=== PATIENT | male | born 1950 | race Caucasian/White ===

== ENCOUNTER 2022-09-02 18:27 | Outpatient (RCR) | payer MEDICARE, OTHER, SELFPAY | END 2022-09-26 23:59 | disposition home or self-care (01) | LOC: MM 18:27 | PROVIDERS: PCP Internal Medicine; Visit Provider Internal Medicine | DX: Z51.81 Encounter for therapeutic drug level monitoring (principal); Z79.01 Long term (current) use of anticoagulants | CPT/HCPCS: 85610; G0463 ==

== ENCOUNTER 2022-10-02 10:00 | Outpatient (RCR) | payer MEDICARE, OTHER, SELFPAY | END 2022-10-27 17:08 | disposition home or self-care (01) | LOC: MM 10:00 | PROVIDERS: PCP Internal Medicine; Visit Provider Internal Medicine | DX: Z51.81 Encounter for therapeutic drug level monitoring (principal); Z79.01 Long term (current) use of anticoagulants; I25.2 Old myocardial infarction | CPT/HCPCS: 85610; G0463 ==

== ENCOUNTER 2022-10-28 09:37 | Outpatient (RCR) | payer MEDICARE, OTHER, SELFPAY | END 2022-11-27 17:42 | disposition home or self-care (01) | LOC: MM 09:37 | PROVIDERS: PCP Internal Medicine; Visit Provider Internal Medicine | DX: Z51.81 Encounter for therapeutic drug level monitoring (principal); Z79.01 Long term (current) use of anticoagulants; I25.2 Old myocardial infarction | CPT/HCPCS: 85610; G0463 ==

== ENCOUNTER 2022-10-28 10:07 | Outpatient (OUT) | payer MEDICARE, OTHER, SELFPAY ==
[2022-10-28 11:08] LABS: Hematocrit 41.3 % (42.0-54.0); Hemoglobin 13.9 g/dL (14.0-18.0)
[2022-10-28 11:59] LABS: Alanine Aminotransferase 27 U/L (16-63); Albumin Globulin Ratio 0.9; Albumin Level 3.8 g/dL (3.4-5.0); Alkaline Phosphatase 88 U/L (46-116); Anion Gap 13.8; Aspartate Amino Transferase 14 U/L (15-37); BUN Creatinine Ratio 6.7; Bilirubin Total 0.4 mg/dL (0.2-1.0); Calcium 8.9 mg/dL (8.5-10.1); Carbon Dioxide 26.1 mmol/L (21.0-32.0); Chloride 100 mmol/L (98-107); Estimated GFR (African America 35 (>=60); Estimated GFR (Non-African Ame 29 (>=60); Globulin 4.1 g/dL; Glucose 111 mg/dL (74-106); Magnesium 2.1 mg/dL (1.8-2.4); Phosphorus 3.5 mg/dL (2.6-4.7); Potassium 3.9 mmol/L (3.5-5.1); Sodium 136 mmol/L (136-145); Total Protein 7.9 g/dL (6.4-8.2); Uric Acid 4.8 mg/dL (3.5-7.2)
[2022-10-28 12:16] LABS: Percent Iron Saturation 39.9 %
[2022-10-28 14:49] LABS: Bilirubin Urine NEGATIVE (NEGATIVE); Blood Urine SMALL (NEGATIVE); Clarity Urine CLEAR (CLEAR); Color Urine LT. YELLOW (YELLOW); Glucose Urine UA NEGATIVE (NEGATIVE); Ketones Urine NEGATIVE (NEGATIVE); Leukocyte Esterase Urine NEGATIVE (NEGATIVE); Nitrite Urine NEGATIVE (NEGATIVE); Protein Urine TRACE mg/dL (NEG/TRACE); Urobilinogen Urine 0.2 EU/dL (0.2-1.0); pH Urine 5.5 (5.0-9.0)
[2022-10-28 15:18] LABS: Creatinine Urine Random 97.32 mg/dL (20.00-300.00); Protein Creatinine Ratio Urine 0.51; Total Protein Urine Random 49.6 mg/dL (<=11.9)
[2022-10-29 11:10] LABS: PTH, Intact 77 pg/mL (15-65)
== END 2022-10-28 10:08 | disposition home or self-care (01) ==
LOC: LAB 10:10
PROVIDERS: PCP Family Medicine; Visit Provider Internal Medicine Nephrology
DX: E55.9 Vitamin D deficiency, unspecified (principal); N18.32 Chronic kidney disease, stage 3b; I10 Essential (primary) hypertension; E53.8 Deficiency of other specified B group vitamins; I27.82 Chronic pulmonary embolism
CPT/HCPCS: 36415; 80053; 81003; 82306; 82570; 82607; 82728; 82746; 83540; 83550; 83735; 83970; 84100; 84156; 84550; 85014; 85018

== ENCOUNTER 2022-11-28 09:04 | Outpatient (RCR) | payer MEDICARE, OTHER, SELFPAY | END 2022-12-26 17:01 | disposition home or self-care (01) | LOC: MM 09:04 | PROVIDERS: PCP Family Medicine; Visit Provider Internal Medicine | DX: Z51.81 Encounter for therapeutic drug level monitoring (principal); Z79.01 Long term (current) use of anticoagulants | CPT/HCPCS: 85610; G0463 ==

== ENCOUNTER 2022-12-29 02:06 | Outpatient (RCR) | payer MEDICARE, OTHER, SELFPAY | END 2023-01-27 17:29 | disposition home or self-care (01) | LOC: MM 02:06 | PROVIDERS: PCP Family Medicine; Visit Provider Internal Medicine | DX: Z51.81 Encounter for therapeutic drug level monitoring (principal); Z79.01 Long term (current) use of anticoagulants; I25.2 Old myocardial infarction | CPT/HCPCS: 85610; G0463 ==

== ENCOUNTER 2023-01-01 06:40 | Observation (INO) | payer MEDICARE, OTHER, SELFPAY ==
[2023-01-01] VITALS (36 sets, daily range): BP systolic 172–190; BP diastolic 85–117; PULSE 68–125; RESP 8–28; TEMP 36–36.7; O2SAT 93–97; BMI 34.5; BMI 31.7
--- NOTE | 2023-01-01 06:51 | ECG_ITS ---
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
--- NOTE | 2023-01-01 06:51 | ED_ITS ---
HPI - Altered Mental Status General Chief Complaint: Altered Mental Status Stated Complaint: altered mental status Time Seen by Provider: 01/01/23 06:47 Source: family () Mode of arrival: ambulance Limitations: altered mental status History of Present Illness HPI narrative: This 72-year-old male with a history of frontal lobe dementia was found wandering by the [place] [employer] this morning. His arrives shortly after he was brought to the emergency department by EMS. She states that when she woke up around 5 AM the apartment door was open and he was gone. She states she does get up at night and tends to wander around the apartment but he does not typically leave. She does not know what time he left the apartment. He does not appear to be injured. He is alert and oriented at his baseline according to her. She states that she feels unable to care for him safely at home at this time. Related Data Allergies Allergy/AdvReac Type Severity Reaction Status Date / Time Unable to Assess Allergy Verified 01/01/23 06:44 Review of Systems ROS Status of ROS 10 or more systems reviewed and unremarkable except as noted in history and below [facility] Social History Smoking status: Unknown if ever smoked Exam Narrative Exam Narrative: Nurses note and vital signs reviewed and patient is not hypoxic. Pressure is notably elevated at 174/111 General: The patient appears well and in no apparent distress. Patient is re sting comfortably on cart. He is awake, alert, pleasantly confused, mumbling, Able to answer brief questions, new his name was Al Skin: Warm, dry, no pallor noted. There is no rash noted. Head: Normocephalic, atraumatic Eye: Normal conjunctiva, no drainage, EOMI. PERRL Ears, Nose, Mouth, and Throat: oral mucosa is moist. Cardiovascular: Regular Rate and Rhythm S1S2 Respiratory: Patient is in no distress, no accessory muscle use, lungs are clear to auscultation, no wheezing, rales or rhonchi Back: non-tender, no CVA tenderness bilaterally to percussion. GI: Normal bowel sounds, no tenderness to palpation, no masses appreciated. No rebound, guarding, or rigidity noted. Musculoskeletal: The patient has no evidence of injury. Neurological: Patient knows his name and appears to recognize his . 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6 F 01/01/23 06:41 Pulse Rate 87 01/01/23 06:41 Respiratory Rate 18 01/01/23 06:41 Blood Pressure 174/111 H 01/01/23 06:41 Pulse Oximetry 97 01/01/23 06:41 Oxygen Delivery Method Room Air 01/01/23 06:41 MDM - Altered Mental Status MDM Narrative Medical decision making narrative: Patient with a history of frontal lobe dementia was brought to the emergency department by EMS after he was found walking around outside this morning. The patient's states that she woke up around 5 AM and the apartment door was open. She does not know what time he left the apartment. Does not feel that she can safely care for him at home anymore. I ordered labs including urinalysis, CBC with differential, comprehensive metabolic profile and a urinalysis. He will likely require admission for social work evaluation and possible placement area patient's is in agreement with this plan. He is signed out to the incoming physician at 7am Discharge Plan Discharge Chief Complaint: Altered Mental Status Clinical Impression: Dementia Patient Disposition: Still a Patient Referrals: Jose Bermudez MD [Primary Care Provider] - 1 week
[2023-01-01 07:18] LABS: Basophils Absolute Auto 0.1 10^3/uL (0.0-0.1); Basophils Percent Auto 0.6 % (0.2-2.0); Eosinophils Percent Auto 0.2 % (0.9-7.0); Hematocrit 37.5 % (42.0-54.0); Hemoglobin 12.1 g/dL (14.0-18.0); Immature Granulocytes Abs Auto 0.05 10^3/uL (0.00-0.03); Immature Granulocytes Pct Auto 0.4 % (0.0-0.5); Lymphocytes Absolute Auto 0.9 10^3/uL (1.2-3.8); Lymphocytes Percent Auto 6.5 % (20.5-60.0); Mean Corpuscular HGB Conc 32.3 g/dL (29.9-35.2); Mean Corpuscular Hemoglobin 31.4 pg (25.9-34.0); Mean Corpuscular Volume 97.4 fL (80.0-94.0); Mean Platelet Volume 9.5 fL (9.5-13.5); Monocytes Absolute Auto 0.8 10^3/uL (0.3-0.8); Neutrophils Percent Auto 86.3 % (43.0-75.0); Platelet Count 327 10^3/uL (150-450); Red Blood Count 3.85 10^6/uL (4.70-6.10); White Blood Count 13.9 10^3/uL (4.0-11.0)
--- NOTE | 2023-01-01 07:40 | XR_ITS ---
The [address] [address] Patient Name: OSVALDO RO MRN: [id number] date: 1950 Sex: M Assigned Patient Location: ER Current Patient Location: ER Accession/Order Number: [id number] Exam Date: 01/01/2023 07:32 Report Date: 01/01/2023 09:45 At the request of: LIANA CRUZ Procedure: XR chest 1V EXAM: XR chest 1V HISTORY: . altered MS . COMPARISON: 09/05/2020 TECHNIQUE: Single view of the chest FINDINGS: This is an expiratory chest. Heart and vascularity are unremarkable. Lungs are free of focal infiltrates. There is a small amount of scarring in the left costophrenic angle. Infusion catheter is noted with the tip over the superior vena cava. XR/XR chest 1V IMPRESSION: 1. Expiratory chest. 2. No acute heart or lung disease identified. Electronically authenticated by: BOOKER CORRAL Date: 01/01/2023 09:45
[2023-01-01 07:43] LABS: Alanine Aminotransferase 23 U/L (16-63); Albumin Globulin Ratio 0.9; Albumin Level 3.7 g/dL (3.4-5.0); Alkaline Phosphatase 96 U/L (46-116); Anion Gap 17.4; Aspartate Amino Transferase 31 U/L (15-37); BUN Creatinine Ratio 8.1; Bilirubin Total 0.4 mg/dL (0.2-1.0); Calcium 9.3 mg/dL (8.5-10.1); Carbon Dioxide 26.9 mmol/L (21.0-32.0); Chloride 103 mmol/L (98-107); Estimated GFR (African America 30 (>=60); Estimated GFR (Non-African Ame 24 (>=60); Globulin 4.2 g/dL; Glucose 120 mg/dL (74-106); Potassium 4.3 mmol/L (3.5-5.1); Sodium 143 mmol/L (136-145); Total Protein 7.9 g/dL (6.4-8.2)
--- NOTE | 2023-01-01 07:53 | CT_ITS ---
The [address] [address] Patient Name: OSVALDO RO MRN: [id number] date: 1950 Sex: M Assigned Patient Location: ER Current Patient Location: ED.MAIN Accession/Order Number: [id number] Exam Date: 01/01/2023 07:47 Report Date: 01/01/2023 08:09 At the request of: LIANA CRUZ Procedure: CT head/brain wo con CT head/brain wo con, 01/01/2023 7:47 AM EDT INDICATION: altered MS COMPARISON: There is no appropriate prior study for comparison. TECHNIQUE: Axial CT images of the brain from skull base to vertex, including portions of the face and sinuses, were obtained without contrast . Multiplanar reformatted images were generated and reviewed as needed. Dose reduction techniques were achieved by using automated exposure control and/or adjustment of mA and/or kV according to patient size and/or use of iterative reconstruction technique. FINDINGS: The sensitivity of the study has been decreased due to motion artifact. The cerebral sulci as well as ventricular system are appropriate for age. There is no intracranial mass, mass effect, midline shift, intra or extra-axial fluid collection or hemorrhage. Chronic mucoperiosteal thickening of the right maxillary sinus is noted. The visualized portions of orbits, mastoid air cells as well as remainder of paranasal sinuses are unremarkable. There is no suspicious osteolytic or osteoblastic lesion. CT/CT head/brain wo con IMPRESSION: Limited study due to motion artifact. No acute intracranial process is noted. Electronically authenticated by: ISA KOCH Date: 01/01/2023 08:09
[2023-01-01 08:58] LABS: Bilirubin Urine NEGATIVE (NEGATIVE); Blood Urine MODERATE (NEGATIVE); Clarity Urine CLEAR (CLEAR); Color Urine LT. YELLOW (YELLOW); Glucose Urine UA NEGATIVE (NEGATIVE); Ketones Urine TRACE mg/dL (NEGATIVE); Leukocyte Esterase Urine NEGATIVE (NEGATIVE); Nitrite Urine NEGATIVE (NEGATIVE); Protein Urine 30 mg/dL (NEG/TRACE); Urobilinogen Urine 0.2 EU/dL (0.2-1.0)
[2023-01-01 09:03] LABS: WBC Urine NONE SEEN #/HPF (NONE SEEN)
[2023-01-01 09:04] LABS: Bacteria Urine TRACE #/HPF (NONE SEEN); Cast Seen? NONE SEEN #/LPF (NONE SEEN); Crystals Seen? None Seen #/HPF (None Seen); Mucus Urine NONE SEEN (NONE SEEN); Squamous Epithelial Cell Urine RARE #/LPF (NONE/RARE)
--- NOTE | 2023-01-01 09:52 | ED_ITS ---
HPI - General Adult General Chief complaint: Altered Mental Status Stated complaint: altered mental status Time Seen by Provider: 01/01/23 06:47 Source: family () Mode of arrival: ambulance Limitations: altered mental status History of Present Illness HPI narrative: The patient was initially seen by Dr. White and signed out to me after discussing the case with her thoroughly. Please see her full history and physical. Related Data Home Medications Medication Instructions Recorded Confirmed albuterol sulfate 90 mcg/actuation 2 puff inhalation Q4H PRN 01/01/23 01/01/23 aerosol inhaler shortness of breath or wheezing amlodipine 10 mg tablet 10 mg PO DAILY 01/01/23 01/01/23 donepezil 10 mg tablet 10 mg PO BID 01/01/23 01/01/23 doxepin 10 mg capsule 20 mg PO BEDTIME 01/01/23 01/01/23 folic acid 1 mg tablet 1 mg PO DAILY 01/01/23 01/01/23 lamotrigine 200 mg tablet 200 mg PO TID 01/01/23 01/01/23 levothyroxine 75 mcg tablet 75 mcg PO DAILY 01/01/23 01/01/23 lorazepam 0.5 mg tablet 1 mg PO DAILY PRN agitation 01/01/23 01/01/23 mirtazapine 45 mg tablet 45 mg PO BEDTIME 01/01/23 01/01/23 potassium chloride 10 mEq 10 meq PO BID 01/01/23 01/01/23 tablet,extended release quetiapine 50 mg tablet 50 mg PO BEDTIME 01/01/23 01/01/23 simvastatin 20 mg tablet 20 mg PO BEDTIME 01/01/23 01/01/23 warfarin 2.5 mg tablet 2.5 mg PO .COMPLEX 01/01/23 01/01/23 Allergies Allergy/AdvReac Type Severity Reaction Status Date / Time tetanus and diphtheria Allergy Mild Rash Verified 01/01/23 07:58 toxoids PFSH PFS Social History Smoking status: Unknown if ever smoked Exam Constitutional Vital Signs, click to edit/add: Last Vital Signs Temp 97.6 F 01/01/23 06:41 Pulse 92 H 01/01/23 09:20 Resp 17 01/01/23 08:30 BP 179/99 H 01/01/23 07:16 Pulse Ox 97 01/01/23 06:41 O2 Del Method Room Air 01/01/23 06:41 Course Vital Signs Vital signs: Vital Signs Temperature 97.6 F 01/01/23 06:41 Pulse Rate 87 01/01/23 06:41 Respiratory Rate 18 01/01/23 06:41 Blood Pressure 174/111 H 01/01/23 06:41 Pulse Oximetry 97 01/01/23 06:41 Oxygen Delivery Method Room Air 01/01/23 06:41 Temperature 97.6 F 01/01/23 06:41 Pulse Rate 92 H 01/01/23 09:20 Respiratory Rate 17 01/01/23 08:30 Blood Pressure 179/99 H 01/01/23 07:16 Pulse Oximetry 97 01/01/23 06:41 Oxygen Delivery Method Room Air 01/01/23 06:41 Medical Decision Making MDM Narrative Medical decision making narrative: His workup is negative. No evidence of urinary tract infection or pneumonia and his CT of his brain is negative. 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 Findings are discussed with the patient and his . Differential Diagnosis Differential Diagnosis: urinary tract infection, stroke, pneumonia, dementia Lab Data Lab results reviewed: Yes I reviewed the patient's lab results Labs: Lab Results 01/01/23 01/01/23 Range/Units 07:13 08:40 WBC 13.9 H (4.0-11.0) 10^3/uL RBC 3.85 L (4.70-6.10) 10^6/uL Hgb 12.1 L (14.0-18.0) g/dL Hct 37.5 L (42.0-54.0) % MCV 97.4 H (80.0-94.0) fL MCH 31.4 (25.9-34.0) pg MCHC 32.3 (29.9-35.2) g/dL RDW 13.0 (11.0-15.0) % Plt Count 327 (150-450) 10^3/uL MPV 9.5 (9.5-13.5) fL Neut % (Auto) 86.3 H (43.0-75.0) % Lymph % (Auto) 6.5 L (20.5-60.0) % [place] % (Auto) 6.0 (1.7-12.0) % Eos % (Auto) 0.2 L (0.9-7.0) % Baso % (Auto) 0.6 (0.2-2.0) % Neut # (Auto) 12.0 H (1.4-6.5) 10^3/uL Lymph # (Auto) 0.9 L (1.2-3.8) 10^3/uL [place] # (Auto) 0.8 (0.3-0.8) 10^3/uL Eos # (Auto) 0.0 (0.0-0.7) 10^3/uL Baso # (Auto) 0.1 (0.0-0.1) 10^3/uL Abs Immat Gran (auto) 0.05 H (0.00-0.03) 10^3/uL Imm/Tot Granulo (auto) 0.4 (0.0-0.5) % Sodium 143 (136-145) mmol/L Potassium 4.3 (3.5-5.1) mmol/L Chloride 103 (98-107) mmol/L Carbon Dioxide 26.9 (21.0-32.0) mmol/L Anion Gap 17.4 BUN 21.0 H (7.0-18.0) mg/dL Creatinine 2.59 H (0.70-1.30) mg/dL Est GFR ( Amer) 30 L (>=60) Est GFR (Non-Af Amer) 24 L (>=60) BUN/Creatinine Ratio 8.1 Glucose 120 H (74-106) mg/dL Calcium 9.3 (8.5-10.1) mg/dL Total Bilirubin 0.4 (0.2-1.0) mg/dL AST 31 (15-37) U/L ALT 23 (16-63) U/L Alkaline Phosphatase 96 (46-116) U/L Total Protein 7.9 (6.4-8.2) g/dL Albumin 3.7 (3.4-5.0) g/dL Globulin 4.2 g/dL Albumin/Globulin Ratio 0.9 Urine Color Lt. yellow (YELLOW) Urine Clarity Clear (CLEAR) Urine pH 6.0 (5.0-9.0) Ur Specific [place] 1.020 (1.005-1.025) Urine Protein 30 A (NEG/TRACE) mg/dL Urine Glucose (UA) Negative (NEGATIVE) mg/dL Urine Ketones Trace A (NEGATIVE) mg/dL Urine Occult Blood Moderate A (NEGATIVE) Urine Nitrite Negative (NEGATIVE) Urine Bilirubin Negative (NEGATIVE) Urine Urobilinogen 0.2 (0.2-1.0) EU/dL Ur Leukocyte Esterase Negative (NEGATIVE) Urine RBC 2-5 A (0-2) #/HPF Urine WBC None seen (NONE SEEN) #/HPF Ur Squamous Epith Cells Rare (NONE/RARE) #/LPF Urine Crystals None seen (None Seen) #/HPF Urine Bacteria Trace A (NONE SEEN) #/HPF Urine Casts None seen (NONE SEEN) #/LPF Urine Mucus None seen (NONE SEEN) Imaging Data CT brain, chest x-ray: Radiologist's impression: Procedure: XR chest 1V EXAM: XR chest 1V HISTORY: . altered MS . COMPARISON: 09/05/2020 TECHNIQUE: Single view of the chest FINDINGS: This is an expiratory chest. Heart and vascularity are unremarkable. Lungs are free of focal infiltrates. There is a small amount of scarring in the left costophrenic angle. Infusion catheter is noted with the tip over the superior vena cava. IMPRESSION: 1. Expiratory chest. 2. No acute heart or lung disease identified. Electronically authenticated by: BOOKER CORRAL Date: 01/01/2023 09:45 Procedure: CT head/brain wo con CT head/brain wo con, 01/01/2023 7:47 AM EDT INDICATION: altered MS COMPARISON: There is no appropriate prior study for comparison. TECHNIQUE: Axial CT images of the brain from skull base to vertex, including portions of the face and sinuses, were obtained without contrast . Multiplanar reformatted images were generated and reviewed as needed. Dose reduction techniques were achieved by using automated exposure control and/or adjustment of mA and/or kV according to patient size and/or use of iterative reconstruction technique. FINDINGS: The sensitivity of the study has been decreased due to motion artifact. The cerebral sulci as well as ventricular system are appropriate for age. There is no intracranial mass, mass effect, midline shift, intra or extra-axial fluid collection or hemorrhage. Chronic mucoperiosteal thickening of the right maxillary sinus is noted. The visualized portions of orbits, mastoid air cells as well as remainder of paranasal sinuses are unremarkable. There is no suspicious osteolytic or osteoblastic lesion. IMPRESSION: Limited study due to motion artifact. No acute intracranial process is noted. Electronically authenticated by: ISA KOCH Date: 01/01/2023 08:09 Discharge Plan Discharge Chief Complaint: Altered Mental Status Clinical Impression: Dementia Patient Disposition: Admitted as Observation Time of Disposition Decision: 09:52 Condition: Good
[2023-01-01 12:31] LABS: Amphetamine Screen Urine NEGATIVE (NEGATIVE); Benzodiazepines Screen Urine POSITIVE (NEGATIVE); Cannabinoid Screen Urine NEGATIVE (NEGATIVE); Cocaine Screen Urine NEGATIVE (NEGATIVE); Methamphetamines Screen Urine NEGATIVE (NEGATIVE); Opiate Screen Urine NEGATIVE (NEGATIVE); Phencyclidine Screen Urine NEGATIVE (NEGATIVE)
[2023-01-01 12:32] LABS: Barbiturates Screen Urine NEGATIVE (NEGATIVE); Buprenorphine Screen Urine NEGATIVE (NEGATIVE); Methadone Screen Urine NEGATIVE (NEGATIVE); Oxycodone Screen Urine NEGATIVE (NEGATIVE); Tricyclic Antidepressant Urine POSITIVE (NEGATIVE)
[2023-01-01 12:52] LABS: Ammonia 18 umol/L (11-32)
[2023-01-01 12:59] LABS: Lactate/Lactic Acid 0.7 mmol/L (0.4-2.0)
[2023-01-01 13:02] LABS: INR 2.66; Prothrombin Time 26.7 sec (9.0-11.6)
[2023-01-01 13:08] LABS: Alanine Aminotransferase 23 U/L (16-63); Albumin Globulin Ratio 0.9; Albumin Level 3.5 g/dL (3.4-5.0); Alkaline Phosphatase 91 U/L (46-116); Aspartate Amino Transferase 30 U/L (15-37); Bilirubin Direct 0.1 mg/dL (0.0-0.2); Bilirubin Total 0.4 mg/dL (0.2-1.0); Free T3 1.89 pg/mL (2.18-3.98); Globulin 4.1 g/dL; Magnesium 2.2 mg/dL (1.8-2.4); Thyroid Stimulating Hormone 1.873 uIU/mL (0.358-3.740); Total Protein 7.6 g/dL (6.4-8.2)
[2023-01-01] MEDS: LAMOTRIGINE 100 MG TABLET 200 MG PO ×2 (14:15→22:04)
[2023-01-01] MEDS: LACTATED RINGER'S SOLUTION 1,000 ML 100 ML IV (14:15)
[2023-01-01] MEDS: LORAZEPAM 0.5 MG TABLET 1 MG PO (14:15)
[2023-01-01] MEDS: CEFTRIAXONE 1,000 MG in 0.9 % SODIUM CHLORIDE 50 ML 100 MG IV (14:15)
--- NOTE | 2023-01-01 14:18 | SWNOTE1 ---
DANIEL spoke with pt's outside of room. Pt just got done using the restroom and was walking independently in room. Pt's is the caregiver. She voiced he has had dementia since 1999. Pt's is home with him 20/10. She usually takes him with her to the store or any errands she has to run. If she ever leaves him home alone it is only for 5 minutes. SW asked her about support from family/friends. She voiced she has a sister and another family member who she can reach out to. She also stated she does not let them come over and stay with him because he does not like that. DANIEL asked about private caregivers and she was not sure he would like that either, but will take a list. SW asked pt's if she was looking in to have pt go to a nursing facility shelter? SW explained that it is private pay or if he qualifies for medicaid. Pt's was aware of medicaid and private pay and stated they can't afford it but also do not qualify for medicaid. Pt's did become teary eyed during conversation. DANIEL asked if pt was able to unlock door and she stated yes. DANIEL asked if she had alarms on doors and she does not. DANIEL recommended alarms and will look for various alarms online for . At this time 's plan is to take him home. SW to provide private caregiver list and information on alarms.
[2023-01-01] MEDS: CIPROFLOXACIN IN 5 % DEXTROSE 400 MG/200 ML PIGGYBACK 200 MG IV (16:36)
[2023-01-01] MEDS: ZIPRASIDONE MESYLATE 20 MG, WATER FOR INJECTION,STERILE 1.2 ML IM (16:37)
[2023-01-01] MEDS: WARFARIN SODIUM 2.5 MG TABLET PO (17:18)
--- NOTE | 2023-01-01 17:22 | P.HP_ITS ---
H&P: HPI History of Present Illness Chief complaint: altered mental status Narrative: Fall, unable to get up, EMS got patient up but with significant altered mental status was brought to the emergency room. In ER found to have distinct alterations in mental status possibly related to his dementia infection related possibility as well. White blood cell count is elevated. Urine does show a few white blood cells. Patient admitted for observation Review of Systems ROS Constitutional Denies: fever Eyes Denies: change in vision Ears, nose, mouth, and throat Denies: throat pain Cardiovascular Denies: chest pain Respiratory Denies: shortness of breath Gastrointestinal Denies: abdominal pain Genitourinary Denies: painful urination [facility] Medical History (Updated 01/01/23 @ 13:30 by Maribel Avery) Lung malignancy ?C34.90 - Malignant neoplasm of unspecified part of unspecified bronchus or lung (ICD-10) Port-A-Cath in place ?Z95.828 - Presence of other vascular implants and grafts (ICD-10) Social History Smoking status: Unknown if ever smoked Gender Identity: male Meds Home Medications and Allergies Home Medications Medication Instructions Recorded Confirmed Type albuterol sulfate 90 mcg/actuation 2 puff inhalation Q4H PRN 01/01/23 01/01/23 History aerosol inhaler shortness of breath or wheezing amlodipine 10 mg tablet 10 mg PO DAILY 01/01/23 01/01/23 History donepezil 10 mg tablet 10 mg PO BID 01/01/23 01/01/23 History doxepin 10 mg capsule 20 mg PO BEDTIME 01/01/23 01/01/23 History folic acid 1 mg tablet 1 mg PO DAILY 01/01/23 01/01/23 History lamotrigine 200 mg tablet 200 mg PO TID 01/01/23 01/01/23 History levothyroxine 75 mcg tablet 75 mcg PO DAILY 01/01/23 01/01/23 History lorazepam 0.5 mg tablet 1 mg PO DAILY PRN agitation 01/01/23 01/01/23 History mirtazapine 45 mg tablet 45 mg PO BEDTIME 01/01/23 01/01/23 History potassium chloride 10 mEq 10 meq PO BID 01/01/23 01/01/23 History tablet,extended release quetiapine 50 mg tablet 50 mg PO BEDTIME 01/01/23 01/01/23 History simvastatin 20 mg tablet 20 mg PO BEDTIME 01/01/23 01/01/23 History warfarin 2.5 mg tablet 2.5 mg PO .COMPLEX 01/01/23 01/01/23 History Allergies Allergy/AdvReac Type Severity Reaction Status Date / Time tetanus and diphtheria Allergy Mild Rash Verified 01/01/23 07:58 toxoids Exam Constitutional Vital Signs, click to edit/add: Last Vital Signs Temp 98.0 F 01/01/23 12:13 Pulse 87 01/01/23 12:13 Resp 18 01/01/23 14:00 BP 174/85 H 01/01/23 12:13 Pulse Ox 93 L 01/01/23 16:51 O2 Del Method Room Air 01/01/23 16:51 Documenting provider has reviewed patient's vital signs: yes Common normals: apparent distress Exam limitations: altered mental status, behavioral limitations and language barrier General appearance: not cooperative Nutritional appearance: obese Orientation/consciousness: Yes confused, Yes obtunded and Yes lethargic; not oriented to person, not oriented to place and not oriented to time HENMT Common normals: normocephalic and head/scalp atraumatic GI Common normals: Normal to inspection, nondistended, normoactive bowel sounds present Inspection: normal to inspection and abdominal distension Neuro Common normals: not oriented x3 Sensorium/orientation: orientation impaired, lethargic, somnolent and obtunded Results Labs Labs: Short CBC 01/01/23 Range/Units 07:13 WBC 13.9 H (4.0-11.0) 10^3/uL Hgb 12.1 L (14.0-18.0) g/dL Hct 37.5 L (42.0-54.0) % Plt Count 327 (150-450) 10^3/uL BMP 01/01/23 07:13 Sodium 143 Potassium 4.3 Chloride 103 Carbon Dioxide 26.9 BUN 21.0 H Creatinine 2.59 H Glucose 120 H Calcium 9.3 Liver Function 01/01/23 01/01/23 Range/Units 07:13 12:30 Total Bilirubin 0.4 0.4 (0.2-1.0) mg/dL Direct Bilirubin 0.1 (0.0-0.2) mg/dL AST 31 30 (15-37) U/L ALT 23 23 (16-63) U/L Alkaline Phosphatase 96 91 (46-116) U/L Albumin 3.7 3.5 (3.4-5.0) g/dL Urine 01/01/23 Range/Units 08:40 Urine Color Lt. yellow (YELLOW) Urine Clarity Clear (CLEAR) Urine pH 6.0 (5.0-9.0) Ur Specific [place] 1.020 (1.005-1.025) Urine Protein 30 A (NEG/TRACE) mg/dL Urine Glucose (UA) Negative (NEGATIVE) mg/dL Assessment and Plan Assessment and Plan (1) Lung malignancy: (2) Dementia: Plan Uncontrolled hypertension with altered mental status status post [id number] in ER unremarkable. Does have white blood cell count elevation in white blood cells in his urine. Start patient on IV antibiotics. Monitor overnight. Rylie ent does have baseline dementia but per this is much worse than his baseline. Consider teleneuro visit tomorrow depending on outcome of hydration, and IV antibiotics. Plan at the present time is to take patient home with improved home health assessments Hypothyroidism-T3 is a little bit low. Patient has a diagnosis of hypothyroidism but only on T4 currently. We will add Cytomel. Leukocytosis-check on UA culture. Start IV antibiotics secondary to his altered mental status Kidney function elevated-this is from his baseline. IV hydration overnight. If maintains elevation consider further work-up with ultrasound Currently maintain patient observation status
[2023-01-01] MEDS: MIRTAZAPINE 15 MG TABLET 45 MG PO (22:03)
[2023-01-01] MEDS: QUETIAPINE FUMARATE 25 MG TABLET 50 MG PO (22:03)
[2023-01-01] MEDS: POTASSIUM CHLORIDE 10 MEQ ER TABLET PO (22:03)
[2023-01-01] MEDS: ATORVASTATIN CALCIUM 10 MG TABLET PO (22:03)
[2023-01-01] MEDS: DONEPEZIL HCL 10 MG TABLET PO (22:04)
[2023-01-01] MEDS: DOXEPIN HCL 10 MG CAPSULE 20 MG PO (22:28)
[2023-01-01] MEDS: HYDRALAZINE HCL 20 MG/ML VIAL 10 MG IVP (22:40)
[2023-01-02] MEDS: ZIPRASIDONE MESYLATE 20 MG, WATER FOR INJECTION,STERILE 1.2 ML IM (00:11)
[2023-01-02] MEDS: LACTATED RINGER'S SOLUTION 1,000 ML 100 ML IV (01:07)
[2023-01-02 04:59] LABS: Basophils Absolute Auto 0.1 10^3/uL (0.0-0.1); Basophils Percent Auto 0.9 % (0.2-2.0); Eosinophils Absolute Auto 0.2 10^3/uL (0.0-0.7); Eosinophils Percent Auto 2.1 % (0.9-7.0); Hematocrit 33.2 % (42.0-54.0); Hemoglobin 10.7 g/dL (14.0-18.0); Immature Granulocytes Abs Auto 0.03 10^3/uL (0.00-0.03); Immature Granulocytes Pct Auto 0.4 % (0.0-0.5); Lymphocytes Absolute Auto 1.3 10^3/uL (1.2-3.8); Lymphocytes Percent Auto 17.4 % (20.5-60.0); Mean Corpuscular HGB Conc 32.2 g/dL (29.9-35.2); Mean Corpuscular Hemoglobin 31.3 pg (25.9-34.0); Mean Corpuscular Volume 97.1 fL (80.0-94.0); Mean Platelet Volume 9.6 fL (9.5-13.5); Monocytes Absolute Auto 0.5 10^3/uL (0.3-0.8); Monocytes Percent Auto 6.8 % (1.7-12.0); Neutrophils Absolute Auto 5.4 10^3/uL (1.4-6.5); Neutrophils Percent Auto 72.4 % (43.0-75.0); Platelet Count 277 10^3/uL (150-450); Red Blood Count 3.42 10^6/uL (4.70-6.10); White Blood Count 7.5 10^3/uL (4.0-11.0)
[2023-01-02 05:15] LABS: INR 2.77; Prothrombin Time 27.7 sec (9.0-11.6)
[2023-01-02 05:16] VITALS: BP 178/89; PULSE 89; RESP 18; TEMP 36.7; O2SAT 94
[2023-01-02 05:23] LABS: Alanine Aminotransferase 23 U/L (16-63); Albumin Globulin Ratio 0.8; Alkaline Phosphatase 81 U/L (46-116); Aspartate Amino Transferase 25 U/L (15-37); BUN Creatinine Ratio 6.8; Bilirubin Total 0.4 mg/dL (0.2-1.0); Calcium 8.3 mg/dL (8.5-10.1); Carbon Dioxide 27.5 mmol/L (21.0-32.0); Chloride 105 mmol/L (98-107); Estimated GFR (African America 39 (>=60); Estimated GFR (Non-African Ame 32 (>=60); Globulin 3.8 g/dL; Glucose 86 mg/dL (74-106); Potassium 3.5 mmol/L (3.5-5.1); Sodium 139 mmol/L (136-145); Total Protein 6.8 g/dL (6.4-8.2)
[2023-01-02] MEDS: CIPROFLOXACIN IN 5 % DEXTROSE 400 MG/200 ML PIGGYBACK 200 MG IV (05:29)
[2023-01-02] MEDS: LAMOTRIGINE 100 MG TABLET 200 MG PO (06:24)
[2023-01-02] MEDS: LEVOTHYROXINE SODIUM 75 MCG TABLET PO (06:24)
--- NOTE | 2023-01-02 08:08 | P.PN_ITS ---
Progress Note: Subjective Subjective Interval history: Left slight. Exam Constitutional Vital Signs, click to edit/add: Last Vital Signs Temp 98.1 F 01/02/23 05:16 Pulse 89 01/02/23 05:16 Resp 18 01/02/23 05:16 BP 178/89 H 01/02/23 05:16 Pulse Ox 94 L 01/02/23 05:16 O2 Del Method Room Air 01/02/23 05:16 Documenting provider has reviewed patient's vital signs: yes Common normals: apparent distress Exam limitations: altered mental status, behavioral limitations and language barrier General appearance: not cooperative Nutritional appearance: obese Orientation/consciousness: Yes confused, Yes obtunded and Yes lethargic; not oriented to person, not oriented to place and not oriented to time HENMT Common normals: normocephalic and head/scalp atraumatic GI Common normals: Normal to inspection, nondistended, normoactive bowel sounds present Inspection: normal to inspection and abdominal distension Neuro Common normals: not oriented x3 Sensorium/orientation: orientation impaired, lethargic, somnolent and obtunded Progress Note: Objective Labs Labs: Short CBC 01/02/23 Range/Units 04:30 WBC 7.5 (4.0-11.0) 10^3/uL Hgb 10.7 L (14.0-18.0) g/dL Hct 33.2 L (42.0-54.0) % Plt Count 277 (150-450) 10^3/uL BMP 01/02/23 04:30 Sodium 139 Potassium 3.5 Chloride 105 Carbon Dioxide 27.5 BUN 14.0 Creatinine 2.05 H Glucose 86 Calcium 8.3 L Liver Function 01/01/23 01/02/23 Range/Units 12:30 04:30 Total Bilirubin 0.4 0.4 (0.2-1.0) mg/dL Direct Bilirubin 0.1 (0.0-0.2) mg/dL AST 30 25 (15-37) U/L ALT 23 23 (16-63) U/L Alkaline Phosphatase 91 81 (46-116) U/L Albumin 3.5 3.0 L (3.4-5.0) g/dL Urine 01/01/23 Range/Units 08:40 Urine Color Lt. yellow (YELLOW) Urine Clarity Clear (CLEAR) Urine pH 6.0 (5.0-9.0) Ur Specific [place] 1.020 (1.005-1.025) Urine Protein 30 A (NEG/TRACE) mg/dL Urine Glucose (UA) Negative (NEGATIVE) mg/dL Progress Note: A&P Assessment and Plan (1) Lung malignancy: (2) Dementia: Plan Uncontrolled hypertension with altered mental status status post [id number] in ER unremarkable. Does have white blood cell count elevation in white blood cells in his urine. Start patient on IV antibiotics. Monitor overnight. Family considering options for placement versus back home with home health. Will evaluate later today for possible discharge versus transfer Uncontrolled hypertension-adjust medications. Hypothyroidism-T3 is a little bit low. Patient has a diagnosis of hypothyroidism but only on T4 currently. We will add Cytomel. Leukocytosis-check on UA culture. Urine culture pending Kidney function elevated-this is from his baseline. Improved-saline lock Currently maintain patient observation status ?
--- NOTE | 2023-01-02 09:09 | SWNOTE1 ---
SW stopped back in to talk with pt's . SW provided information for alarms for the doors. SW printed off information from [email or web address]. SW also provided private caregiver list. SW did ask pt's he had home health at home and she stated no. SW asked if she thought a nurse coming in would be beneficial? 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 SW again asked if she would like SW to look into placement longterm at a facility and stated no. 's plan is to take pt home at discharge. SW updated nurse and doctor.
--- NOTE | 2023-01-02 09:12 | SWNOTE1 ---
SW did review NASH form with pt's . She voiced understanding and had no questions at this time. Pt's signed form, original given to and copy placed in chart.
[2023-01-02] MEDS: LIOTHYRONINE SODIUM 5 MCG TABLET 10 MCG PO (09:43)
[2023-01-02] MEDS: POTASSIUM CHLORIDE 10 MEQ ER TABLET PO (09:44)
[2023-01-02] MEDS: DONEPEZIL HCL 10 MG TABLET PO (09:44)
[2023-01-02] MEDS: FOLIC ACID 1 MG TABLET PO (09:44)
[2023-01-02 09:48] VITALS: BP 158/78
[2023-01-02] MEDS: AMLODIPINE BESYLATE 5 MG TABLET 10 MG PO (09:48)
[2023-01-02 09:49] VITALS: BP 158/78
[2023-01-02] MEDS: CLONIDINE HCL 0.1 MG TABLET PO (09:49)
[2023-01-02] MEDS: HEPARIN SODIUM (PORCINE) PF LOCK FLUSH 500 UNIT/5 ML SYRINGE 250 UNIT IV (10:27)
--- NOTE | 2023-01-06 15:39 | CM.DCFOLLOWU ---
Person spoke with: pt's How are you feeling? feeling alright How is your pain? no pain, has had some falls, but he has been doing that for awhile. She voiced he is too stubborn to use any DME to assist him to get around Did you understand your discharge instructions? yes Do you have any questions about your discharge instructions? no Were you given any prescriptions at discharge? yes Were you able to get your prescriptions filled? yes Do you understand how to take your medications as ordered? yes Do you have any questions about your follow up appointment and do you plan to keep your follow up appointment? no questions, follow up with Dr Bermudez on 01/08/23 Is there anything else that you would like to discuss? no, will address further questions with PCP Questions/Comments/Concerns/Other:
[2023-01-07 20:07] LABS: Summary Report (Summary) FINAL (.)
== END 2023-01-02 10:32 | disposition home or self-care (01) ==
LOC: ER 09:52 → MS 11:38
PROVIDERS: Emergency Medicine; Admitting Provider Family Medicine; Emergency Provider Emergency Medicine; PCP Family Medicine; Visit Provider Family Medicine
DX: R41.82 Altered mental status, unspecified (principal); I10 Essential (primary) hypertension; D72.829 Elevated white blood cell count, unspecified; E03.9 Hypothyroidism, unspecified; R94.4 Abnormal results of kidney function studies; G31.09 Other frontotemporal neurocognitive disorder; F02.80 Dementia in other diseases classified elsewhere, unspecified severity, without behavioral disturbance, psychotic disturbance, mood disturbance, and anxiety; C34.90 Malignant neoplasm of unspecified part of unspecified bronchus or lung; Z91.81 History of falling; Z79.899 Other long term (current) drug therapy; Z79.01 Long term (current) use of anticoagulants; Z79.890 Hormone replacement therapy; Z95.828 Presence of other vascular implants and grafts
CPT/HCPCS: 36415; 36569; 70450; 71045; 80053; 80076; 80307; 80326; 80331; 80334; 80337; 80338; 80341; 80344; 80346; 80348; 80353; 80354; 80355; 80357; 80358; 80359; 80360; 80361; 80364; 80365; 80366; 80367; 80368; 80370; 80371; 80372; 80373; 80377; 81001; 82140; 82570; 83605; 83735; 83880; 83992; 84436; 84443; 84481; 85025; 85610; 87086; 93005; 94761; 96361; 96365; 96366; 96367; 96372; 96375; 99285; G0378

== ENCOUNTER 2023-01-14 14:20 | Outpatient (RCR) | payer MEDICARE, OTHER, SELFPAY | END 2023-02-13 15:04 | disposition home or self-care (01) | LOC: PT 14:20 | PROVIDERS: PCP Family Medicine | DX: R53.1 Weakness (principal); R29.6 Repeated falls | CPT/HCPCS: 97110; 97112; 97162; 97530 ==

== ENCOUNTER 2023-01-28 00:18 | Outpatient (RCR) | payer MEDICARE, OTHER, SELFPAY | END 2023-02-26 16:08 | disposition home or self-care (01) | LOC: MM 00:18 | PROVIDERS: PCP Family Medicine; Visit Provider Internal Medicine | DX: Z51.81 Encounter for therapeutic drug level monitoring (principal); Z79.01 Long term (current) use of anticoagulants; I25.2 Old myocardial infarction | CPT/HCPCS: 85610; G0463 ==

== ENCOUNTER 2023-02-27 09:43 | Outpatient (RCR) | payer MEDICARE, OTHER, SELFPAY | END 2023-03-27 15:25 | disposition home or self-care (01) | LOC: MM 09:43 | PROVIDERS: PCP Family Medicine; Visit Provider Internal Medicine | DX: Z51.81 Encounter for therapeutic drug level monitoring (principal); Z79.01 Long term (current) use of anticoagulants; I26.99 Other pulmonary embolism without acute cor pulmonale | CPT/HCPCS: 85610; G0463 ==

== ENCOUNTER 2023-03-05 11:55 | Outpatient (OUT) | payer MEDICARE, OTHER, SELFPAY ==
[2023-03-05 12:19] LABS: Hematocrit 36.7 % (42.0-54.0); Hemoglobin 11.7 g/dL (14.0-18.0); Mean Corpuscular HGB Conc 31.9 g/dL (29.9-35.2); Mean Corpuscular Hemoglobin 29.9 pg (25.9-34.0); Mean Corpuscular Volume 93.9 fL (80.0-94.0); Mean Platelet Volume 10.2 fL (9.5-13.5); Platelet Count 316 10^3/uL (150-450); Red Blood Count 3.91 10^6/uL (4.70-6.10); Red Cell Distribution Width 12.8 % (11.0-15.0); White Blood Count 7.1 10^3/uL (4.0-11.0)
[2023-03-05 12:20] LABS: Bilirubin Urine NEGATIVE (NEGATIVE); Blood Urine TRACE-I (NEGATIVE); Clarity Urine CLEAR (CLEAR); Color Urine LT. YELLOW (YELLOW); Glucose Urine UA NEGATIVE (NEGATIVE); Ketones Urine NEGATIVE (NEGATIVE); Leukocyte Esterase Urine NEGATIVE (NEGATIVE); Nitrite Urine NEGATIVE (NEGATIVE); Protein Urine NEGATIVE (NEG/TRACE); Urobilinogen Urine 0.2 EU/dL (0.2-1.0)
[2023-03-05 12:58] LABS: Percent Iron Saturation 19.6 %
[2023-03-05 13:03] LABS: Creatinine Urine Random 73.64 mg/dL (20.00-300.00); Protein Creatinine Ratio Urine 0.48; Total Protein Urine Random 35.4 mg/dL (<=11.9)
[2023-03-05 13:07] LABS: Alanine Aminotransferase 15 U/L (16-63); Albumin Globulin Ratio 0.8; Albumin Level 3.5 g/dL (3.4-5.0); Alkaline Phosphatase 97 U/L (46-116); Aspartate Amino Transferase 12 U/L (15-37); BUN Creatinine Ratio 8.5; Bilirubin Total 0.3 mg/dL (0.2-1.0); Calcium 9.1 mg/dL (8.5-10.1); Carbon Dioxide 27.8 mmol/L (21.0-32.0); Chloride 101 mmol/L (98-107); Estimated GFR (African America 38 (>=60); Estimated GFR (Non-African Ame 31 (>=60); Globulin 4.3 g/dL; Glucose 112 mg/dL (74-106); Phosphorus 3.7 mg/dL (2.6-4.7); Potassium 3.8 mmol/L (3.5-5.1); Sodium 139 mmol/L (136-145); Total Protein 7.8 g/dL (6.4-8.2); Uric Acid 4.1 mg/dL (3.5-7.2)
[2023-03-06 13:07] LABS: PTH, Intact 65 pg/mL (15-65)
== END 2023-03-05 11:56 | disposition home or self-care (01) ==
LOC: LAB 11:57
PROVIDERS: PCP Family Medicine; Visit Provider Internal Medicine Nephrology
DX: N18.32 Chronic kidney disease, stage 3b (principal); I10 Essential (primary) hypertension; E55.9 Vitamin D deficiency, unspecified; E53.8 Deficiency of other specified B group vitamins; I27.82 Chronic pulmonary embolism
CPT/HCPCS: 36415; 80053; 81003; 82306; 82570; 82607; 82728; 82746; 83540; 83550; 83970; 84100; 84156; 84550; 85027

== ENCOUNTER 2023-03-30 02:08 | Outpatient (RCR) | payer MEDICARE, OTHER, SELFPAY | END 2023-04-29 17:20 | disposition home or self-care (01) | LOC: MM 02:08 | PROVIDERS: PCP Family Medicine; Visit Provider Internal Medicine | DX: Z51.81 Encounter for therapeutic drug level monitoring (principal); Z79.01 Long term (current) use of anticoagulants; I26.99 Other pulmonary embolism without acute cor pulmonale | CPT/HCPCS: 85610; G0463 ==

== ENCOUNTER 2023-04-02 08:40 | Outpatient (OUT) | payer MEDICARE, OTHER, SELFPAY ==
--- OUTSIDE RECORDS SUMMARY | 2023-04-02 08:47 | XMS_ITS | CCD ---
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 Name Role Phone PHYSICIAN, DEFAULT Unavailable Unavailable PHYSICIAN, DEFAULT Unavailable Unavailable PHYSICIAN, DEFAULT Unavailable Unavailable PHYSICIAN, DEFAULT Unavailable Unavailable Dominguez Saini MD Primary Care Provider [phone] Nazanin Rush (Hist) Unavailable Dominguez Saini MD Primary Care Provider [phone] Nazanin Rush (Hist) Unavailable Dominguez Saini MD Primary Care Provider [phone] Timothy Galarza Unavailable Dominguez Saini MD Primary Care Provider [phone] Nazanin Rush (Hist) Unavailable FAWWAD, ORDOÑEZ H Attending Unavailable FAWWAD, ORDOÑEZ H Admitting Unavailable HOY ., DR MIX Primary Care Unavailable FAWWAD, ORDOÑEZ H Attending Unavailable FAWWAD, ORDOÑEZ H Admitting Unavailable HOY ., DR MIX Primary Care Unavailable FAWWAD, ORDOÑEZ H Attending Unavailable FAWWAD, ORDOÑEZ H Admitting Unavailable HOY ., DR MIX Primary Care Unavailable FAWWAD, ORDOÑEZ H Admitting Unavailable HOY ., DR MIX Primary Care Unavailable FAWWAD, ORDOÑEZ H Attending Unavailable FAWWAD, ORDOÑEZ H Admitting Unavailable HOY ., DR MIX Primary Care Unavailable FAWWAD, ORDOÑEZ H Attending Unavailable FAWWAD, ORDOÑEZ H Admitting Unavailable HOY ., DR MIX Primary Care Unavailable FAWWAD, ORDOÑEZ H Attending Unavailable FAWWAD, ORDOÑEZ H Attending Unavailable HOY ., DR MIX Primary Care Unavailable FAWWAD, ORDOÑEZ H Admitting Unavailable FAWWAD, ORDOÑEZ H Attending Unavailable FAWWAD, ORDOÑEZ H Admitting Unavailable HOY ., DR MIX Primary Care Unavailable FAWWAD, ORDOÑEZ H Attending Unavailable FAWWAD, ORDOÑEZ H Admitting Unavailable HOY ., DR MIX Primary Care Unavailable HOY ., DR MIX Primary Care Unavailable MISC, DOCTOR Attending Unavailable MISC, DOCTOR Admitting Unavailable BAKHOUS, AZIZ Consulting Unavailable HOY ., DR MIX Primary Care Unavailable HOY ., DR MIX Consulting Unavailable HOY ., DR MIX Attending Unavailable HOY ., DR MIX Admitting Unavailable FAWWAD, ORDOÑEZ H Attending Unavailable FAWWAD, ORDOÑEZ H Admitting Unavailable HOY ., DR MIX Primary Care Unavailable FAWWAD, ORDOÑEZ H Attending Unavailable FAWWAD, ORDOÑEZ H Admitting Unavailable HOY ., DR MIX Primary Care Unavailable Nazanin Rush (Hist) Unavailable [phone] HOY, DOMINGUEZ M Primary Care Unavailable HOY, DOMINGUEZ M Primary Care Unavailable HOY, DOMINGUEZ M Primary Care Unavailable HOY, DOMINGUEZ M Primary Care Unavailable HOY, DOMINGUEZ M Primary Care Unavailable HOY, DOMINGUEZ M Primary Care Unavailable HOY, DOMINGUEZ M Primary Care Unavailable HOY, DOMINGUEZ M Primary Care Unavailable HOY, DOMINGUEZ M Primary Care Unavailable Allergies Allergy Classification Reported Allergen(s) Allergy Type Date of Onset Reaction(s) Facility (11 sources) Chocolate; Translations: [CHOCOLATE] Food Allergy 05-05-19 13 Intolerance [facility] (11 sources) Phenytoin; Translations: [PHENYTOIN] Drug Allergy 01-28-20 12 Unknown [facility] (4 sources) Tetanus Vaccines And Toxoid; Translations: [TETANUS VACCINES AND TOXOID] Drug Allergy 01-28-20 12 Swelling [facility] (11 sources) Wool; Translations: [WOOL] Allergy to substance 10-25-19 14 Hives, Swelling [facility] Work Phone: (7 sources) Tetanus Vaccines And Toxoid Drug Allergy 01-28-20 12 Swelling [facility] (5 sources) Chocolate; Translations: [chocolate flavor] Drug allergy 07-14-19 17 Unknown [facility] (1 source) Tetanus toxoid specific immunoglobulin E Drug allergy Unknown [facility] Other (3 sources) Tetanus vaccine Drug allergy Unknown [facility] Other (1 source) Allopurinol Drug Allergy 07-14-19 17 [facility] (1 source) carBAMazepine Drug Allergy 07-14-19 17 [facility] (1 source) Phenytoin Drug Allergy 07-14-19 17 [facility] Medications Current Medications Medication Drug Class(es) Dates Sig (Normalized) Sig (Original) Budesonide (2 sources) Corticosteroid Budesonide Activ e docusate sodium 50 mg oral capsule (4 sources) take 1 capsule by mouth once daily as needed Docusate Sodium 50 MG 1 capsule as needed Orally Once a day Active donepezil hydrochloride 10 mg oral tablet (4 sources) take 1 tablet by abimbola th every twelve hours Donepezil HCl 10 MG 1 TABLET Orally TWICE A DAY Active take 1 tablet by abimbola th every twenty-four hours Donepezil HCl 10 MG 1 tablet at bedtime Orally Once a day Active doxepin hydrochloride 10 mg oral capsule (4 sources) Tricyclic Antidepressant take 1 capsule by mouth every twenty-four hours Doxepin HCl 10 MG 1 capsule at bedtime Orally Once a day Active folic acid 1 mg oral tablet (3 sources) Start: 023 take 1 tablet by mouth every twenty-four hours Folic Acid 1 MG 1 tablet Orally Once a day for 90 days Jun, Active levothyroxine sodium 0.075 mg oral tablet (14 sources) l-Thyroxine take 1 tablet by mouth once daily in the morning Levothyroxine Sodium 75 MCG 1 tablet in the morning on an empty stomach Orally Once a day Active take 1 tablet by abimbola th once daily before breakfast levothyroxine (SYNTHROID) 50 mcg tablet Take 50 mcg by mouth daily before breakfast. 0 Active take 1 tablet by abimbola th once daily in the morning Levothyroxine Sodium 75 MCG 1 tablet in the morning on an empty stomach Orally Once a day Active Comment on above: Take 50 mcg by mouth daily before breakfast. liothyronine sodium 0.005 mg oral tablet (1 source) l-Triiodothyronine take 2 tablets by mouth every twenty-four hours Liothyronine Sodium 5 MCG 2 tablet on an empty stomach Orally Once a day Active LORazepam 0.5 mg oral tablet (4 sources) Benzodiazepine take 1 tablet by mouth every twenty-four hours LORazepam 0.5 MG 1 tablet at bedtime as needed Orally Once a day Active montelukast 10 mg oral tablet (2 sources) Leukotriene Receptor Antagonist take 1 tablet by mouth every twenty-four hours Montelukast Sodium 10 MG 1 tablet Orally Once a day Active potassium chloride 10 meq extended release oral tablet (4 sources) take 1 tablet by mouth every twelve hours Klor-Con 10 10 MEQ 1 tablet with food Orally Twice a day Active predniSONE 10 mg oral tablet (2 sources) take 1 tablet by mouth every twenty-four hours predniSONE 10 MG 1 tablet Orally Once a day Active QUEtiapine 50 mg oral tablet (4 sources) Atypical Antipsychotic take 1 tablet by mouth every twenty-four hours QUEtiapine Fumarate 50 MG 1 tablet at bedtime Orally Once a day Active simvastatin 20 mg oral tablet (4 sources) HMG-CoA Reductase Inhibitor take 1 tablet by mouth every twenty-four hours Simvastatin 20 MG 1 tablet in the evening Orally Once a day Active Vitamin B-12 1000 MCG (1 source) take 1 tablet by mouth once daily Vitamin B-12 1000 MCG 1 tablet Orally Once a day Active vitamin b12 1 mg oral tablet (3 sources) Vitamin B12 take 1 tablet by mouth every twenty-four hours Vitamin B-12 1000 MCG 1 tablet Orally Once a day Active take 1 tablet by abimbola th every twenty-four hours Vitamin B-12 1000 MCG 1 tablet Orally Once a day Active Vitamin D (4 sources) Vitamin D Active Completed/Discontinued Medications Medication Drug Class(es) Dates Sig (Normalized) Sig (Original) 0.9% NaCl (20 sources) Start: 10-04-2015 0.9% NaCl Inject 10-20 mL intravenously as needed. NURSING USE ONLY: USED FOR IV ACCESS. AMBULATORY/OUTPATIENT: PLEASE REORDER UPON HOSPITAL DISCHARGE If no IVAD access, may place IV if needed for labs or possible treatment. Flush 10-20ml on IV start and as needed. Please discontinue IV on completion of treatment. 1 Syringe 0 10/04/2015 Active Start: 10-04-2015 0.9% NaCl NU RSING USE ONLY: USED FOR IMPLANTED VASCULAR ACCESS DEVICE (IVAD) ACCESS. AMBULATORY/OUTPATIENT: PLEASE REORDER UPON HOSPITAL DISCHARGE May access implanted vascular access device (IVAD) as needed for treatment. Flush IVAD with 10-20 mL NS every 4 weeks and PRN when IVAD not in use. 1 Syringe 100 10/04/2015 Active Comment on above: Inject 10-20 mL intr avenously as needed. NURSING USE ONLY: USED FOR IV ACCESS. AMBULATORY/OUTPATIENT: PLEASE REORDER UPON HOSPITAL DISCHARGE If no IVAD access, may place IV if needed for labs or possible treatment. Flush 10-20ml on IV start and as needed. Please discontinue IV on completion of treatment. NURSING USE ONLY: USED FOR IMPLANTED VASCULAR ACCESS DEVICE (IVAD) ACCESS. AMBULATORY/OUTPATIENT: PLEASE REORDER UPON HOSPITAL DISCHARGE May access implanted vascular access device (IVAD) as needed for treatment. Flush IVAD with 10-20 mL NS every 4 weeks and PRN when IVAD not in use. acetaminophen 500 mg oral tablet (10 sources) take 1 tablet by mouth every six hours as needed acetaminophen (TYLENOL EXTRA STRENGTH) 500 mg tablet Take 500 mg by mouth every 6 hours as needed. 0 Active Comment on above: Take 500 mg by mouth every 6 hours as needed. [id number] 200 actuat albuterol 0.09 mg/actuat metered dose inhaler (10 sources) beta2-Adrenergic Agonist take 2 puff(s) by inhalation every six hours as needed albuterol HFA (VENTOLIN HFA) 90 mcg/actuation inhaler Inhale 2 Puffs as instructed every 6 hours as needed. 0 Active Comment on above: Inhale 2 Puffs as in structed every 6 hours as needed. amLODIPine 10 mg oral tablet (14 sources) Dihydropyridine Calcium Channel Vasiliy Start : 07-21 take 1 tablet by mouth once daily amLODIPine (NORVASC) 10 mg tablet Take 1 tablet by mouth once daily. 30 tablet 1 07/21/2016 Active Comment on above: Take 1 tablet by abimbola th once daily. carvedilol 12.5 mg oral tablet (10 sources) alpha-Adrenergic Vasiliy, beta-Adrenergic Vasiliy Start : 07-21 take 1 tablet by mouth twice daily at mealtime carvedilol (COREG) 12.5 mg tablet Take 1 tablet by mouth twice daily with meals. 60 tablet 1 07/21/2016 Active Comment on above: Take 1 tablet by abimbola th twice daily with meals. cholecalciferol 0.05 mg oral capsule (10 sources) Vitamin D Cholecalciferol, Vitamin D3, (VITAMIN D-3) 2,000 unit cap Take by mouth. 0 Active Comment on above: Take by mouth. colesevelam hydrochloride 625 mg oral tablet (10 sources) Bile Acid Sequestrant Start : 01-26 take 2 tablets by mouth twice daily at mealtime colesevelam (WELCHOL) 625 mg tablet Take 1,250 mg by mouth twice daily with meals. 0 01/27/2012 Active Comment on above: Take 1,250 mg by abimbola th twice daily with meals. cyanocobalamin, vitamin B-12, (B-12 KIT INJECTION) (10 sources) cyanocobalamin, vitamin B-12, (B-12 KIT INJECTION) by INJECTION(UNSPECIF IED PARENTERAL ROUTES) route. 0 Active Comment on above: by INJECTION(UNSPECI FIED PARENTERAL ROUTES) route. ferrous sulfate 325 mg oral tablet (10 sources) take 1 tablet by mouth once daily at breakfast ferrous sulfate (IRON) 325 mg (65 mg iron) tablet Take 325 mg by mouth daily with breakfast. 0 Active Comment on above: Take 325 mg by mouth daily with breakfast. heparin (10 sources) Unfractionated Heparin, Anti-coagulant Start : 10-03 heparin 100 unit/mL syrg NURSING USE ONLY: USE FOR IMPLANTED VASCULAR ACCESS DEVICE (IVAD) FLUSH. AMBULATORY/OUTPATI ENT: PLEASE REORDER UPON HOSPITAL DISCHARGE May access implanted vascular access device (IVAD) as needed for treatment. Before de-accessing port, flush with 10-20ml normal saline and follow with 5 mL heparin (100 units/mL) (if no heparin allergy). De-access port on treatment completion. 1 Syringe 100 10/04/2015 Active Comment on above: NURSING USE ONLY: USE FOR IMPLANTED VASCULAR ACCESS DEVICE (IVAD) FLUSH. AMBULATORY/OUTPATIENT: PLEASE REORDER UPON HOSPITAL DISCHARGE May access implanted vascular access device (IVAD) as needed for treatment. Before de-accessing port, flush with 10-20ml normal saline and follow with 5 mL heparin (100 units/mL) (if no heparin allergy). De-access port on treatment completion. lamoTRIgine 200 mg oral tablet (14 sources) Mood Stabilizer, Anti-epileptic Agent Start : 01-26 take 1 tablet by mouth three times daily lamoTRIgine 200 mg tablet Take 200 mg by mouth three times daily. 0 01/27/2012 Active take 1 tablet by abimbola th every twenty-four hours lamoTRIgine 200 MG 1 tablet Orally Once a day Active Comment on above: Take 200 mg by mouth three times daily. mirtazapine 30 mg oral tablet (14 sources) Start: 01-27-2012 mirtazapine (REMERON) 30 mg tablet Take 45 mg by mouth daily at bedtime. 0 01/27/2012 Active take 1 tablet by abimbola th every twenty-four hours Mirtazapine 45 MG 1 tablet at bedtime Orally Once a day Active Comment on above: Take 45 mg by mouth daily at bedtime. pravastatin sodium 40 mg oral tablet (10 sources) HMG-CoA Reductase Inhibitor Start: 2 take 1 tablet by mouth once daily at bedtime pravastatin (PRAVACHOL) 40 mg tablet Take 1 tablet by mouth daily at bedtime. 0 01/27/2012 Active Comment on above: Take 1 tablet by abimbola th daily at bedtime. primidone 250 mg oral tablet (10 sources) Anti-epileptic Agent Start: 3 take 1 tablet by mouth three times daily PRIMIDONE 250 mg tablet Take 250 mg by mouth three times daily. 0 07/25/2012 Active Comment on above: Take 250 mg by mouth three times daily. warfarin sodium 5 mg oral tablet (14 sources) Vitamin K Antagonist Start: 7 take 1 tablet by mouth once daily warfarin (COUMADIN) 5 mg tablet Take 1 tablet by mouth once daily. 30 tablet 1 07/21/2016 Active Warfarin 2.5mg 2 .5 mg as directed orally Active Comment on above: Take 1 tablet by abimbola th once daily. Problems Active Problems Problem Classification Problem Date Documented Da te Episodic/Chronic Cancer of bronchus; lung (20 sources) Overlapping malignant neoplasm of bronchus and lung; Translations: [Malignant neoplasm of overlapping sites of left bronchus and lung] Onset: 01-28-2012 Chronic Chronic kidney disease (20 sources) Chronic kidney disease stage 3; Translations: [CKD (chronic kidney disease) stage 3, GFR 30-59 ml/min] Onset: 08-11-2012 07-21-2016 Chronic Chronic obstructive pulmonary disease and bronchiectasis (4 sources) Chronic obstructive pulmonary disease, unspecified; Translations: [COPD UNSPECIFIED] Onset: 12-17-2021 Chronic Congestive heart failure; nonhypertensive (1 source) Unspecified diastolic (congestive) heart failure; Translations: [UNSPECIFIED DIASTOLIC HEART FAILURE] Onset: 12-18-2021 Chronic Deficiency and other anemia (1 source) Anemia; Translations: [Anemia in chronic kidney disease] Chronic Deficiency and other anemia (1 source) Anemia in chronic kidney disease Chronic Disorders of lipid metabolism (11 sources) Hyperlipidemia; Translations: [Hyperlipidemia, unspecified] Onset: 07-13-2016 07-18-2016 Chronic Epilepsy; convulsions (10 sources) Seizure disorder; Translations: [Epilepsy, unspecified, not intractable, without status epilepticus] Onset: 07-13-2016 07-18-2016 Chronic Essential hypertension (18 sources) Essential hypertension; Translations: [Essential (primary) hypertension] Onset: 07-13-2016 07-18-2016 Chronic Fluid and electrolyte disorders (2 sources) Hypokalemia Episodic Hypertension with complications and secondary hypertension (5 sources) Hypertensive chronic kidney disease with stage 1 through stage 4 chronic kidney disease, or unspecified chronic kidney disease; Translations: [Hypertensive heart disease with heart failure] Onset: 12-18-2021 Chronic Nutritional deficiencies (9 sources) Vitamin D deficiency; Translations: [Vitamin D deficiency, unspecified] Onset: 06-26-2022 Chronic Nutritional deficiencies (8 sources) Deficiency of other specified B group vitamins; Translations: [DEFICIENCY SPEC B GROUP VITAMINS] Onset: 06-26-2022 Episodic Other aftercare (5 sources) Encounter for therapeutic drug level monitoring; Translations: [ENC THERAPEUTC DRUG LEVL MONITORING] Onset: 07-26-2022 Episodic Other aftercare (1 source) 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; Translations: [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 CARRIER CURRNT USE ANTICOAGULANTS] Onset: 08-27-2022 Episodic Other hereditary and degenerative nervous system conditions (1 source) Mild cognitive impairment, so stated; Translations: [MILD COGNITIVE IMPAIRMENT SO STATED] Onset: 12-18-2021 Chronic Pulmonary heart disease (6 sources) Chronic pulmonary embolism; Translations: [Chronic pulmonary embolism] Chronic Pulmonary heart disease (6 sources) Other pulmonary embolism without acute cor pulmonale; Translations: [Personal history of pulmonary embolism] Onset: 12-30-2021 Episodic Residual codes; unclassified (10 sources) Sleep apnea; Translations: [Sleep apnea, unspecified] Onset: 07-13-2016 07-18-2016 Chronic Residual codes; unclassified (1 source) Hypersomnia, unspecified; Translations: [HYPERSOMNIA UNSPECIFIED] Onset: 12-18-2021 Chronic Thyroid disorders (1 source) Hypothyroidism, unspecified; Translations: [HYPOTHYROIDISM UNSPECIFIED] Onset: 12-18-2021 Chronic Past or Other Problems Problem Classification Problem Date Documented Da te Episodic/Chronic Chronic kidney disease (5 sources) Chronic kidney disease; Translations: [CHRONIC KIDNEY DISEASE STAGE 3B] Onset: 06-26-2022 Diabetes mellitus without complication (1 source) Other abnormal glucose; Translations: [OTHER ABNORMAL GLUCOSE] Onset: 12-18-2021 Episodic Other screening for suspected conditions (not mental disorders or infectious disease) (2 sources) Encounter for screening for malignant neoplasm of prostate; Translations: [Encounter for screening for malignant neoplasm of rectum] Onset: 12-18-2021 Episodic Syncope (1 source) Syncope and collapse; Translations: [SYNCOPE AND COLLAPSE] Onset: 12-18-2021 Episodic Results Test Name Value Interpretation Reference Range Facil ity PTH INTACTon 06-24-2022 PTH, Intact 51 pg/mL Normal 15-65 [facility] Comment on above: Performed By: #### L IPID, URIC, CMP, TSH, BNP #### [facility] [address] [address] [address] Surekha Pardo HEMOGRAM AND PLATELon 2022 Hematocrit (Bld) [Volume fraction] 39.8 % Critically low 42.0-54.0 [facility] Comment on above: Performed By: #### H H #### [facility] [address] [address] [address] Surekha Pardo Hemoglobin (Bld) [Mass/Vol] 13.2 g/dL Critically low 14.0-18.0 [facility] Comment on above: Performed By: #### H H #### [facility] [address] [address] [address] Surekha Pardo MCH (RBC) [Entitic mass] 30.3 pg Normal 25.9-34.0 [facility] Comment on above: Performed By: #### H H #### [facility] [address] [place] [address] Dr. Surekha Pardo MCHC (RBC) [Mass/Vol] 33.2 g/dL Normal 29.9-35.2 [facility] Comment on above: Performed By: #### H H #### [facility] [address] [place] [address] Dr. Surekha Pardo MCV (RBC) [Entitic vol] 91.5 fL Normal 80.0-94.0 [facility] Comment on above: Performed By: #### H H #### [facility] [address] [place] [address] Dr. Surekha Pardo PLT 320 103/ul Normal 150-450 [facility] Comment on above: Performed By: #### H H #### [facility] [address] [place] [address] Dr. Surekha Pardo RBC 4.35 106/ul Critically low 4.70-6.10 [facility] Comment on above: Performed By: #### H H #### [facility] [address] [place] [address] Dr. Surekha Pardo WBC 9.4 103/ul Normal 4.0-11.0 [facility] Comment on above: Performed By: #### H H #### [facility] [address] [place] [address] Dr. Surekha Pardo MAGNESIUMon 06-23-2022 Magnesium [Mass/Vol] 1.8 mg/dL Normal 1.8-2.4 [facility] Comment on above: Performed By: #### L IPID, URIC, CMP, TSH, BNP #### [facility] [address] [place] [address] Dr. Surekha Pardo PHOSPHORUSon 06-23-2022 Phosphate [Mass/Vol] 3.0 mg/dL Normal 2.6-4.7 [facility] Comment on above: Performed By: #### L IPID, URIC, CMP, TSH, BNP #### [facility] [address] [place] [address] Dr. Surekha Pardo PROF 14(COMP METB)on 023 Albumin [Mass/Vol] 3.8 g/dL Normal 3.4-5.0 [facility] Comment on above: Performed By: #### L IPID, URIC, CMP, TSH, BNP #### [facility] [address] [place] [address] Dr. Surekha Pardo Albumin/Globulin [Mass ratio] 0.9 {ratio} Normal [facility] Comment on above: Performed By: #### L IPID, URIC, CMP, TSH, BNP #### [facility] [address] [place] [address] Dr. Surekha Pardo ALP [Catalytic activity/Vol] 101 U/L Normal 46-116 [facility] Comment on above: Performed By: #### L IPID, URIC, CMP, TSH, BNP #### [facility] [address] [place] [address] Dr. Surekha Pardo ALT [Catalytic activity/Vol] 20 U/L Normal 16-63 [facility] Comment on above: Performed By: #### L IPID, URIC, CMP, TSH, BNP #### [facility] [address] [place] [address] Dr. Surekha Pardo Anion gap [Moles/Vol] 15.7 mmol/L Normal [facility] Comment on above: Performed By: #### L IPID, URIC, CMP, TSH, BNP #### [facility] [address] [place] [address] Dr. Surekha Pardo AST [Catalytic activity/Vol] 16 U/L Normal 15-37 [facility] Comment on above: Performed By: #### L IPID, URIC, CMP, TSH, BNP #### [facility] [address] [place] [address] Dr. Surekha Pardo Bilirubin [Mass/Vol] 0.4 mg/dL Normal 0.2-1.0 [facility] Comment on above: Performed By: #### L IPID, URIC, CMP, TSH, BNP #### [facility] [address] [place], [place] [id number] Dr. Surekha Pardo Calcium [Mass/Vol] 9.4 mg/dL Normal 8.5-10.1 [facility] Comment on above: Performed By: #### L IPID, URIC, CMP, TSH, BNP #### [facility] [address] [place] [address] Dr. Surekha Pardo Chloride [Moles/Vol] 106 mmol/L Normal 98-107 [facility] Comment on above: Performed By: #### L IPID, URIC, CMP, TSH, BNP #### [facility] [address] [place] [address] Dr. Surekha Pardo CO2 [Moles/Vol] 27.1 mmol/L Normal 21.0-32.0 [facility] Comment on above: Performed By: #### L IPID, URIC, CMP, TSH, BNP #### [facility] [address] [place] [address] Dr. Surekha Pardo Creatinine [Mass/Vol] 2.15 mg/dL Critically high 0.70-1.30 [facility] Comment on above: Performed By: #### L IPID, URIC, CMP, TSH, BNP #### [facility] [address] [place] [address] Dr. Surekha Pardo EGFR-AF BURMESE 37 mL/min/1.73m2 Critically low >=60 [facility] Comment on above: Performed By: #### L IPID, URIC, CMP, TSH, BNP #### [facility] [address] [place] [address] Dr. Surekha Pardo EGFR-NON AF BURMESE 30 mL/min/1.73m2 Critically low >=60 [facility] Comment on above: Performed By: #### L IPID, URIC, CMP, TSH, BNP #### [facility] [address] [place] [address] Dr. Surekha Pardo Globulin (S) [Mass/Vol] 4.1 g/dL Normal [facility] Comment on above: Performed By: #### L IPID, URIC, CMP, TSH, BNP #### [facility] [address] [place] [address] Dr. Surekha Pardo Glucose [Mass/Vol] 102 mg/dL Normal 74-106 [facility] Comment on above: Performed By: #### L IPID, URIC, CMP, TSH, BNP #### [facility] [address] [place] [address] Dr. Surekha Pardo Potassium [Moles/Vol] 3.8 mmol/L Normal 3.5-5.1 [facility] Comment on above: Performed By: #### L IPID, URIC, CMP, TSH, BNP #### [facility] [address] [place] [address] Dr. Surekha Pardo Protein [Mass/Vol] 7.9 g/dL Normal 6.4-8.2 [facility] Comment on above: Performed By: #### L IPID, URIC, CMP, TSH, BNP #### [facility] [address] [place] [address] Dr. Surekha Pardo Sodium [Moles/Vol] 145 mmol/L Normal 136-145 [facility] Comment on above: Performed By: #### L IPID, URIC, CMP, TSH, BNP #### [facility] [address] [place] [address] Dr. Surekha Pardo Urea nitrogen [Mass/Vol] 12.0 mg/dL Normal 7.0-18.0 [facility] Comment on above: Performed By: #### L IPID, URIC, CMP, TSH, BNP #### [facility] [address] [place] [address] Dr. Surekha Pardo Urea nitrogen/Creatinine [Mass ratio] 5.6 mg/mg [facility] Comment on above: Performed By: #### L IPID, URIC, CMP, TSH, BNP #### [facility] [address] [place] [address] Dr. Surekha Pardo UA RANDOMon 06-23-2022 Bilirubin Ql (U) Negative Normal NEGATIVE [facility] Comment on above: Performed By: #### L IPID, URIC, CMP, TSH, BNP #### [facility] [address] [place] [address] Dr. Surekha Pardo Clarity (U) CLEAR Normal CLEAR [facility] Comment on above: Performed By: #### L IPID, URIC, CMP, TSH, BNP #### [facility] [address] [address] [address] Surekha Pardo Color (U) LT. YELLOW Normal YELLOW [facility] Comment on above: Performed By: #### L IPID, URIC, CMP, TSH, BNP #### [facility] [address] [address] [address] Surekha Pardo Glucose Ql (U) Negative Normal NEGATIVE [facility] Comment on above: Performed By: #### L IPID, URIC, CMP, TSH, BNP #### [facility] [address] [address] [address] Surekha Pardo Hemoglobin Ql (U) MODERATE Abnormal NEGATIVE [facility] Comment on above: Performed By: #### L IPID, URIC, CMP, TSH, BNP #### [facility] [address] [place] [address] Dr. Surekha Pardo Ketones Ql (U) Negative Normal NEGATIVE [facility] Comment on above: Performed By: #### L IPID, URIC, CMP, TSH, BNP #### [facility] [address] [address] [address] Surekha Pardo LEUKOCYTES SMALL Abnormal NEGATIVE [facility] Comment on above: Performed By: #### L IPID, URIC, CMP, TSH, BNP #### [facility] [address] [address] [address] Surekha Pardo Nitrite Ql (U) Negative Normal NEGATIVE [facility] Comment on above: Performed By: #### L IPID, URIC, CMP, TSH, BNP #### [facility] [address] [address] [address] Surekha Pardo pH (U) 6.5 [pH] Normal 5-9 [facility] Comment on above: Performed By: #### L IPID, URIC, CMP, TSH, BNP #### [facility] [address] [address] [address] Surekha Pardo SPEC GRAVITY 1.010 Normal 1.005-<=1.025 [facility] Comment on above: Performed By: #### L IPID, URIC, CMP, TSH, BNP #### [facility] [address] [address] [address] Surekha Pardo UA PROTEIN Negative Normal NEGATIVE/ TRACE [facility] Comment on above: Performed By: #### L IPID, URIC, CMP, TSH, BNP #### [facility] [address] [address] [address] Surekha Pardo Urobilinogen Qn (U) 0.2 {David'U}/dL Normal 0.2 - 1. 0 [facility] Comment on above: Performed By: #### L IPID, URIC, CMP, TSH, BNP #### [facility] [address] [address] [address] Surekha Pardo URIC ACID SERUMon 06-23-2022 Urate [Mass/Vol] 4.8 mg/dL Normal 3.5-7.2 [facility] Comment on above: Performed By: #### L IPID, URIC, CMP, TSH, BNP #### [facility] [address] [address] [address] Surekha Pardo URINE T PROTEIN CREAT RATIOo n 06-23-2022 Protein (U) [Mass/Vol] 37.5 mg/dL Critically high <=12.0 [facility] Comment on above: Performed By: #### L IPID, URIC, CMP, TSH, BNP #### [facility] [address] [address] [address] Surekha Pardo UR PROT CREAT RAT 0.49 Normal [facility] Comment on above: Performed By: #### L IPID, URIC, CMP, TSH, BNP #### [facility] [address] [address] [address] Surekha Pardo URINE CREAT 76.71 mg/dL Normal 20.00-300.00 [facility] Comment on above: Performed By: #### L IPID, URIC, CMP, TSH, BNP #### [facility] [address] [address] [address] Surekha Pardo VIT B12 AND FOLATEon 023 Cobalamin (Vitamin B12) [Mass/Vol] 1348.0 pg/mL Critically high 193.0-986.0 [facility] Comment on above: Performed By: #### B 12FOL, VITAD #### [facility] [address] [place] [address] Dr. Surekha Pardo FOLATE 5.50 ng/mL Critically low 8.60-58.90 [facility] Comment on above: Performed By: #### B 12FOL, VITAD #### [facility] [address] [place] [address] Dr. Surekha Pardo VITAMIN D 25 OHon 06-23-2022 VIT D 25-OH 51.4 ng/mL Normal [facility] Comment on above: Performed By: #### B 12FOL, VITAD #### [facility] [address] [place] [address] Dr. Surekha Pardo VIT D RANGES SEE BELOW Normal [facility] Comment on above: Result Comment: <20 ng/mL Vit D deficient 20 - <30 ng/mL Vit D insufficient 30 - 100 ng/mL Vit D sufficient >100 ng/mL Potential Toxicity Performed By: #### B 12FOL, VITAD #### [facility] [address] [place] [address] Dr. Surekha Pardo INSULINon 12-18-2021 Insulin 13.2 uIU/mL Normal 2.6-24.9 [facility] Comment on above: Performed By: #### L IPID, URIC, CMP, TSH, BNP #### [facility] [address] [place] [address] Dr. Surekha Pardo T4, T3U, FTI LABCORPon 12-18 Free Thyroxine Index 2.5 Normal 1.2-4.9 [facility] Comment on above: Performed By: #### T HYLC #### [facility] [address] [place] [address] Dr. Surekha Pardo T3 Uptake 26 % Normal 24-39 [facility] Comment on above: Performed By: #### T HYLC #### [facility] [address] [place] [address] Dr. Surekha Pardo T4 [Mass/Vol] 9.8 ug/dL Normal 4.5-12.0 [facility] Comment on above: Performed By: #### T HYLC #### [facility] [address] [place] [address] Dr. Surekha Pardo BNPon 12-17-2021 Natriuretic peptide B (Bld) [Mass/Vol] 48.0 pg/mL Normal <=900.0 [facility] Comment on above: Performed By: #### L IPID, URIC, CMP, TSH, BNP #### [facility] [address] [place] [address] Dr. Surekha Pardo CBC AUTO DIFFon 12-17-2021 BASO # 0.1 103/ul Normal 0.0-0.1 [facility] Comment on above: Performed By: #### C BC #### [facility] [address] [place] [address] Dr. Surekha Pardo Basophils/100 WBC (Bld) 0.7 % Normal 0.2-2.0 [facility] Comment on above: Performed By: #### C BC #### [facility] [address] [place] [address] Dr. Surekha Pardo EO # 0.2 103/ul Normal 0.0-0.7 [facility] Comment on above: Performed By: #### C BC #### [facility] [address] [place] [address] Dr. Surekha Pardo Eosinophils/100 WBC (Bld) 1.8 % Normal 0.9-7.0 [facility] Comment on above: Performed By: #### C BC #### [facility] [address] [place] [address] Dr. Surekha Pardo Erythrocyte distribution width (RBC) [Ratio] 13.2 % Normal 11.0-15.0 [facility] Comment on above: Performed By: #### C BC #### [facility] [address] [place] [address] Dr. Surekha Pardo Hematocrit (Bld) [Volume fraction] 38.8 % Critically low 42.0-54.0 [facility] Comment on above: Performed By: #### C BC #### [facility] [address] [address] [address] Surekha Pardo Hemoglobin (Bld) [Mass/Vol] 12.9 g/dL Critically low 14.0-18.0 [facility] Comment on above: Performed By: #### C BC #### [facility] [address] [address] [address] Surekha Pardo IG # 0.03 10e3/ul Normal 0.00-0.03 [facility] Comment on above: Performed By: #### C BC #### [facility] [address] [address] [address] Surekha Pardo IG % 0.4 % Normal 0.0-0.5 [facility] Comment on above: Performed By: #### C BC #### [facility] [address] [place] [address] Dr. Surekha Pardo LYMPH # 1.5 103/ul Normal 1.2-3.8 [facility] Comment on above: Performed By: #### C BC #### [facility] [address] [place] [address] Dr. Surekha Pardo Lymphocytes/100 WBC (Bld) 19.0 % Critically low 20.5-60.0 [facility] Comment on above: Performed By: #### C BC #### [facility] [address] [place] [address] Dr. Surekha Pardo MANUAL DIFF REQ NO Normal [facility] Comment on above: Performed By: #### C BC #### [facility] [address] [address] [address] Surekha Pardo MCH (RBC) [Entitic mass] 30.9 pg Normal 25.9-34.0 [facility] Comment on above: Performed By: #### C BC #### [facility] [address] [address] [address] Surekha Pardo MCHC (RBC) [Mass/Vol] 33.2 g/dL Normal 29.9-35.2 [facility] Comment on above: Performed By: #### C BC #### [facility] [address] [address] [address] Surekha Pardo MCV (RBC) [Entitic vol] 92.8 fL Normal 80.0-94.0 [facility] Comment on above: Performed By: #### C BC #### [facility] [address] [address] [address] Surekha Pardo MONO # 0.6 103/ul Normal 0.3-0.8 [facility] Comment on above: Performed By: #### C BC #### [facility] [address] [address] [address] Surekha Pardo Monocytes/100 WBC (Bld) 7.9 % Normal 1.7-12.0 [facility] Comment on above: Performed By: #### C BC #### [facility] [address] [place] [address] Dr. Surekha Pardo NEUT # 5.7 103/ul Normal 1.4-6.5 [facility] Comment on above: Performed By: #### C BC #### [facility] [address] [place] [address] Dr. Surekha Pardo Neutrophils/100 WBC (Bld) 70.2 % Normal 43.0-75.0 [facility] Comment on above: Performed By: #### C BC #### [facility] [address] [place] [address] Dr. Surekha Pardo Platelet mean volume (Bld) [Entitic vol] 9.7 fL Normal 9.5-13.5 [facility] Comment on above: Performed By: #### C BC #### [facility] [address] [place] [address] Dr. Surekha Pardo PLT 261 103/ul Normal 150-450 [facility] Comment on above: Performed By: #### C BC #### [facility] [address] [address] [address] Surekha Pardo RBC 4.18 106/ul Critically low 4.70-6.10 [facility] Comment on above: Performed By: #### C BC #### [facility] [address] [address] [address] Surekha Pardo WBC 8.1 103/ul Normal 4.0-11.0 [facility] Comment on above: Performed By: #### C BC #### [facility] [address] [place] [address] Dr. Surekha Pardo GLYCOHEMOGLOBIN A1Con 2021 ADA RECOMMENDATION SEE BELOW Normal [facility] Comment on above: Result Comment: ADA RECOMMENDED LIMIT 4.0 - 6.0 ADA THERAPEUTIC TARGET < 7.0 ACTION SUGGESTED > 7.0 Performed By: #### L IPID, URIC, CMP, TSH, BNP #### [facility] [address] [address] [address] Surekha Pardo Glucose [Mass/Vol] 105 mg/dL Normal [facility] Comment on above: Performed By: #### L IPID, URIC, CMP, TSH, BNP #### [facility] [address] [place] [address] Dr. Surekha Pardo HbA1c (Bld) [Mass fraction] 5.3 % Normal 4.5-6.2 [facility] Comment on above: Performed By: #### L IPID, URIC, CMP, TSH, BNP #### [facility] [address] [place] [address] Dr. Surekha Pardo LIPID PROFILEon 12-17-2021 CHOL-HDL RATIO NORM SEE BELOW Normal [facility] Comment on above: Result Comment: 3.3 - 4.4 LOW RISK 4.4 - 7.1 AVERAGE RISK 7.1 - 11.0 MODERATE RISK >11.0 HIGH RISK Performed By: #### L IPID, URIC, CMP, TSH, BNP #### [facility] [address] [place] [address] Dr. Surekha Pardo Cholesterol [Mass/Vol] 142 mg/dL Normal <=200 [facility] Comment on above: Performed By: #### L IPID, URIC, CMP, TSH, BNP #### [facility] [address] [address] [address] Surekha Pardo Cholesterol in HDL [Mass/Vol] 50 mg/dL Normal 40-60 [facility] Comment on above: Performed By: #### L IPID, URIC, CMP, TSH, BNP #### [facility] [address] [address] [address] Surekha Pardo Cholesterol in LDL [Mass/Vol] 65.0 mg/dL Normal [facility] Comment on above: Performed By: #### L IPID, URIC, CMP, TSH, BNP #### [facility] [address] [address] [address] Surekha Pardo Cholesterol.total/Cho lesterol in HDL [Mass ratio] 2.8 {ratio} Normal [facility] Comment on above: Performed By: #### L IPID, URIC, CMP, TSH, BNP #### [facility] [address] [address] [address] Surekha Pardo HDL NORMAL > or = 60 mg/dl - LOW CARDIOVASCULAR RISK <40 mg/dl - HIGH CARDIOVASCULAR RISK Normal [facility] Comment on above: Performed By: #### L IPID, URIC, CMP, TSH, BNP #### [facility] [address] [address] [address] Surekha Pardo LDL CALC NORMAL SEE BELOW Normal [facility] Comment on above: Result Comment: <100 mg/dl OPTIMAL 100 - 129 mg/dl NEAR OR ABOVE OPTIMAL 130 - 159 mg/dl BORDERLINE HIGH 160 - 189 mg/dl HIGH >190 mg/dl VERY HIGH Performed By: #### L IPID, URIC, CMP, TSH, BNP #### [facility] [address] [address] [address] Surekha Pardo Triglyceride [Mass/Vol] 135 mg/dL Normal <=150 [facility] Comment on above: Performed By: #### L IPID, URIC, CMP, TSH, BNP #### [facility] [address] [address] [address] Surekha Pardo VLDL CALC 27.0 mg/dL Normal [facility] Comment on above: Performed By: #### L IPID, URIC, CMP, TSH, BNP #### [facility] [address] [address] [address] Surekha Pardo OCC BLD IMMUNO SCREENon 11-29 OCCULT BLOOD Negative Normal NEGATIVE [facility] Comment on above: Performed By: #### L IPID, URIC, CMP, TSH, BNP #### [facility] [address] [place] [address] Dr. Surekha Pardo PROF 14(COMP METB)on 022 Albumin [Mass/Vol] 3.7 g/dL Normal 3.4-5.0 [facility] Comment on above: Performed By: #### L IPID, URIC, CMP, TSH, BNP #### [facility] [address] [place] [address] Dr. Surekha Pardo Albumin/Globulin [Mass ratio] 0.9 {ratio} Normal [facility] Comment on above: Performed By: #### L IPID, URIC, CMP, TSH, BNP #### [facility] [address] [place] [address] Dr. Surekha Pardo ALP [Catalytic activity/Vol] 90 U/L Normal 46-116 [facility] Comment on above: Performed By: #### L IPID, URIC, CMP, TSH, BNP #### [facility] [address] [place] [address] Dr. Surekha Pardo ALT [Catalytic activity/Vol] 16 U/L Normal 16-63 [facility] Comment on above: Performed By: #### L IPID, URIC, CMP, TSH, BNP #### [facility] [address] [address] [address] Surekha Pardo Anion gap [Moles/Vol] 11.4 mmol/L Normal [facility] Comment on above: Performed By: #### L IPID, URIC, CMP, TSH, BNP #### [facility] [address] [address] [address] Surekha Pardo AST [Catalytic activity/Vol] 13 U/L Critically low 15-37 [facility] Comment on above: Performed By: #### L IPID, URIC, CMP, TSH, BNP #### [facility] [address] [place] [address] Dr. Surekha Pardo Bilirubin [Mass/Vol] 0.4 mg/dL Normal 0.2-1.0 [facility] Comment on above: Performed By: #### L IPID, URIC, CMP, TSH, BNP #### [facility] [address] [place] [address] Dr. Surekha Pardo Calcium [Mass/Vol] 9.0 mg/dL Normal 8.5-10.1 [facility] Comment on above: Performed By: #### L IPID, URIC, CMP, TSH, BNP #### [facility] [address] [address] [address] Surekha Pardo Chloride [Moles/Vol] 105 mmol/L Normal 98-107 [facility] Comment on above: Performed By: #### L IPID, URIC, CMP, TSH, BNP #### [facility] [address] [place] [address] Dr. Surekha Pardo CO2 [Moles/Vol] 27.5 mmol/L Normal 21.0-32.0 [facility] Comment on above: Performed By: #### L IPID, URIC, CMP, TSH, BNP #### [facility] [address] [place] [address] Dr. Surekha Pardo Creatinine [Mass/Vol] 2.15 mg/dL Critically high 0.70-1.30 [facility] Comment on above: Performed By: #### L IPID, URIC, CMP, TSH, BNP #### [facility] [address] [place] [address] Dr. Surekha Pardo EGFR-AF BURMESE 37 mL/min/1.73m2 Critically low >=60 [facility] Comment on above: Performed By: #### L IPID, URIC, CMP, TSH, BNP #### [facility] [address] [place] [address] Dr. Surekha Pardo EGFR-NON AF BURMESE 30 mL/min/1.73m2 Critically low >=60 [facility] Comment on above: Performed By: #### L IPID, URIC, CMP, TSH, BNP #### [facility] [address] [place] [address] Dr. Surekha Pardo Globulin (S) [Mass/Vol] 4.0 g/dL [facility] Comment on above: Performed By: #### L IPID, URIC, CMP, TSH, BNP #### [facility] [address] [address] [address] Surekha Pardo Glucose [Mass/Vol] 109 mg/dL Critically high 74-106 [facility] Comment on above: Performed By: #### L IPID, URIC, CMP, TSH, BNP #### [facility] [address] [place] [address] Dr. Surekha Pardo Potassium [Moles/Vol] 3.9 mmol/L Normal 3.5-5.1 [facility] Comment on above: Performed By: #### L IPID, URIC, CMP, TSH, BNP #### [facility] [address] [place] [address] Dr. Surekha Pardo Protein [Mass/Vol] 7.7 g/dL Normal 6.4-8.2 [facility] Comment on above: Performed By: #### L IPID, URIC, CMP, TSH, BNP #### [facility] [address] [place] [address] Dr. Surekha Pardo Sodium [Moles/Vol] 140 mmol/L Normal 136-145 [facility] Comment on above: Performed By: #### L IPID, URIC, CMP, TSH, BNP #### [facility] [address] [place] [address] Dr. Surehka Pardo Urea nitrogen [Mass/Vol] 12.0 mg/dL Normal 7.0-18.0 [facility] Comment on above: Performed By: #### L IPID, URIC, CMP, TSH, BNP #### [facility] [address] [place] [address] Dr. Surekha Pardo Urea nitrogen/Creatinine [Mass ratio] 5.6 mg/mg Normal [facility] Comment on above: Performed By: #### L IPID, URIC, CMP, TSH, BNP #### [facility] [address] [place] [address] Dr. Surekha Pardo TSHon 12-17-2021 TSH 1.103 uIU/mL Normal 0.358-3.740 [facility] Comment on above: Performed By: #### L IPID, URIC, CMP, TSH, BNP #### [facility] [address] [place], [place] [address] Dr. Surekha Pardo URIC ACID SERUMon 12-17-2021 Urate [Mass/Vol] 5.1 mg/dL Normal 3.5-7.2 [facility] Comment on above: Performed By: #### L IPID, URIC, CMP, TSH, BNP #### [facility] [address] [address] [address] Surekha Pardo Vital Signs Date Time Vital Sign Value Performing Clinician Facility 03-10-2023 13:00-0500 Body height 170.18 cm Zorandeondre Lillylexi Other [facility] Other 03-10-2023 13:00-0500 Body mass index (BMI) [Ratio] 30.73 kg/m2 [email or web address] Other [facility] Other 03-10-2023 13:00-0500 Body temperature 96.9 [degF] Timothy [employer] Other [facility] Other 03-10-2023 13:00-0500 Body weight 89 kg [email or web address] Other [facility] Other 03-10-2023 13:00-0500 Diastolic blood pressure 70 mm[Hg] Timothy [employer] Other [facility] Other 03-10-2023 13:00-0500 Respiratory rate 18 /min Timothy [employer] Other [facility] Other 03-10-2023 13:00-0500 SaO2% (BldA) [Mass fraction] 95 % Timothy [employer] Other [facility] Other 03-10-2023 13:00-0500 Systolic blood pressure 140 mm[Hg] Aziz Bakhous Other [facility] Other 11-04-2022 13:00-0400 Body height 170.18 cm Azdeondre Bakhous Other [facility] Other 11-04-2022 13:00-0400 Body mass index (BMI) [Ratio] 31.35 kg/m2 Aziz Bakhous Other [facility] Other 11-04-2022 13:00-0400 Body temperature 96.6 [degF] Aziz Bakhous Other [facility] Other 11-04-2022 13:00-0400 Body weight 90.81 kg Azdeondre Bakhous Other [facility] Other 11-04-2022 13:00-0400 Diastolic blood pressure 90 mm[Hg] Aziz Bakhous Other [facility] Other 11-04-2022 13:00-0400 Respiratory rate 18 /min Azdeondre Bakhous Other [facility] Other 11-04-2022 13:00-0400 SaO2% (BldA) [Mass fraction] 94 % Aziz Bakhous Other [facility] Other 11-04-2022 13:00-0400 Systolic blood pressure 130 mm[Hg] Aziz Bakhous Other [facility] Other 07-01-2022 14:20-0400 Body height 170.18 cm Aziz Bakhous Other [facility] Other 07-01-2022 14:20-0400 Body mass index (BMI) [Ratio] 32.92 kg/m2 Timothy Carrs Other [facility] Other 07-01-2022 14:20-0400 Body temperature 96.2 [degF] Timothy Carrs Other [facility] Other 07-01-2022 14:20-0400 Body weight 95.35 kg Timothy Carrs Other [facility] Other 07-01-2022 14:20-0400 Diastolic blood pressure 84 mm[Hg] Timothy Carrs Other [facility] Other 07-01-2022 14:20-0400 Respiratory rate 18 /min Timothy Carrs Other [facility] Other 07-01-2022 14:20-0400 SaO2% (BldA) [Mass fraction] 96 % Timothy Carrs Other [facility] Other 07-01-2022 14:20-0400 Systolic blood pressure 132 mm[Hg] Timothy Carrs Other [facility] Other 02-25-2022 14:20-0500 Body height 170.18 cm Timothy Byrnehous Other [facility] Other 02-25-2022 14:20-0500 Body mass index (BMI) [Ratio] 34.45 kg/m2 Azdeondre Byrnehous Other [facility] Other 11-29-2022 14:20-0500 Body weight 99.79 kg Aziz Bakhous Other [facility] Other 02-25-2022 14:20-0500 Diastolic blood pressure 84 mm[Hg] Aziz Bakhous Other [facility] Other 02-25-2022 14:20-0500 SaO2% (BldA) [Mass fraction] 98 % Aziz Bakhous Other [facility] Other 02-25-2022 14:20-0500 Systolic blood pressure 132 mm[Hg] Aziz Bakhous Other [facility] Other Encounters Encounter Date Encounter Type Care Provider Facility Start: 03-10-2023 End: 03-10-2023 ambulatory Aziz Bakhous Other [facility] Other Start: 03-10-2023 Office outpatient vi sit 25 minutes Aziz Bakhous [facility] Start: 12-03-2022 End: 12-03-2022 ambulatory DOMINGUEZ M HOY Facility:[facility] Start: 12-03-2022 End: 12-03-2022 ambulatory [facility] Work Phone: Hematology/Oncology Comment on above: Malignant neoplasm o f overlapping sites of left lung (HCC) (Primary Dx) Start: 11-04-2022 End: 11-04-2022 ambulatory Aziz Bakhous Other Pocket [employer] Card Other Start: 11-04-2022 Office outpatient vi sit 25 minutes Aziz Bakhous [facility] Start: 10-22-2022 End: 10-22-2022 ambulatory DOMINGUEZ M HOY Facility:[facility] Start: 09-10-2022 End: 09-10-2022 ambulatory Lab/[place] Work Phone: Hematology/Oncology Comment on above: Malignant neoplasm o f overlapping sites of left lung (HCC) (Primary Dx) Start: 07-29-2022 End: 07-29-2022 ambulatory DOMINGUEZ SAINI Facility:[facility] Start: 07-29-2022 End: 07-29-2022 ambulatory [facility] Work Phone: Hematology/Oncology Comment on above: Malignant neoplasm o f overlapping sites of left lung (HCC) (Primary Dx) Start: 07-28-2022 End: 08-27-2022 ambulatory ORDOÑEZ H FAWWAD Facility:[facility] Start: 07-01-2022 End: 07-01-2022 ambulatory Timothy Galarza Other Pocket Change Card Other Start: 07-01-2022 Office outpatient vi sit 25 minutes Timothy Galarza [facility] Start: 06-30-2022 End: 07-25-2022 ambulatory ORDOÑEZ H FAWWAD Facility:[facility] Start: 06-23-2022 End: 06-24-[address] DOMINGUEZ SAINI . Facility:[facility] Start: 06-17-2022 End: 06-17-2022 ambulatory DOMINGUEZ SAINI Facility:[facility] Start: 05-28-2022 End: 06-27-2022 ambulatory ORDOÑEZ H FAWWAD Facility:[facility] Start: 05-07-2022 End: 05-07-2022 ambulatory [facility] Work Phone: Hematology/Oncology Comment on above: Malignant neoplasm o f overlapping sites of left lung (HCC) (Primary Dx) Start: 04-30-2022 End: 05-28-2022 ambulatory ORDOÑEZ H FAWWAD Facility:[facility] Start: 03-31-2022 End: 04-30-2022 ambulatory ORDOÑEZ H FAWWAD Facility:[facility] Start: 03-26-2022 End: 03-26-2022 ambulatory DOMINGUEZ SAINI Facility:[facility] Start: 03-26-2022 End: 03-26-2022 ambulatory [facility] Work Phone: Hematology/Oncology Comment on above: Malignant neoplasm o f overlapping sites of left lung (HCC) (Primary Dx) Start: 02-27-2022 End: 03-30-2022 ambulatory ORDOÑEZ H FAWWAD Facility:[facility] Start: 02-25-2022 End: 02-25-2022 ambulatory Azdeondre Carrs Other Pocket Change Card Other Start: 02-25-2022 Office outpatient ne w 30 minutes Aziz Bakhous [facility] Start: 02-12-2022 End: 02-12-2022 ambulatory DOMINGUEZ SAINI Facility:[facility] Start: 02-12-2022 End: 02-12-2022 ambulatory [facility] Work Phone: Hematology/Oncology Comment on above: Malignant neoplasm o f overlapping sites of left lung (HCC) (Primary Dx) Start: 01-28-2022 End: 02-26-2022 ambulatory ORDOÑEZ H FAWWAD Facility:[facility] Start: 01-01-2022 End: 01-01-2022 ambulatory DOMINGUEZ SAINI Facility:[facility] Start: 12-29-2021 End: 01-27-2022 ambulatory ORDOÑEZ H FAWWAD Facility:[facility] Start: 12-17-2021 End: 12-18-[address] DOMINGUEZ SAINI . Facility:[facility] Start: 11-28-2021 End: 12-28-2021 ambulatory ORDOÑEZ H FAWWAD Facility:[facility] Start: 11-20-2021 End: 11-20-2021 ambulatory [facility] Work Phone: Hematology/Oncology Comment on above: Malignant neoplasm o f overlapping sites of left lung (HCC) (Primary Dx) Start: 10-28-2021 End: 11-27-2021 ambulatory ORDOÑEZ H FAWWAD Facility:[facility] Start: 09-27-2021 End: 10-25-2021 ambulatory ORDOÑEZ H FAWWAD Facility:[facility] Start: 2021 End: 2021 ambulatory [facility] Work Phone: Hematology/Oncology Comment on above: Malignant neoplasm o f overlapping sites of left lung (HCC) (Primary Dx) Start: 07-17-2021 End: 07-17-2021 ambulatory [facility] Work Phone: Hematology/Oncology Comment on above: Malignant neoplasm o f overlapping sites of left lung (HCC) (Primary Dx) Start: 06-05-2021 End: 06-05-2021 ambulatory [facility] Work Phone: Hematology/Oncology Comment on above: Malignant neoplasm o f overlapping sites of left lung (HCC) (Primary Dx) Start: 09-28-2017 End: 09-29-2017 Ambulatory DEFAULT PHYSICIAN Facility:[facility] Start: 09-24-2017 End: 09-25-2017 Ambulatory DEFAULT PHYSICIAN Facility:[facility] Procedures Date Procedure Procedure Detail Performing Clinician Start: 12-17-2021 PSA screening SHAIKH RAQUEL HILLMAN Comment on above: Performed By: #### L IPID, URIC, CMP, TSH, BNP #### [facility] [address] [place] [address] Dr. Surekha Pardo Start: 09-20-2019 Adult depression screening assessment [facility] Work Phone: Plan of Treatment Date Care Activity Detail Author Start: 11-28-2022 Influenza vaccination INFLUENZA (#1) [facility] Start: 03-30-2022 ADVANCE DIRECTIVE DISCUSSION ADVANCE DIRECTIVE DISCUSSION [facility] Start: 03-30-2022 DEPRESSION ASSESSMENT DEPRESSION ASS ESSMENT [facility] Start: 11-28-2021 Influenza vaccination INFLUENZA (#1) [facility] Start: 07-15-2021 LIPID SCREEN LIPID SCREEN [facility] Start: 06-07-2021 COVID-19 VACCINE (4 - Booster for Moderna series) COVID-19 VACCINE (4 - Booster for Moderna series) [facility] Start: 04-04-2021 COVID-19 VACCINE (4 - Booster for Moderna series) COVID-19 VACCINE (4 - Booster for Moderna series) [facility] Start: 03-30-2021 ADVANCE DIRECTIVE DISCUSSION ADVANCE DIRECTIVE DISCUSSION [facility] Start: 03-30-2021 DEPRESSION ASSESSMENT DEPRESSION ASS ESSMENT [facility] Start: 09-19-2020 Adult depression scr eening assessment DEPRESSION SCREENING [facility] Start: 07-22-2019 DIABETES SCREEN DIABETES SCREEN [facility] Start: 10-21-2018 PNEUMOCOCCAL: 65+ (2 - PCV) PNEUMOCOCCAL: 65+ (2 - PCV) [facility] Start: 10-21-2018 PNEUMOCOCCAL: 65+ (3 - PCV) PNEUMOCOCCAL: 65+ (3 - PCV) [facility] Start: 07-21-2017 HEMOGLOBIN/HEMATOCRIT HEMOGLOBIN/HEM ATOCRIT [facility] Start: 07-21-2017 SERUM CREATININE SERUM CREATININE Cl [facility] Start: 08-29-1999 SHINGRIX VACCINE (1 of 2) SHINGRIX V ACCINE (1 of 2) [facility] Start: 1994 COLOGUARD (FIT-DNA) COLOGUARD (FIT-D NA) [facility] Start: 1994 Colonoscopy COLONOSCOPY [facility] Start: 1994 COLORECTAL CANCER SCREENING COLORECTAL CANCER SCREENING [facility] Start: [address] COLONOGRAPHY [facility] Start: 1994 FECAL OCCULT BLOOD FECAL OCCULT BLOO D [facility] Start: 1994 SIGMOIDOSCOPY SIGMOIDOSCOPY [facility] Start: 1968 Urine microalbumin profile DTAP,TDAP ,TD (1 - Tdap) [facility] Start: 08-29-1967 ANNUAL PCP TEAM PERSONAL VEHICLE ADVISOR CHIN DISEASE VISIT ANNUAL PCP TEAM CHRONIC DISEASE VISIT [facility] Start: 08-29-1967 BP CONTROLLED (<130/80) BP CONTROLLE D (<130/80) [facility] Start: 08-29-1967 HEPATITIS C SCREENING HEPATITIS C SC REENING [facility] Start: 1949 ABDOMINAL AORTIC ANE URYSM SCREENING ABDOMINAL AORTIC ANEURYSM SCREENING [facility] Immunizations Immunization Date Immunization Notes Care Provider Raquel adorno 05-24-2020 COVID-19 vaccine, fu ll dose (MODERNA) [facility] Work Phone: [facility] 12-07-2019 unknown vaccine or i mmune globulin [facility] Work Phone: [facility] 12-29-2018 influenza, high dose seasonal, preservative-free [place] Work Phone: [facility] 11-05-2017 influenza, high dose seasonal, preservative-free [facility] Work Phone: [facility] 10-21-2017 pneumococcal polysaccharide vaccine, 23 valent [facility] Work Phone: [facility] 12-26-2016 influenza, high dose seasonal, preservative-free [facility] Work Phone: [facility] 07-25-2016 pneumococcal polysaccharide vaccine, 23 valent [facility] Work Phone: [facility] 12-01-2014 influenza, high dose seasonal, preservative-free [facility] Work Phone: [facility] 01-30-2014 influenza, seasonal, injectable [facility] Work Phone: [facility] 01-28-2012 influenza virus vacc ine, unspecified formulation [facility] Work Phone: [facility] 05-02-2010 pneumococcal polysaccharide vaccine, 23 valent [facility] Work Phone: [facility] Payers Date Payer Category Payer Unknown 2019 Unknown MMO MMO MEDICARE SUPPLEMENT [id number] 2019-Present [phone] [address] [place] [address] Indemnity [id number] 2002 Medicare MEDICARE MEDICAR E A AND B [id number] 2002-Present [phone] [address] [address] [place] [address] Medicare [id number] 2002 Medicare MEDICARE MEDICAR E A AND B [id number] 2002-Present [phone] [address] [address] [place] [address] Medicare [id number] 1959 Medicare [id number] 1959 Unknown [id number] 1949 Unknown [id number] 1949 Unknown [id number] 1949 Unknown [id number] 1949 Unknown [id number] 1949 Unknown [id number] 1949 Unknown [id number] 1949 Unknown [id number] 1949 Unknown [id number] 1949 Unknown [id number] 1949 Unknown [id number] 1949 Unknown [id number] 1949 Unknown [id number] 1949 Unknown [id number] Social History Date Type Detail Facility Start: 05-05-2012 Tobacco smoking stat us NHIS Ex-smoker [facility] End: 03-30-1994 History of tobacco use Current smoker [facility] End: 03-30-1994 History of tobacco use Cigarette Smoker [facility] Start: 09-20-2019 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) [facility] Start: 1950 Sex Assigned At Not on file [facility] Start: 07-07-2021 End: 2021 Exposure to SARS-CoV-2 (event) Not sure [facility] Start: 05-05-2012 End: 12-03-2022 Cigarettes smoked current (pack per day) - Reported 1 [facility] Start: 05-05-2012 Tobacco use and exposure Smoke less tobacco non-user [facility] Start: 09-20-2019 End: 12-03-2022 Sex Assigned At [facility] Adult Depression Scr eening Assessment 0 [facility] Clinical Notes 07-14-2016 to 03-10-2023 Note Date & Type Note Facility 03-10-2023 Evaluation note Encounter Date Diagnosis Assessment Notes Feb, Primary hypertension (ICD-10 - I10) Blood pressure seems well controlled. I will continue same blood pressure medications of [facility] . I will check protein to creatinine ratio and add CAMILA inhibitor or ARB if proteinuria level increases. advised low Na diet and to monitor BP at home Feb, Vitamin D deficiency (ICD-10 - E55.9) Patient is taking vitamin D supplement. 25-hydroxy vitamin D level is within normal limits. PTH is WNL. Calcium and phosphorus are within normal limit. I will continue to monitor bone mineral parameters Feb, Vitamin B12 deficiency (ICD-10 - E53.8) Patient is taking vitamin B12 supplement. Vitamin B12 is within normal limit. I will continue same supplement Feb, Folate deficiency (ICD-10 - E53.8) continue folic acid supplement Feb, Chronic pulmonary embolism without acute cor pulmonale, unspecified pulmonary embolism type (ICD-10 - I27.82) Patient on warfarin. INR monitoring as per his PCP Feb, Chronic kidney disease, stage 3b (ICD-10 - N18.32) CKD is likely from previous kidney damage related to chemotherapy and ANS .serum creatinine is a stable at 2.1 mg deciliter and GFR 31 mill per minute. Patient has mild proteinuria. Protein creatinine ratio 400-500 mg/g. No compelling reason to start RAAS blocking agentBlood pressure seems well controlled. No fluid overload. I asked the patient to stay away from NSAIDs. I will follow-up with the patient in 4 months. Lab as above prior to next visit Feb, Hypokalemia (ICD-10 - E87.6) Continue K supplement Feb, Chronic kidney disease, unspecified (ICD-10 - N18.9) Feb, Anemia in chronic kidney disease (ICD-10 - D63.1) Hgb is 11.7 g/dl. No need for [facility]AW [employer] Card Other 08-08-2023 Evaluation note* Encounter Date Diagnosis Assessment Notes Treatment Notes Treatment Clinical Notes Oct, Primary hypertension (ICD-10 - I10) Blood pressure seems well controlled. I will continue same blood pressure medications of [facility] . I will check protein to creatinine ratio and add CAMILA inhibitor or ARB if proteinuria level increases. advised low Na diet and to monitor BP at home Oct, Vitamin D deficiency (ICD-10 - E55.9) Patient is taking vitamin D supplement. 25-hydroxy vitamin D level is within normal limits at 51. PTH is WNL. Calcium and phosphorus are within normal limit. I will continue to monitor bone mineral parameters Oct, Vitamin B12 deficiency (ICD-10 - E53.8) Patient is taking vitamin B12 supplement. Vitamin B12 is within normal limit. I will continue same supplement Oct, Folate deficiency (ICD-10 - E53.8) continue folic acid supplement Oct, Chronic pulmonary embolism without acute cor pulmonale, unspecified pulmonary embolism type (ICD-10 - I27.82) Patient on warfarin. INR monitoring as per his PCP Oct, Chronic kidney disease, stage 3b (ICD-10 - N18.32) CKD is likely from previous kidney damage related to chemotherapy and ANS .serum creatinine is a stable at 2.2 mg deciliter and GFR 30 mill per minute. Patient has mild proteinuria. Protein creatinine ratio 400-500 mg/g. No compelling reason to start RAAS blocking agentBlood pressure seems well controlled. No fluid overload. I asked the patient to stay away from NSAIDs. I will follow-up with the patient in 4 months. Lab as above prior to next visit Oct, Hypokalemia (ICD-10 - E87.6) [employer] Other 04-04-2023 Evaluation note* Encounter Date Diagnosis Assessment Notes Treatment Notes Treatment Clinical Notes Jun, Primary hypertension (ICD-10 - I10) Blood pressure seems well controlled. I will continue same blood pressure medications of Norvasc . I will check protein to creatinine ratio and add CAMILA inhibitor or ARB if he has proteinuria Jun, Chronic kidney disease, stage 3b (ICD-10 - N18.32) CKD is likely from previous kidney damage related to chemotherapy .serum creatinine is a stable at r 2.1 mg deciliter and GFR 30 mill per minute. Patient has mild proteinuria. Protein creatinine ratio 400 mg/g. No compelling reason to start RAAS blocking agentBlood pressure seems well controlled. No fluid overload. I asked the patient to stay away from NSAIDs. I will follow-up with the patient in 4 months. Lab as above prior to next visit Jun, Vitamin D deficiency (ICD-10 - E55.9) Patient is taking vitamin D supplement. 25-hydroxy vitamin D level is within normal limits at 51. PTH is at 51. Calcium and phosphorus are within normal limit. I will continue to monitor bone mineral parameters Jun, Vitamin B12 deficiency (ICD-10 - E53.8) Patient is taking vitamin B12 supplement. Vitamin B12 is within normal limit. I will continue same supplement Jun, Chronic pulmonary embolism without acute cor pulmonale, unspecified pulmonary embolism type (ICD-10 - I27.82) Patient on warfarin. INR check as per his PCP Jun, Folate deficiency (ICD-10 - E53.8) [employer] Other 11-29-2022 Evaluation note* Encounter Date Diagnosis Assessment Notes Treatment Notes Treatment Clinical Notes Jan, Primary hypertension (ICD-10 - I10) Blood pressure seems well controlled. I will continue same blood pressure medications of Norvasc . I will check protein to creatinine ratio and add CAMILA inhibitor or ARB if he has proteinuria Jan, Chronic kidney disease, stage 3b (ICD-10 - N18.32) CKD is likely from previous kidney damage related to chemotherapy serum creatinine this year 2.1 mg deciliter and GFR 30 mill per minute. Last creatinine was 1.9 and GFR 35 mL/minI will start CKD work-up which will include UA along with protein creatinine ratio. I will check renal ultrasound along with BMD lab.Blood pressure seems well controlled. No fluid overload. I asked the patient to stay away from NSAIDs. I will follow-up with the patient in 4 months. Lab as above prior to next visit Jan, Vitamin D deficiency (ICD-10 - E55.9) Patient is taking vitamin D supplement. I will check 25-hydroxy vitamin D level next visit Jan, Vitamin B12 deficiency (ICD-10 - E53.8) Patient is taking vitamin B12 supplement. I will check vitamin B12 next visit [employer] Other 04-17-2017 History of Past illness Narrative* Problem Noted Date Resolved Date Hilar density 07/14/2016 09/14/2018 Overview: Suspicious abnormal perihilar finding on CT at the OSH in patient with history of Lung Ca. S/P resection and unprovoked PE Plan: -07/14 Pulm following for suspicious perihilar mass 07/18 Dr Kay and Pt's security guard- Dr Mo reviewed PET scan from 07/17. No need to pursue further evaluation for now. Deep venous thrombosis (DVT) of left peroneal ve in 07/14/2016 09/14/2018 Overview: 07/14 US LE: +Acute calf DVT in the peroneal veins, soleal vein and gastrocnemius veins.Present on admisison Plan: Hep to warfarin bridge Pulmonary embolism 07/13/2016 09/14/2018 Overview: OSH CT Chest shows Moderate-large embolism burden bilaterally. 07/14 US LE +DVTs. 07/16 TTE; EF = 61%, LVH. Indeterminate LV diastolic dysfunction. RV NL. Known h/o recent PE. ~RVSP at least, 45 mmHg c/w mild pHTN. ~RAP 5mmHg. Plan: Continue Heparin gtt as pt unable to afford lovenox Heparin to warfarin bridge Other complication due to venous access device 0 05/05/2012 09/14/2018 documented as of this encounter (statuses as of 06/05/2021) [facility] History of Past illness Narrative* Problem Noted Date Resolved Date Hilar density 07/14/2016 09/14/2018 Overview: Suspicious abnormal perihilar finding on CT at the OSH in patient with history of Lung Ca. S/P resection and unprovoked PE Plan: -07/14 Pulm following for suspicious perihilar mass 07/18 Dr Kay and Pt's security guard- Dr Mo reviewed PET scan from 07/17. No need to pursue further evaluation for now. Deep venous thrombosis (DVT) of left peroneal ve in 07/14/2016 09/14/2018 Overview: 07/14 US LE: +Acute calf DVT in the peroneal veins, soleal vein and gastrocnemius veins.Present on admisison Plan: Hep to warfarin bridge Pulmonary embolism 07/13/2016 09/14/2018 Overview: OSH CT Chest shows Moderate-large embolism burden bilaterally. 07/14 US LE +DVTs. 07/16 TTE; EF = 61%, LVH. Indeterminate LV diastolic dysfunction. RV NL. Known h/o recent PE. ~RVSP at least, 45 mmHg c/w mild pHTN. ~RAP 5mmHg. Plan: Continue Heparin gtt as pt unable to afford lovenox Heparin to warfarin bridge Other complication due to venous access device 0 05/05/2012 09/14/2018 documented as of this encounter (statuses as of 07/17/2021) [facility] History of Past illness Narrative* Problem Noted Date Resolved Date Hilar density 07/14/2016 09/14/2018 Overview: Suspicious abnormal perihilar finding on CT at the OSH in patient with history of Lung Ca. S/P resection and unprovoked PE Plan: -07/14 Pulm following for suspicious perihilar mass 07/18 Dr Kay and Pt's security guard- Dr Mo reviewed PET scan from 07/17. No need to pursue further evaluation for now. Deep venous thrombosis (DVT) of left peroneal ve in 07/14/2016 09/14/2018 Overview: 07/14 US LE: +Acute calf DVT in the peroneal veins, soleal vein and gastrocnemius veins.Present on admisison Plan: Hep to warfarin bridge Pulmonary embolism 07/13/2016 09/14/2018 Overview: OSH CT Chest shows Moderate-large embolism burden bilaterally. 07/14 US LE +DVTs. 07/16 TTE; EF = 61%, LVH. Indeterminate LV diastolic dysfunction. RV NL. Known h/o recent PE. ~RVSP at least, 45 mmHg c/w mild pHTN. ~RAP 5mmHg. Plan: Continue Heparin gtt as pt unable to afford lovenox Heparin to warfarin bridge Other complication due to venous access device 0 05/05/2012 09/14/2018 documented as of this encounter (statuses as of 2021) [facility]2017 History of Past illness Narrative* Problem Noted Date Resolved Date Hilar density 07/14/2016 09/14/2018 Overview: Suspicious abnormal perihilar finding on CT at the OSH in patient with history of Lung Ca. S/P resection and unprovoked PE Plan: -07/14 Pulm following for suspicious perihilar mass 07/18 Dr Kay and Pt's security guard- Dr Mo reviewed PET scan from 07/17. No need to pursue further evaluation for now. Deep venous thrombosis (DVT) of left peroneal ve in 07/14/2016 09/14/2018 Overview: 07/14 US LE: +Acute calf DVT in the peroneal veins, soleal vein and gastrocnemius veins.Present on admisison Plan: Hep to warfarin bridge Pulmonary embolism 07/13/2016 09/14/2018 Overview: OSH CT Chest shows Moderate-large embolism burden bilaterally. 07/14 US LE +DVTs. 07/16 TTE; EF = 61%, LVH. Indeterminate LV diastolic dysfunction. RV NL. Known h/o recent PE. ~RVSP at least, 45 mmHg c/w mild pHTN. ~RAP 5mmHg. Plan: Continue Heparin gtt as pt unable to afford lovenox Heparin to warfarin bridge Other complication due to venous access device 0 05/05/2012 09/14/2018 documented as of this encounter (statuses as of 11/20/2021) [facility] History of Past illness Narrative* Problem Noted Date Resolved Date Hilar density 07/14/2016 09/14/2018 Overview: Suspicious abnormal perihilar finding on CT at the OSH in patient with history of Lung Ca. S/P resection and unprovoked PE Plan: -07/14 Pulm following for suspicious perihilar mass 07/18 Dr Kay and Pt's security guard- Dr Mo reviewed PET scan from 07/17. No need to pursue further evaluation for now. Deep venous thrombosis (DVT) of left peroneal ve in 07/14/2016 09/14/2018 Overview: 07/14 US LE: +Acute calf DVT in the peroneal veins, soleal vein and gastrocnemius veins.Present on admisison Plan: Hep to warfarin bridge Pulmonary embolism 07/13/2016 09/14/2018 Overview: OSH CT Chest shows Moderate-large embolism burden bilaterally. 07/14 US LE +DVTs. 07/16 TTE; EF = 61%, LVH. Indeterminate LV diastolic dysfunction. RV NL. Known h/o recent PE. ~RVSP at least, 45 mmHg c/w mild pHTN. ~RAP 5mmHg. Plan: Continue Heparin gtt as pt unable to afford lovenox Heparin to warfarin bridge Other complication due to venous access device 0 05/05/2012 09/14/2018 documented as of this encounter (statuses as of 02/12/2022) [facility]2017 History of Past illness Narrative* Problem Noted Date Resolved Date Hilar density 07/14/2016 09/14/2018 Overview: Suspicious abnormal perihilar finding on CT at the OSH in patient with history of Lung Ca. S/P resection and unprovoked PE Plan: -07/14 Pulm following for suspicious perihilar mass 07/18 Dr Kay and Pt's security guard- Dr Mo reviewed PET scan from 07/17. No need to pursue further evaluation for now. Deep venous thrombosis (DVT) of left peroneal ve in 07/14/2016 09/14/2018 Overview: 07/14 US LE: +Acute calf DVT in the peroneal veins, soleal vein and gastrocnemius veins.Present on admisison Plan: Hep to warfarin bridge Pulmonary embolism 07/13/2016 09/14/2018 Overview: OSH CT Chest shows Moderate-large embolism burden bilaterally. 07/14 US LE +DVTs. 07/16 TTE; EF = 61%, LVH. Indeterminate LV diastolic dysfunction. RV NL. Known h/o recent PE. ~RVSP at least, 45 mmHg c/w mild pHTN. ~RAP 5mmHg. Plan: Continue Heparin gtt as pt unable to afford lovenox Heparin to warfarin bridge Other complication due to venous access device 0 05/05/2012 09/14/2018 documented as of this encounter (statuses as of 04/01/2022) [facility]2017 History of Past illness Narrative* Problem Noted Date Resolved Date Hilar density 07/14/2016 09/14/2018 Overview: Suspicious abnormal perihilar finding on CT at the OSH in patient with history of Lung Ca. S/P resection and unprovoked PE Plan: -07/14 Pulm following for suspicious perihilar mass 07/18 Dr Kay and Pt's security guard- Dr Mo reviewed PET scan from 07/17. No need to pursue further evaluation for now. Deep venous thrombosis (DVT) of left peroneal ve in 07/14/2016 09/14/2018 Overview: 07/14 US LE: +Acute calf DVT in the peroneal veins, soleal vein and gastrocnemius veins.Present on admisison Plan: Hep to warfarin bridge Pulmonary embolism 07/13/2016 09/14/2018 Overview: OSH CT Chest shows Moderate-large embolism burden bilaterally. 07/14 US LE +DVTs. 07/16 TTE; EF = 61%, LVH. Indeterminate LV diastolic dysfunction. RV NL. Known h/o recent PE. ~RVSP at least, 45 mmHg c/w mild pHTN. ~RAP 5mmHg. Plan: Continue Heparin gtt as pt unable to afford lovenox Heparin to warfarin bridge Other complication due to venous access device 0 05/05/2012 09/14/2018 documented as of this encounter (statuses as of 05/07/2022) [facility] History of Past illness Narrative* Problem Noted Date Resolved Date Hilar density 07/14/2016 09/14/2018 Overview: Suspicious abnormal perihilar finding on CT at the OSH in patient with history of Lung Ca. S/P resection and unprovoked PE Plan: -07/14 Pulm following for suspicious perihilar mass 07/18 Dr Kay and 's security guard- Dr Mo reviewed PET scan from 07/17. No need to pursue further evaluation for now. Deep venous thrombosis (DVT) of left peroneal ve in 07/14/2016 09/14/2018 Overview: 07/14 US LE: +Acute calf DVT in the peroneal veins, soleal vein and gastrocnemius veins.Present on admisison Plan: Hep to warfarin bridge Pulmonary embolism 07/13/2016 09/14/2018 Overview: OSH CT Chest shows Moderate-large embolism burden bilaterally. 07/14 US LE +DVTs. 07/16 TTE; EF = 61%, LVH. Indeterminate LV diastolic dysfunction. RV NL. Known h/o recent PE. ~RVSP at least, 45 mmHg c/w mild pHTN. ~RAP 5mmHg. Plan: Continue Heparin gtt as pt unable to afford lovenox Heparin to warfarin bridge Other complication due to venous access device 0 05/05/2012 09/14/2018 documented as of this encounter (statuses as of 07/30/2022) [facility] History of Past illness Narrative* Problem Noted Date Resolved Date Hilar density 07/14/2016 09/14/2018 Overview: Suspicious abnormal perihilar finding on CT at the OSH in patient with history of Lung Ca. S/P resection and unprovoked PE Plan: -07/14 Pulm following for suspicious perihilar mass 07/18 Dr Kay and Pt's security guard- Dr Mo reviewed PET scan from 07/17. No need to pursue further evaluation for now. Deep venous thrombosis (DVT) of left peroneal ve in 07/14/2016 09/14/2018 Overview: 07/14 US LE: +Acute calf DVT in the peroneal veins, soleal vein and gastrocnemius veins.Present on admisison Plan: Hep to warfarin bridge Pulmonary embolism 07/13/2016 09/14/2018 Overview: OSH CT Chest shows Moderate-large embolism burden bilaterally. 07/14 US LE +DVTs. 07/16 TTE; EF = 61%, LVH. Indeterminate LV diastolic dysfunction. RV NL. Known h/o recent PE. ~RVSP at least, 45 mmHg c/w mild pHTN. ~RAP 5mmHg. Plan: Continue Heparin gtt as pt unable to afford lovenox Heparin to warfarin bridge Other complication due to venous access device 0 05/05/2012 09/14/2018 documented as of this encounter (statuses as of 09/10/2022) [facility] History of Past illness Narrative* Problem Noted Date Diagnosed Date Resolved Date Hilar density 07/14/2016 09/14/2018 Overview: Suspicious abnormal perihilar finding on CT at the OSH in patient with history of Lung Ca. S/P resection and unprovoked PE Plan: -07/14 Pulm following for suspicious perihilar mass 07/18 Dr Kay and Pt's security guard- Dr Mo reviewed PET scan from 07/17. No need to pursue further evaluation for now. Deep venous thrombosis (DVT) of left peroneal vein 07/14/2016 09/14/2018 Overview: 07/14 US LE: +Acute calf DVT in the peroneal veins, soleal vein and gastrocnemius veins.Present on admisison Plan: Hep to warfarin bridge Pulmonary embolism 07/13/2016 9 Overview: OSH CT Chest shows Moderate-large embolism burden bilaterally. 07/14 US LE +DVTs. 07/16 TTE; EF = 61%, LVH. Indeterminate LV diastolic dysfunction. RV NL. Known h/o recent PE. ~RVSP at least, 45 mmHg c/w mild pHTN. ~RAP 5mmHg. Plan: Continue Heparin gtt as pt unable to afford lovenox Heparin to warfarin bridge Other complication due to ve nous access device 05/05/2012 09/14/2018 documented as of this encounter (statuses as of 12/04/2022) [facility] Mal[facility] neoplasm of overlapping sites of left lung (HCC)- [facility] Malignant neoplasm of overlapping sites of left lung (HCC)- [facility] Diagnosis Malignant neoplasm of overlapping sites of left lung (HCC)- [facility] Diagnosis Malignant neoplasm of overlapping sites of left lung (HCC)- [facility] Diagnosis Malignant neoplasm of overlapping sites of left lung (HCC)- [facility] Diagnosis Malignant neoplasm of overlapping sites of left lung (HCC)- [facility] Malignant neoplasm of overlapping sites of left lung (HCC)- Primary documented in this encounter [facility] general Narrative - Reported* Type Description Date Medical History hypertension Medical History lung cancer Medical History dementia with progressive aphasi a Medical History epilepsy Medical History COPD Medical History pulmonary emboli Surgical History left lung / removal 2010 Surgical History cholecystectomy Hospitalization History see above Pocket Change Card Other History general Narrative - Reported* Type Description Date Medical History hypertension Medical History lung cancer Medical History dementia with progressive aphasi a Medical History epilepsy Medical History COPD Medical History pulmonary emboli Surgical History left lung 04/01 removal 2010 Surgical History cholecystectomy Hospitalization History see above Hospitalization History MEMORY LOSS 3 Pocket Change Card Other Summary Purpose Family History No Family History Records FoundNo Family History Records FoundNo Family History Records Found Advance Directives Documents on File Type Date Recorded Patient Tare Weigher Expl anation Advance Directive(s) 07/13/2016 9:40 PM Additional Source Comments (unrecognized sect ion and content) No Status Records FoundNo Status Records FoundNo Status Records Found INFORMATION SOURCE (unrecogn ized section and content) DATE CREATED AUTHOR 09/29/[address] [facility] DATE CREATED AUTHOR AUTHOR'S ORGANIZ ATION 09/05/2022 [facility] DATE CREATED AUTHOR AUTHOR'S ORGANIZ ATION 12/04/2022 [facility] Source Comments (unrecognize d section and content) In the event this informatio n is protected by the Federal Confidentiality of Alcohol and Drug Abuse Patient Records regulations: The Federal rules restrict any use of the information to criminally investigate or prosecute any alcohol or drug abuse patient.[facility] the event this information is protected by the Federal Confidentiality of Alcohol and Drug Abuse Patient Records regulations: The Federal rules restrict any use of the information to criminally investigate or prosecute any alcohol or drug abuse patient.[facility] the event this information is protected by the Federal Confidentiality of Alcohol and Drug Abuse Patient Records regulations: The Federal rules restrict any use of the information to criminally investigate or prosecute any alcohol or drug abuse patient.[facility] the event this information is protected by the Federal Confidentiality of Alcohol and Drug Abuse Patient Records regulations: The Federal rules restrict any use of the information to criminally investigate or prosecute any alcohol or drug abuse patient.[facility] the event this information is protected by the Federal Confidentiality of Alcohol and Drug Abuse Patient Records regulations: The Federal rules restrict any use of the information to criminally investigate or prosecute any alcohol or drug abuse patient.[facility] the event this information is protected by the Federal Confidentiality of Alcohol and Drug Abuse Patient Records regulations: The Federal rules restrict any use of the information to criminally investigate or prosecute any alcohol or drug abuse patient.[facility] the event this information is protected by the Federal Confidentiality of Alcohol and Drug Abuse Patient Records regulations: The Federal rules restrict any use of the information to criminally investigate or prosecute any alcohol or drug abuse patient.[facility] the event this information is protected by the Federal Confidentiality of Alcohol and Drug Abuse Patient Records regulations: The Federal rules restrict any use of the information to criminally investigate or prosecute any alcohol or drug abuse patient.[facility] the event this information is protected by the Federal Confidentiality of Alcohol and Drug Abuse Patient Records regulations: The Federal rules restrict any use of the information to criminally investigate or prosecute any alcohol or drug abuse patient.[facility] the event this information is protected by the Federal Confidentiality of Alcohol and Drug Abuse Patient Records regulations: The Federal rules restrict any use of the information to criminally investigate or prosecute any alcohol or drug abuse patient.[facility] Care Teams (unrecognized sec tion and content) [employer] Relationship Specialty Start Date End Date Dominguez Saini MD PCP - General Family Practice 02/25/11 Nazanin Rush (Hist) [address] [place] [address] Primary Staff Physician Cardiology 06/15/18 [employer] Relationship Specialty Start Date End Date Dominguez Saini MD PCP - General Family Practice 02/25/11 Nazanin Rush (Hist) [address] [place] [address] Primary Staff Physician Cardiology 06/15/18 [employer] Relationship Specialty Start Date End Date Dominguez Saini MD PCP - General Family Medicine 02/25/11 Nazanin Rush (Hist) [address] [place] [address] Primary Staff Physician Cardiology 06/15/18 [employer] Relationship Specialty Start Date End Date Dominguez Saini MD PCP - General Family Medicine 02/25/11 Nazanin Rush (Hist) [address] [place] [address] Primary Staff Physician Cardiology 06/15/18 [employer] Relationship Specialty Start Date End Date Dominguez Saini MD PCP - General Family Medicine 02/25/11 Nazanin Rush (Hist) [address] [place] [address] Primary Staff Physician Cardiology 06/15/18 [employer] Relationship Specialty Start Date End Date Dominguez Saini MD PCP - General Family Medicine 02/25/11 Nazanin Rush (Hist) [address] [place] [address] Primary Staff Physician Cardiology 06/15/18 Reason for Visit (unrecogniz ed section and content) RENAL 4 month Follow up Reason Comments Blood Draw (CVAD) Specialty Diagnoses / Procedures Referred By Contac t Referred To Contact Hematology / HEMATOLOGY/ONCOLOGY Diagnoses lab/port flush 6 week Procedures PORT FLUSH Self Alan Newton [address] [place] [address] Referral ID Status Reason Start Date Expiration Date V isits Requested Visits Authorized [id number] Authorized 07/21/2022 03/29/2023 99 99 Reason Comments Port Flush Specialty Diagnoses / Procedures Referred By Contac t Referred To Contact Hematology / HEMATOLOGY/ONCOLOGY Diagnoses lab/port flush 6 week Procedures PORT FLUSH Self Alan Newton [address] [place] [address] FOR RECORDS PERTAINING TO PATIENTS WHO ARE OR HAVE BEEN ENROLLED IN A CHEMICAL DEPENDENCY/SUBSTANCEABUSE PROGRAM, SOME INFORMATION MAY BE OMITTED. This clinical summary was aggregated from multiple sources. Caution should be exercised in using it in the provision of clinical care. This summary normalizes information from multiple sources, and as a consequence, information in this document may materially change the coding, format and clinical context of patient data. In addition, data may be omitted in some cases. CLINICAL DECISIONS SHOULD BE BASED ON THE PRIMARY CLINICAL RECORDS. [employer] provides no warranty or guarantee of the accuracy or completeness of information in this document.
[2023-04-02 09:51] LABS: Estimated Average Glucose 105 mg/dL; Glycohemoglobin A1C 5.3 % (4.5-6.2)
[2023-04-02 10:55] LABS: Chol HDL Ratio 2.5; Cholesterol 128 mg/dL (<=200); Free T3 2.69 pg/mL (2.18-3.98); HDL Cholesterol 52 mg/dL (40-60); LDL Cholesterol Calculated 55.2 mg/dL; Thyroid Stimulating Hormone 0.395 uIU/mL (0.358-3.740); Triglycerides 104 mg/dL (<=150); VLDL CHOLESTEROL 20.8 mg/dL
[2023-04-02 15:23] LABS: Occult Blood Positive
[2023-04-03 10:09] LABS: Insulin 5.3 uIU/mL (2.6-24.9)
== END 2023-04-02 08:41 | disposition home or self-care (01) ==
LOC: LAB 08:42
PROVIDERS: PCP Family Medicine; Visit Provider Family Medicine
DX: D72.829 Elevated white blood cell count, unspecified (principal); R41.82 Altered mental status, unspecified; E03.9 Hypothyroidism, unspecified; D64.9 Anemia, unspecified; R73.09 Other abnormal glucose; E78.5 Hyperlipidemia, unspecified
CPT/HCPCS: 36415; 80061; 83036; 83525; 84436; 84443; 84481; G0328

== ENCOUNTER 2023-04-28 19:53 | Outpatient (OUT) | payer MEDICARE, OTHER, SELFPAY ==
--- OUTSIDE RECORDS SUMMARY | 2023-04-28 19:56 | XMS_ITS | CCD ---
Author Name Unknown Address [address] [place] [address] Organization [facility] Care Team Providers Care Lead Janitor Name Role Phone PHYSICIAN, DEFAULT Unavailable Unavailable [...] Primary Care Unavailable Nazanin Rush (Hist) Unavailable [phone] HOY, DOMINGUEZ M Primary Care Unavailable HOY, [...] Translations: [CHOCOLATE] Food Allergy 05-05-19 13 Intolerance [facility] (11 sources) Phenytoin; Translations: [PHENYTOIN] Drug Allergy 01-28-20 12 Unknown [facility] (4 sources) Tetanus Vaccines And Toxoid; Translations: [TETANUS VACCINES AND TOXOID] Drug Allergy 01-28-20 12 Swelling [facility] (11 sources) Wool; Translations: [WOOL] Allergy to substance 10-25-19 14 Hives, Swelling [facility] Work Phone: (7 sources) Tetanus Vaccines And Toxoid Drug Allergy 01-28-20 12 Swelling [facility] (5 sources) Chocolate; Translations: [chocolate flavor] Drug allergy 07-14-19 17 Unknown [facility] (1 source) Tetanus toxoid specific immunoglobulin E Drug allergy Unknown [facility] (3 sources) Tetanus vaccine Drug allergy Unknown [facility] (1 source) Allopurinol Drug Allergy 07-14-19 17 [facility] (1 source) carBAMazepine Drug Allergy 07-14-19 17 [facility] (1 source) Phenytoin Drug Allergy 07-14-19 17 [facility] Medications Current Medications Medication Drug [...] by mouth every 6 hours as needed. 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 Surekha Pardo HEMOGRAM AND PLATELon 2022 Hematocrit (Bld) [Volume fraction] 39.8 % Critically low 42.0-54.0 [facility] Comment on above: Performed By: #### H H #### [facility] [address] [address] [address] Surekha Pardo Hemoglobin (Bld) [Mass/Vol] 13.2 g/dL Critically low 14.0-18.0 [facility] Comment on above: Performed By: #### H H #### [facility] [address] [address] [address] Surekha Pardo MCH (RBC) [Entitic mass] 30.3 pg Normal 25.9-34.0 [facility] Comment on above: Performed By: #### H H #### [facility] [address] [place] [address] Dr. Surekha Pardo MCHC (RBC) [Mass/Vol] 33.2 g/dL Normal 29.9-35.2 [facility] Comment on above: Performed By: #### H H #### [facility] [address] [place] [address] Dr. Surekha Pardo MCV (RBC) [Entitic vol] 91.5 fL Normal 80.0-94.0 [facility] Comment on above: Performed By: #### H H #### [facility] [address] [place] [address] Dr. Surekha Pardo PLT 320 103/ul Normal 150-450 [facility] Comment on above: Performed By: #### H H #### [facility] [address] [place] [address] Dr. Surekha Pardo RBC 4.35 106/ul Critically low 4.70-6.10 [facility] Comment on above: Performed By: #### H H #### [facility] [address] [place] [address] Dr. Surekha Pardo WBC 9.4 103/ul Normal 4.0-11.0 [facility] Comment on above: Performed By: #### H H #### [facility] [address] [place] [address] Dr. Surekha Pardo MAGNESIUMon 06-23-2022 Magnesium [Mass/Vol] 1.8 mg/dL Normal 1.8-2.4 [facility] Comment on above: Performed By: #### L IPID, URIC, CMP, TSH, BNP #### [facility] [address] [place] [address] Dr. Surekha Pardo PHOSPHORUSon 06-23-2022 Phosphate [Mass/Vol] 3.0 mg/dL Normal 2.6-4.7 [facility] Comment on above: Performed By: #### L IPID, URIC, CMP, TSH, BNP #### [facility] [address] [place] [address] Dr. Surekha Pardo PROF 14(COMP METB)on 023 Albumin [Mass/Vol] 3.8 g/dL Normal 3.4-5.[address] [facility] Comment on above: Performed By: #### L IPID, URIC, CMP, TSH, BNP #### [facility] [address] [place] [address] Dr. Surekha Pardo Albumin/Globulin [Mass ratio] 0.9 {ratio} Normal [facility] Comment on above: Performed By: #### L IPID, URIC, CMP, TSH, BNP #### [facility] [address] [place] [address] Dr. Surekha Pardo ALP [Catalytic activity/Vol] 101 U/L Normal 46-116 [facility] Comment on above: Performed By: #### L IPID, URIC, CMP, TSH, BNP #### [facility] [address] [place] [address] Dr. Surekha Pardo ALT [Catalytic activity/Vol] 20 U/L Normal 16-63 [facility] Comment on above: Performed By: #### L IPID, URIC, CMP, TSH, BNP #### [facility] [address] [place] [address] Dr. Surekha Pardo Anion gap [Moles/Vol] 15.7 mmol/L Normal [facility] Comment on above: Performed By: #### L IPID, URIC, CMP, TSH, BNP #### [facility] [address] [place] [address] Dr. Surekha Pardo AST [Catalytic activity/Vol] 16 U/L Normal 15-37 [facility] Comment on above: Performed By: #### L IPID, URIC, CMP, TSH, BNP #### [facility] [address] [place] [address] Dr. Surekha Pardo Bilirubin [Mass/Vol] 0.4 mg/dL Normal 0.2-1.0 [facility] Comment on above: Performed By: #### L IPID, URIC, CMP, TSH, BNP #### [facility] [address] [place], [place] [id number] Dr. Surekha Pardo Calcium [Mass/Vol] 9.4 mg/dL Normal 8.5-10.1 [facility] Comment on above: Performed By: #### L IPID, URIC, CMP, TSH, BNP #### [facility] [address] [place] [address] Dr. Surekha Pardo Chloride [Moles/Vol] 106 mmol/L Normal 98-107 [facility] Comment on above: Performed By: #### L IPID, URIC, CMP, TSH, BNP #### [facility] [address] [place] [address] Dr. Surekha Pardo CO2 [Moles/Vol] 27.1 mmol/L Normal 21.0-32.[address] [facility] Comment on above: Performed By: #### L IPID, URIC, CMP, TSH, BNP #### [facility] [address] [place] [address] Dr. Surekha Pardo Creatinine [Mass/Vol] 2.15 mg/dL Critically high 0.70-1.30 [facility] Comment on above: Performed By: #### L IPID, URIC, CMP, TSH, BNP #### [facility] [address] [place] [address] Dr. Surekha Pardo EGFR-AF PAP[place] 37 mL/min/1.73m2 Critically low >=60 [facility] Comment on above: Performed By: #### L IPID, URIC, CMP, TSH, BNP #### [facility] [address] [place] [address] Dr. Surekha Pardo EGFR-NON AF P[place] 30 mL/min/1.73m2 Critically low >=60 [facility] Comment on above: Performed By: #### L IPID, URIC, CMP, TSH, BNP #### [facility] [address] [place] [address] Dr. Surekha Pardo Globulin (S) [Mass/Vol] 4.1 g/dL Normal [facility] Comment on above: Performed By: #### L IPID, URIC, CMP, TSH, BNP #### [facility] [address] [place] [address] Dr. Surekha Pardo Glucose [Mass/Vol] 102 mg/dL Normal 74-106 [facility] Comment on above: Performed By: #### L IPID, URIC, CMP, TSH, BNP #### [facility] [address] [place] [address] Dr. Surekha Pardo Potassium [Moles/Vol] 3.8 mmol/L Normal 3.5-5.1 [facility] Comment on above: Performed By: #### L IPID, URIC, CMP, TSH, BNP #### [facility] [address] [place] [address] Dr. Surekha Pardo Protein [Mass/Vol] 7.9 g/dL Normal 6.4-8.2 [facility] Comment on above: Performed By: #### L IPID, URIC, CMP, TSH, BNP #### [facility] [address] [place] [address] Dr. Surekha Pardo Sodium [Moles/Vol] 145 mmol/L Normal 136-[address] [facility] Comment on above: Performed By: #### L IPID, URIC, CMP, TSH, BNP #### [facility] [address] [place] [address] Dr. Surekha Pardo Urea nitrogen [Mass/Vol] 12.0 mg/dL Normal 7.0-18.0 [facility] Comment on above: Performed By: #### L IPID, URIC, CMP, TSH, BNP #### [facility] [address] [place] [address] Dr. Surekha Pardo Urea nitrogen/Creatinine [Mass ratio] 5.6 mg/mg Normal [facility] Comment on above: Performed By: #### L IPID, URIC, CMP, TSH, BNP #### [facility] [address] [place] [address] Dr. Surekha Pardo UA RANDOMon 06-23-2022 Bilirubin Ql (U) Negative Normal NEGATIVE [facility] Comment on above: Performed By: #### L IPID, URIC, CMP, TSH, BNP #### [facility] [address] [place] [address] Dr. Surekha Pardo Clarity (U) CLEAR Normal CLEAR [facility] Comment on above: Performed By: #### L IPID, URIC, CMP, TSH, BNP #### [facility] [address] [address] [address] Surekha Pardo Color (U) LT. YELLOW Normal YELLOW [facility] Comment on above: Performed By: #### L IPID, URIC, CMP, TSH, BNP #### [facility] [address] [address] [address] Surekha Pardo Glucose Ql (U) Negative Normal NEGATIVE [facility] Comment on above: Performed By: #### L IPID, URIC, CMP, TSH, BNP #### [facility] [address] [address] [address] Surekha Pardo Hemoglobin Ql (U) MODERATE Abnormal NEGATIVE [facility] Comment on above: Performed By: #### L IPID, URIC, CMP, TSH, BNP #### [facility] [address] [place] [address] Dr. Surekha Pardo Ketones Ql (U) Negative Normal NEGATIVE [facility] Comment on above: Performed By: #### L IPID, URIC, CMP, TSH, BNP #### [facility] [address] [address] [address] Surekha Pardo LEUKOCYTES SMALL Abnormal NEGATIVE [facility] Comment on above: Performed By: #### L IPID, URIC, CMP, TSH, BNP #### [facility] [address] [address] [address] Surekha Pardo Nitrite Ql (U) Negative Normal NEGATIVE [facility] Comment on above: Performed By: #### L IPID, URIC, CMP, TSH, BNP #### [facility] [address] [address] [address] Surekha Pardo pH (U) 6.5 [pH] Normal 5-9 [facility] Comment on above: Performed By: #### L IPID, URIC, CMP, TSH, BNP #### [facility] [address] [address] [address] Surekha Pardo SPEC GRAVITY 1.010 Normal 1.005-<=1.025 [facility] Comment on above: Performed By: #### L IPID, URIC, CMP, TSH, BNP #### [facility] [address] [address] [address] Surekha Pardo UA PROTEIN Negative Normal NEGATIVE/ TRACE [facility] Comment on above: Performed By: #### L IPID, URIC, CMP, TSH, BNP #### [facility] [address] [address] [address] Surekha Pardo Urobilinogen Qn (U) 0.2 {David'U}/dL Normal 0.2 - 1. 0 [facility] Comment on above: Performed By: #### L IPID, URIC, CMP, TSH, BNP #### [facility] [address] [address] [address] Surekha Pardo URIC ACID SERUMon 06-23-2022 Urate [Mass/Vol] 4.8 mg/dL Normal 3.5-7.[address] [facility] Comment on above: Performed By: #### L IPID, URIC, CMP, TSH, BNP #### [facility] [address] [address] [address] Surekha Pardo URINE T PROTEIN CREAT RATIOo n 06-23-2022 Protein (U) [Mass/Vol] 37.5 mg/dL Critically high <=12.0 [facility] Comment on above: Performed By: #### L IPID, URIC, CMP, TSH, BNP #### [facility] [address] [address] [address] Surekha Pardo UR PROT CREAT RAT 0.49 Normal [facility] Comment on above: Performed By: #### L IPID, URIC, CMP, TSH, BNP #### [facility] [address] [address] [address] Surekha Pardo URINE CREAT 76.71 mg/dL Normal 20.00-300.00 [facility] Comment on above: Performed By: #### L IPID, URIC, CMP, TSH, BNP #### [facility] [address] [address] [address] Surekha Pardo VIT B12 AND FOLATEon 023 Cobalamin (Vitamin B12) [Mass/Vol] 1348.0 pg/mL Critically high 193.0-986.0 [facility] Comment on above: Performed By: #### B 12FOL, VITAD #### [facility] [address] [place] [address] Dr. Surekha Pardo FOLATE 5.50 ng/mL Critically low 8.60-58.90 [facility] Comment on above: Performed By: #### B 12FOL, VITAD #### [facility] [address] [place] [address] Dr. Surekha Pardo VITAMIN D 25 OHon 06-23-2022 VIT D 25-OH 51.4 ng/mL Normal [facility] Comment on above: Performed By: #### B 12FOL, VITAD #### [facility] [address] [place] [address] Dr. Surekha Pardo VIT D RANGES SEE BELOW Normal [facility] Comment on above: Result Comment: <20 ng/mL Vit D deficient 20 - <30 ng/mL Vit D insufficient 30 - 100 ng/mL Vit D sufficient >100 ng/mL Potential Toxicity Performed By: #### B 12FOL, VITAD #### [facility] [address] [place] [address] Dr. Surekha Pardo INSULINon 12-18-2021 Insulin 13.2 uIU/mL Normal 2.6-24.9 [facility] Comment on above: Performed By: #### L IPID, URIC, CMP, TSH, BNP #### [facility] [address] [place] [address] Dr. Surekha Pardo T4, T3U, FTI LABCORPon 12-18 Free Thyroxine Index 2.5 Normal 1.2-4.9 [facility] Comment on above: Performed By: #### T HYLC #### [facility] [address] [place] [address] Dr. Surekha Pardo T3 Uptake 26 % Normal 24-39 [facility] Comment on above: Performed By: #### T HYLC #### [facility] [address] [place] [address] Dr. Surekha Pardo T4 [Mass/Vol] 9.8 ug/dL Normal 4.5-12.0 [facility] Comment on above: Performed By: #### T HYLC #### [facility] [address] [place] [address] Dr. Surekha Pardo BNPon 12-17-2021 Natriuretic peptide B (Bld) [Mass/Vol] 48.0 pg/mL Normal <=900.0 [facility] Comment on above: Performed By: #### L IPID, URIC, CMP, TSH, BNP #### [facility] [address] [place] [address] Dr. Surekha Pardo CBC AUTO DIFFon 12-17-2021 BASO # 0.1 103/ul Normal 0.0-0.1 [facility] Comment on above: Performed By: #### C BC #### [facility] [address] [place] [address] Dr. Surekha Pardo Basophils/100 WBC (Bld) 0.7 % Normal 0.2-2.0 [facility] Comment on above: Performed By: #### C BC #### [facility] [address] [place] [address] Dr. Surekha Pardo EO # 0.2 103/ul Normal 0.0-0.7 [facility] Comment on above: Performed By: #### C BC #### [facility] [address] [place] [address] Dr. Surekha Pardo Eosinophils/100 WBC (Bld) 1.8 % Normal 0.9-7.0 [facility] Comment on above: Performed By: #### C BC #### [facility] [address] [place] [address] Dr. Surekha Pardo Erythrocyte distribution width (RBC) [Ratio] 13.2 % Normal 11.0-15.0 [facility] Comment on above: Performed By: #### C BC #### [facility] [address] [place] [address] Dr. Surekha Pardo Hematocrit (Bld) [Volume fraction] 38.8 % Critically low 42.0-54.0 [facility] Comment on above: Performed By: #### C BC #### [facility] [address] [address] [address] Surekha Pardo Hemoglobin (Bld) [Mass/Vol] 12.9 g/dL Critically low 14.0-18.0 [facility] Comment on above: Performed By: #### C BC #### [facility] [address] [address] [address] Surekha Pardo IG # 0.03 10e3/ul Normal 0.00-0.03 [facility] Comment on above: Performed By: #### C BC #### [facility] [address] [address] [address] Surekha Pardo IG % 0.4 % Normal 0.0-0.5 [facility] Comment on above: Performed By: #### C BC #### [facility] [address] [place] [address] Dr. Surekha Pardo LYMPH # 1.5 103/ul Normal 1.2-3.8 [facility] Comment on above: Performed By: #### C BC #### [facility] [address] [place] [address] Dr. Surekha Pardo Lymphocytes/100 WBC (Bld) 19.0 % Critically low 20.5-60.0 [facility] Comment on above: Performed By: #### C BC #### [facility] [address] [place] [address] Dr. Surekha Pardo MANUAL DIFF REQ NO Normal [facility] Comment on above: Performed By: #### C BC #### [facility] [address] [address] [address] Surekha Pardo MCH (RBC) [Entitic mass] 30.9 pg Normal 25.9-34.0 [facility] Comment on above: Performed By: #### C BC #### [facility] [address] [address] [address] Surekha Pardo MCHC (RBC) [Mass/Vol] 33.2 g/dL Normal 29.9-35.2 [facility] Comment on above: Performed By: #### C BC #### [facility] [address] [address] [address] Surekha Pardo MCV (RBC) [Entitic vol] 92.8 fL Normal 80.0-94.0 [facility] Comment on above: Performed By: #### C BC #### [facility] [address] [address] [address] Surekha Pardo MONO # 0.6 103/ul Normal 0.3-0.8 [facility] Comment on above: Performed By: #### C BC #### [facility] [address] [address] [address] Surekha Pardo Monocytes/100 WBC (Bld) 7.9 % Normal 1.7-12.0 [facility] Comment on above: Performed By: #### C BC #### [facility] [address] [place] [address] Dr. Surekha Pardo NEUT # 5.7 103/ul Normal 1.4-6.5 [facility] Comment on above: Performed By: #### C BC #### [facility] [address] [place] [address] Dr. Surekha Pardo Neutrophils/100 WBC (Bld) 70.2 % Normal 43.0-75.0 [facility] Comment on above: Performed By: #### C BC #### [facility] [address] [place] [address] Dr. Surekha Pardo Platelet mean volume (Bld) [Entitic vol] 9.7 fL Normal 9.5-13.5 [facility] Comment on above: Performed By: #### C BC #### [facility] [address] [place] [address] Dr. Surekha Pardo PLT 261 103/ul Normal 150-450 [facility] Comment on above: Performed By: #### C BC #### [facility] [address] [address] [address] Surekha Pardo RBC 4.18 106/ul Critically low 4.70-6.10 [facility] Comment on above: Performed By: #### C BC #### [facility] [address] [address] [address] Surekha Pardo WBC 8.1 103/ul Normal 4.0-11.0 [facility] Comment on above: Performed By: #### C BC #### [facility] [address] [place] [address] Dr. Surekah Pardo GLYCOHEMOGLOBIN A1Con 2021 ADA RECOMMENDATION SEE BELOW Normal [facility] Comment on above: Result Comment: ADA RECOMMENDED LIMIT 4.0 - 6.0 ADA THERAPEUTIC TARGET < 7.0 ACTION SUGGESTED > 7.0 Performed By: #### L IPID, URIC, CMP, TSH, BNP #### [facility] [address] [address] [address] Surekha Pardo Glucose [Mass/Vol] 105 mg/dL Normal [facility] Comment on above: Performed By: #### L IPID, URIC, CMP, TSH, BNP #### [facility] [address] [place] [address] Dr. Surekha Pardo HbA1c (Bld) [Mass fraction] 5.3 % Normal 4.5-6.2 [facility] Comment on above: Performed By: #### L IPID, URIC, CMP, TSH, BNP #### [facility] [address] [place] [address] Dr. Surekha Pardo LIPID PROFILEon 12-17-2021 CHOL-HDL RATIO NORM SEE BELOW Normal [facility] Comment on above: Result Comment: 3.3 - 4.4 LOW RISK 4.4 - 7.1 AVERAGE RISK 7.1 - 11.0 MODERATE RISK >11.0 HIGH RISK Performed By: #### L IPID, URIC, CMP, TSH, BNP #### [facility] [address] [place] [address] Dr. Surekha Pardo Cholesterol [Mass/Vol] 142 mg/dL Normal <=200 [facility] Comment on above: Performed By: #### L IPID, URIC, CMP, TSH, BNP #### [facility] [address] [address] [address] Surekha Pardo Cholesterol in HDL [Mass/Vol] 50 mg/dL Normal 40-60 [facility] Comment on above: Performed By: #### L IPID, URIC, CMP, TSH, BNP #### [facility] [address] [address] [address] Surekha Pardo Cholesterol in LDL [Mass/Vol] 65.0 mg/dL Normal [facility] Comment on above: Performed By: #### L IPID, URIC, CMP, TSH, BNP #### [facility] [address] [address] [address] Surekha Pardo Cholesterol.total/Cho lesterol in HDL [Mass ratio] 2.8 {ratio} Normal [facility] Comment on above: Performed By: #### L IPID, URIC, CMP, TSH, BNP #### [facility] [address] [address] [address] Surekha Pardo HDL NORMAL > or = 60 mg/dl - LOW CARDIOVASCULAR RISK <40 mg/dl - HIGH CARDIOVASCULAR RISK Normal [facility] Comment on above: Performed By: #### L IPID, URIC, CMP, TSH, BNP #### [facility] [address] [address] [address] Surekha Pardo LDL CALC NORMAL SEE BELOW Normal [facility] Comment on above: Result Comment: <100 mg/dl OPTIMAL 100 - 129 mg/dl NEAR OR ABOVE OPTIMAL 130 - 159 mg/dl BORDERLINE HIGH 160 - 189 mg/dl HIGH >190 mg/dl VERY HIGH Performed By: #### L IPID, URIC, CMP, TSH, BNP #### [facility] [address] [address] [address] Surekha Pardo Triglyceride [Mass/Vol] 135 mg/dL Normal <=150 [facility] Comment on above: Performed By: #### L IPID, URIC, CMP, TSH, BNP #### [facility] [address] [address] [address] Surekha Pardo VLDL CALC 27.0 mg/dL Normal [facility] Comment on above: Performed By: #### L IPID, URIC, CMP, TSH, BNP #### [facility] [address] [address] [address] Surekha Pardo OCC BLD IMMUNO SCREENon 11-29 OCCULT BLOOD Negative Normal NEGATIVE [facility] Comment on above: Performed By: #### L IPID, URIC, CMP, TSH, BNP #### [facility] [address] [place] [address] Dr. Surekha Pardo PROF 14(COMP METB)on 022 Albumin [Mass/Vol] 3.7 g/dL Normal 3.4-5.[address] [facility] Comment on above: Performed By: #### L IPID, URIC, CMP, TSH, BNP #### [facility] [address] [place] [address] Dr. Surekha Pardo Albumin/Globulin [Mass ratio] 0.9 {ratio} Normal [facility] Comment on above: Performed By: #### L IPID, URIC, CMP, TSH, BNP #### [facility] [address] [place] [address] Dr. Surekha Pardo ALP [Catalytic activity/Vol] 90 U/L Normal 46-116 [facility] Comment on above: Performed By: #### L IPID, URIC, CMP, TSH, BNP #### [facility] [address] [place] [address] Dr. Surekha Pardo ALT [Catalytic activity/Vol] 16 U/L Normal 16-63 [facility] Comment on above: Performed By: #### L IPID, URIC, CMP, TSH, BNP #### [facility] [address] [address] [address] Surekha Pardo Anion gap [Moles/Vol] 11.4 mmol/L Normal [facility] Comment on above: Performed By: #### L IPID, URIC, CMP, TSH, BNP #### [facility] [address] [address] [address] Surekha Pardo AST [Catalytic activity/Vol] 13 U/L Critically low 15-37 [facility] Comment on above: Performed By: #### L IPID, URIC, CMP, TSH, BNP #### [facility] Laboratory [address] [place] [address] Dr. Surekha Pardo Bilirubin [Mass/Vol] 0.4 mg/dL Normal 0.2-1.0 [facility] Comment on above: Performed By: #### L IPID, URIC, CMP, TSH, BNP #### [facility] [address] [place] [address] Dr. Surekha Pardo Calcium [Mass/Vol] 9.0 mg/dL Normal 8.5-10.1 [facility] Comment on above: Performed By: #### L IPID, URIC, CMP, TSH, BNP #### [facility] [address] [address] [address] Surekha Pardo Chloride [Moles/Vol] 105 mmol/L Normal 98-107 [facility] Comment on above: Performed By: #### L IPID, URIC, CMP, TSH, BNP #### [facility] [address] [place] [address] Dr. Surekha Pardo CO2 [Moles/Vol] 27.5 mmol/L Normal 21.0-32.[address] [facility] Comment on above: Performed By: #### L IPID, URIC, CMP, TSH, BNP #### [facility] [address] [place] [address] Dr. Surekha Pardo Creatinine [Mass/Vol] 2.15 mg/dL Critically high 0.70-1.30 [facility] Comment on above: Performed By: #### L IPID, URIC, CMP, TSH, BNP #### [facility] [address] [place] [address] Dr. Surekha Pardo EGFR-AF P[place] 37 mL/min/1.73m2 Critically low >=60 [facility] Comment on above: Performed By: #### L IPID, URIC, CMP, TSH, BNP #### [facility] [address] [place] [address] Dr. Surekha Pardo EGFR-NON AF [place] 30 mL/min/1.73m2 Critically low >=60 [facility] Comment on above: Performed By: #### L IPID, URIC, CMP, TSH, BNP #### [facility] [address] [place] [address] Dr. Surekha Pardo Globulin (S) [Mass/Vol] 4.0 g/dL Normal [facility] Comment on above: Performed By: #### L IPID, URIC, CMP, TSH, BNP #### [facility] [address] [address] [address] Surekha Pardo Glucose [Mass/Vol] 109 mg/dL Critically high 74-106 [facility] Comment on above: Performed By: #### L IPID, URIC, CMP, TSH, BNP #### [facility] [address] [place] [address] Dr. Surekha Pardo Potassium [Moles/Vol] 3.9 mmol/L Normal 3.5-5.1 [facility] Comment on above: Performed By: #### L IPID, URIC, CMP, TSH, BNP #### [facility] [address] [place] [address] Dr. Surekha Pardo Protein [Mass/Vol] 7.7 g/dL Normal 6.4-8.2 [facility] Comment on above: Performed By: #### L IPID, URIC, CMP, TSH, BNP #### [facility] [address] [place] [address] Dr. Surekha Pardo Sodium [Moles/Vol] 140 mmol/L Normal 136-145 [facility] Comment on above: Performed By: #### L IPID, URIC, CMP, TSH, BNP #### [facility] [address] [place] [address] Dr. Surekha Pardo Urea nitrogen [Mass/Vol] 12.0 mg/dL Normal 7.0-18.0 [facility] Comment on above: Performed By: #### L IPID, URIC, CMP, TSH, BNP #### [facility] [address] [place] [address] Dr. Surekha Pardo Urea nitrogen/Creatinine [Mass ratio] 5.6 mg/mg Normal [facility] Comment on above: Performed By: #### L IPID, URIC, CMP, TSH, BNP #### [facility] [address] [place] [address] Dr. Surekha Pardo TSHon 12-17-2021 TSH 1.103 uIU/mL Normal 0.358-3.740 [facility] Comment on above: Performed By: #### L IPID, URIC, CMP, TSH, BNP #### [facility] [address] [place], [place] [address] Dr. Surekha Pardo URIC ACID SERUMon 12-17-2021 Urate [Mass/Vol] 5.1 mg/dL Normal 3.5-7.[address] [facility] Comment on above: Performed By: #### L IPID, URIC, CMP, TSH, BNP #### [facility] [address] [address] [address] Surekha Pardo Vital Signs Date Time Vital Sign Value Performing Clinician Facility 03-10-2023 13:00-0500 Body height 170.18 cm Zorandeondre Lillylexi Other [facility] Other 03-10-2023 13:00-0500 Body mass index (BMI) [Ratio] 30.73 kg/m2 Timothy [employer] Other [facility] Other 03-10-2023 13:00-0500 Body temperature 96.9 [degF] Timothy [employer] Other [facility] Other 03-10-2023 13:00-0500 Body weight 89 kg Timothy [employer] Other [facility] Other 03-10-2023 13:00-0500 Diastolic blood pressure 70 mm[Hg] Timothy [employer] Other [facility] Other 03-10-2023 13:00-0500 Respiratory rate 18 /min Timothy [employer] Other [facility] Other 03-10-2023 13:00-0500 SaO2% (BldA) [Mass fraction] 95 % Timothy [employer] Other [facility] Other 03-10-2023 13:00-0500 Systolic blood pressure 140 mm[Hg] Aziz Bakhous Other [facility] Other 11-04-2022 13:00-0400 Body height 170.18 cm Azdeondre Bakhous Other [facility] Other 11-04-2022 13:00-0400 Body mass index (BMI) [Ratio] 31.35 kg/m2 Aziz Bakhous Other [facility] Other 11-04-2022 13:00-0400 Body temperature 96.6 [degF] Aziz Bakhous Other [facility] Other 11-04-2022 13:00-0400 Body weight 90.81 kg Azdeondre Bakhous Other [facility] Other 11-04-2022 13:00-0400 Diastolic blood pressure 90 mm[Hg] Aziz Bakhous Other [facility] Other 11-04-2022 13:00-0400 Respiratory rate 18 /min Azdeondre Bakhous Other [facility] Other 11-04-2022 13:00-0400 SaO2% (BldA) [Mass fraction] 94 % Aziz Bakhous Other [facility] Other 11-04-2022 13:00-0400 Systolic blood pressure 130 mm[Hg] Aziz Bakhous Other [facility] Other 07-01-2022 14:20-0400 Body height 170.18 cm Aziz Bakhous Other [facility] Other 07-01-2022 14:20-0400 Body mass index (BMI) [Ratio] 32.92 kg/m2 Timothy Carrs Other [facility] Other 07-01-2022 14:20-0400 Body temperature 96.2 [degF] Timothy Carrs Other [facility] Other 07-01-2022 14:20-0400 Body weight 95.35 kg Timothy Carrs Other [facility] Other 07-01-2022 14:20-0400 Diastolic blood pressure 84 mm[Hg] Timothy Carrs Other [facility] Other 07-01-2022 14:20-0400 Respiratory rate 18 /min Timothy Carrs Other [facility] Other 07-01-2022 14:20-0400 SaO2% (BldA) [Mass fraction] 96 % Timothy Carrs Other [facility] Other 07-01-2022 14:20-0400 Systolic blood pressure 132 mm[Hg] Timothy Carrs Other [facility] Other 02-25-2022 14:20-0500 Body height 170.18 cm Timothy Byrnehous Other [facility] Other 02-25-2022 14:20-0500 Body mass index (BMI) [Ratio] 34.45 kg/m2 Azdeondre Byrnehous Other [facility] Other 11-29-2022 14:20-0500 Body weight 99.79 kg Aziz Bakhous Other [facility] Other 02-25-2022 14:20-0500 Diastolic blood pressure 84 mm[Hg] Aziz Bakhous Other [facility] Other 02-25-2022 14:20-0500 SaO2% (BldA) [Mass fraction] 98 % Aziz Bakhous Other [facility] Other 02-25-2022 14:20-0500 Systolic blood pressure 132 mm[Hg] Aziz Bakhous Other [facility] Other Encounters Encounter Date Encounter Type Care Provider Facility Start: 03-10-2023 End: 03-10-2023 ambulatory Aziz Bakhous Other [facility] Other Start: 03-10-2023 Office outpatient vi sit 25 minutes Aziz Bakhous [facility] Start: 12-03-2022 End: 12-03-2022 ambulatory DOMINGUEZ M HOY Facility:[facility] Start: 12-03-2022 End: 12-03-2022 ambulatory [facility] [place] Work Phone: Hematology/Oncology Comment on above: Malignant neoplasm o f overlapping sites of left lung (HCC) (Primary Dx) Start: 11-04-2022 End: 11-04-2022 ambulatory Aziz Bakhous Other [facility] Other Start: 11-04-2022 Office outpatient vi sit 25 minutes Aziz Bakhous [facility] Start: 10-22-2022 End: 10-22-2022 ambulatory DOMINGUEZ M HOY Facility:[facility] Start: 09-10-2022 End: 09-10-2022 ambulatory [facility] Work Phone: Hematology/Oncology Comment on above: Malignant neoplasm o f overlapping sites of left lung (HCC) (Primary Dx) Start: 07-29-2022 End: 07-29-2022 ambulatory DOMINGUEZ SAINI Facility:[facility] Start: 07-29-2022 End: 07-29-2022 ambulatory [facility] Work Phone: Hematology/Oncology Comment on above: Malignant neoplasm o f overlapping sites of left lung (HCC) (Primary Dx) Start: 07-28-2022 End: 08-27-2022 ambulatory ORDOÑEZ H FAWWAD Facility:[facility] Start: 07-01-2022 End: 07-01-2022 ambulatory Timothy Galarza Other [facility] Other Start: 07-01-2022 Office outpatient vi sit 25 minutes Timothy Galarza [facility] Start: 06-30-2022 End: 07-25-2022 ambulatory ORDOÑEZ H FAWWAD Facility:[facility] Start: 06-23-2022 End: 06-24-[address] DOMINGUEZ SAINI . Facility:[facility] Start: 06-17-2022 End: 06-17-2022 ambulatory DOMINGUEZ SAINI Facility:[facility] Start: 05-28-2022 End: 06-27-2022 ambulatory ORDOÑEZ H FAWWAD Facility:[facility] Start: 05-07-2022 End: 05-07-2022 ambulatory [facility] Work Phone: Hematology/Oncology Comment on above: Malignant neoplasm o f overlapping sites of left lung (HCC) (Primary Dx) Start: 04-30-2022 End: 05-28-2022 ambulatory ORDOÑEZ H FAWWAD Facility:[facility] Start: 03-31-2022 End: 04-30-2022 ambulatory ORDOÑEZ H FAWWAD Facility:[facility] Start: 03-26-2022 End: 03-26-2022 ambulatory DOMINGUEZ SAINI Facility:[facility] Start: 03-26-2022 End: 03-26-2022 ambulatory [facility] Work Phone: Hematology/Oncology Comment on above: Malignant neoplasm o f overlapping sites of left lung (HCC) (Primary Dx) Start: 02-27-2022 End: 03-30-2022 ambulatory ORDOÑEZ H FAWWAD Facility:[facility] Start: 02-25-2022 End: 02-25-2022 ambulatory Azdeondre Carrs Other [facility] Other Start: 02-25-2022 Office outpatient ne w 30 minutes Aziz Bakhous [facility] Start: 02-12-2022 End: 02-12-2022 ambulatory DOMINGUEZ SAINI Facility:[facility] Start: 02-12-2022 End: 02-12-2022 ambulatory [facility] Work Phone: Hematology/Oncology Comment on above: Malignant neoplasm o f overlapping sites of left lung (HCC) (Primary Dx) Start: 01-28-2022 End: 02-26-2022 ambulatory ORDOÑEZ H FAWWAD Facility:[facility] Start: 01-01-2022 End: 01-01-2022 ambulatory DOMINGUEZ SAINI Facility:[facility] Start: 12-29-2021 End: 01-27-2022 ambulatory ORDOÑEZ H [...] Start: 09-28-2017 End: 09-29-2017 Ambulatory DEFAULT PHYSICIAN Facility:[facility] Start: 09-24-2017 End: 09-25-2017 Ambulatory DEFAULT PHYSICIAN Facility:[facility] Procedures Date Procedure Procedure Detail Performing Clinician Start: 12-17-2021 PSA screening SHAIKH RAQUEL HILLMAN Comment on above: Performed By: #### L IPID, URIC, CMP, TSH, BNP #### [facility] [address] [place] [address] Dr. Surekha Pardo Start: 09-20-2019 Adult depression screening assessment [facility] [employer] Work Phone: Plan of Treatment Date Care Activity Detail Author Start: 11-28-2022 Influenza vaccination INFLUENZA (#1) [facility] Start: 03-30-2022 ADVANCE DIRECTIVE DISCUSSION ADVANCE DIRECTIVE DISCUSSION [facility] Start: 03-30-2022 DEPRESSION ASSESSMENT DEPRESSION ASS ESSMENT [facility] Start: 11-28-2021 Influenza vaccination INFLUENZA (#1) [facility] Start: 07-15-2021 LIPID SCREEN LIPID SCREEN [facility] Start: 06-07-2021 COVID-19 VACCINE (4 - Booster for Moderna series) COVID-19 VACCINE (4 - Booster for Moderna series) [facility] Start: 04-04-2021 COVID-19 VACCINE (4 - Booster for Moderna series) COVID-19 VACCINE (4 - Booster for Moderna series) [facility] Start: 03-30-2021 ADVANCE DIRECTIVE DISCUSSION ADVANCE DIRECTIVE DISCUSSION [facility] Start: 03-30-2021 DEPRESSION ASSESSMENT DEPRESSION ASS ESSMENT [facility] Start: 09-19-2020 Adult depression scr eening assessment DEPRESSION SCREENING [facility] Start: 07-22-2019 DIABETES SCREEN DIABETES SCREEN [facility] Start: 10-21-2018 PNEUMOCOCCAL: 65+ (2 - PCV) PNEUMOCOCCAL: 65+ (2 - PCV) [facility] Start: 10-21-2018 PNEUMOCOCCAL: 65+ (3 - PCV) PNEUMOCOCCAL: 65+ (3 - PCV) [facility] Start: 07-21-2017 HEMOGLOBIN/HEMATOCRIT HEMOGLOBIN/HEM ATOCRIT [facility] Start: 07-21-2017 SERUM CREATININE SERUM CREATININE [facility] Start: 08-29-1999 SHINGRIX VACCINE (1 of 2) SHINGRIX V ACCINE (1 of 2) [facility] Start: 1994 COLOGUARD (FIT-DNA) COLOGUARD (FIT-D NA) [facility] Start: 1994 Colonoscopy COLONOSCOPY [facility] Start: 1994 COLORECTAL CANCER SCREENING COLORECTAL CANCER SCREENING [facility] Start: [address] COLONOGRAPHY [facility] Start: 1994 FECAL OCCULT BLOOD FECAL OCCULT BLOO D [facility] Start: 1994 SIGMOIDOSCOPY SIGMOIDOSCOPY [facility] Start: 1968 Urine microalbumin profile DTAP,TDAP ,TD (1 - Tdap) [facility] Start: 08-29-1967 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 ANNUAL PCP TEAM CHRONIC DISEASE VISIT [facility] Start: 08-29-1967 BP CONTROLLED (<130/80) BP CONTROLLE D (<130/80) [facility] Start: 08-29-1967 HEPATITIS C SCREENING HEPATITIS C SC REENING [facility] Start: 1949 ABDOMINAL AORTIC ANE URYSM SCREENING ABDOMINAL AORTIC ANEURYSM SCREENING [facility] Immunizations Immunization Date Immunization Notes Care Provider Raquel adorno 05-24-2020 COVID-19 vaccine, fu ll dose (MODERNA) Lab/[employer] Work Phone: [facility] 12-07-2019 unknown vaccine or i mmune globulin Lab/[employer] Work Phone: [facility] 12-29-2018 influenza, high dose seasonal, preservative-free [facility] Work Phone: [facility] 11-05-2017 influenza, high dose seasonal, preservative-free [facility] Work Phone: [facility] 10-21-2017 pneumococcal polysaccharide vaccine, 23 valent [facility] [place] Work Phone: [facility] 12-26-2016 influenza, high dose seasonal, preservative-free [facility] Work Phone: [facility] 07-25-2016 pneumococcal polysaccharide vaccine, 23 valent [facility] Work Phone: [facility] 12-01-2014 influenza, high dose seasonal, preservative-free [facility] Work Phone: [facility] 01-30-2014 influenza, seasonal, injectable [facility] Work Phone: [facility] 01-28-2012 influenza virus vacc ine, unspecified formulation [facility] Work Phone: [facility] 05-02-2010 pneumococcal polysaccharide vaccine, 23 valent [facility] Work Phone: [facility] Payers Date Payer Category Payer Unknown 2019 Unknown MMO MMO MEDICARE SUPPLEMENT [id number] 2019-Present [phone] [address] [place] [address] Indemnity [id number] 2002 Medicare MEDICARE MEDICAR E A AND B [id number] 2002-Present [phone] [address] [address] [place] [address] Medicare [id number] 2002 Medicare MEDICARE MEDICAR E A AND B [id number] 2002-Present [phone] [address] [address] [place] [address] Medicare [id number] 1959 Medicare [id number] 1959 Unknown [id number] 1949 Unknown [id number] 1949 Unknown [id number] 1949 Unknown [id number] 1949 Unknown [id number] 1949 Unknown [id number] 1949 Unknown [id number] 1949 Unknown [id number] 1949 Unknown [id number] 1949 Unknown [id number] 1949 Unknown [id number] 1949 Unknown [id number] 1949 Unknown [id number] 1949 Unknown [id number] Social History Date Type Detail Facility Start: 05-05-2012 Tobacco smoking stat us [facility] Ex-smoker [facility] End: 03-30-1994 History of tobacco use Current smoker [facility] End: 03-30-1994 History of tobacco use Cigarette Smoker [facility] Start: 09-20-2019 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 intake 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 (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) [facility] Start: 1950 Sex Assigned At Not on file C [facility] Start: 07-07-2021 End: 2021 Exposure to SARS-CoV-2 (event) Not sure [facility] Start: 05-05-2012 End: 12-03-2022 Cigarettes smoked current (pack per day) - Reported 1 [facility] Start: 05-05-2012 Tobacco use and exposure Smoke less tobacco non-user [facility] Start: 09-20-2019 End: 12-03-2022 Sex Assigned At [facility] Adult Depression Scr eening Assessment 0 [facility] Clinical Notes 07-14-2016 to 03-10-2023 Note Date & Type Note Facility 03-10-2023 Evaluation note Encounter Date Diagnosis Assessment Notes Feb, Primary hypertension (ICD-10 - I10) Blood pressure seems well controlled. I will continue same blood pressure medications of [facility] . I will check protein to creatinine [...] is 11.7 g/dl. No need for KYAW [facility] Other 08-08-2023 Evaluation note* Encounter Date Diagnosis Assessment Notes Treatment Notes Treatment Clinical Notes Oct, Primary hypertension (ICD-10 - I10) Blood pressure seems well controlled. I will continue same blood pressure medications of [facility] . I will check protein to creatinine [...] next visit Oct, Hypokalemia (ICD-10 - E87.6) [facility] Other 04-04-2023 Evaluation note* Encounter Date Diagnosis [...] PCP Jun, Folate deficiency (ICD-10 - E53.8) [facility] Other 11-29-2022 Evaluation note* Encounter Date Diagnosis [...] I will check vitamin B12 next visit [facility] Other 04-17-2017 History of Past illness Narrative* Problem Noted Date Resolved Date Hilar density 07/14/2016 09/14/2018 Overview: Suspicious abnormal perihilar finding on CT at the OSH in patient with history of Lung Ca. S/P resection and unprovoked PE Plan: -07/14 Pulm following for suspicious perihilar mass 07/18 Dr Kay and Pt's sales development coordinator- Dr Mo reviewed PET scan from 07/17. [...] of this encounter (statuses as of 06/05/2021) [facility]04-17-2017 History of Past illness Narrative* Problem Noted Date Resolved Date Hilar density 07/14/2016 09/14/2018 Overview: Suspicious abnormal perihilar finding on CT at the OSH in patient with history of Lung Ca. S/P resection and unprovoked PE Plan: -07/14 Pulm following for suspicious perihilar mass 07/18 Dr Kay and Pt's sales development coordinator- Dr Mo reviewed PET scan from 07/17. [...] of this encounter (statuses as of 07/17/2021) [facility]2017 History of Past illness Narrative* Problem Noted Date Resolved Date Hilar density 07/14/2016 09/14/2018 Overview: Suspicious abnormal perihilar finding on CT at the OSH in patient with history of Lung Ca. S/P resection and unprovoked PE Plan: -07/14 Pulm following for suspicious perihilar mass 07/18 Dr Kay and Pt's sales development coordinator- Dr Mo reviewed PET scan from 07/17. [...] of this encounter (statuses as of 2021) [facility]2017 History of Past illness Narrative* Problem Noted Date Resolved Date Hilar density 07/14/2016 09/14/2018 Overview: Suspicious abnormal perihilar finding on CT at the OSH in patient with history of Lung Ca. S/P resection and unprovoked PE Plan: -07/14 Pulm following for suspicious perihilar mass 07/18 Dr Kay and Pt's sales development coordinator- Dr Mo reviewed PET scan from 07/17. [...] of this encounter (statuses as of 11/20/2021) [facility]2017 History of Past illness Narrative* Problem Noted Date Resolved Date Hilar density 07/14/2016 09/14/2018 Overview: Suspicious abnormal perihilar finding on CT at the OSH in patient with history of Lung Ca. S/P resection and unprovoked PE Plan: -07/14 Pulm following for suspicious perihilar mass 07/18 Dr Kay and Pt's sales development coordinator- Dr Mo reviewed PET scan from 07/17. [...] of this encounter (statuses as of 02/12/2022) [facility]2017 History of Past illness Narrative* Problem Noted Date Resolved Date Hilar density 07/14/2016 09/14/2018 Overview: Suspicious abnormal perihilar finding on CT at the OSH in patient with history of Lung Ca. S/P resection and unprovoked PE Plan: -07/14 Pulm following for suspicious perihilar mass 07/18 Dr Kay and Pt's sales development coordinator- Dr Mo reviewed PET scan from 07/17. [...] of this encounter (statuses as of 04/01/2022) [facility]2017 History of Past illness Narrative* Problem Noted Date Resolved Date Hilar density 07/14/2016 09/14/2018 Overview: Suspicious abnormal perihilar finding on CT at the OSH in patient with history of Lung Ca. S/P resection and unprovoked PE Plan: -07/14 Pulm following for suspicious perihilar mass 07/18 Dr Kay and Pt's sales development coordinator- Dr Mo reviewed PET scan from 07/17. [...] of this encounter (statuses as of 05/07/2022) [facility]2017 History of Past illness Narrative* Problem Noted Date Resolved Date Hilar density 07/14/2016 09/14/2018 Overview: Suspicious abnormal perihilar finding on CT at the OSH in patient with history of Lung Ca. S/P resection and unprovoked PE Plan: -07/14 Pulm following for suspicious perihilar mass 07/18 Dr Kay and 's sales development coordinator- Dr Mo reviewed PET scan from 07/17. [...] of this encounter (statuses as of 07/30/2022) [facility]2017 History of Past illness Narrative* Problem Noted Date Resolved Date Hilar density 07/14/2016 09/14/2018 Overview: Suspicious abnormal perihilar finding on CT at the OSH in patient with history of Lung Ca. S/P resection and unprovoked PE Plan: -07/14 Pulm following for suspicious perihilar mass 07/18 Dr Kay and Pt's sales development coordinator- Dr Mo reviewed PET scan from 07/17. [...] of this encounter (statuses as of 09/10/2022) [facility]2017 History of Past illness Narrative* Problem Noted Date Diagnosed Date Resolved Date Hilar density 07/14/2016 09/14/2018 Overview: Suspicious abnormal perihilar finding on CT at the OSH in patient with history of Lung Ca. S/P resection and unprovoked PE Plan: -07/14 Pulm following for suspicious perihilar mass 07/18 Dr Kay and Pt's sales development coordinator- Dr Mo reviewed PET scan from 07/17. [...] of this encounter (statuses as of 12/04/2022) [facility] Malignant neoplasm of overlapping sites of left lung (HCC)- [facility] Malignant neoplasm of overlapping sites of left lung (HCC)- [facility] Diagnosis Malignant neoplasm of overlapping sites of left lung (HCC)- [facility] Diagnosis Malignant neoplasm of overlapping sites of left lung (HCC)- [facility] Diagnosis Malignant neoplasm of overlapping sites of left lung (HCC)- [facility] Diagnosis Malignant neoplasm of overlapping sites of left lung (HCC)- [facility] Malignant neoplasm of overlapping sites of left lung (HCC)- Primary documented in this encounter [facility] general Narrative - Reported* Type Description Date Medical History hypertension Medical History lung cancer Medical History dementia with progressive aphasi a Medical History epilepsy Medical History COPD Medical History pulmonary emboli Surgical History left lung / removal 2010 Surgical History cholecystectomy Hospitalization History see above [place] Other History general Narrative - Reported* Type Description Date Medical History hypertension Medical History lung cancer Medical History dementia with progressive aphasi a Medical History epilepsy Medical History COPD Medical History pulmonary emboli Surgical History left lung 04/01 removal 2010 Surgical History cholecystectomy Hospitalization History see above Hospitalization History MEMORY LOSS 3 [place] Other Summary Purpose Family History No Family History Records FoundNo Family History Records FoundNo Family History Records Found Advance Directives Documents on File Type Date Recorded 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 Advance Directive(s) 07/13/2016 9:40 PM Additional Source Comments (unrecognized sect ion and content) No Status Records FoundNo Status Records FoundNo Status Records Found INFORMATION SOURCE (unrecogn ized section and content) DATE CREATED AUTHOR 09/29/2017 [facility] DATE CREATED AUTHOR AUTHOR'S ORGANIZ ATION 09/05/2022 [facility] DATE CREATED AUTHOR AUTHOR'S ORGANIZ ATION 12/04/2022 [facility] Source Comments (unrecognize d section and content) In the event this informatio n is protected by the Federal Confidentiality of Alcohol and Drug Abuse Patient Records regulations: The Federal rules restrict any use of the information to criminally investigate or prosecute any alcohol or drug abuse patient.[facility] the event this information is protected by the Federal Confidentiality of Alcohol and Drug Abuse Patient Records regulations: The Federal rules restrict any use of the information to criminally investigate or prosecute any alcohol or drug abuse patient.[facility] the event this information is protected by the Federal Confidentiality of Alcohol and Drug Abuse Patient Records regulations: The Federal rules restrict any use of the information to criminally investigate or prosecute any alcohol or drug abuse patient.[facility] the event this information is protected by the Federal Confidentiality of Alcohol and Drug Abuse Patient Records regulations: The Federal rules restrict any use of the information to criminally investigate or prosecute any alcohol or drug abuse patient.[facility] the event this information is protected by the Federal Confidentiality of Alcohol and Drug Abuse Patient Records regulations: The Federal rules restrict any use of the information to criminally investigate or prosecute any alcohol or drug abuse patient.[facility] the event this information is protected by the Federal Confidentiality of Alcohol and Drug Abuse Patient Records regulations: The Federal rules restrict any use of the information to criminally investigate or prosecute any alcohol or drug abuse patient.[facility]on[facility] the event this information is protected by the Federal Confidentiality of Alcohol and Drug Abuse Patient Records regulations: The Federal rules restrict any use of the information to criminally investigate or prosecute any alcohol or drug abuse patient.[facility]on[facility] the event this information is protected by the Federal Confidentiality of Alcohol and Drug Abuse Patient Records regulations: The Federal rules restrict any use of the information to criminally investigate or prosecute any alcohol or drug abuse patient.[facility]on[facility] the event this information is protected by the Federal Confidentiality of Alcohol and Drug Abuse Patient Records regulations: The Federal rules restrict any use of the information to criminally investigate or prosecute any alcohol or drug abuse patient.[facility]on[facility] the event this information is protected by the Federal Confidentiality of Alcohol and Drug Abuse Patient Records regulations: The Federal rules restrict any use of the information to criminally investigate or prosecute any alcohol or drug abuse patient.[facility] Care Teams (unrecognized sec tion and content) Lead Janitor Relationship Specialty Start Date End Date Dominguez Saini MD PCP - General Family Practice 02/25/11 Nazanin Rush (Hist) [address] [place] [address] Primary Staff Physician Cardiology 06/15/18 Lead Janitor Relationship Specialty Start Date End Date Dominguez Saini MD PCP - General Family Practice 02/25/11 Nazanin Rush (Hist) [address] [place] [address] Primary Staff Physician Cardiology 06/15/18 Lead Janitor Relationship Specialty Start Date End Date Dominguez Saini MD PCP - General Family Medicine 02/25/11 Nazanin Rush (Hist) [address] [place] [address] Primary Staff Physician Cardiology 06/15/18 Lead Janitor Relationship Specialty Start Date End Date Dominguez Saini MD PCP - General Family Medicine 02/25/11 Nazanin Rush (Hist) [address] [place] [address] Primary Staff Physician Cardiology 06/15/18 Lead Janitor Relationship Specialty Start Date End Date Dominguez Saini MD PCP - General Family Medicine 02/25/11 Nazanin Rush (Hist) [address] [place] [address] Primary Staff Physician Cardiology 06/15/18 Lead Janitor Relationship Specialty Start Date End Date Dominguez Saini MD PCP - General Family Medicine 02/25/11 Nazanin Rush (Hist) [address] [place] [address] Primary Staff Physician Cardiology 06/15/18 Reason for Visit (unrecogniz ed section and content) RENAL 4 month Follow up Reason Comments Blood Draw (CVAD) Specialty Diagnoses / Procedures Referred By Contac t Referred To Contact Hematology / HEMATOLOGY/ONCOLOGY Diagnoses lab/port flush 6 week Procedures PORT FLUSH Self Alan Newton [address] [place] [address] Referral ID Status Reason Start Date Expiration Date V isits Requested Visits Authorized [id number] Authorized 07/21/2022 03/29/2023 99 99 Reason Comments Port Flush Specialty Diagnoses / Procedures Referred By Contac t Referred To Contact Hematology / HEMATOLOGY/ONCOLOGY Diagnoses lab/port flush 6 week Procedures PORT FLUSH Self Alan Newton [address] [place] [address] FOR RECORDS PERTAINING TO PATIENTS WHO ARE [...] BE BASED ON THE PRIMARY CLINICAL RECORDS. [email or web address] provides no warranty or guarantee of the accuracy or completeness of information in this document.
== END 2023-04-28 19:54 | disposition home or self-care (01) ==
LOC: SLEEP 19:54
PROVIDERS: PCP Nurse Practitioner Family; Visit Provider Nurse Practitioner Family
DX: G47.33 Obstructive sleep apnea (adult) (pediatric) (principal); G47.11 Idiopathic hypersomnia with long sleep time; F51.01 Primary insomnia
CPT/HCPCS: 95811

== ENCOUNTER 2023-04-30 01:08 | Outpatient (RCR) | payer MEDICARE, OTHER, SELFPAY | END 2023-05-28 17:34 | disposition home or self-care (01) | LOC: MM 01:08 | PROVIDERS: PCP Nurse Practitioner Family; Visit Provider Internal Medicine | DX: Z51.81 Encounter for therapeutic drug level monitoring (principal); Z79.01 Long term (current) use of anticoagulants; I26.99 Other pulmonary embolism without acute cor pulmonale ==

== ENCOUNTER 2023-05-05 11:04 | Outpatient (OUT) | payer OTHER, SELFPAY ==
[2023-05-05 11:19] LABS: Basophils Absolute Auto 0.1 10^3/uL (0.0-0.1); Basophils Percent Auto 0.7 % (0.2-2.0); Eosinophils Absolute Auto 0.1 10^3/uL (0.0-0.7); Eosinophils Percent Auto 0.7 % (0.9-7.0); Hematocrit 36.7 % (42.0-54.0); Hemoglobin 11.7 g/dL (14.0-18.0); Immature Granulocytes Abs Auto 0.05 10^3/uL (0.00-0.03); Immature Granulocytes Pct Auto 0.4 % (0.0-0.5); Lymphocytes Absolute Auto 1.2 10^3/uL (1.2-3.8); Mean Corpuscular HGB Conc 31.9 g/dL (29.9-35.2); Mean Corpuscular Hemoglobin 29.4 pg (25.9-34.0); Mean Corpuscular Volume 92.2 fL (80.0-94.0); Mean Platelet Volume 10.1 fL (9.5-13.5); Monocytes Absolute Auto 0.8 10^3/uL (0.3-0.8); Monocytes Percent Auto 6.9 % (1.7-12.0); Neutrophils Absolute Auto 9.8 10^3/uL (1.4-6.5); Neutrophils Percent Auto 81.3 % (43.0-75.0); Platelet Count 333 10^3/uL (150-450); Red Blood Count 3.98 10^6/uL (4.70-6.10); Red Cell Distribution Width 13.1 % (11.0-15.0); White Blood Count 12.1 10^3/uL (4.0-11.0)
--- OUTSIDE RECORDS SUMMARY | 2023-05-05 11:22 | XMS_ITS | CCD ---
Author Name Unknown Address [address] [place] [address] Organization [facility] Care Team Providers Care Ore Fielder Name Role Phone PHYSICIAN, DEFAULT Unavailable Unavailable [...] Primary Care Unavailable Nazanin Rush (Hist) Unavailable [phone] HOY, DOMINGUEZ M Primary Care Unavailable HOY, [...] Translations: [CHOCOLATE] Food Allergy 05-05-19 13 Intolerance [facility] (11 sources) Phenytoin; Translations: [PHENYTOIN] Drug Allergy 01-28-20 12 Unknown [facility] (4 sources) Tetanus Vaccines And Toxoid; Translations: [TETANUS VACCINES AND TOXOID] Drug Allergy 01-28-20 12 Swelling [facility] (11 sources) Wool; Translations: [WOOL] Allergy to substance 10-25-19 14 Hives, Swelling [facility] Work Phone: (7 sources) Tetanus Vaccines And Toxoid Drug Allergy 01-28-20 12 Swelling [facility] (5 sources) Chocolate; Translations: [chocolate flavor] Drug allergy 07-14-19 17 Unknown [facility] (1 source) Tetanus toxoid specific immunoglobulin E Drug allergy Unknown [facility] Other (3 sources) Tetanus vaccine Drug allergy Unknown [facility] Other (1 source) Allopurinol Drug Allergy 07-14-19 17 [facility] (1 source) carBAMazepine Drug Allergy 07-14-19 17 [facility] (1 source) Phenytoin Drug Allergy 07-14-19 17 [facility] Medications Current Medications Medication Drug [...] by mouth every 6 hours as needed. 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 Surekha Pardo HEMOGRAM AND PLATELon 2022 Hematocrit (Bld) [Volume fraction] 39.8 % Critically low 42.0-54.0 [facility] Comment on above: Performed By: #### H H #### [facility] [address] [address] [address] Surekha Pardo Hemoglobin (Bld) [Mass/Vol] 13.2 g/dL Critically low 14.0-18.0 [facility] Comment on above: Performed By: #### H H #### [facility] [address] [address] [address] Surekha Pardo MCH (RBC) [Entitic mass] 30.3 pg Normal 25.9-34.0 [facility] Comment on above: Performed By: #### H H #### [facility] [address] [place] [address] Dr. Surekha Pardo MCHC (RBC) [Mass/Vol] 33.2 g/dL Normal 29.9-35.2 [facility] Comment on above: Performed By: #### H H #### [facility] [address] [place] [address] Dr. Surekha Pardo MCV (RBC) [Entitic vol] 91.5 fL Normal 80.0-94.0 [facility] Comment on above: Performed By: #### H H #### [facility] [address] [place] [address] Dr. Surekha Pardo PLT 320 103/ul Normal 150-450 [facility] Comment on above: Performed By: #### H H #### [facility] [address] [place] [address] Dr. Surekha Pardo RBC 4.35 106/ul Critically low 4.70-6.10 [facility] Comment on above: Performed By: #### H H #### [facility] [address] [place] [address] Dr. Surekha Pardo WBC 9.4 103/ul Normal 4.0-11.0 [facility] Comment on above: Performed By: #### H H #### [facility] [address] [place] [address] Dr. Surekha Pardo MAGNESIUMon 06-23-2022 Magnesium [Mass/Vol] 1.8 mg/dL Normal 1.8-2.4 [facility] Comment on above: Performed By: #### L IPID, URIC, CMP, TSH, BNP #### [facility] [address] [place] [address] Dr. Surekha Pardo PHOSPHORUSon 06-23-2022 Phosphate [Mass/Vol] 3.0 mg/dL Normal 2.6-4.7 [facility] Comment on above: Performed By: #### L IPID, URIC, CMP, TSH, BNP #### [facility] [address] [place] [address] Dr. Surekha Pardo PROF 14(COMP METB)on 023 Albumin [Mass/Vol] 3.8 g/dL Normal 3.4-5.0 [facility] Comment on above: Performed By: #### L IPID, URIC, CMP, TSH, BNP #### [facility] [address] [place] [address] Dr. Surekha Pardo Albumin/Globulin [Mass ratio] 0.9 {ratio} Normal [facility] Comment on above: Performed By: #### L IPID, URIC, CMP, TSH, BNP #### [facility] [address] [place] [address] Dr. Surekha Pardo ALP [Catalytic activity/Vol] 101 U/L Normal 46-116 [facility] Comment on above: Performed By: #### L IPID, URIC, CMP, TSH, BNP #### [facility] [address] [place] [address] Dr. Surekha Pardo ALT [Catalytic activity/Vol] 20 U/L Normal 16-63 [facility] Comment on above: Performed By: #### L IPID, URIC, CMP, TSH, BNP #### [facility] [address] [place] [address] Dr. Surekha Pardo Anion gap [Moles/Vol] 15.7 mmol/L Normal [facility] Comment on above: Performed By: #### L IPID, URIC, CMP, TSH, BNP #### [facility] [address] [place] [address] Dr. Surekha Pardo AST [Catalytic activity/Vol] 16 U/L Normal 15-37 [facility] Comment on above: Performed By: #### L IPID, URIC, CMP, TSH, BNP #### [facility] [address] [place] [address] Dr. Surekha Pardo Bilirubin [Mass/Vol] 0.4 mg/dL Normal 0.2-1.0 [facility] Comment on above: Performed By: #### L IPID, URIC, CMP, TSH, BNP #### [facility] [address] [place], [place] [id number] Dr. Surekha Pardo Calcium [Mass/Vol] 9.4 mg/dL Normal 8.5-10.1 [facility] Comment on above: Performed By: #### L IPID, URIC, CMP, TSH, BNP #### [facility] [address] [place] [address] Dr. Surekha Pardo Chloride [Moles/Vol] 106 mmol/L Normal 98-107 [facility] Comment on above: Performed By: #### L IPID, URIC, CMP, TSH, BNP #### [facility] [address] [place] [address] Dr. Surekha Pardo CO2 [Moles/Vol] 27.1 mmol/L Normal 21.0-32.0 [facility] Comment on above: Performed By: #### L IPID, URIC, CMP, TSH, BNP #### [facility] [address] [place] [address] Dr. Surekha Pardo Creatinine [Mass/Vol] 2.15 mg/dL Critically high 0.70-1.30 [facility] Comment on above: Performed By: #### L IPID, URIC, CMP, TSH, BNP #### [facility] [address] [place] [address] Dr. Surekha Pardo EGFR-AF SAUDI ARABIAN 37 mL/min/1.73m2 Critically low >=60 [facility] Comment on above: Performed By: #### L IPID, URIC, CMP, TSH, BNP #### [facility] [address] [place] [address] Dr. Surekha Pardo EGFR-NON AF SAUDI ARABIAN 30 mL/min/1.73m2 Critically low >=60 [facility] Comment on above: Performed By: #### L IPID, URIC, CMP, TSH, BNP #### [facility] [address] [place] [address] Dr. Surekha Pardo Globulin (S) [Mass/Vol] 4.1 g/dL Normal [facility] Comment on above: Performed By: #### L IPID, URIC, CMP, TSH, BNP #### [facility] [address] [place] [address] Dr. Surekha Pardo Glucose [Mass/Vol] 102 mg/dL Normal 74-106 [facility] Comment on above: Performed By: #### L IPID, URIC, CMP, TSH, BNP #### [facility] [address] [place] [address] Dr. Surekha Pardo Potassium [Moles/Vol] 3.8 mmol/L Normal 3.5-5.1 [facility] Comment on above: Performed By: #### L IPID, URIC, CMP, TSH, BNP #### [facility] [address] [place] [address] Dr. Surekha Pardo Protein [Mass/Vol] 7.9 g/dL Normal 6.4-8.2 [facility] Comment on above: Performed By: #### L IPID, URIC, CMP, TSH, BNP #### [facility] [address] [place] [address] Dr. Surekha Pardo Sodium [Moles/Vol] 145 mmol/L Normal 136-145 [facility] Comment on above: Performed By: #### L IPID, URIC, CMP, TSH, BNP #### [facility] [address] [place] [address] Dr. Surekha Pardo Urea nitrogen [Mass/Vol] 12.0 mg/dL Normal 7.0-18.0 [facility] Comment on above: Performed By: #### L IPID, URIC, CMP, TSH, BNP #### [facility] [address] [place] [address] Dr. Surekha Pardo Urea nitrogen/Creatinine [Mass ratio] 5.6 mg/mg Normal [facility] Comment on above: Performed By: #### L IPID, URIC, CMP, TSH, BNP #### [facility] [address] [place] [address] Dr. Surekha Pardo UA RANDOMon 06-23-2022 Bilirubin Ql (U) Negative Normal NEGATIVE [facility] Comment on above: Performed By: #### L IPID, URIC, CMP, TSH, BNP #### [facility] [address] [place] [address] Dr. Surekha Pardo Clarity (U) CLEAR Normal CLEAR [facility] Comment on above: Performed By: #### L IPID, URIC, CMP, TSH, BNP #### [facility] [address] [address] [address] Surekha Pardo Color (U) LT. YELLOW Normal YELLOW [facility] Comment on above: Performed By: #### L IPID, URIC, CMP, TSH, BNP #### [facility] [address] [address] [address] Surekha Pardo Glucose Ql (U) Negative Normal NEGATIVE [facility] Comment on above: Performed By: #### L IPID, URIC, CMP, TSH, BNP #### [facility] [address] [address] [address] Surekha Pardo Hemoglobin Ql (U) MODERATE Abnormal NEGATIVE [facility] Comment on above: Performed By: #### L IPID, URIC, CMP, TSH, BNP #### [facility] [address] [place] [address] Dr. Surekha Pardo Ketones Ql (U) Negative Normal NEGATIVE [facility] Comment on above: Performed By: #### L IPID, URIC, CMP, TSH, BNP #### [facility] [address] [address] [address] Surekha Pardo LEUKOCYTES SMALL Abnormal NEGATIVE [facility] Comment on above: Performed By: #### L IPID, URIC, CMP, TSH, BNP #### [facility] [address] [address] [address] Surekha Pardo Nitrite Ql (U) Negative Normal NEGATIVE [facility] Comment on above: Performed By: #### L IPID, URIC, CMP, TSH, BNP #### [facility] [address] [address] [address] Surekha Pardo pH (U) 6.5 [pH] Normal 5-9 [facility] Comment on above: Performed By: #### L IPID, URIC, CMP, TSH, BNP #### [facility] [address] [address] [address] Surekha Pardo SPEC GRAVITY 1.010 Normal 1.005-<=1.025 [facility] Comment on above: Performed By: #### L IPID, URIC, CMP, TSH, BNP #### [facility] [address] [address] [address] Surekha Pardo UA PROTEIN Negative Normal NEGATIVE/ TRACE [facility] Comment on above: Performed By: #### L IPID, URIC, CMP, TSH, BNP #### [facility] [address] [address] [address] Surekha Pardo Urobilinogen Qn (U) 0.2 {David'U}/dL Normal 0.2 - 1. 0 [facility] Comment on above: Performed By: #### L IPID, URIC, CMP, TSH, BNP #### [facility] [address] [address] [address] Surekha Pardo URIC ACID SERUMon 06-23-2022 Urate [Mass/Vol] 4.8 mg/dL Normal 3.5-7.2 [facility] Comment on above: Performed By: #### L IPID, URIC, CMP, TSH, BNP #### [facility] [address] [address] [address] Surekha Pardo URINE T PROTEIN CREAT RATIOo n 06-23-2022 Protein (U) [Mass/Vol] 37.5 mg/dL Critically high <=12.0 [facility] Comment on above: Performed By: #### L IPID, URIC, CMP, TSH, BNP #### [facility] [address] [address] [address] Surekha Pardo UR PROT CREAT RAT 0.49 Normal [facility] Comment on above: Performed By: #### L IPID, URIC, CMP, TSH, BNP #### [facility] [address] [address] [address] Surekha Pardo URINE CREAT 76.71 mg/dL Normal 20.00-300.00 [facility] Comment on above: Performed By: #### L IPID, URIC, CMP, TSH, BNP #### [facility] [address] [address] [address] Surekha Pardo VIT B12 AND FOLATEon 023 Cobalamin (Vitamin B12) [Mass/Vol] 1348.0 pg/mL Critically high 193.0-986.0 [facility] Comment on above: Performed By: #### B 12FOL, VITAD #### [facility] [address] [place] [address] Dr. Surekha Pardo FOLATE 5.50 ng/mL Critically low 8.60-58.90 [facility] Comment on above: Performed By: #### B 12FOL, VITAD #### [facility] [address] [place] [address] Dr. Surekha Pardo VITAMIN D 25 OHon 06-23-2022 VIT D 25-OH 51.4 ng/mL Normal [facility] Comment on above: Performed By: #### B 12FOL, VITAD #### [facility] [address] [place] [address] Dr. Surekha Pardo VIT D RANGES SEE BELOW Normal [facility] Comment on above: Result Comment: <20 ng/mL Vit D deficient 20 - <30 ng/mL Vit D insufficient 30 - 100 ng/mL Vit D sufficient >100 ng/mL Potential Toxicity Performed By: #### B 12FOL, VITAD #### [facility] [address] [place] [address] Dr. Surekha Pardo INSULINon 12-18-2021 Insulin 13.2 uIU/mL Normal 2.6-24.9 [facility] Comment on above: Performed By: #### L IPID, URIC, CMP, TSH, BNP #### [facility] [address] [place] [address] Dr. Surekha Pardo T4, T3U, FTI LABCORPon 12-18 Free Thyroxine Index 2.5 Normal 1.2-4.9 [facility] Comment on above: Performed By: #### T HYLC #### [facility] [address] [place] [address] Dr. Surekha Pardo T3 Uptake 26 % Normal 24-39 [facility] Comment on above: Performed By: #### T HYLC #### [facility] [address] [place] [address] Dr. Surekha Pardo T4 [Mass/Vol] 9.8 ug/dL Normal 4.5-12.0 [facility] Comment on above: Performed By: #### T HYLC #### [facility] [address] [place] [address] Dr. Surekha Pardo BNPon 12-17-2021 Natriuretic peptide B (Bld) [Mass/Vol] 48.0 pg/mL Normal <=900.0 [facility] Comment on above: Performed By: #### L IPID, URIC, CMP, TSH, BNP #### [facility] [address] [place] [address] Dr. Surekha Pardo CBC AUTO DIFFon 12-17-2021 BASO # 0.1 103/ul Normal 0.0-0.1 [facility] Comment on above: Performed By: #### C BC #### [facility] [address] [place] [address] Dr. Surekha Pardo Basophils/100 WBC (Bld) 0.7 % Normal 0.2-2.0 [facility] Comment on above: Performed By: #### C BC #### [facility] [address] [place] [address] Dr. Surekha Pardo EO # 0.2 103/ul Normal 0.0-0.7 [facility] Comment on above: Performed By: #### C BC #### [facility] [address] [place] [address] Dr. Surekha Pardo Eosinophils/100 WBC (Bld) 1.8 % Normal 0.9-7.0 [facility] Comment on above: Performed By: #### C BC #### [facility] [address] [place] [address] Dr. Surekha Pardo Erythrocyte distribution width (RBC) [Ratio] 13.2 % Normal 11.0-15.0 [facility] Comment on above: Performed By: #### C BC #### [facility] [address] [place] [address] Dr. Surekha Pardo Hematocrit (Bld) [Volume fraction] 38.8 % Critically low 42.0-54.0 [facility] Comment on above: Performed By: #### C BC #### [facility] [address] [address] [address] Surekha Pardo Hemoglobin (Bld) [Mass/Vol] 12.9 g/dL Critically low 14.0-18.0 [facility] Comment on above: Performed By: #### C BC #### [facility] [address] [address] [address] Surekha Pardo IG # 0.03 10e3/ul Normal 0.00-0.03 [facility] Comment on above: Performed By: #### C BC #### [facility] [address] [address] [address] Surekha Pardo IG % 0.4 % Normal 0.0-0.5 [facility] Comment on above: Performed By: #### C BC #### [facility] [address] [place] [address] Dr. Surekha Pardo LYMPH # 1.5 103/ul Normal 1.2-3.8 [facility] Comment on above: Performed By: #### C BC #### [facility] [address] [place] [address] Dr. Surekha Pardo Lymphocytes/100 WBC (Bld) 19.0 % Critically low 20.5-60.0 [facility] Comment on above: Performed By: #### C BC #### [facility] [address] [place] [address] Dr. Surekha Pardo MANUAL DIFF REQ NO Normal [facility] Comment on above: Performed By: #### C BC #### [facility] [address] [address] [address] Surekha Pardo MCH (RBC) [Entitic mass] 30.9 pg Normal 25.9-34.0 [facility] Comment on above: Performed By: #### C BC #### [facility] [address] [address] [address] Surekha Pardo MCHC (RBC) [Mass/Vol] 33.2 g/dL Normal 29.9-35.2 [facility] Comment on above: Performed By: #### C BC #### [facility] [address] [address] [address] Surekha Pardo MCV (RBC) [Entitic vol] 92.8 fL Normal 80.0-94.0 [facility] Comment on above: Performed By: #### C BC #### [facility] [address] [address] [address] Surekha Pardo MONO # 0.6 103/ul Normal 0.3-0.8 [facility] Comment on above: Performed By: #### C BC #### [facility] [address] [address] [address] Surekha Pardo Monocytes/100 WBC (Bld) 7.9 % Normal 1.7-12.0 [facility] Comment on above: Performed By: #### C BC #### [facility] [address] [place] [address] Dr. Surekha Pardo NEUT # 5.7 103/ul Normal 1.4-6.5 [facility] Comment on above: Performed By: #### C BC #### [facility] [address] [place] [address] Dr. Surekha Pardo Neutrophils/100 WBC (Bld) 70.2 % Normal 43.0-75.0 [facility] Comment on above: Performed By: #### C BC #### [facility] [address] [place] [address] Dr. Surekha Pardo Platelet mean volume (Bld) [Entitic vol] 9.7 fL Normal 9.5-13.5 [facility] Comment on above: Performed By: #### C BC #### [facility] [address] [place] [address] Dr. Surekha Pardo PLT 261 103/ul Normal 150-450 [facility] Comment on above: Performed By: #### C BC #### [facility] [address] [address] [address] Surekha Pardo RBC 4.18 106/ul Critically low 4.70-6.10 [facility] Comment on above: Performed By: #### C BC #### [facility] [address] [address] [address] Surekha Pardo WBC 8.1 103/ul Normal 4.0-11.0 [facility] Comment on above: Performed By: #### C BC #### [facility] [address] [place] [address] Dr. Surekha Pardo GLYCOHEMOGLOBIN A1Con 2021 ADA RECOMMENDATION SEE BELOW Normal [facility] Comment on above: Result Comment: ADA RECOMMENDED LIMIT 4.0 - 6.0 ADA THERAPEUTIC TARGET < 7.0 ACTION SUGGESTED > 7.0 Performed By: #### L IPID, URIC, CMP, TSH, BNP #### [facility] [address] [address] [address] Surekha Pardo Glucose [Mass/Vol] 105 mg/dL Normal [facility] Comment on above: Performed By: #### L IPID, URIC, CMP, TSH, BNP #### [facility] [address] [place] [address] Dr. Surekha Pardo HbA1c (Bld) [Mass fraction] 5.3 % Normal 4.5-6.2 [facility] Comment on above: Performed By: #### L IPID, URIC, CMP, TSH, BNP #### [facility] [address] [place] [address] Dr. Surekha Pardo LIPID PROFILEon 12-17-2021 CHOL-HDL RATIO NORM SEE BELOW Normal [facility] Comment on above: Result Comment: 3.3 - 4.4 LOW RISK 4.4 - 7.1 AVERAGE RISK 7.1 - 11.0 MODERATE RISK >11.0 HIGH RISK Performed By: #### L IPID, URIC, CMP, TSH, BNP #### [facility] [address] [place] [address] Dr. Surekha Pardo Cholesterol [Mass/Vol] 142 mg/dL Normal <=200 [facility] Comment on above: Performed By: #### L IPID, URIC, CMP, TSH, BNP #### [facility] [address] [address] [address] Surekha Pardo Cholesterol in HDL [Mass/Vol] 50 mg/dL Normal 40-60 [facility] Comment on above: Performed By: #### L IPID, URIC, CMP, TSH, BNP #### [facility] [address] [address] [address] Surekha Pardo Cholesterol in LDL [Mass/Vol] 65.0 mg/dL Normal [facility] Comment on above: Performed By: #### L IPID, URIC, CMP, TSH, BNP #### [facility] [address] [address] [address] Surekha Pardo Cholesterol.total/Cho lesterol in HDL [Mass ratio] 2.8 {ratio} Normal [facility] Comment on above: Performed By: #### L IPID, URIC, CMP, TSH, BNP #### [facility] [address] [address] [address] Surekha Pardo HDL NORMAL > or = 60 mg/dl - LOW CARDIOVASCULAR RISK <40 mg/dl - HIGH CARDIOVASCULAR RISK Normal [facility] Comment on above: Performed By: #### L IPID, URIC, CMP, TSH, BNP #### [facility] [address] [address] [address] Surekha Pardo LDL CALC NORMAL SEE BELOW Normal [facility] Comment on above: Result Comment: <100 mg/dl OPTIMAL 100 - 129 mg/dl NEAR OR ABOVE OPTIMAL 130 - 159 mg/dl BORDERLINE HIGH 160 - 189 mg/dl HIGH >190 mg/dl VERY HIGH Performed By: #### L IPID, URIC, CMP, TSH, BNP #### [facility] [address] [address] [address] Surekha Pardo Triglyceride [Mass/Vol] 135 mg/dL Normal <=150 [facility] Comment on above: Performed By: #### L IPID, URIC, CMP, TSH, BNP #### [facility] [address] [address] [address] Surekha Pardo VLDL CALC 27.0 mg/dL Normal [facility] Comment on above: Performed By: #### L IPID, URIC, CMP, TSH, BNP #### [facility] [address] [address] [address] Surekha Pardo OCC BLD IMMUNO SCREENon 11-29 OCCULT BLOOD Negative Normal NEGATIVE [facility] Comment on above: Performed By: #### L IPID, URIC, CMP, TSH, BNP #### [facility] [address] [place] [address] Dr. Surekha Pardo PROF 14(COMP METB)on 022 Albumin [Mass/Vol] 3.7 g/dL Normal 3.4-5.0 [facility] Comment on above: Performed By: #### L IPID, URIC, CMP, TSH, BNP #### [facility] [address] [place] [address] Dr. Surekha Pardo Albumin/Globulin [Mass ratio] 0.9 {ratio} Normal [facility] Comment on above: Performed By: #### L IPID, URIC, CMP, TSH, BNP #### [facility] [address] [place] [address] Dr. Surekha Pardo ALP [Catalytic activity/Vol] 90 U/L Normal 46-116 [facility] Comment on above: Performed By: #### L IPID, URIC, CMP, TSH, BNP #### [facility] [address] [place] [address] Dr. Surekha Pardo ALT [Catalytic activity/Vol] 16 U/L Normal 16-63 [facility] Comment on above: Performed By: #### L IPID, URIC, CMP, TSH, BNP #### [facility] [address] [address] [address] Surekha Pardo Anion gap [Moles/Vol] 11.4 mmol/L Normal [facility] Comment on above: Performed By: #### L IPID, URIC, CMP, TSH, BNP #### [facility] [address] [address] [address] Surekha Pardo AST [Catalytic activity/Vol] 13 U/L Critically low 15-37 [facility] Comment on above: Performed By: #### L IPID, URIC, CMP, TSH, BNP #### [facility] [address] [place] [address] Dr. Surekha Pardo Bilirubin [Mass/Vol] 0.4 mg/dL Normal 0.2-1.0 [facility] Comment on above: Performed By: #### L IPID, URIC, CMP, TSH, BNP #### [facility] [address] [place] [address] Dr. Surekha Pardo Calcium [Mass/Vol] 9.0 mg/dL Normal 8.5-10.1 [facility] Comment on above: Performed By: #### L IPID, URIC, CMP, TSH, BNP #### [facility] [address] [address] [address] Surekha Pardo Chloride [Moles/Vol] 105 mmol/L Normal 98-107 [facility] Comment on above: Performed By: #### L IPID, URIC, CMP, TSH, BNP #### [facility] [address] [place] [address] Dr. Surekha Pardo CO2 [Moles/Vol] 27.5 mmol/L Normal 21.0-32.0 [facility] Comment on above: Performed By: #### L IPID, URIC, CMP, TSH, BNP #### [facility] [address] [place] [address] Dr. Surekha Pardo Creatinine [Mass/Vol] 2.15 mg/dL Critically high 0.70-1.30 [facility] Comment on above: Performed By: #### L IPID, URIC, CMP, TSH, BNP #### [facility] [address] [place] [address] Dr. Surekha Pardo EGFR-AF SAUDI ARABIAN 37 mL/min/1.73m2 Critically low >=60 [facility] Comment on above: Performed By: #### L IPID, URIC, CMP, TSH, BNP #### [facility] [address] [place] [address] Dr. Surekha Pardo EGFR-NON AF SAUDI ARABIAN 30 mL/min/1.73m2 Critically low >=60 [facility] Comment on above: Performed By: #### L IPID, URIC, CMP, TSH, BNP #### [facility] [address] [place] [address] Dr. Surekha Pardo Globulin (S) [Mass/Vol] 4.0 g/dL Normal [facility] Comment on above: Performed By: #### L IPID, URIC, CMP, TSH, BNP #### [facility] [address] [address] [address] Surekha Pardo Glucose [Mass/Vol] 109 mg/dL Critically high 74-106 [facility] Comment on above: Performed By: #### L IPID, URIC, CMP, TSH, BNP #### [facility] [address] [place] [address] Dr. Surekha Pardo Potassium [Moles/Vol] 3.9 mmol/L Normal 3.5-5.1 [facility] Comment on above: Performed By: #### L IPID, URIC, CMP, TSH, BNP #### [facility] [address] [place] [address] Dr. Surekha Pardo Protein [Mass/Vol] 7.7 g/dL Normal 6.4-8.2 [facility] Comment on above: Performed By: #### L IPID, URIC, CMP, TSH, BNP #### [facility] [address] [place] [address] Dr. Surekha Pardo Sodium [Moles/Vol] 140 mmol/L Normal 136-145 [facility] Comment on above: Performed By: #### L IPID, URIC, CMP, TSH, BNP #### [facility] [address] [place] [address] Dr. Surekha Pardo Urea nitrogen [Mass/Vol] 12.0 mg/dL Normal 7.0-18.0 [facility] Comment on above: Performed By: #### L IPID, URIC, CMP, TSH, BNP #### [facility] [address] [place] [address] Dr. Surekha Pardo Urea nitrogen/Creatinine [Mass ratio] 5.6 mg/mg Normal [facility] Comment on above: Performed By: #### L IPID, URIC, CMP, TSH, BNP #### [facility] [address] [place] [address] Dr. Surekha Pardo TSHon 12-17-2021 TSH 1.103 uIU/mL Normal 0.358-3.740 [facility] Comment on above: Performed By: #### L IPID, URIC, CMP, TSH, BNP #### [facility] [address] [place], [place] [address] Dr. Surekha Pardo URIC ACID SERUMon 12-17-2021 Urate [Mass/Vol] 5.1 mg/dL Normal 3.5-7.2 [facility] Comment on above: Performed By: #### L IPID, URIC, CMP, TSH, BNP #### [facility] [address] [address] [address] Surekha Pardo Vital Signs Date Time Vital Sign Value Performing Clinician Facility 03-10-2023 13:00-0500 Body height 170.18 cm Zorandeondre Lillylexi Other [facility] Other 03-10-2023 13:00-0500 Body mass index (BMI) [Ratio] 30.73 kg/m2 Timothy KweliasrinivasaYbrant Digital Other [facility] Other 03-10-2023 13:00-0500 Body temperature 96.9 [degF] Timothy ByrneSlapVid Other [facility] Other 03-10-2023 13:00-0500 Body weight 89 kg Timothy CarrYbrant Digital Other [facility] Other 03-10-2023 13:00-0500 Diastolic blood pressure 70 mm[Hg] Timothy Colon[employer]Concepts Other [facility] Other 03-10-2023 13:00-0500 Respiratory rate 18 /min Timothy Colon[employer]Concepts Other [facility] Other 03-10-2023 13:00-0500 SaO2% (BldA) [Mass fraction] 95 % Timothy [employer]Con[employer] Other [facility] Other 03-10-2023 13:00-0500 Systolic blood pressure 140 mm[Hg] Aziz Bakhous Other [facility] Other 11-04-2022 13:00-0400 Body height 170.18 cm Azdeondre Bakhous Other [facility] Other 11-04-2022 13:00-0400 Body mass index (BMI) [Ratio] 31.35 kg/m2 Aziz Bakhous Other [facility] Other 11-04-2022 13:00-0400 Body temperature 96.6 [degF] Aziz Bakhous Other [facility] Other 11-04-2022 13:00-0400 Body weight 90.81 kg Azdeondre Bakhous Other [facility] Other 11-04-2022 13:00-0400 Diastolic blood pressure 90 mm[Hg] Aziz Bakhous Other [facility] Other 11-04-2022 13:00-0400 Respiratory rate 18 /min Azdeondre Bakhous Other [facility] Other 11-04-2022 13:00-0400 SaO2% (BldA) [Mass fraction] 94 % Aziz Bakhous Other [facility] Other 11-04-2022 13:00-0400 Systolic blood pressure 130 mm[Hg] Aziz Bakhous Other [facility] Other 07-01-2022 14:20-0400 Body height 170.18 cm Aziz Bakhous Other [facility] Other 07-01-2022 14:20-0400 Body mass index (BMI) [Ratio] 32.92 kg/m2 Timothy Carrs Other [facility] Other 07-01-2022 14:20-0400 Body temperature 96.2 [degF] Timothy Carrs Other [facility] Other 07-01-2022 14:20-0400 Body weight 95.35 kg Timothy Carrs Other [facility] Other 07-01-2022 14:20-0400 Diastolic blood pressure 84 mm[Hg] Timothy Carrs Other [facility] Other 07-01-2022 14:20-0400 Respiratory rate 18 /min Timothy Carrs Other [facility] Other 07-01-2022 14:20-0400 SaO2% (BldA) [Mass fraction] 96 % Timothy Carrs Other [facility] Other 07-01-2022 14:20-0400 Systolic blood pressure 132 mm[Hg] Timothy Carrs Other [facility] Other 02-25-2022 14:20-0500 Body height 170.18 cm Timothy Byrnehous Other [facility] Other 02-25-2022 14:20-0500 Body mass index (BMI) [Ratio] 34.45 kg/m2 Azdeondre Byrnehous Other [facility] Other 11-29-2022 14:20-0500 Body weight 99.79 kg Aziz Bakhous Other [facility] Other 02-25-2022 14:20-0500 Diastolic blood pressure 84 mm[Hg] Aziz Bakhous Other [facility] Other 02-25-2022 14:20-0500 SaO2% (BldA) [Mass fraction] 98 % Aziz Bakhous Other [facility] Other 02-25-2022 14:20-0500 Systolic blood pressure 132 mm[Hg] Aziz Bakhous Other [facility] Other Encounters Encounter Date Encounter Type Care Provider Facility Start: 03-10-2023 End: 03-10-2023 ambulatory Aziz Bakhous Other [facility] Other Start: 03-10-2023 Office outpatient vi sit 25 minutes Aziz Bakhous [facility] Start: 12-03-2022 End: 12-03-2022 ambulatory DOMINGUEZ M HOY Facility:[facility] Start: 12-03-2022 End: 12-03-2022 ambulatory [facility] Work Phone: Hematology/Oncology Comment on above: Malignant neoplasm o f overlapping sites of left lung (HCC) (Primary Dx) Start: 11-04-2022 End: 11-04-2022 ambulatory Aziz Bakhous Other [facility] Other Start: 11-04-2022 Office outpatient vi sit 25 minutes Aziz Bakhous [facility] Start: 10-22-2022 End: 10-22-2022 ambulatory DOMINGUEZ M HOY Facility:[facility] Start: 09-10-2022 End: 09-10-2022 ambulatory [facility] Work Phone: Hematology/Oncology Comment on above: Malignant neoplasm o f overlapping sites of left lung (HCC) (Primary Dx) Start: 07-29-2022 End: 07-29-2022 ambulatory DOMINGUEZ SAINI Facility:[facility] Start: 07-29-2022 End: 07-29-2022 ambulatory [facility] Work Phone: Hematology/Oncology Comment on above: Malignant neoplasm o f overlapping sites of left lung (HCC) (Primary Dx) Start: 07-28-2022 End: 08-27-2022 ambulatory ORDOÑEZ H FAWWAD Facility:[facility] Start: 07-01-2022 End: 07-01-2022 ambulatory Timothy Galarza Other [facility] Other Start: 07-01-2022 Office outpatient vi sit 25 minutes Timothy Galarza [facility] Start: 06-30-2022 End: 07-25-2022 ambulatory ORDOÑEZ H FAWWAD Facility:[facility] Start: 06-23-2022 End: 06-24-[address] DOMINGUEZ SAINI . Facility:[facility] Start: 06-17-2022 End: 06-17-2022 ambulatory DOMINGUEZ SAINI Facility:[facility] Start: 05-28-2022 End: 06-27-2022 ambulatory ORDOÑEZ H FAWWAD Facility:[facility] Start: 05-07-2022 End: 05-07-2022 ambulatory [facility] Work Phone: Hematology/Oncology Comment on above: Malignant neoplasm o f overlapping sites of left lung (HCC) (Primary Dx) Start: 04-30-2022 End: 05-28-2022 ambulatory ORDOÑEZ H FAWWAD Facility:[facility] Start: 03-31-2022 End: 04-30-2022 ambulatory ORDOÑEZ H FAWWAD Facility:[facility] Start: 03-26-2022 End: 03-26-2022 ambulatory DOMINGUEZ SAINI Facility:[facility] Start: 03-26-2022 End: 03-26-2022 ambulatory [facility] Work Phone: Hematology/Oncology Comment on above: Malignant neoplasm o f overlapping sites of left lung (HCC) (Primary Dx) Start: 02-27-2022 End: 03-30-2022 ambulatory ORDOÑEZ H FAWWAD Facility:[facility] Start: 02-25-2022 End: 02-25-2022 ambulatory Azdeondre Carrs Other [facility] Other Start: 02-25-2022 Office outpatient ne w 30 minutes Aziz Bakhous [facility] Start: 02-12-2022 End: 02-12-2022 ambulatory DOMINGUEZ SAINI Facility:[facility] Start: 02-12-2022 End: 02-12-2022 ambulatory [facility] Work Phone: Hematology/Oncology Comment on above: Malignant neoplasm o f overlapping sites of left lung (HCC) (Primary Dx) Start: 01-28-2022 End: 02-26-2022 ambulatory ORDOÑEZ H FAWWAD Facility:[facility] Start: 01-01-2022 End: 01-01-2022 ambulatory DOMINGUEZ SAINI Facility:[facility] Start: 12-29-2021 End: 01-27-2022 ambulatory ORDOÑEZ H [...] Start: 09-28-2017 End: 09-29-2017 Ambulatory DEFAULT PHYSICIAN Facility:[facility] Start: 09-24-2017 End: 09-25-2017 Ambulatory DEFAULT PHYSICIAN Facility:[facility] Procedures Date Procedure Procedure Detail Performing Clinician Start: 12-17-2021 PSA screening SHAIKH RAQUEL HILLMAN Comment on above: Performed By: #### L IPID, URIC, CMP, TSH, BNP #### [facility] [address] [place] [address] Dr. Surekha Pardo Start: 09-20-2019 Adult depression screening assessment [facility] Work Phone: Plan of Treatment Date Care Activity Detail Author Start: 11-28-2022 Influenza vaccination INFLUENZA (#1) [facility] Start: 03-30-2022 ADVANCE DIRECTIVE DISCUSSION ADVANCE DIRECTIVE DISCUSSION [facility] Start: 03-30-2022 DEPRESSION ASSESSMENT DEPRESSION ASS ESSMENT [facility] Start: 11-28-2021 Influenza vaccination INFLUENZA (#1) [facility] Start: 07-15-2021 LIPID SCREEN LIPID SCREEN [facility] Start: 06-07-2021 COVID-19 VACCINE (4 - Booster for Moderna series) COVID-19 VACCINE (4 - Booster for Moderna series) [facility] Start: 04-04-2021 COVID-19 VACCINE (4 - Booster for Moderna series) COVID-19 VACCINE (4 - Booster for Moderna series) [facility] Start: 03-30-2021 ADVANCE DIRECTIVE DISCUSSION ADVANCE DIRECTIVE DISCUSSION [facility] Start: 03-30-2021 DEPRESSION ASSESSMENT DEPRESSION ASS ESSMENT [facility] Start: 09-19-2020 Adult depression scr eening assessment DEPRESSION SCREENING [facility] Start: 07-22-2019 DIABETES SCREEN DIABETES SCREEN [facility] Start: 10-21-2018 PNEUMOCOCCAL: 65+ (2 - PCV) PNEUMOCOCCAL: 65+ (2 - PCV) [facility] Start: 10-21-2018 PNEUMOCOCCAL: 65+ (3 - PCV) PNEUMOCOCCAL: 65+ (3 - PCV) [facility] Start: 07-21-2017 HEMOGLOBIN/HEMATOCRIT HEMOGLOBIN/HEM ATOCRIT [facility] Start: 07-21-2017 SERUM CREATININE SERUM CREATININE [facility] Start: 08-29-1999 SHINGRIX VACCINE (1 of 2) SHINGRIX V ACCINE (1 of 2) [facility] Start: 1994 COLOGUARD (FIT-DNA) COLOGUARD (FIT-D NA) [facility] Start: 1994 Colonoscopy COLONOSCOPY [facility] Start: 1994 COLORECTAL CANCER SCREENING COLORECTAL CANCER SCREENING [facility] Start: [address] COLONOGRAPHY [facility] Start: 1994 FECAL OCCULT BLOOD FECAL OCCULT BLOO D [facility] Start: 1994 SIGMOIDOSCOPY SIGMOIDOSCOPY [facility] Start: 1968 Urine microalbumin profile DTAP,TDAP ,TD (1 - Tdap) [facility] Start: 08-29-1967 ANNUAL PCP TEAM SIDEROGRAPHER CHIN DISEASE VISIT ANNUAL PCP TEAM CHRONIC DISEASE VISIT [facility] Start: 08-29-1967 BP CONTROLLED (<130/80) BP CONTROLLE D (<130/80) [facility] Start: 08-29-1967 HEPATITIS C SCREENING HEPATITIS C SC REENING [facility] Start: 1949 ABDOMINAL AORTIC ANE URYSM SCREENING ABDOMINAL AORTIC ANEURYSM SCREENING [facility] Immunizations Immunization Date Immunization Notes Care Provider Raquel adorno 05-24-2020 COVID-19 vaccine, fu ll dose (MODERNA) [facility] Work Phone: [facility] 12-07-2019 unknown vaccine or i mmune globulin [facility] Work Phone: [facility] 12-29-2018 influenza, high dose seasonal, preservative-free [facility] Work Phone: [facility] 11-05-2017 influenza, high dose seasonal, preservative-free [facility] [place] Work Phone: [facility] 10-21-2017 pneumococcal polysaccharide vaccine, 23 valent [facility] Work Phone: [facility] 12-26-2016 influenza, high dose seasonal, preservative-free [facility] Work Phone: [facility] 07-25-2016 pneumococcal polysaccharide vaccine, 23 valent [facility] Work Phone: [facility] 12-01-2014 influenza, high dose seasonal, preservative-free [facility] Work Phone: [facility] 01-30-2014 influenza, seasonal, injectable [facility] Work Phone: [facility] 01-28-2012 influenza virus vacc ine, unspecified formulation [facility] Work Phone: [facility] 05-02-2010 pneumococcal polysaccharide vaccine, 23 valent [facility] Work Phone: [facility] Payers Date Payer Category Payer Unknown 2019 Unknown MMO MMO MEDICARE SUPPLEMENT [id number] 2019-Present [phone] [address] [place] [address] Indemnity [id number] 2002 Medicare MEDICARE MEDICAR E A AND B [id number] 2002-Present [phone] [address] [address] [place] [address] Medicare [id number] 2002 Medicare MEDICARE MEDICAR E A AND B [id number] 2002-Present [phone] [address] [address] [place] [address] Medicare [id number] 1959 Medicare [id number] 1959 Unknown [id number] 1949 Unknown [id number] 1949 Unknown [id number] 1949 Unknown [id number] 1949 Unknown [id number] 1949 Unknown [id number] 1949 Unknown [id number] 1949 Unknown [id number] 1949 Unknown [id number] 1949 Unknown [id number] 1949 Unknown [id number] 1949 Unknown [id number] 1949 Unknown [id number] 1949 Unknown [id number] Social History Date Type Detail Facility Start: 05-05-2012 Tobacco smoking stat us NHIS Ex-smoker [facility] End: 03-30-1994 History of tobacco use Current smoker [facility] End: 03-30-1994 History of tobacco use Cigarette Smoker [facility] Start: 09-20-2019 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 intake 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) [facility] Start: 1950 Sex Assigned At Not on file C [facility] Start: 07-07-2021 End: 2021 Exposure to SARS-CoV-2 (event) Not sure [facility] Start: 05-05-2012 End: 12-03-2022 Cigarettes smoked current (pack per day) - Reported 1 [facility] Start: 05-05-2012 Tobacco use and exposure Smoke less tobacco non-user [facility] Start: 09-20-2019 End: 12-03-2022 Sex Assigned At [facility] Adult Depression Scr eening Assessment 0 [facility] Clinical Notes 07-14-2016 to 03-10-2023 Note Date & Type Note Facility 03-10-2023 Evaluation note Encounter Date Diagnosis Assessment Notes Feb, Primary hypertension (ICD-10 - I10) Blood pressure seems well controlled. I will continue same blood pressure medications of [facility] . I will check protein to creatinine [...] is 11.7 g/dl. No need for [facility]AW [facility] Other 08-08-2023 Evaluation note* Encounter Date Diagnosis Assessment Notes Treatment Notes Treatment Clinical Notes Oct, Primary hypertension (ICD-10 - I10) Blood pressure seems well controlled. I will continue same blood pressure medications of [facility] . I will check protein to creatinine [...] next visit Oct, Hypokalemia (ICD-10 - E87.6) [facility] Other 04-04-2023 Evaluation note* Encounter Date Diagnosis [...] PCP Jun, Folate deficiency (ICD-10 - E53.8) [facility] Other 11-29-2022 Evaluation note* Encounter Date Diagnosis [...] I will check vitamin B12 next visit [facility] Other 04-17-2017 History of Past illness Narrative* Problem Noted Date Resolved Date Hilar density 07/14/2016 09/14/2018 Overview: Suspicious abnormal perihilar finding on CT at the OSH in patient with history of Lung Ca. S/P resection and unprovoked PE Plan: -07/14 Pulm following for suspicious perihilar mass 07/18 Dr Kay and Pt's orthopedic nurse- Dr Mo reviewed PET scan from 07/17. [...] of this encounter (statuses as of 06/05/2021) [facility]2017 History of Past illness Narrative* Problem Noted Date Resolved Date Hilar density 07/14/2016 09/14/2018 Overview: Suspicious abnormal perihilar finding on CT at the OSH in patient with history of Lung Ca. S/P resection and unprovoked PE Plan: -07/14 Pulm following for suspicious perihilar mass 07/18 Dr Kay and Pt's orthopedic nurse- Dr Mo reviewed PET scan from 07/17. [...] of this encounter (statuses as of 07/17/2021) [facility] History of Past illness Narrative* Problem Noted Date Resolved Date Hilar density 07/14/2016 09/14/2018 Overview: Suspicious abnormal perihilar finding on CT at the OSH in patient with history of Lung Ca. S/P resection and unprovoked PE Plan: -07/14 Pulm following for suspicious perihilar mass 07/18 Dr Kay and Pt's orthopedic nurse- Dr Mo reviewed PET scan from 07/17. [...] of this encounter (statuses as of 2021) [facility] History of Past illness Narrative* Problem Noted Date Resolved Date Hilar density 07/14/2016 09/14/2018 Overview: Suspicious abnormal perihilar finding on CT at the OSH in patient with history of Lung Ca. S/P resection and unprovoked PE Plan: -07/14 Pulm following for suspicious perihilar mass 07/18 Dr Kay and Pt's orthopedic nurse- Dr Mo reviewed PET scan from 07/17. [...] of this encounter (statuses as of 11/20/2021) [facility] History of Past illness Narrative* Problem Noted Date Resolved Date Hilar density 07/14/2016 09/14/2018 Overview: Suspicious abnormal perihilar finding on CT at the OSH in patient with history of Lung Ca. S/P resection and unprovoked PE Plan: -07/14 Pulm following for suspicious perihilar mass 07/18 Dr Kay and Pt's orthopedic nurse- Dr Mo reviewed PET scan from 07/17. [...] of this encounter (statuses as of 02/12/2022) [facility] History of Past illness Narrative* Problem Noted Date Resolved Date Hilar density 07/14/2016 09/14/2018 Overview: Suspicious abnormal perihilar finding on CT at the OSH in patient with history of Lung Ca. S/P resection and unprovoked PE Plan: -07/14 Pulm following for suspicious perihilar mass 07/18 Dr Kay and Pt's orthopedic nurse- Dr Mo reviewed PET scan from 07/17. [...] of this encounter (statuses as of 04/01/2022) [facility] History of Past illness Narrative* Problem Noted Date Resolved Date Hilar density 07/14/2016 09/14/2018 Overview: Suspicious abnormal perihilar finding on CT at the OSH in patient with history of Lung Ca. S/P resection and unprovoked PE Plan: -07/14 Pulm following for suspicious perihilar mass 07/18 Dr Kay and Pt's orthopedic nurse- Dr Mo reviewed PET scan from 07/17. [...] of this encounter (statuses as of 05/07/2022) [facility] History of Past illness Narrative* Problem Noted Date Resolved Date Hilar density 07/14/2016 09/14/2018 Overview: Suspicious abnormal perihilar finding on CT at the OSH in patient with history of Lung Ca. S/P resection and unprovoked PE Plan: -07/14 Pulm following for suspicious perihilar mass 07/18 Dr Kay and 's orthopedic nurse- Dr Mo reviewed PET scan from 07/17. [...] of this encounter (statuses as of 07/30/2022) [facility] History of Past illness Narrative* Problem Noted Date Resolved Date Hilar density 07/14/2016 09/14/2018 Overview: Suspicious abnormal perihilar finding on CT at the OSH in patient with history of Lung Ca. S/P resection and unprovoked PE Plan: -07/14 Pulm following for suspicious perihilar mass 07/18 Dr Kay and Pt's orthopedic nurse- Dr Mo reviewed PET scan from 07/17. [...] of this encounter (statuses as of 09/10/2022) [facility] History of Past illness Narrative* Problem Noted Date Diagnosed Date Resolved Date Hilar density 07/14/2016 09/14/2018 Overview: Suspicious abnormal perihilar finding on CT at the OSH in patient with history of Lung Ca. S/P resection and unprovoked PE Plan: -07/14 Pulm following for suspicious perihilar mass 07/18 Dr Kay and Pt's orthopedic nurse- Dr Mo reviewed PET scan from 07/17. [...] of this encounter (statuses as of 12/04/2022) [facility] Malignant neoplasm of overlapping sites of left lung (HCC)- Primary [facility] Malignant neoplasm of overlapping sites of left lung (HCC)- [facility] Diagnosis Malignant neoplasm of overlapping sites of left lung (HCC)- Primary [facility] Diagnosis Malignant neoplasm of overlapping sites of left lung (HCC)- Primary [facility] Diagnosis Malignant neoplasm of overlapping sites of left lung (HCC)- Primary documented in this encounter [facility] [facility] Diagnosis Malignant neoplasm of overlapping sites of left lung (HCC)- Primary documented in [facility] encounter [facility] Diagnosis Malignant neoplasm of overlapping sites of left lung (HCC)- Primary documented in this encounter [facility] general Narrative - Reported* Type Description Date Medical History hypertension Medical History lung cancer Medical History dementia with progressive aphasi a Medical History epilepsy Medical History COPD Medical History pulmonary emboli Surgical History left lung / removal 2010 Surgical History cholecystectomy Hospitalization History see above [facility] Other History general Narrative - Reported* Type Description Date Medical History hypertension Medical History lung cancer Medical History dementia with progressive aphasi a Medical History epilepsy Medical History COPD Medical History pulmonary emboli Surgical History left lung 04/01 removal 2010 Surgical History cholecystectomy Hospitalization History see above Hospitalization History MEMORY LOSS 3 [facility] Other Summary Purpose Family History No Family History Records FoundNo Family History Records FoundNo Family History Records Found Advance Directives Documents on File Type Date Recorded Patient [employer] Expl anation Advance Directive(s) 07/13/2016 9:40 PM Additional Source Comments (unrecognized sect ion and content) No Status Records FoundNo Status Records FoundNo Status Records Found INFORMATION SOURCE (unrecogn ized section and content) DATE CREATED AUTHOR 09/29/[address] [facility] DATE CREATED AUTHOR AUTHOR'S ORGANIZ ATION 09/05/2022 [facility] DATE CREATED AUTHOR AUTHOR'S ORGANIZ ATION 12/04/2022 [facility] Source Comments (unrecognize d section and content) In the event this informatio n is protected by the Federal Confidentiality of Alcohol and Drug Abuse Patient Records regulations: The Federal rules restrict any use of the information to criminally investigate or prosecute any alcohol or drug abuse patient.[facility] the event this information is protected by the Federal Confidentiality of Alcohol and Drug Abuse Patient Records regulations: The Federal rules restrict any use of the information to criminally investigate or prosecute any alcohol or drug abuse patient.[facility] the event this information is protected by the Federal Confidentiality of Alcohol and Drug Abuse Patient Records regulations: The Federal rules restrict any use of the information to criminally investigate or prosecute any alcohol or drug abuse patient.[facility] the event this information is protected by the Federal Confidentiality of Alcohol and Drug Abuse Patient Records regulations: The Federal rules restrict any use of the information to criminally investigate or prosecute any alcohol or drug abuse patient.[facility] the event this information is protected by the Federal Confidentiality of Alcohol and Drug Abuse Patient Records regulations: The Federal rules restrict any use of the information to criminally investigate or prosecute any alcohol or drug abuse patient.[facility] the event this information is protected by the Federal Confidentiality of Alcohol and Drug Abuse Patient Records regulations: The Federal rules restrict any use of the information to criminally investigate or prosecute any alcohol or drug abuse patient.[facility] the event this information is protected by the Federal Confidentiality of Alcohol and Drug Abuse Patient Records regulations: The Federal rules restrict any use of the information to criminally investigate or prosecute any alcohol or drug abuse patient.[facility] the event this information is protected by the Federal Confidentiality of Alcohol and Drug Abuse Patient Records regulations: The Federal rules restrict any use of the information to criminally investigate or prosecute any alcohol or drug abuse patient.[facility] the event this information is protected by the Federal Confidentiality of Alcohol and Drug Abuse Patient Records regulations: The Federal rules restrict any use of the information to criminally investigate or prosecute any alcohol or drug abuse patient.[facility] the event this information is protected by the Federal Confidentiality of Alcohol and Drug Abuse Patient Records regulations: The Federal rules restrict any use of the information to criminally investigate or prosecute any alcohol or drug abuse patient.[facility] Care Teams (unrecognized sec tion and content) Ore Fielder Relationship Specialty Start Date End Date Dominguez Saini MD PCP - General Family Practice 02/25/11 Nazanin Rush (Hist) [address] [place] [address] Primary Staff Physician Cardiology 06/15/18 Ore Fielder Relationship Specialty Start Date End Date Dominguez Saini MD PCP - General Family Practice 02/25/11 Nazanin Rush (Hist) [address] [place] [address] Primary Staff Physician Cardiology 06/15/18 Ore Fielder Relationship Specialty Start Date End Date Dominguez Saini MD PCP - General Family Medicine 02/25/11 Nazanin Rush (Hist) [address] [place] [address] Primary Staff Physician Cardiology 06/15/18 Ore Fielder Relationship Specialty Start Date End Date Dominguez Saini MD PCP - General Family Medicine 02/25/11 Nazanin Rush (Hist) [address] [place] [address] Primary Staff Physician Cardiology 06/15/18 Ore Fielder Relationship Specialty Start Date End Date Dominguez Saini MD PCP - General Family Medicine 02/25/11 Nazanin Rush (Hist) [address] [place] [address] Primary Staff Physician Cardiology 06/15/18 Ore Fielder Relationship Specialty Start Date End Date Dominguez Saini MD PCP - General Family Medicine 02/25/11 Nazanin Rush (Hist) [address] [place] [address] Primary Staff Physician Cardiology 06/15/18 Reason for Visit (unrecogniz ed section and content) RENAL 4 month Follow up Reason Comments Blood Draw (CVAD) Specialty Diagnoses / Procedures Referred By Contac t Referred To Contact Hematology / HEMATOLOGY/ONCOLOGY Diagnoses lab/port flush 6 week Procedures PORT FLUSH Self Alan Newton [address] [place] [address] Referral ID Status Reason Start Date Expiration Date V isits Requested Visits Authorized [id number] Authorized 07/21/2022 03/29/2023 99 99 Reason Comments Port Flush Specialty Diagnoses / Procedures Referred By Contac t Referred To Contact Hematology / HEMATOLOGY/ONCOLOGY Diagnoses lab/port flush 6 week Procedures PORT FLUSH Self Alan Newton [address] [place] [address] FOR RECORDS PERTAINING TO PATIENTS WHO ARE [...] BE BASED ON THE PRIMARY CLINICAL RECORDS. [employer] provides no warranty or guarantee of the accuracy or completeness of information in this document.
[2023-05-05 11:34] LABS: Alanine Aminotransferase 17 U/L (16-63); Albumin Globulin Ratio 0.8; Albumin Level 3.4 g/dL (3.4-5.0); Alkaline Phosphatase 104 U/L (46-116); Anion Gap 13.1; Aspartate Amino Transferase 18 U/L (15-37); BUN Creatinine Ratio 10.4; Bilirubin Total 0.4 mg/dL (0.2-1.0); Calcium 8.9 mg/dL (8.5-10.1); Chloride 101 mmol/L (98-107); Estimated GFR (African America 32 (>=60); Estimated GFR (Non-African Ame 27 (>=60); Globulin 4.4 g/dL; Glucose 119 mg/dL (74-106); Potassium 4.1 mmol/L (3.5-5.1); Sodium 137 mmol/L (136-145); Total Protein 7.8 g/dL (6.4-8.2)
[2023-05-05 11:38] LABS: Ammonia <10 umol/L (11-32)
[2023-05-05 11:56] LABS: INR 2.48
[2023-05-05 11:58] LABS: Partial Thromboplastin Time 55.5 sec (22.3-36.2)
== END 2023-05-05 11:05 | disposition home or self-care (01) ==
LOC: LAB 11:06
PROVIDERS: PCP Family Medicine; Visit Provider Family Medicine
DX: K64.9 Unspecified hemorrhoids (principal)
CPT/HCPCS: 36415; 80053; 82140; 85025; 85610; 85730

== ENCOUNTER 2023-05-14 13:40 | Inpatient (IN) | payer OTHER, SELFPAY ==
[2023-05-14] VITALS (28 sets, daily range): BP systolic 96–157; BP diastolic 52–78; PULSE 79–171; RESP 16–49; TEMP 36.6–37.6; O2SAT 82–100; BMI 28.2
--- NOTE | 2023-05-14 13:49 | ECG_ITS ---
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
--- NOTE | 2023-05-14 13:49 | XR_ITS ---
The [address] [address] Patient Name: OSVALDO RO MRN: [id number] date: 1950 Sex: M Assigned Patient Location: ER Current Patient Location: ER Accession/Order Number: [id number] Exam Date: 05/14/2023 14:12 Report Date: 05/14/2023 14:34 At the request of: LIANA CRUZ Procedure: XR chest 1V EXAMINATION: XR chest 1V HISTORY: Tachycardic COMPARISON: XR chest 01/01/2023, 09/05/2020 FINDINGS: LUNGS: Chronic elevated left hemidiaphragm partially obscuring the left lung base. Right lung is clear. VASCULATURE: No increased pulmonary vasculature. PLEURA: No pneumothorax, effusion, or pleural thickening. CARDIAC: No cardiomegaly or cardiac silhouette abnormality. MEDIASTINUM: No visible mass or adenopathy. BONES: No fracture or visible bone lesion. OTHER: Stable Port-A-Cath projecting over upper right hemithorax. XR/XR chest 1V IMPRESSION: 1. No acute cardiopulmonary process. 2. Stable chronic changes within left lung base. Electronically authenticated by: BONI ABBOTT Date: 05/14/2023 14:34
--- NOTE | 2023-05-14 13:53 | ED.GENADUL1 ---
HPI - General Adult General Chief complaint: Weakness Stated complaint: SENT BY DR BERMUDEZ Time Seen by Provider: 05/14/23 13:46 History of Present Illness HPI narrative: 72-year-old male presents by ambulance to ED from PCPs office. He was noted to be pale. His accompanies him and she reports that she has sores on his buttocks which have been bleeding. The patient has dementia and cannot provide us any history. His states he has been looking pale for a few days. Related Data Home Medications Medication Instructions Recorded Confirmed albuterol sulfate 90 mcg/actuation 2 puff inhalation Q4H PRN 01/01/23 05/14/23 aerosol inhaler shortness of breath or wheezing amlodipine 10 mg tablet 10 mg PO DAILY 01/01/23 05/14/23 donepezil 10 mg tablet 10 mg PO BID 01/01/23 05/14/23 doxepin 10 mg capsule 20 mg PO BEDTIME 01/01/23 01/01/23 folic acid 1 mg tablet 1 mg PO DAILY 01/01/23 05/14/23 lamotrigine 200 mg tablet 200 mg PO TID 01/01/23 05/14/23 levothyroxine 75 mcg tablet 75 mcg PO DAILY 01/01/23 05/14/23 lorazepam 0.5 mg tablet 1 mg PO DAILY PRN agitation 01/01/23 05/14/23 mirtazapine 45 mg tablet 45 mg PO BEDTIME 01/01/23 05/14/23 potassium chloride 10 mEq 10 meq PO BID 01/01/23 05/14/23 tablet,extended release quetiapine 50 mg tablet 50 mg PO BEDTIME 01/01/23 05/14/23 simvastatin 20 mg tablet 20 mg PO BEDTIME 01/01/23 05/14/23 warfarin 2.5 mg tablet 2.5 mg PO .COMPLEX 01/01/23 05/14/23 liothyronine 5 mcg tablet 5 mcg PO QD 05/14/23 05/14/23 Allergies Allergy/AdvReac Type Severity Reaction Status Date / Time tetanus and diphtheria Allergy Mild Rash Verified 01/01/23 07:58 toxoids Review of Systems ROS Narrative Not obtainable, dementia PFSH PFS Medical History (Updated 05/14/23 @ 15:28 by Nathan Canseco MD) Lung malignancy ?C34.90 - Malignant neoplasm of unspecified part of unspecified bronchus or lung (ICD-10) Port-A-Cath in place ?Z95.828 - Presence of other vascular implants and grafts (ICD-10) Family History (Updated 05/14/23 @ 14:35 by Sky Kikr) Other Amnesia Anemia COPD (chronic obstructive pulmonary disease) Chronic kidney disease Dementia Epilepsy Family history of hypertension Hyperlipemia Hypersomnia Hypothyroidism Insomnia Lung cancer Obesity Osteoarthritis of right knee Pulmonary embolism Sleep apnea Social History Smoking status: Former smoker Gender Identity: male Exam Narrative Exam Narrative: Nurses note and vital signs reviewed and patient is not hypoxic. General: The patient appears in no apparent respiratory distress. Skin: Warm, dry, pallor noted. There is no rash noted. Head: Normocephalic, atraumatic Eye: Conjunctiva are pale, sclera anicteric Ears, Nose, Mouth, and Throat: oral mucosa is moist. Nares patent. a Cardiovascular: Regular rate and rhythm, not tachycardic Respiratory: Patient is in no distress, no accessory muscle use, lungs are clear to auscultation, no wheezing, rales or rhonchi GI: Soft and nontender; he has some excoriations on his buttocks. Dark heme positive stool present. Musculoskeletal: The patient has no evidence of calf tenderness, no pitting edema, symmetrical pulses noted bilaterally Neurological: He is oriented to name but does not know where he is or what year it is or why he is here Psychiatric: Cooperative Constitutional Vital Signs, click to edit/add: Last Vital Signs Temp 97.8 F 05/14/23 13:49 Pulse 89 05/14/23 14:10 Resp 24 05/14/23 14:20 BP 147/75 H 05/14/23 14:01 Pulse Ox 100 05/14/23 14:20 O2 Del Method Room Air 05/14/23 13:49 Course Vital Signs Vital signs: Vital Signs Temperature 97.8 F 05/14/23 13:49 Pulse Rate 81 05/14/23 13:49 Respiratory Rate 20 05/14/23 13:49 Blood Pressure 114/78 05/14/23 13:49 Pulse Oximetry 95 05/14/23 13:49 Oxygen Delivery Method Room Air 05/14/23 13:49 Temperature 97.8 F 05/14/23 13:49 Pulse Rate 89 05/14/23 14:10 Respiratory Rate 24 05/14/23 14:20 Blood Pressure 147/75 H 05/14/23 14:01 Pulse Oximetry 100 05/14/23 14:20 Oxygen Delivery Method Room Air 05/14/23 13:49 Medical Decision Making MDM Narrative Medical decision making narrative: The patient is found to be anemic with heme positive stools. BUN and creatinine are slightly elevated above his baseline as well. He is hemodynamically stable, not hypotensive. Findings are discussed with his and he is being admitted. Differential Diagnosis Differential Diagnosis: GI bleed, anemia Lab Data Lab results reviewed: Yes I reviewed the patient's lab results Labs: Lab Results 05/14/23 05/14/23 Range/Units 14:02 14:15 WBC 13.5 H (4.0-11.0) 10^3/uL RBC 2.22 L (4.70-6.10) 10^6/uL Hgb 6.6 L* (14.0-18.0) g/dL Hct 20.8 L* (42.0-54.0) % MCV 93.7 (80.0-94.0) fL MCH 29.7 (25.9-34.0) pg MCHC 31.7 (29.9-35.2) g/dL RDW 14.1 (11.0-15.0) % Plt Count 416 (150-450) 10^3/uL MPV 9.8 (9.5-13.5) fL Neut % (Auto) 80.2 H (43.0-75.0) % Lymph % (Auto) 11.2 L (20.5-60.0) % [place] % (Auto) 6.9 (1.7-12.0) % Eos % (Auto) 0.7 L (0.9-7.0) % Baso % (Auto) 0.4 (0.2-2.0) % Neut # (Auto) 10.8 H (1.4-6.5) 10^3/uL Lymph # (Auto) 1.5 (1.2-3.8) 10^3/uL [place] # (Auto) 0.9 H (0.3-0.8) 10^3/uL Eos # (Auto) 0.1 (0.0-0.7) 10^3/uL Baso # (Auto) 0.1 (0.0-0.1) 10^3/uL Abs Immat Gran (auto) 0.08 H (0.00-0.03) 10^3/uL Imm/Tot Granulo (auto) 0.6 H (0.0-0.5) % PT 62.1 H* (9.0-11.6) sec INR 6.51 H* Sodium 140 (136-145) mmol/L Potassium 3.9 (3.5-5.1) mmol/L Chloride 107 (98-107) mmol/L Carbon Dioxide 26.9 (21.0-32.0) mmol/L Anion Gap 10.0 BUN 56.0 H (7.0-18.0) mg/dL Creatinine 3.06 H (0.70-1.30) mg/dL Est GFR ( Amer) 24 L (>=60) Est GFR (Non-Af Amer) 20 L (>=60) BUN/Creatinine Ratio 18.3 Glucose 113 H (74-106) mg/dL Calcium 8.2 L (8.5-10.1) mg/dL Total Bilirubin 0.3 (0.2-1.0) mg/dL Direct Bilirubin 0.1 (0.0-0.2) mg/dL AST 51 H (15-37) U/L ALT 35 (16-63) U/L Alkaline Phosphatase 86 (46-116) U/L Troponin I High Sens 30.1 (4.0-76.1) pg/mL Total Protein 6.2 L (6.4-8.2) g/dL Albumin 2.6 L (3.4-5.0) g/dL Globulin 3.6 g/dL Albumin/Globulin Ratio 0.7 Amylase 50 (25-115) U/L Lipase 51.0 (16.0-77.0) U/L Stool Occult Blood Positive A Blood Type O Negative Antibody Screen Negative Imaging Data CT scan - abdomen: Radiologist's impression: ITS Impressions Chest X-Ray 05/14/23 13:49 IMPRESSION: 1. No acute cardiopulmonary process. 2. Stable chronic changes within left lung base. Electronically authenticated by: BONI ABBOTT Date: 05/14/2023 14:34 Abdomen/Pelvis CT 02/15/24 14:35 IMPRESSION: 1. No abnormal or suspicious findings to account for patient's symptoms. 2. Stable, chronic left adrenal mass favoring a benign adenoma. 3. Evaluation is slightly limited by lack of IV and oral contrast. Electronically authenticated by: BONI ABBOTT Date: 05/14/2023 15:13 ECG Data Attestation: I personally reviewed and interpreted this ECG as follows: (EKG on my interpretation shows sinus rhythm with a right bundle branch block) Discharge Plan Discharge Chief Complaint: Weakness Clinical Impression: GI bleed, Anemia Patient Disposition: Admitted As Inpatient Time of Disposition Decision: 15:28 Condition: Good Prescriptions / Home Meds: No Action amlodipine 10 mg tablet 10 mg PO DAILY albuterol sulfate 90 mcg/actuation HFA aerosol inhaler 2 puff INHALATION Q4H PRN (Reason: shortness of breath or wheezing) donepezil 10 mg tablet 10 mg PO BID Patient Comments: 1-2 capsules at bedtime doxepin 10 mg capsule 20 mg PO BEDTIME folic acid 1 mg tablet 1 mg PO DAILY lamotrigine 200 mg tablet 200 mg PO TID levothyroxine 75 mcg tablet 75 mcg PO DAILY lorazepam 0.5 mg tablet 1 mg PO DAILY PRN (Reason: agitation) mirtazapine 45 mg tablet 45 mg PO BEDTIME potassium chloride 10 mEq tablet extended release 10 meq PO BID quetiapine 50 mg tablet 50 mg PO BEDTIME simvastatin 20 mg tablet 20 mg PO BEDTIME warfarin 2.5 mg tablet 2.5 mg PO .COMPLEX Patient Comments: Saturdays 2 tablets Rx Instructions: 2.5 mg orally daily; liothyronine 5 mcg Tablet 5 mcg PO QD Referrals: Jose Bermudez MD [Primary Care Provider] - 1 week
[2023-05-14 14:13] LABS: Basophils Absolute Auto 0.1 10^3/uL (0.0-0.1); Basophils Percent Auto 0.4 % (0.2-2.0); Eosinophils Absolute Auto 0.1 10^3/uL (0.0-0.7); Eosinophils Percent Auto 0.7 % (0.9-7.0); Immature Granulocytes Abs Auto 0.08 10^3/uL (0.00-0.03); Immature Granulocytes Pct Auto 0.6 % (0.0-0.5); Lymphocytes Absolute Auto 1.5 10^3/uL (1.2-3.8); Lymphocytes Percent Auto 11.2 % (20.5-60.0); Mean Corpuscular HGB Conc 31.7 g/dL (29.9-35.2); Mean Corpuscular Hemoglobin 29.7 pg (25.9-34.0); Mean Corpuscular Volume 93.7 fL (80.0-94.0); Mean Platelet Volume 9.8 fL (9.5-13.5); Monocytes Absolute Auto 0.9 10^3/uL (0.3-0.8); Monocytes Percent Auto 6.9 % (1.7-12.0); Neutrophils Absolute Auto 10.8 10^3/uL (1.4-6.5); Neutrophils Percent Auto 80.2 % (43.0-75.0); Platelet Count 416 10^3/uL (150-450); Red Blood Count 2.22 10^6/uL (4.70-6.10); Red Cell Distribution Width 14.1 % (11.0-15.0); White Blood Count 13.5 10^3/uL (4.0-11.0)
[2023-05-14 14:18] LABS: Hematocrit 20.8 % (42.0-54.0); Hemoglobin 6.6 g/dL (14.0-18.0)
[2023-05-14 14:30] LABS: BUN Creatinine Ratio 18.3; Calcium 8.2 mg/dL (8.5-10.1); Carbon Dioxide 26.9 mmol/L (21.0-32.0); Chloride 107 mmol/L (98-107); Estimated GFR (African America 24 (>=60); Estimated GFR (Non-African Ame 20 (>=60); Glucose 113 mg/dL (74-106); Potassium 3.9 mmol/L (3.5-5.1); Sodium 140 mmol/L (136-145)
[2023-05-14 14:32] LABS: Alanine Aminotransferase 35 U/L (16-63); Albumin Globulin Ratio 0.7; Albumin Level 2.6 g/dL (3.4-5.0); Alkaline Phosphatase 86 U/L (46-116); Amylase 50 U/L (25-115); Aspartate Amino Transferase 51 U/L (15-37); Bilirubin Direct 0.1 mg/dL (0.0-0.2); Bilirubin Total 0.3 mg/dL (0.2-1.0); Globulin 3.6 g/dL; Total Protein 6.2 g/dL (6.4-8.2); Troponin I High Sensitivity 30.1 pg/mL (4.0-76.1)
--- NOTE | 2023-05-14 14:35 | CT_ITS ---
[address] [address] Patient Name: OSVALDO RO MRN: [id number] date: 1950 Sex: M Assigned Patient Location: ER Current Patient Location: Accession/Order Number: [id number] Exam Date: 05/14/2023 14:40 Report Date: 05/14/2023 15:13 At the request of: LIANA CRUZ Procedure: CT abdomen pelvis wo con EXAMINATION: CT abdomen pelvis wo con HISTORY: Anemia , black tarry stools, wound on buttocks, multiple falls, history of lung cancer COMPARISON: CTA chest 08/15/2017 TECHNIQUE: Axial, Coronal, and Sagittal images were obtained without and/or with IV contrast as indicated by examination type. Dose reduction techniques were achieved by using automated exposure control and/or adjustment of mA and/or kV according to patient size and/or use of iterative reconstruction technique. FINDINGS: LUNG BASES: No visible pulmonary or pleural disease. LIVER: No enlargement, atrophy, suspicious density, or significant focal lesion. BILIARY: Cholecystectomy. PANCREAS: No lesion, fluid collection, or abnormal duct dilatation. SPLEEN: No enlargement or focal lesion. ADRENALS: Chronic, partially fatty left adrenal mass consistent with a benign adenoma. KIDNEYS: 3.6 cm right renal hypodensity favoring a cyst. No mass, obstruction, or calcification. BOWEL/MESENTERY: No visible mass, obstruction, or bowel wall thickening. AORTA/VASCULAR: No aneurysm or dissection. RETROPERITONEUM: No mass or adenopathy. LYMPH NODES: No adenopathy. URINARY BLADDER: No visible focal wall thickening, lesion, or calculus. PELVIC ORGANS: No visible mass. Pelvic organs appropriate for patient age. ABDOMINAL WALL: No mass or hernia. BONES: No bony lesion or fracture. OTHER: Negative. CT/CT abdomen pelvis wo con IMPRESSION: 1. No abnormal or suspicious findings to account for patient's symptoms. 2. Stable, chronic left adrenal mass favoring a benign adenoma. 3. Evaluation is slightly limited by lack of IV and oral contrast. Electronically authenticated by: BONI ABBOTT Date: 05/14/2023 15:13
[2023-05-14 14:38] LABS: INR 6.51; Prothrombin Time 62.1 sec (9.0-11.6)
[2023-05-14 14:38] LABS: Occult Blood Positive
[2023-05-14] MEDS: PHYTONADIONE (VIT K1) 10 MG/ML AMPUL 5 MG PO (18:09)
[2023-05-14 18:27] LABS: Lactate/Lactic Acid 1.8 mmol/L (0.4-2.0)
[2023-05-14 18:30] LABS: Magnesium 2.5 mg/dL (1.8-2.4)
[2023-05-14 18:35] LABS: Free T3 2.36 pg/mL (2.18-3.98); Thyroid Stimulating Hormone 0.267 uIU/mL (0.358-3.740)
[2023-05-14] MEDS: MIRTAZAPINE 15 MG TABLET 45 MG PO (21:50)
[2023-05-14] MEDS: QUETIAPINE FUMARATE 25 MG TABLET 75 MG PO (21:50)
[2023-05-14] MEDS: LAMOTRIGINE 100 MG TABLET 200 MG PO (21:50)
[2023-05-14] MEDS: LORAZEPAM 1 MG TABLET PO (21:50)
[2023-05-14] MEDS: DONEPEZIL HCL 10 MG TABLET PO (21:50)
[2023-05-14] MEDS: DOXEPIN HCL 10 MG CAPSULE 20 MG PO (21:51)
[2023-05-14] MEDS: POTASSIUM CHLORIDE 10 MEQ ER TABLET PO (21:51)
[2023-05-14] MEDS: ATORVASTATIN CALCIUM 10 MG TABLET PO (21:51)
[2023-05-14] MEDS: CEFTRIAXONE 1,000 MG in 0.9 % SODIUM CHLORIDE 50 ML 100 MG IV (22:58)
[2023-05-14] MEDS: LEVOFLOXACIN IN DEXTROSE 5 % 500 MG/100 ML PIGGYBACK 100 MG IV (22:58)
[2023-05-14] MEDS: PANTOPRAZOLE SODIUM 40 MG VIAL IV (22:58)
--- OUTSIDE RECORDS SUMMARY | 2023-05-14 23:23 | XMS_ITS | CCD ---
Author Name Unknown Address [address] [facility] [address] [place] [address] Organization [facility] Care Team Providers Care Oncology Account Specialist Name Role Phone PHYSICIAN, DEFAULT Unavailable Unavailable PHYSICIAN, DEFAULT Unavailable Unavailable PHYSICIAN, DEFAULT Unavailable Unavailable PHYSICIAN, DEFAULT Unavailable Unavailable Dominguez Bermudez MD Primary Care Provider [phone] Nazanin Rush (Hist) Unavailable Dominguez Bermudez MD Primary Care Provider [phone] Nazanin Rush (Hist) Unavailable Dominguez Bermudez MD Primary Care Provider [phone] Timothy Galarza Unavailable Dominguez Bermudez MD Primary Care Provider [phone] Nazanin [...] Care Unavailable MISC, DOCTOR Attending Unavailable MISC, DR BAIG Admitting Unavailable BAKHOUS, AZIZ Consulting Unavailable HOY [...] Primary Care Unavailable Nazanin Rush (Hist) Unavailable [phone] HOY, DOMINGUEZ M Primary Care Unavailable HOY, DOMINGUEZ M Primary Care Unavailable HOY, DOMINGUEZ M Primary Care Unavailable HOY, DOMINGUEZ M Primary Care Unavailable HOY, DOMINGUEZ M Primary Care Unavailable HOY, DOMINGUEZ M Primary Care Unavailable HOY, DOMINGUEZ M Primary Care Unavailable HOY, DOMINGUEZ M Primary Care Unavailable HOY, DOMINGUEZ M Primary Care Unavailable Bird GONZÁLES Attending Unavailable Bird GONZÁLES Attending Unavailable Allergies Allergy Classification Reported Allergen(s) Allergy Type Date of Onset Reaction(s) Facility (11 sources) Chocolate; Translations: [CHOCOLATE] Food Allergy 05-05-19 13 Intolerance [facility] (11 sources) Phenytoin; Translations: [PHENYTOIN] Drug Allergy 01-28-20 12 Unknown [facility] (4 sources) Tetanus Vaccines And Toxoid; Translations: [TETANUS VACCINES AND TOXOID] Drug Allergy 01-28-20 12 Swelling [facility] (11 sources) Wool; Translations: [WOOL] Allergy to substance 10-25-19 14 Hives, Swelling [facility] Work Phone: (7 sources) Tetanus Vaccines And Toxoid Drug Allergy 01-28-20 12 Swelling [facility] (5 sources) Chocolate; Translations: [chocolate flavor] Drug allergy 07-14-19 17 Unknown [facility] (1 source) Tetanus toxoid specific immunoglobulin E Drug allergy Unknown [facility] Other (4 sources) Tetanus vaccine; Translations: [tetanus toxoids] Drug allergy Unknown [facility] (1 source) Allopurinol Drug Allergy 07-14-19 17 [facility] (1 source) carBAMazepine Drug Allergy 07-14-19 17 [facility] (1 source) Phenytoin Drug Allergy 07-14-19 17 [facility] Medications Current Medications Medication Drug [...] by mouth every 6 hours as needed. [id number] 200 actuat albuterol 0.09 mg/actuat metered dose [...] Onset: 07-26-2022 Episodic Other aftercare (1 source) residential (current) use of anticoagulants; Translations: [INSTRUCTION DEAN CURRNT USE ANTICOAGULANTS] Onset: 08-27-2022 Episodic Other [...] Results Test Name Value Interpretation Reference Range Facility Facesheeton 05-06-2023 Facesheet [id number]# 1.00TIFF Normal [facility] Ambulatory Visit Summaryon 0 05-05-2023 Ambulatory Visit Summary OSVALDO RO :1950 Visit Date:05/05/2023 Ambulatory Visit Instructions Your Care Team Attending Physician - VLADISLAV NEFF, Bird Murillo Primary Care Physician - Dominguez Bermudez MD This Is Your Medications List albuterol (Ventolin HFA 90 mcg/inh Aerosol-Adpt) amlodipine (amLODIPine 10 mg Tab) arformoterol (Brovana 15 mcg/2 mL inhalation solution) budesonide (budesonide 0.5 mg/2 mL Inh Susp) docusate-senna (docusate-senna 50 mg-8.6 mg Tab) donepezil (donepezil 10 mg Tab) doxepin (doxepin 10 mg Cap) folic acid (folic acid 1 mg Tab) lamotrigine (lamotrigine 200 mg Tab) levothyroxine (levothyroxine 75 mcg (0.075 mg) Tab) liothyronine (Cytomel 5 mcg Tab) lorazepam (LORazepam 0.5 mg Tab) mirtazapine (mirtazapine 45 mg oral tablet) potassium chloride (potassium chloride 10 mEq Cap-ER) quetiapine (quetiapine 50 mg oral tablet) revefenacin (Yupelri 175 mcg/3 mL inhalation solution) simvastatin (simvastatin 20 mg Tab) warfarin (Coumadin) Procedures Performed Colonoscopy (2018), Hemorrhoidectomy (2018), Cholecystectomy, Insertion of implantable venous access port, ORIF - Open reduction and internal fixation of fracture, Partial lobectomy of lung. Discharge Vitals Heart Rate (Peripheral) 72 Respiratory Rate 16 Blood Pressure 118/82 Height 170 cm Height 67 in Weight 86 kg Weight 189.2 lb BMI 29.76 What to do next Scheduled Follow-Up Appointments Thursday 1:00 PM EST With: VLADISLAV NEFF, Bird Murillo Where: General Surgery Vladislav/Brent Jay Normal [facility] Physician Referralon 024 Physician Referral [id number] .00TIFF Normal [facility] Physician Referral [id number]#1 .00TIFF Normal [facility] PTH INTACTon 06-24-2022 PTH, Intact 51 pg/mL Normal 15-65 [facility] Comment on above: Performed By: #### L IPID, URIC, CMP, TSH, BNP #### [facility] [address] [place], [place] [address] Dr. Surekha Pardo HEMOGRAM AND PLATELon 2022 Hematocrit (Bld) [Volume fraction] 39.8 % Critically low 42.0-54.0 [facility] Comment on above: Performed By: #### H H #### [facility] [address] [place], [place] [address] Dr. Surekha Pardo Hemoglobin (Bld) [Mass/Vol] 13.2 g/dL Critically low 14.0-18.0 [facility] Comment on above: Performed By: #### H H #### [facility] [address] [place] [address] Dr. Surekha Pardo MCH (RBC) [Entitic mass] 30.3 pg Normal 25.9-34.0 [facility] Comment on above: Performed By: #### H H #### [facility] [address] [place] [address] Dr. Surekha Pardo MCHC (RBC) [Mass/Vol] 33.2 g/dL Normal 29.9-35.2 [facility] Comment on above: Performed By: #### H H #### [facility] [address] [place] [address] Dr. Surekha Pardo MCV (RBC) [Entitic vol] 91.5 fL Normal 80.0-94.0 [facility] Comment on above: Performed By: #### H H #### [facility] [address] [place] [address] Dr. Surekha Pardo PLT 320 103/ul Normal 150-450 [facility] Comment on above: Performed By: #### H H #### [facility] [address] [place] [address] Dr. Surekha Pardo RBC 4.35 106/ul Critically low 4.70-6.10 [facility] Comment on above: Performed By: #### H H #### [facility] [address] [place] [address] Dr. Surekha Pardo WBC 9.4 103/ul Normal 4.0-11.0 [facility] Comment on above: Performed By: #### H H #### [facility] [address] [place] [address] Dr. Surekha Pardo MAGNESIUMon 06-23-2022 Magnesium [Mass/Vol] 1.8 mg/dL Normal 1.8-2.4 [facility] Comment on above: Performed By: #### L IPID, URIC, CMP, TSH, BNP #### [facility] [address] [place] [address] Dr. Surekha Pardo PHOSPHORUSon 06-23-2022 Phosphate [Mass/Vol] 3.0 mg/dL Normal 2.6-4.7 [facility] Comment on above: Performed By: #### L IPID, URIC, CMP, TSH, BNP #### [facility] [address] [place] [address] Dr. Surekha Pardo PROF 14(COMP METB)on 023 Albumin [Mass/Vol] 3.8 g/dL Normal 3.4-5.0 [facility] [place] [facility] Comment on above: Performed By: #### L IPID, URIC, CMP, TSH, BNP #### [facility] [address] [place] [address] Dr. Surekha Pardo Albumin/Globulin [Mass ratio] 0.9 {ratio} Normal [facility] Comment on above: Performed By: #### L IPID, URIC, CMP, TSH, BNP #### [facility] [address] [place] [address] Dr. Surekha Pardo ALP [Catalytic activity/Vol] 101 U/L Normal 46-116 [facility] Comment on above: Performed By: #### L IPID, URIC, CMP, TSH, BNP #### [facility] [address] [place] [address] Dr. Surekha Pardo ALT [Catalytic activity/Vol] 20 U/L Normal 16-63 [facility] Comment on above: Performed By: #### L IPID, URIC, CMP, TSH, BNP #### [facility] [address] [place] [address] Dr. Surekha Pardo Anion gap [Moles/Vol] 15.7 mmol/L Normal [facility] Comment on above: Performed By: #### L IPID, URIC, CMP, TSH, BNP #### [facility] [address] [place] [address] Dr. Surekha Pardo AST [Catalytic activity/Vol] 16 U/L Normal 15-37 [facility] Comment on above: Performed By: #### L IPID, URIC, CMP, TSH, BNP #### [facility] [address] [place], [place] [id number] Dr. Surekha Pardo Bilirubin [Mass/Vol] 0.4 mg/dL Normal 0.2-1.0 [facility] Comment on above: Performed By: #### L IPID, URIC, CMP, TSH, BNP #### [facility] [address] [place] [address] Dr. Surekha Pardo Calcium [Mass/Vol] 9.4 mg/dL Normal 8.5-10.1 [facility] [place] [facility] Comment on above: Performed By: #### L IPID, URIC, CMP, TSH, BNP #### [facility] [address] [place] [address] Dr. Surekha Pardo Chloride [Moles/Vol] 106 mmol/L Normal 98-107 [facility] Comment on above: Performed By: #### L IPID, URIC, CMP, TSH, BNP #### [facility] [address] [place] [address] Dr. Surekha Pardo CO2 [Moles/Vol] 27.1 mmol/L Normal 21.0-32.0 [facility] Comment on above: Performed By: #### L IPID, URIC, CMP, TSH, BNP #### [facility] [address] [place] [address] Dr. Surekha Pardo Creatinine [Mass/Vol] 2.15 mg/dL Critically high 0.70-1.30 [facility] Comment on above: Performed By: #### L IPID, URIC, CMP, TSH, BNP #### [facility] [address] [place] [address] Dr. Surekha Pardo EGFR-AF MALAYSIAN 37 mL/min/1.73m2 Critically low >=60 [facility] Comment on above: Performed By: #### L IPID, URIC, CMP, TSH, BNP #### [facility] [address] [place] [address] Dr. Surekha Pardo EGFR-NON AF MALAYSIAN 30 mL/min/1.73m2 Critically low >=60 [facility] Comment on above: Performed By: #### L IPID, URIC, CMP, TSH, BNP #### [facility] [address] [place] [address] Dr. Surekha Pardo Globulin (S) [Mass/Vol] 4.1 g/dL Normal [facility] Comment on above: Performed By: #### L IPID, URIC, CMP, TSH, BNP #### [facility] [address] [place] [address] Dr. Surekha Pardo Glucose [Mass/Vol] 102 mg/dL Normal 74-106 [facility] Comment on above: Performed By: #### L IPID, URIC, CMP, TSH, BNP #### [facility] [address] [place] [address] Dr. Surekha Pardo Potassium [Moles/Vol] 3.8 mmol/L Normal 3.5-5.1 [facility] Comment on above: Performed By: #### L IPID, URIC, CMP, TSH, BNP #### [facility] [address] [place] [address] Dr. Surekha Pardo Protein [Mass/Vol] 7.9 g/dL Normal 6.4-8.2 [facility] Comment on above: Performed By: #### L IPID, URIC, CMP, TSH, BNP #### [facility] [address] [place] [address] Dr. Surekha Pardo Sodium [Moles/Vol] 145 mmol/L Normal 136-145 [facility] Comment on above: Performed By: #### L IPID, URIC, CMP, TSH, BNP #### [facility] [address] [place] [address] Dr. Surekha Pardo Urea nitrogen [Mass/Vol] 12.0 mg/dL Normal 7.0-18.0 [facility] Comment on above: Performed By: #### L IPID, URIC, CMP, TSH, BNP #### [facility] [address] [place] [address] Dr. Surekha Pardo Urea nitrogen/Creatinine [Mass ratio] 5.6 mg/mg Normal [facility] Comment on above: Performed By: #### L IPID, URIC, CMP, TSH, BNP #### [facility] [address] [place] [address] Dr. Surekha Pardo UA RANDOMon 06-23-2022 Bilirubin Ql (U) Negative Normal NEGATIVE [facility] Comment on above: Performed By: #### L IPID, URIC, CMP, TSH, BNP #### [facility] [address] [place] [address] [address] Surekha Pardo Clarity (U) CLEAR Normal CLEAR [facility] Comment on above: Performed By: #### L IPID, URIC, CMP, TSH, BNP #### [facility] [address] [address] [address] Surekha Pardo Color (U) LT. YELLOW Normal YELLOW [facility] Comment on above: Performed By: #### L IPID, URIC, CMP, TSH, BNP #### [facility] [address] [place] [address] Dr. Surekha Pardo Glucose Ql (U) Negative Normal NEGATIVE [facility] Comment on above: Performed By: #### L IPID, URIC, CMP, TSH, BNP #### [facility] [address] [address] [address] Surekha Pardo Hemoglobin Ql (U) MODERATE Abnormal NEGATIVE [facility] Comment on above: Performed By: #### L IPID, URIC, CMP, TSH, BNP #### [facility] [address] [address] [address] Surekha Pardo Ketones Ql (U) Negative Normal NEGATIVE [facility] Comment on above: Performed By: #### L IPID, URIC, CMP, TSH, BNP #### [facility] [address] [address] [address] Surekha Pardo LEUKOCYTES SMALL Abnormal NEGATIVE [facility] Comment on above: Performed By: #### L IPID, URIC, CMP, TSH, BNP #### [facility] [address] [address] [address] Surekha Pardo Nitrite Ql (U) Negative Normal NEGATIVE [facility] Comment on above: Performed By: #### L IPID, URIC, CMP, TSH, BNP #### [facility] [address] [address] [address] Surekha Prado pH (U) 6.5 [pH] Normal 5-9 [facility] Comment on above: Performed By: #### L IPID, URIC, CMP, TSH, BNP #### [facility] [address] [place] [address] Dr. Surekha Pardo SPEC GRAVITY 1.010 Normal 1.005-<=1.025 [facility] Comment on above: Performed By: #### L IPID, URIC, CMP, TSH, BNP #### [facility] [address] [place] [address] Dr. Surekha Pardo UA PROTEIN Negative Normal NEGATIVE/ TRACE [facility] Comment on above: Performed By: #### L IPID, URIC, CMP, TSH, BNP #### [facility] [address] [place] [address] Dr. Surekha Pardo Urobilinogen Qn (U) 0.2 {David'U}/dL Normal 0.2 - 1. 0 [facility] Comment on above: Performed By: #### L IPID, URIC, CMP, TSH, BNP #### [facility] [address] [place] [address] Dr. Surekha Pardo URIC ACID SERUMon 06-23-2022 Urate [Mass/Vol] 4.8 mg/dL Normal 3.5-7.2 [facility] Comment on above: Performed By: #### L IPID, URIC, CMP, TSH, BNP #### [facility] [address] [place] [address] Dr. Surekha Pardo URINE T PROTEIN CREAT RATIOo n 06-23-2022 Protein (U) [Mass/Vol] 37.5 mg/dL Critically high <=12.0 [facility] Comment on above: Performed By: #### L IPID, URIC, CMP, TSH, BNP #### [facility] [address] [place] [address] Dr. Surekha Pardo UR PROT CREAT RAT 0.49 Normal [facility] Comment on above: Performed By: #### L IPID, URIC, CMP, TSH, BNP #### [facility] [address] [place] [address] Dr. Surekha Pardo URINE CREAT 76.71 mg/dL Normal 20.00-300.00 [facility] Comment on above: Performed By: #### L IPID, URIC, CMP, TSH, BNP #### [facility] [address] [place] [address] Dr. Surekha Pardo VIT B12 AND FOLATEon 023 Cobalamin (Vitamin B12) [Mass/Vol] 1348.0 pg/mL Critically high 193.0-986.0 [facility] Comment on above: Performed By: #### B 12FOL, VITAD #### [facility] [address] [place] [address] Dr. Surekha Pardo FOLATE 5.50 ng/mL Critically low 8.60-58.90 [facility] Comment on above: Performed By: #### B 12FOL, VITAD #### [facility] [address] [place] [address] Dr. Surekha Pardo VITAMIN D 25 OHon 06-23-2022 VIT D 25-OH 51.4 ng/mL Normal [facility] Comment on above: Performed By: #### B 12FOL, VITAD #### [facility] [address] [place] [address] Dr. Surekha Pardo VIT D RANGES SEE BELOW Normal [facility] Comment on above: Result Comment: <20 ng/mL Vit D deficient 20 - <30 ng/mL Vit D insufficient 30 - 100 ng/mL Vit D sufficient >100 ng/mL Potential Toxicity Performed By: #### B 12FOL, VITAD #### [facility] [address] [place] [address] Dr. Surekha Pardo INSULINon 12-18-2021 Insulin 13.2 uIU/mL Normal 2.6-24.9 [facility] Comment on above: Performed By: #### L IPID, URIC, CMP, TSH, BNP #### [facility] [address] [place] [address] Dr. Surekha Pardo T4, T3U, FTI LABCORPon 12-18 Free Thyroxine Index 2.5 Normal 1.2-4.9 [facility] Comment on above: Performed By: #### T HYLC #### [facility] [address] [place] [address] Dr. Surekha Pardo T3 Uptake 26 % Normal 24-39 [facility] Comment on above: Performed By: #### T HYLC #### [facility] [address] [place] [address] Dr. Surekha Pardo T4 [Mass/Vol] 9.8 ug/dL Normal 4.5-12.0 [facility] Comment on above: Performed By: #### T HYLC #### [facility] [address] [place] [address] Dr. Surekha Pardo BNPon 12-17-2021 Natriuretic peptide B (Bld) [Mass/Vol] 48.0 pg/mL Normal <=900.0 [facility] Comment on above: Performed By: #### L IPID, URIC, CMP, TSH, BNP #### [facility] [address] [place] [address] Dr. Surekha Pardo CBC AUTO DIFFon 12-17-2021 BASO # 0.1 103/ul Normal 0.0-0.1 [facility] Comment on above: Performed By: #### C BC #### [facility] [address] [place] [address] Dr. Surekha Pardo Basophils/100 WBC (Bld) 0.7 % Normal 0.2-2.0 [facility] Comment on above: Performed By: #### C BC #### [facility] [address] [place] [address] Dr. Surekha Pardo EO # 0.2 103/ul Normal 0.0-0.7 [facility] Comment on above: Performed By: #### C BC #### [facility] [address] [place] [address] Dr. Surekha Pardo Eosinophils/100 WBC (Bld) 1.8 % Normal 0.9-7.0 [facility] Comment on above: Performed By: #### C BC #### [facility] [address] [place] [address] Dr. Surekha Pardo Erythrocyte distribution width (RBC) [Ratio] 13.2 % Normal 11.0-15.0 [facility] Comment on above: Performed By: #### C BC #### [facility] [address] [place] [address] Dr. Surekha Pardo Hematocrit (Bld) [Volume fraction] 38.8 % Critically low 42.0-54.0 [facility] Comment on above: Performed By: #### C BC #### [facility] [address] [place] [address] Dr. Surekha Pardo Hemoglobin (Bld) [Mass/Vol] 12.9 g/dL Critically low 14.0-18.0 [facility] Comment on above: Performed By: #### C BC #### [facility] [address] [place] [address] Dr. Surekha Pardo IG # 0.03 10e3/ul Normal 0.00-0.03 [facility] Comment on above: Performed By: #### C BC #### [facility] [address] [place] [address] Dr. Surekha Pardo IG % 0.4 % Normal 0.0-0.5 [facility] Comment on above: Performed By: #### C BC #### [facility] [address] [place] [address] Dr. Surekha Pardo LYMPH # 1.5 103/ul Normal 1.2-3.8 [facility] Comment on above: Performed By: #### C BC #### [facility] [address] [place] [address] Dr. Surekha Pardo Lymphocytes/100 WBC (Bld) 19.0 % Critically low 20.5-60.0 [facility] Comment on above: Performed By: #### C BC #### [facility] [address] [place] [address] Dr. Surekha Pardo MANUAL DIFF REQ NO Normal [facility] Comment on above: Performed By: #### C BC #### [facility] [address] [place] [address] Dr. Sruekha Pardo MCH (RBC) [Entitic mass] 30.9 pg Normal 25.9-34.0 [facility] Comment on above: Performed By: #### C BC #### [facility] [address] [address] [address] Surekha Pardo MCHC (RBC) [Mass/Vol] 33.2 g/dL Normal 29.9-35.2 [facility] Comment on above: Performed By: #### C BC #### [facility] [address] [address] [address] Surekha Pardo MCV (RBC) [Entitic vol] 92.8 fL Normal 80.0-94.0 [facility] Comment on above: Performed By: #### C BC #### [facility] [address] [place] [address] Dr. Surekha Pardo MONO # 0.6 103/ul Normal 0.3-0.8 [facility] Comment on above: Performed By: #### C BC #### [facility] [address] [place] [address] Dr. Surekha Pardo Monocytes/100 WBC (Bld) 7.9 % Normal 1.7-12.0 [facility] Comment on above: Performed By: #### C BC #### [facility] [address] [place] [address] Dr. Surekha Pardo NEUT # 5.7 103/ul Normal 1.4-6.5 [facility] Comment on above: Performed By: #### C BC #### [facility] [address] [place] [address] Dr. Surekha Pardo Neutrophils/100 WBC (Bld) 70.2 % Normal 43.0-75.0 [facility] Comment on above: Performed By: #### C BC #### [facility] [address] [place] [address] Dr. Surekha Pardo Platelet mean volume (Bld) [Entitic vol] 9.7 fL Normal 9.5-13.5 [facility] Comment on above: Performed By: #### C BC #### [facility] [address] [place] [address] Dr. Surekha Pardo PLT 261 103/ul Normal 150-450 [facility] Comment on above: Performed By: #### C BC #### [facility] [facility] [address] [address] [address] Surekha Pardo RBC 4.18 106/ul Critically low 4.70-6.10 [facility] Comment on above: Performed By: #### C BC #### [facility] [address] [address] [address] Surekha Pardo WBC 8.1 103/ul Normal 4.0-11.0 [facility] Comment on above: Performed By: #### C BC #### [facility] [address] [address] [address] Surekha Pardo GLYCOHEMOGLOBIN A1Con 2021 ADA RECOMMENDATION SEE BELOW Normal [facility] Comment on above: Result Comment: ADA RECOMMENDED LIMIT 4.0 - 6.0 ADA THERAPEUTIC TARGET < 7.0 ACTION SUGGESTED > 7.0 Performed By: #### L IPID, URIC, CMP, TSH, BNP #### [facility] [address] [address] [address] Surekha Pardo Glucose [Mass/Vol] 105 mg/dL Normal [facility] Comment on above: Performed By: #### L IPID, URIC, CMP, TSH, BNP #### [facility] [address] [address] [address] Surekha Pardo HbA1c (Bld) [Mass fraction] 5.3 % Normal 4.5-6.2 [facility] Comment on above: Performed By: #### L IPID, URIC, CMP, TSH, BNP #### [facility] [address] [address] [address] Surekha Pardo LIPID PROFILEon 12-17-2021 CHOL-HDL RATIO NORM SEE BELOW Normal [facility] Comment on above: Result Comment: 3.3 - 4.4 LOW RISK 4.4 - 7.1 AVERAGE RISK 7.1 - 11.0 MODERATE RISK >11.0 HIGH RISK Performed By: #### L IPID, URIC, CMP, TSH, BNP #### [facility] [address] [address] [address] Surekha Pardo Cholesterol [Mass/Vol] 142 mg/dL Normal <=200 [facility] Comment on above: Performed By: #### L IPID, URIC, CMP, TSH, BNP #### [facility] [address] [address] [address] Surekha Pardo Cholesterol in HDL [Mass/Vol] 50 mg/dL Normal 40-60 [facility] Comment on above: Performed By: #### L IPID, URIC, CMP, TSH, BNP #### [facility] [address] [address] [address] Surekha Pardo Cholesterol in LDL [Mass/Vol] 65.0 mg/dL Normal [facility] Comment on above: Performed By: #### L IPID, URIC, CMP, TSH, BNP #### [facility] [address] [place] [address] Dr. Surekha Pardo Cholesterol.total/Cho lesterol in HDL [Mass ratio] 2.8 {ratio} Normal [facility] Comment on above: Performed By: #### L IPID, URIC, CMP, TSH, BNP #### [facility] [address] [place] [address] Dr. Surekha Pardo HDL NORMAL > or = 60 mg/dl - LO W CARDIOVASCULAR RISK <40 mg/dl - HIGH CARDIOVASCULAR RISK Normal [facility] Comment on above: Performed By: #### L IPID, URIC, CMP, TSH, BNP #### [facility] [address] [place] [address] Dr. Surekha Pardo LDL CALC NORMAL SEE BELOW Normal [facility] Comment on above: Result Comment: <100 mg/dl OPTIMAL 100 - 129 mg/dl NEAR OR ABOVE OPTIMAL 130 - 159 mg/dl BORDERLINE HIGH 160 - 189 mg/dl HIGH >190 mg/dl VERY HIGH Performed By: #### L IPID, URIC, CMP, TSH, BNP #### [facility] [address] [place] [address] Dr. Surekha Pardo Triglyceride [Mass/Vol] 135 mg/dL Normal <=150 [facility] Comment on above: Performed By: #### L IPID, URIC, CMP, TSH, BNP #### [facility] [address] [place] [address] Dr. Surekha Pardo VLDL CALC 27.0 mg/dL Normal [facility] Comment on above: Performed By: #### L IPID, URIC, CMP, TSH, BNP #### [facility] [address] [address] [address] Surekha Pardo OCC BLD IMMUNO SCREENon 11-29 OCCULT BLOOD Negative Normal NEGATIVE [facility] Comment on above: Performed By: #### L IPID, URIC, CMP, TSH, BNP #### [facility] [address] [address] [address] Surekha Pardo PROF 14(COMP METB)on 022 Albumin [Mass/Vol] 3.7 g/dL Normal 3.4-5.0 [facility] Comment on above: Performed By: #### L IPID, URIC, CMP, TSH, BNP #### [facility] [address] [place] [address] Dr. Surekha Pardo Albumin/Globulin [Mass ratio] 0.9 {ratio} Normal [facility] Comment on above: Performed By: #### L IPID, URIC, CMP, TSH, BNP #### [facility] [address] [address] [address] Surekha Pardo ALP [Catalytic activity/Vol] 90 U/L Normal 46-116 [facility] Comment on above: Performed By: #### L IPID, URIC, CMP, TSH, BNP #### [facility] [address] [address] [address] Surekha Pardo ALT [Catalytic activity/Vol] 16 U/L Normal 16-63 [facility] Comment on above: Performed By: #### L IPID, URIC, CMP, TSH, BNP #### [facility] [address] [address] [address] Surekha Pardo Anion gap [Moles/Vol] 11.4 mmol/L Normal [facility] Comment on above: Performed By: #### L IPID, URIC, CMP, TSH, BNP #### [facility] [address] [address] [address] Surekha Pardo AST [Catalytic activity/Vol] 13 U/L Critically low 15-37 [facility] Comment on above: Performed By: #### L IPID, URIC, CMP, TSH, BNP #### [facility] [address] [place] [address] Dr. Surekha Pardo Bilirubin [Mass/Vol] 0.4 mg/dL Normal 0.2-1.0 [facility] Comment on above: Performed By: #### L IPID, URIC, CMP, TSH, BNP #### [facility] [address] [address] [address] Surekha Pardo Calcium [Mass/Vol] 9.0 mg/dL Normal 8.5-10.1 [facility] Comment on above: Performed By: #### L IPID, URIC, CMP, TSH, BNP #### [facility] [address] [place] [address] Dr. Surekha Pardo Chloride [Moles/Vol] 105 mmol/L Normal 98-107 [facility] Comment on above: Performed By: #### L IPID, URIC, CMP, TSH, BNP #### [facility] [address] [place] [address] Dr. Surekha Pardo CO2 [Moles/Vol] 27.5 mmol/L Normal 21.0-32.0 [facility] Comment on above: Performed By: #### L IPID, URIC, CMP, TSH, BNP #### [facility] [address] [place] [address] Dr. Surekha Pardo Creatinine [Mass/Vol] 2.15 mg/dL Critically high 0.70-1.30 [facility] Comment on above: Performed By: #### L IPID, URIC, CMP, TSH, BNP #### [facility] [address] [place] [address] Dr. Surekha Pardo EGFR-AF MALAYSIAN 37 mL/min/1.73m2 Critically low >=60 [facility] Comment on above: Performed By: #### L IPID, URIC, CMP, TSH, BNP #### [facility] [address] [place] [address] Dr. Surekha Pardo EGFR-NON AF MALAYSIAN 30 mL/min/1.73m2 Critically low >=60 [facility] Comment on above: Performed By: #### L IPID, URIC, CMP, TSH, BNP #### [facility] [address] [place] [address] Dr. Surekha Pardo Globulin (S) [Mass/Vol] 4.0 g/dL Normal [facility] Comment on above: Performed By: #### L IPID, URIC, CMP, TSH, BNP #### [facility] [address] [place] [address] Dr. Surekha Pardo Glucose [Mass/Vol] 109 mg/dL Critically high 74-106 [facility] Comment on above: Performed By: #### L IPID, URIC, CMP, TSH, BNP #### [facility] [address] [place] [address] Dr. Surekha Pardo Potassium [Moles/Vol] 3.9 mmol/L Normal 3.5-5.1 [facility] Comment on above: Performed By: #### L IPID, URIC, CMP, TSH, BNP #### [facility] [address] [place] [address] Dr. Surekha Pardo Protein [Mass/Vol] 7.7 g/dL Normal 6.4-8.2 [facility] Comment on above: Performed By: #### L IPID, URIC, CMP, TSH, BNP #### [facility] [address] [place] [address] Dr. Surekha Pardo Sodium [Moles/Vol] 140 mmol/L Normal 136-145 [facility] Comment on above: Performed By: #### L IPID, URIC, CMP, TSH, BNP #### [facility] [address] [place] [address] Dr. Surekha Pardo Urea nitrogen [Mass/Vol] 12.0 mg/dL Normal 7.0-18.0 [facility] Comment on above: Performed By: #### L IPID, URIC, CMP, TSH, BNP #### [facility] [address] [place] [address] Dr. Surekha Pardo Urea nitrogen/Creatinine [Mass ratio] 5.6 mg/mg Normal [facility] Comment on above: Performed By: #### L IPID, URIC, CMP, TSH, BNP #### [facility] [address] [address] [address] Surekha Pardo TSHon 12-17-2021 TSH 1.103 uIU/mL Normal 0.358-3.[address] [facility] Comment on above: Performed By: #### L IPID, URIC, CMP, TSH, BNP #### [facility] [address] [address] [address] Surekha Pardo URIC ACID SERUMon 12-17-2021 Urate [Mass/Vol] 5.1 mg/dL Normal 3.5-7.2 [facility] Comment on above: Performed By: #### L IPID, URIC, CMP, TSH, BNP #### [facility] [address] [place] [address] Dr. Surekha Pardo Vital Signs Date Time Vital Sign Value Performing Clinician Facility 03-10-2023 13:00-0500 Body height 170.18 cm [facility]orande[facility]re Yadio Other [facility] 03-10-2023 13:00-0500 Body mass index (BMI) [Ratio] 30.73 kg/m2 [facility] Yad[facility] Other [facility] 03-10-2023 13:00-0500 Body temperature 96.9 [degF] [facility]re Yadio Other [facility] Other 03-10-2023 13:00-0500 Body weight 89 kg [facility] Other [facility] Other 03-10-2023 13:00-0500 Diastolic blood pressure 70 mm[Hg] [facility] 03-10-2023 13:00-0500 Respiratory rate 18 /min [facility] Other [facility] 03-10-2023 13:00-0500 SaO2% (BldA) [Mass fraction] 95 % Aziz Bakhous Other [facility] Other 03-10-2023 13:00-0500 Systolic blood pressure 140 mm[Hg] Aziz Bakhous Other [facility] Other 11-04-2022 13:00-0400 Body height 170.18 cm Aziz Bakhous Other [facility] Other 11-04-2022 13:00-0400 Body mass index (BMI) [Ratio] 31.35 kg/m2 Azdeondre Bakhous Other [facility] Other 11-04-2022 13:00-0400 Body temperature 96.6 [degF] Aziz Bakhous Other [facility] Other 11-04-2022 13:00-0400 Body weight 90.81 kg Aziz Bakhous Other [facility] Other 11-04-2022 13:00-0400 Diastolic blood pressure 90 mm[Hg] Aziz Bakhous Other [facility] Other 11-04-2022 13:00-0400 Respiratory rate 18 /min Aziz Bakhous Other [facility] Other 11-04-2022 13:00-0400 SaO2% (BldA) [Mass fraction] 94 % Aziz Bakhous Other [facility] Other 08-08-2023 13:00-0400 Systolic blood pressure 130 mm[Hg] Aziz Bakhous Other [facility] Other 07-01-2022 14:20-0400 Body height 170.18 cm Aziz Bakhous Other [facility] Other 07-01-2022 14:20-0400 Body mass index (BMI) [Ratio] 32.92 kg/m2 Azdeondre Bakhous Other [facility] Other 07-01-2022 14:20-0400 Body temperature 96.2 [degF] Aziz Bakhous Other [facility] Other 07-01-2022 14:20-0400 Body weight 95.35 kg Azdeondre Bakhous Other [facility] Other 07-01-2022 14:20-0400 Diastolic blood pressure 84 mm[Hg] Aziz Bakhous Other [facility] Other 07-01-2022 14:20-0400 Respiratory rate 18 /min Timothy Bakhous Other [facility] Other 07-01-2022 14:20-0400 SaO2% (BldA) [Mass fraction] 96 % Aziz Bakhous Other [facility] Other 07-01-2022 14:20-0400 Systolic blood pressure 132 mm[Hg] Aziz Bakhous Other [facility] Other 02-25-2022 14:20-0500 Body height 170.18 cm Aziz Bakhous Other [facility] Other 02-25-2022 14:20-0500 Body mass index (BMI) [Ratio] 34.45 kg/m2 Azdeondre Carrs Other [facility] Other 02-25-2022 14:20-0500 Body weight 99.79 kg Azdeondre Baksrinivasas Other [facility] Other 02-25-2022 14:20-0500 Diastolic blood pressure 84 mm[Hg] Azdeondre Baksrinivasas Other [facility] Other 02-25-2022 14:20-0500 SaO2% (BldA) [Mass fraction] 98 % Aziz Baksrinivasas Other [facility] Other 02-25-2022 14:20-0500 Systolic blood pressure 132 mm[Hg] Azdeondre Baksrinivasas Other [facility] Other Encounters Encounter Date Encounter Type Care Provider Facility Start: 05-19-2023 ambulatory Bird R NILL [facility] : [facility] Start: 05-05-2023 End: 05-06-2023 ambulatory Bird R NILL [facility]: [facility] Start: 05-05-2023 ambulatory Bird NILL Facility:[facility] Start: 05-05-2023 ambulatory Bird MCLAUGHLINL Facility:[facility] Prabhakar Start: 03-10-2023 End: 03-10-2023 ambulatory Timothy Catystephanie Other [facility] Other Start: 03-10-2023 Office outpatient vi sit 25 minutes Timothy Galarza [facility] Start: 12-03-2022 End: 12-03-2022 ambulatory DOMINGUEZ BERMUDEZ Facility:[facility] Start: 12-03-2022 End: 12-03-2022 ambulatory [facility] Work Phone: Hematology/Oncology Comment on above: Malignant neoplasm o f overlapping sites of left lung (HCC) (Primary Dx) Start: 11-04-2022 End: 11-04-2022 ambulatory Aziz Bakhous Other [facility] Start: 11-04-2022 Office outpatient vi sit 25 minutes Aziz Bakhous [facility] Start: 10-22-2022 End: 10-22-2022 ambulatory DOMINGUEZ BERMUDEZ Facility:[facility] Start: 09-10-2022 End: 09-10-2022 ambulatory [facility] [place] Work Phone: Hematology/Oncology Comment on above: Malignant neoplasm o f overlapping sites of left lung (HCC) (Primary Dx) Start: 07-29-2022 End: 07-29-2022 ambulatory DOMINGUEZ BERMUDEZ Facility:[facility] Start: 07-29-2022 End: 07-29-2022 ambulatory [facility] Work Phone: Hematology/Oncology Comment on above: Malignant neoplasm o f overlapping sites of left lung (HCC) (Primary Dx) Start: 07-28-2022 End: 08-27-2022 ambulatory SHAIKH Jeane CALERO Facility:[facility] Start: 07-01-2022 End: 07-01-2022 ambulatory Aziz Bakhous Other [facility] Other Start: 07-01-2022 Office outpatient vi sit 25 minutes Aziz Bakhous [facility] Start: 06-30-2022 End: 07-25-2022 ambulatory ORDOÑEZ H KATIED Facility:[facility] Start: 06-23-2022 End: 06-24-[address] DOMINGUEZ BERMUDEZ . Facility:[facility] Start: 06-17-2022 End: 06-17-2022 ambulatory DOMINGUEZ M HOY Facility:[facility] Start: 05-28-2022 End: 06-27-2022 ambulatory ORDOÑEZ H RAQUELWWAD Facility:[facility] Start: 05-07-2022 End: 05-07-2022 ambulatory [facility] Work Phone: Hematology/Oncology Comment on above: Malignant neoplasm o f overlapping sites of left lung (HCC) (Primary Dx) Start: 04-30-2022 End: 05-28-2022 ambulatory ORDOÑEZ H FAWWAD Facility:[facility] Start: 03-31-2022 End: 04-30-2022 ambulatory ORDOÑEZ H FAWWAD Facility:[facility] Start: 03-26-2022 End: 03-26-2022 ambulatory DOMINGUEZ BERMUDEZ Facility:[facility] Start: 03-26-2022 End: 03-26-2022 ambulatory [facility] Work Phone: Hematology/Oncology Comment on above: Malignant neoplasm o f overlapping sites of left lung (HCC) (Primary Dx) Start: 02-27-2022 End: 03-30-2022 ambulatory ORDOÑEZ H FAWWAD Facility:[facility] Start: 02-25-2022 End: 02-25-2022 ambulatory Timothy Galarza Other [facility] Other Start: 02-25-2022 Office outpatient ne w 30 minutes Timothy Galarza [facility] Start: 02-12-2022 End: 02-12-2022 ambulatory DOMINGUEZ BERMUDEZ Facility:[facility] Start: 02-12-2022 End: 02-12-2022 ambulatory [facility] Work Phone: Hematology/Oncology Comment on above: Malignant neoplasm o f overlapping sites of left lung (HCC) (Primary Dx) Start: 01-28-2022 End: 02-26-2022 ambulatory ORDOÑEZ H FAWWAD Facility:[facility] Start: 01-01-2022 End: 01-01-2022 ambulatory DOMINGUEZ BERMUDEZ Facility:[facility] Start: 12-29-2021 End: 01-27-2022 ambulatory ORDOÑEZ H FAWWAD Facility:[facility] Start: 12-17-2021 End: 12-18-[address] DOMINGUEZ BERMUDEZ . Facility:[facility] Start: 11-28-2021 End: 12-28-2021 ambulatory ORDOÑEZ H FAWWAD Facility:[facility] Start: 11-20-2021 End: 11-20-2021 ambulatory [facility] Work Phone: Hematology/Oncology Comment on above: Malignant neoplasm o f overlapping sites of left lung (HCC) (Primary Dx) Start: 10-28-2021 End: 11-27-2021 ambulatory SHAIKH Jeane CALERO Facility:[facility] Start: 09-27-2021 End: 10-25-2021 ambulatory SHAIKH Jeane CALERO Facility:[facility] Start: 2021 End: 2021 ambulatory [facility] Work Phone: Hematology/Oncology Comment on above: Malignant neoplasm o f overlapping sites of left lung (HCC) (Primary Dx) Start: 07-17-2021 End: 07-17-2021 ambulatory [facility] Work Phone: Hematology/Oncology Comment on above: Malignant neoplasm o f overlapping sites of left lung (HCC) (Primary Dx) Start: 06-05-2021 End: 06-05-2021 ambulatory [facility] Work Phone: Hematology/Oncology Comment on above: Malignant neoplasm o f overlapping sites of left lung (HCC) (Primary Dx) Start: 09-28-2017 End: 09-29-2017 Ambulatory DEFAULT PHYSICIAN Facility:[facility] Start: 09-24-2017 End: 09-25-2017 Ambulatory DEFAULT PHYSICIAN Facility:[facility] Procedures Date Procedure Procedure Detail Performing Clinician Start: 12-17-2021 PSA screening ORDOÑEZJeane HILLMAN Comment on above: Performed By: #### L IPID, URIC, CMP, TSH, BNP #### [facility] [address] [place] [address] Dr. Surekha Pardo Start: 09-20-2019 Adult depression screening assessment [facility] Work Phone: Plan of Treatment Date Care Activity Detail Author Start: 11-28-2022 Influenza vaccination INFLUENZA (#1) [facility] Start: 03-30-2022 ADVANCE DIRECTIVE DISCUSSION ADVANCE DIRECTIVE DISCUSSION [facility] Start: 03-30-2022 DEPRESSION ASSESSMENT DEPRESSION ASS ESSMENT [facility] Start: 11-28-2021 Influenza vaccination INFLUENZA (#1) [facility] Start: 07-15-2021 LIPID SCREEN LIPID SCREEN [facility] Start: 06-07-2021 COVID-19 VACCINE (4 - Booster for Moderna series) COVID-19 VACCINE (4 - Booster for Moderna series) [facility] Start: 04-04-2021 COVID-19 VACCINE (4 - Booster for Moderna series) COVID-19 VACCINE (4 - Booster for Moderna series) [facility] Start: 03-30-2021 ADVANCE DIRECTIVE DISCUSSION ADVANCE DIRECTIVE DISCUSSION [facility] Start: 03-30-2021 DEPRESSION ASSESSMENT DEPRESSION ASS ESSMENT [facility] Start: 09-19-2020 Adult depression scr eening assessment DEPRESSION SCREENING [facility] Start: 07-22-2019 DIABETES SCREEN DIABETES SCREEN [facility] Start: 10-21-2018 PNEUMOCOCCAL: 65+ (2 - PCV) PNEUMOCOCCAL: 65+ (2 - PCV) [facility] Start: 10-21-2018 PNEUMOCOCCAL: 65+ (3 - PCV) PNEUMOCOCCAL: 65+ (3 - PCV) [facility] Start: 07-21-2017 HEMOGLOBIN/HEMATOCRIT HEMOGLOBIN/HEM ATOCRIT [facility] Start: 07-21-2017 SERUM CREATININE SERUM CREATININE Cl [facility] Start: 08-29-1999 SHINGRIX VACCINE (1 of 2) SHINGRIX V ACCINE (1 of 2) [facility] Start: 1994 COLOGUARD (FIT-DNA) COLOGUARD (FIT-D NA) [facility] Start: 1994 Colonoscopy COLONOSCOPY [facility] Start: 1994 COLORECTAL CANCER SCREENING COLORECTAL CANCER SCREENING [facility] Start: [address] COLONOGRAPHY [facility] Start: 1994 FECAL OCCULT BLOOD FECAL OCCULT BLOO D [facility] Start: 1994 SIGMOIDOSCOPY SIGMOIDOSCOPY [facility] Start: 1968 Urine microalbumin profile DTAP,TDAP ,TD (1 - Tdap) [facility] Start: 08-29-1967 ANNUAL PCP TEAM LEARNING SUPPORT SPECIALIST CHIN DISEASE VISIT ANNUAL PCP TEAM CHRONIC DISEASE VISIT [facility] Start: 08-29-1967 BP CONTROLLED (<130/80) BP CONTROLLE D (<130/80) [facility] Start: 08-29-1967 HEPATITIS C SCREENING HEPATITIS C SC YOVANA [facility] Start: 1949 ABDOMINAL AORTIC ANE URYSM SCREENING ABDOMINAL AORTIC ANEURYSM SCREENING [facility] Immunizations Immunization Date Immunization Notes Care Provider Raquel adorno 05-24-2020 COVID-19 vaccine, fu ll dose (MODERNA) [facility] Work Phone: [facility] 12-07-2019 unknown vaccine or i mmune globulin [facility] Work Phone: [facility] 12-29-2018 influenza, high dose seasonal, preservative-free [facility] Work Phone: [facility] 11-05-2017 influenza, high dose seasonal, preservative-free [facility] [place] Work Phone: [facility] 10-21-2017 pneumococcal polysaccharide vaccine, 23 valent [facility] Work Phone: [facility] 12-26-2016 influenza, high dose seasonal, preservative-free [facility] [place] Work Phone: [facility] 07-25-2016 pneumococcal polysaccharide vaccine, 23 valent [facility] [place] Work Phone: [facility] 12-01-2014 influenza, high dose seasonal, preservative-free [facility] Work Phone: [facility] 01-30-2014 influenza, seasonal, injectable [facility] [place] Work Phone: [facility] 01-28-2012 influenza virus vacc ine, unspecified formulation [facility] Work Phone: [facility] 05-02-2010 pneumococcal polysaccharide vaccine, 23 valent [facility] Work Phone: [facility] Payers Date Payer Category Payer Medicare [id number] 2019 Unknown 2019 Unknown MMO MMO MEDICARE SUPPLEMENT [id number] 2019-Present [phone] [address] [place] [address] Indemnity [id number] 2002 Medicare MEDICARE MEDICAR E A AND B [id number] 2002-Present [phone] [address] [address] [place] [address] Medicare [id number] 2002 Medicare MEDICARE MEDICAR E A AND B [id number] 2002-Present [phone] [address] [id number] Medicare [id number] 1959 Medicare [id number] 1959 Unknown [id number] 1949 Unknown [id number] 1949 Unknown [id number] [id number] 1949 Unknown [id number] [id number] 1949 Unknown [id number] [id number] 1949 Unknown [id number] 2.16.840.1.255338.3.579.2.593 1949 Unknown [id number] [id number] 1949 Unknown [id number] [id number] 1949 Unknown [id number] [id number] 1949 Unknown [id number] [id number] 1949 Unknown [id number] [id number] 1949 Unknown [id number] 2.16.840.1.108044.3.579.2.593 1949 Unknown [id number] [id number] 1949 Unknown [id number] [id number] 1949 Unknown [id number] [id number] 1949 Unknown [id number] Social History Date Type Detail Facility Start: 05-05-2012 Tobacco smoking stat us PAIS Ex-smoker [facility] End: 03-30-1994 History of tobacco use [facility] [facility] End: 03-30-1994 History of tobacco use Cigarette Smoker [facility] Start: 09-20-2019 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) [facility] Start: 1950 Sex Assigned At Not on file [facility] Start: 07-07-2021 End: 2021 Exposure to SARS-CoV-2 (event) Not sure [facility] Start: 05-05-2012 End: 12-03-2022 Cigarettes smoked current (pack per day) - Reported 1 [facility] Start: 05-05-2012 Tobacco use and exposure Smoke less tobacco non-user [facility] Start: 09-20-2019 End: 12-03-2022 Sex Assigned At [facility] Adult Depression Scr eening Assessment 0 [facility] Clinical Notes 07-14-2016 to 03-10-2023 Note Date & Type Note Facility 03-10-2023 Evaluation note Encounter Date Diagnosis Assessment Notes Feb, Primary hypertension (ICD-10 - I10) Blood pressure seems well controlled. I will continue same blood pressure medications of Norvasc . I will check protein to creatinine ratio and add CAIMLA inhibitor or ARB if proteinuria level increases. [...] is 11.7 g/dl. No need for [place] Other 08-08-2023 Evaluation note* Encounter Date Diagnosis [...] next visit Oct, Hypokalemia (ICD-10 - E87.6) [facility] Other 04-04-2023 Evaluation note* Encounter Date Diagnosis Assessment Notes Treatment Notes Treatment Clinical Notes Jun, Primary hypertension (ICD-10 - I10) Blood pressure seems well controlled. I will continue same blood pressure medications of [facility] . I will check protein to [...] PCP Jun, Folate deficiency (ICD-10 - E53.8) [facility] Other 11-29-2022 Evaluation note* Encounter Date Diagnosis Assessment Notes Treatment Notes Treatment Clinical Notes Jan, Primary hypertension (ICD-10 - I10) Blood pressure seems well controlled. I will continue same blood pressure medications of [facility] . I will check protein to [...] I will check vitamin B12 next visit [facility] Other 04-17-2017 History of Past illness Narrative* Problem Noted Date Resolved Date Hilar density 07/14/2016 09/14/2018 Overview: Suspicious abnormal perihilar finding on CT at the OSH in patient with history of Lung Ca. S/P resection and unprovoked PE Plan: -07/14 Pulm following for suspicious perihilar mass 07/18 Dr Kay and Pt's journeyman molder- Dr Mo reviewed PET scan from 07/17. [...] of 06/05/2021) [facility] History of Past illness Narrative* Problem Noted Date Resolved Date Hilar density 07/14/2016 09/14/2018 Overview: Suspicious abnormal perihilar finding on CT at the OSH in patient with history of Lung Ca. S/P resection and unprovoked PE Plan: -07/14 Pulm following for suspicious perihilar mass 07/18 Dr Kay and Pt's journeyman molder- Dr Mo reviewed PET scan from 07/17. [...] of 07/17/2021) [facility] History of Past illness Narrative* Problem Noted Date Resolved Date Hilar density 07/14/2016 09/14/2018 Overview: Suspicious abnormal perihilar finding on CT at the OSH in patient with history of Lung Ca. S/P resection and unprovoked PE Plan: -07/14 Pulm following for suspicious perihilar mass 07/18 Dr Kay and Pt's journeyman molder- Dr Mo reviewed PET scan from 07/17. [...] of 2021) [facility] History of Past illness Narrative* Problem Noted Date Resolved Date Hilar density 07/14/2016 09/14/2018 Overview: Suspicious abnormal perihilar finding on CT at the OSH in patient with history of Lung Ca. S/P resection and unprovoked PE Plan: -07/14 Pulm following for suspicious perihilar mass 07/18 Dr Kay and Pt's journeyman molder- Dr Mo reviewed PET scan from 07/17. [...] of 11/20/2021) [facility] History of Past illness Narrative* Problem Noted Date Resolved Date Hilar density 07/14/2016 09/14/2018 Overview: Suspicious abnormal perihilar finding on CT at the OSH in patient with history of Lung Ca. S/P resection and unprovoked PE Plan: -07/14 Pulm following for suspicious perihilar mass 07/18 Dr Kay and Pt's journeyman molder- Dr Mo reviewed PET scan from 07/17. [...] of 02/12/2022) [facility] History of Past illness Narrative* Problem Noted Date Resolved Date Hilar density 07/14/2016 09/14/2018 Overview: Suspicious abnormal perihilar finding on CT at the OSH in patient with history of Lung Ca. S/P resection and unprovoked PE Plan: -07/14 Pulm following for suspicious perihilar mass 07/18 Dr Kay and Pt's journeyman molder- Dr Mo reviewed PET scan from 07/17. [...] of 04/01/2022) [facility] History of Past illness Narrative* Problem Noted Date Resolved Date Hilar density 07/14/2016 09/14/2018 Overview: Suspicious abnormal perihilar finding on CT at the OSH in patient with history of Lung Ca. S/P resection and unprovoked PE Plan: -07/14 Pulm following for suspicious perihilar mass 07/18 Dr Kay and Pt's journeyman molder- Dr Mo reviewed PET scan from 07/17. [...] of 05/07/2022) [facility] History of Past illness Narrative* Problem Noted Date Resolved Date Hilar density 07/14/2016 09/14/2018 Overview: Suspicious abnormal perihilar finding on CT at the OSH in patient with history of Lung Ca. S/P resection and unprovoked PE Plan: -07/14 Pulm following for suspicious perihilar mass 07/18 Dr Kay and Pt's journeyman molder- Dr Mo reviewed PET scan from 07/17. [...] of 07/30/2022) [facility] History of Past illness Narrative* Problem Noted Date Resolved Date Hilar density 07/14/2016 09/14/2018 Overview: Suspicious abnormal perihilar finding on CT at the OSH in patient with history of Lung Ca. S/P resection and unprovoked PE Plan: -07/14 Pulm following for suspicious perihilar mass 07/18 Dr Kay and Pt's journeyman molder- Dr Mo reviewed PET scan from 07/17. [...] of 09/10/2022) [facility] History of Past illness Narrative* Problem Noted Date Diagnosed Date Resolved Date Hilar density 07/14/2016 09/14/2018 Overview: Suspicious abnormal perihilar finding on CT at the OSH in patient with history of Lung Ca. S/P resection and unprovoked PE Plan: -07/14 Pulm following for suspicious perihilar mass 07/18 Dr Kay and Pt's journeyman molder- Dr Mo reviewed PET scan from 07/17. [...] of this encounter (statuses as of 12/04/2022) [facility] Diagnosis Malignant neoplasm of overlapping sites of left lung (HCC)- Primary documented in this encounter [facility] Diagnosis Malignant neoplasm of overlapping sites of left lung (HCC)- Primary documented in this encounter [facility] note* Diagnosis Malignant neoplasm of overlapping sites of left lung (HCC)- Primary documented in this encounter [facility] note* Diagnosis Malignant neoplasm of overlapping sites of left lung (HCC)- Primary documented in this encounter [facility] note* Diagnosis Malignant neoplasm of overlapping sites of left lung (HCC)- Primary documented in this encounter [facility] note* Diagnosis Malignant neoplasm of overlapping sites of left lung (HCC)- Primary documented in this encounter [facility] note* Diagnosis Malignant neoplasm of overlapping sites of left lung (HCC)- Primary documented in this encounter [facility] Narrative - Reported* Type Description Date Medical History hypertension Medical History lung cancer Medical History dementia with progressive aphasi a Medical History epilepsy Medical History COPD Medical History pulmonary emboli Surgical History left lung 1/3 removal 2010 Surgical History cholecystectomy Hospitalization History see above [facility] Other History general Narrative - Reported* Type Description Date Medical History hypertension Medical History lung cancer Medical History dementia with progressive aphasi a Medical History epilepsy Medical History COPD Medical History pulmonary emboli Surgical History left lung /3 removal 2010 Surgical History cholecystectomy Hospitalization History see above Hospitalization History MEMORY LOSS 3 [facility] Other Summary Purpose Family History No Family History Records FoundNo Family History Records FoundNo Family History Records FoundNo Family History Records Found Advance Directives No Advanced Directives Records FoundDocuments on File Type Date Recorded Patient Salvationist Expl anation Advance Directive(s) 07/13/2016 9:40 PM Additional Source Comments (unrecognized sect ion and content) No Status Records FoundNo Status Records FoundNo Status Records FoundNo Status Records Found INFORMATION SOURCE (unrecogn ized section and content) DATE CREATED AUTHOR 09/29/2017 [facility] DATE CREATED AUTHOR AUTHOR'S ORGANIZ ATION 09/05/2022 [facility] DATE CREATED AUTHOR AUTHOR'S ORGANIZ ATION 12/04/2022 [facility] DATE CREATED AUTHOR AUTHOR'S ORGANIZ ATION 05/13/2023 [facility] Source Comments (unrecognize d section and content) In the event this informatio n is protected by the Federal Confidentiality of Alcohol and Drug Abuse Patient Records regulations: The Federal rules restrict any use of the information to criminally investigate or prosecute any alcohol or drug abuse patient.[facility] the event this information is protected by the Federal Confidentiality of Alcohol and Drug Abuse Patient Records regulations: The Federal rules restrict any use of the information to criminally investigate or prosecute any alcohol or drug abuse patient.[facility] the event this information is protected by the Federal Confidentiality of Alcohol and Drug Abuse Patient Records regulations: The Federal rules restrict any use of the information to criminally investigate or prosecute any alcohol or drug abuse patient.[facility] the event this information is protected by the Federal Confidentiality of Alcohol and Drug Abuse Patient Records regulations: The Federal rules restrict any use of the information to criminally investigate or prosecute any alcohol or drug abuse patient.[facility] the event this information is protected by the Federal Confidentiality of Alcohol and Drug Abuse Patient Records regulations: The Federal rules restrict any use of the information to criminally investigate or prosecute any alcohol or drug abuse patient.[facility] the event this information is protected by the Federal Confidentiality of Alcohol and Drug Abuse Patient Records regulations: The Federal rules restrict any use of the information to criminally investigate or prosecute any alcohol or drug abuse patient.[facility] the event this information is protected by the Federal Confidentiality of Alcohol and Drug Abuse Patient Records regulations: The Federal rules restrict any use of the information to criminally investigate or prosecute any alcohol or drug abuse patient.[facility] the event this information is protected by the Federal Confidentiality of Alcohol and Drug Abuse Patient Records regulations: The Federal rules restrict any use of the information to criminally investigate or prosecute any alcohol or drug abuse patient.[facility] the event this information is protected by the Federal Confidentiality of Alcohol and Drug Abuse Patient Records regulations: The Federal rules restrict any use of the information to criminally investigate or prosecute any alcohol or drug abuse patient.[facility] the event this information is protected by the Federal Confidentiality of Alcohol and Drug Abuse Patient Records regulations: The Federal rules restrict any use of the information to criminally investigate or prosecute any alcohol or drug abuse patient.[facility] Care Teams (unrecognized sec tion and content) Oncology Account Specialist Relationship Specialty Start Date End Date Dominguez Bermudez MD PCP - General Family Practice 02/25/11 Nazanin Rush (Hist) [address] [place] [address] Primary Staff Physician Cardiology 06/15/18 Oncology Account Specialist Relationship Specialty Start Date End Date Dominguez Bermudez MD PCP - General Family Practice 02/25/11 Nazanin Rush (Hist) [address] [place] [address] Primary Staff Physician Cardiology 06/15/18 Oncology Account Specialist Relationship Specialty Start Date End Date Dominguez Bermudez MD PCP - General Family Medicine 02/25/11 Naznain Rush (Hist) [address] [place] [address] Primary Staff Physician Cardiology 06/15/18 Oncology Account Specialist Relationship Specialty Start Date End Date Dominguez Bermudez MD PCP - General Family Medicine 02/25/11 Nazanin Rush (Hist) [address] [place] [address] Primary Staff Physician Cardiology 06/15/18 Oncology Account Specialist Relationship Specialty Start Date End Date Dominguez Bermudez MD PCP - General Family Medicine 02/25/11 Nazanin Rush (Hist) [address] [place] [address] Primary Staff Physician Cardiology 06/15/18 Oncology Account Specialist Relationship Specialty Start Date End Date Dominguez Bermudez MD PCP - General Family Medicine 02/25/11 Nazanin Rush (Hist) [address] [place] [address] Primary Staff Physician Cardiology 06/15/18 Reason for Visit (unrecogniz ed section and content) Reason Comments Blood Draw (CVAD) Specialty Diagnoses / Procedures Referred By Contac t Referred To Contact Hematology / HEMATOLOGY/ONCOLOGY Diagnoses lab/port flush 6 week Procedures PORT FLUSH Self Alan Glez [address] [place] [address] Referral ID Status Reason Start Date Expiration Date V isits Requested Visits Authorized [id number] Authorized 07/21/2022 03/29/2023 99 99 Reason Comments Port Flush Specialty Diagnoses / Procedures Referred By Contac t Referred To Contact Hematology / HEMATOLOGY/ONCOLOGY Diagnoses lab/port flush 6 week Procedures PORT FLUSH Self Alan Newton [address] [place] [address] FOR RECORDS PERTAINING TO PATIENTS WHO ARE [...] BE BASED ON THE PRIMARY CLINICAL RECORDS. [facility]. provides no warranty or guarantee of the accuracy or completeness of information in this document.
[2023-05-14 23:24] LABS: Basophils Absolute Auto 0.1 10^3/uL (0.0-0.1); Basophils Percent Auto 0.5 % (0.2-2.0); Eosinophils Absolute Auto 0.1 10^3/uL (0.0-0.7); Eosinophils Percent Auto 0.8 % (0.9-7.0); Hematocrit 24.7 % (42.0-54.0); Hemoglobin 8.1 g/dL (14.0-18.0); Immature Granulocytes Abs Auto 0.08 10^3/uL (0.00-0.03); Immature Granulocytes Pct Auto 0.7 % (0.0-0.5); Lymphocytes Absolute Auto 1.7 10^3/uL (1.2-3.8); Lymphocytes Percent Auto 14.9 % (20.5-60.0); Mean Corpuscular HGB Conc 32.8 g/dL (29.9-35.2); Mean Corpuscular Hemoglobin 29.5 pg (25.9-34.0); Mean Corpuscular Volume 89.8 fL (80.0-94.0); Mean Platelet Volume 9.4 fL (9.5-13.5); Monocytes Absolute Auto 1.1 10^3/uL (0.3-0.8); Monocytes Percent Auto 9.1 % (1.7-12.0); Neutrophils Absolute Auto 8.6 10^3/uL (1.4-6.5); Platelet Count 327 10^3/uL (150-450); Red Blood Count 2.75 10^6/uL (4.70-6.10); White Blood Count 11.6 10^3/uL (4.0-11.0)
--- OUTSIDE RECORDS SUMMARY | 2023-05-14 23:24 | XMS_ITS | CCD ---
Author Name Unknown Address [address] [place] [address] Organization [facility] Care Team Providers Care Clinical Writer Name Role Phone PHYSICIAN, DEFAULT Unavailable Unavailable [...] Primary Care Unavailable Nazanin Rush (Hist) Unavailable [phone] HOY, DOMINGUEZ M Primary Care Unavailable HOY, [...] Food Allergy 05-05-19 13 Intolerance [facility] (11 sources) Phenytoin; Translations: [PHENYTOIN] Drug Allergy 01-28-20 12 Unknown [facility] (4 sources) Tetanus Vaccines And Toxoid; Translations: [TETANUS VACCINES AND TOXOID] Drug Allergy 01-28-20 12 Swelling [facility] (11 sources) Wool; Translations: [WOOL] Allergy to substance 10-25-19 14 Hives, Swelling [facility] Work Phone: (7 sources) Tetanus Vaccines And Toxoid Drug Allergy 01-28-20 12 Swelling [facility] (5 sources) Chocolate; Translations: [chocolate flavor] Drug allergy 07-14-19 17 Unknown [facility] (1 source) Tetanus toxoid specific immunoglobulin E Drug allergy Unknown [employer] Other (4 sources) Tetanus vaccine; Translations: [tetanus toxoids] Drug allergy Unknown [facility] Repository (1 source) Allopurinol Drug Allergy 07-14-19 17 [facility] (1 source) carBAMazepine Drug Allergy 07-14-19 17 [facility] (1 source) Phenytoin Drug Allergy 07-14-19 17 [facility] Medications Current Medications Medication [...] by mouth every 6 hours as needed. [id number] 200 actuat albuterol 0.09 mg/actuat metered dose [...] Onset: 07-26-2022 Episodic Other aftercare (1 source) longterm (current) use of anticoagulants; Translations: [VEHICLE FUEL SYSTEMS CONVERTER CURRNT USE ANTICOAGULANTS] Onset: 08-27-2022 Episodic Other [...] Interpretation Reference Range Facility Facesheeton 05-06-2023 Facesheet [id number]# 1.00TIFF Normal [facility] Ambulatory Visit Summaryon 0 05-05-2023 Ambulatory [...] NEFF, Bird Murillo Where: General Surgery Vladislav/Brent [place] Normal [facility] Physician Referralon 024 Physician Referral [id number] .00TIFF Normal [facility] Physician Referral [id number] .00TIFF Normal [facility] PTH INTACTon 06-24-2022 PTH, Intact 51 pg/mL Normal 15-65 [place] Comment on above: Performed By: #### L IPID, URIC, CMP, TSH, BNP #### [facility] [address] [place], [place] [address] Dr. Surekha Pardo HEMOGRAM AND PLATELon 2022 Hematocrit (Bld) [Volume fraction] 39.8 % Critically low 42.0-54.0 [place] Comment on above: Performed By: #### H H #### [facility] [address] [place], [place] [address] Dr. Surekha Pardo Hemoglobin (Bld) [Mass/Vol] 13.2 g/dL Critically low 14.0-18.0 [place] Comment on above: Performed By: #### H H #### [facility] [address] [place] [address] Dr. Surekha Pardo MCH (RBC) [Entitic mass] 30.3 pg Normal 25.9-34.0 [place] Comment on above: Performed By: #### H H #### [facility] [address] [place] [address] Dr. Surekha Pardo MCHC (RBC) [Mass/Vol] 33.2 g/dL Normal 29.9-35.2 [facility] Comment on above: Performed By: #### H H #### [facility] [address] [place] [address] Dr. Surekha Pardo MCV (RBC) [Entitic vol] 91.5 fL Normal 80.0-94.0 [place] Comment on above: Performed By: #### H H #### [facility] [address] [place] [address] Dr. Surekha Pardo PLT 320 103/ul Normal 150-450 [facility] Comment on above: Performed By: #### H H #### [facility] [address] [place] [address] Dr. Surekha Pardo RBC 4.35 106/ul Critically low 4.70-6.10 [facility] Comment on above: Performed By: #### H H #### [facility] [address] [place] [address] Dr. Surekha Pardo WBC 9.4 103/ul Normal 4.0-11.0 [facility] Comment on above: Performed By: #### H H #### [facility] [address] [place] [address] Dr. Surekha Pardo MAGNESIUMon 06-23-2022 Magnesium [Mass/Vol] 1.8 mg/dL Normal 1.8-2.4 [facility] Comment on above: Performed By: #### L IPID, URIC, CMP, TSH, BNP #### [facility] [address] [place] [address] Dr. Surekha Pardo PHOSPHORUSon 06-23-2022 Phosphate [Mass/Vol] 3.0 mg/dL Normal 2.6-4.7 [place] Comment on above: Performed By: #### L IPID, URIC, CMP, TSH, BNP #### [facility] [address] [place] [address] Dr. Surekha Pardo PROF 14(COMP METB)on 023 Albumin [Mass/Vol] 3.8 g/dL Normal 3.4-5.0 [facility] Comment on above: Performed By: #### L IPID, URIC, CMP, TSH, BNP #### [facility] [address] [place] [address] Dr. Surekha Pardo Albumin/Globulin [Mass ratio] 0.9 {ratio} Normal [place] Comment on above: Performed By: #### L IPID, URIC, CMP, TSH, BNP #### [facility] [address] [place] [address] Dr. Surekha Pardo ALP [Catalytic activity/Vol] 101 U/L Normal 46-116 [place] Comment on above: Performed By: #### L IPID, URIC, CMP, TSH, BNP #### [facility] [address] [place] [address] Dr. Surekha Pardo ALT [Catalytic activity/Vol] 20 U/L Normal 16-63 [place] Comment on above: Performed By: #### L IPID, URIC, CMP, TSH, BNP #### [facility] [address] [place] [address] Dr. Surekha Pardo Anion gap [Moles/Vol] 15.7 mmol/L Normal [facility] Comment on above: Performed By: #### L IPID, URIC, CMP, TSH, BNP #### [facility] [address] [place] [address] Dr. Surekha Pardo AST [Catalytic activity/Vol] 16 U/L Normal 15-37 [place] Comment on above: Performed By: #### L IPID, URIC, CMP, TSH, BNP #### [facility] [address] [place], [place] [id number] Dr. Surekha Pardo Bilirubin [Mass/Vol] 0.4 mg/dL Normal 0.2-1.0 [place] Comment on above: Performed By: #### L IPID, URIC, CMP, TSH, BNP #### [facility] [address] [place] [address] Dr. Surekha Pardo Calcium [Mass/Vol] 9.4 mg/dL Normal 8.5-10.1 [facility] Comment on above: Performed By: #### L IPID, URIC, CMP, TSH, BNP #### [facility] [address] [place] [address] Dr. Surekha Pardo Chloride [Moles/Vol] 106 mmol/L Normal 98-107 [place] Comment on above: Performed By: #### L IPID, URIC, CMP, TSH, BNP #### [facility] [address] [place] [address] Dr. Surekha Pardo CO2 [Moles/Vol] 27.1 mmol/L Normal 21.0-32.0 [facility] Comment on above: Performed By: #### L IPID, URIC, CMP, TSH, BNP #### [facility] [address] [place] [address] Dr. Surekha Pardo Creatinine [Mass/Vol] 2.15 mg/dL Critically high 0.70-1.30 [place] Comment on above: Performed By: #### L IPID, URIC, CMP, TSH, BNP #### [facility] [address] [place] [address] Dr. Surekha Pardo EGFR-AF DJIBOUTIAN 37 mL/min/1.73m2 Critically low >=60 [place] Comment on above: Performed By: #### L IPID, URIC, CMP, TSH, BNP #### [facility] [address] [place] [address] Dr. Surekha Pardo EGFR-NON AF DJIBOUTIAN 30 mL/min/1.73m2 Critically low >=60 [place] Comment on above: Performed By: #### L IPID, URIC, CMP, TSH, BNP #### [facility] [address] [place] [address] Dr. Surekha Pardo Globulin (S) [Mass/Vol] 4.1 g/dL Normal [place] Comment on above: Performed By: #### L IPID, URIC, CMP, TSH, BNP #### [facility] [address] [place] [address] Dr. Surekha Pardo Glucose [Mass/Vol] 102 mg/dL Normal 74-106 [facility] Comment on above: Performed By: #### L IPID, URIC, CMP, TSH, BNP #### [facility] [address] [place] [address] Dr. Surekha Pardo Potassium [Moles/Vol] 3.8 mmol/L Normal 3.5-5.1 [place] Comment on above: Performed By: #### L IPID, URIC, CMP, TSH, BNP #### [facility] [address] [place] [address] Dr. Surekha Pardo Protein [Mass/Vol] 7.9 g/dL Normal 6.4-8.2 [facility] Comment on above: Performed By: #### L IPID, URIC, CMP, TSH, BNP #### [facility] [address] [place] [address] Dr. Surekha Pardo Sodium [Moles/Vol] 145 mmol/L Normal 136-145 [facility] Comment on above: Performed By: #### L IPID, URIC, CMP, TSH, BNP #### [facility] [address] [place] [address] Dr. Surekha Pardo Urea nitrogen [Mass/Vol] 12.0 mg/dL Normal 7.0-18.0 [place] Comment on above: Performed By: #### L IPID, URIC, CMP, TSH, BNP #### [facility] [address] [place] [address] Dr. Surekha Pardo Urea nitrogen/Creatinine [Mass ratio] 5.6 mg/mg Normal [place] Comment on above: Performed By: #### L IPID, URIC, CMP, TSH, BNP #### [facility] [address] [place] [address] Dr. Surekha Pardo UA RANDOMon 06-23-2022 Bilirubin Ql (U) Negative Normal NEGATIVE [facility] Comment on above: Performed By: #### L IPID, URIC, CMP, TSH, BNP #### [facility] [address] [place] [address] [address] Surekha Pardo Clarity (U) CLEAR Normal CLEAR [place] Comment on above: Performed By: #### L IPID, URIC, CMP, TSH, BNP #### [facility] [address] [place] [address] [address] Surekha Pardo Color (U) LT. YELLOW Normal YELLOW [facility] Comment on above: Performed By: #### L IPID, URIC, CMP, TSH, BNP #### [facility] [address] [place] [address] Dr. Surekha Pardo Glucose Ql (U) Negative Normal NEGATIVE [facility] Comment on above: Performed By: #### L IPID, URIC, CMP, TSH, BNP #### [facility] [address] [place] [address] [address] Surekha Pardo Hemoglobin Ql (U) MODERATE Abnormal NEGATIVE [facility] Comment on above: Performed By: #### L IPID, URIC, CMP, TSH, BNP #### [facility] [address] [place] [address] [address] Surekha Pardo Ketones Ql (U) Negative Normal NEGATIVE [facility] Comment on above: Performed By: #### L IPID, URIC, CMP, TSH, BNP #### [facility] [address] [place] [address] [address] Surekha Pardo LEUKOCYTES SMALL Abnormal NEGATIVE [place] Comment on above: Performed By: #### L IPID, URIC, CMP, TSH, BNP #### [facility] [address] [place] [address] [address] Surekha Pardo Nitrite Ql (U) Negative Normal NEGATIVE [facility] Comment on above: Performed By: #### L IPID, URIC, CMP, TSH, BNP #### [facility] [address] [place] [address] [address] Surekha Pardo pH (U) 6.5 [pH] Normal 5-9 [facility] Comment on above: Performed By: #### L IPID, URIC, CMP, TSH, BNP #### [facility] [address] [place] [address] Dr. Surekha Pardo SPEC GRAVITY 1.010 Normal 1.005-<=1.025 [facility] Comment on above: Performed By: #### L IPID, URIC, CMP, TSH, BNP #### [facility] [address] [place] [address] Dr. Surekha Pardo UA PROTEIN Negative Normal NEGATIVE/ TRACE [place] Comment on above: Performed By: #### L IPID, URIC, CMP, TSH, BNP #### [facility] [address] [place] [address] Dr. Surekha Pardo Urobilinogen Qn (U) 0.2 {David'U}/dL Normal 0.2 - 1. 0 [place] Comment on above: Performed By: #### L IPID, URIC, CMP, TSH, BNP #### [facility] [address] [place] [address] Dr. Surekha Pardo URIC ACID SERUMon 06-23-2022 Urate [Mass/Vol] 4.8 mg/dL Normal 3.5-7.2 [facility] Comment on above: Performed By: #### L IPID, URIC, CMP, TSH, BNP #### [facility] [address] [place] [address] Dr. Surekha Pardo URINE T PROTEIN CREAT RATIOo n 06-23-2022 Protein (U) [Mass/Vol] 37.5 mg/dL Critically high <=12.0 [place] Comment on above: Performed By: #### L IPID, URIC, CMP, TSH, BNP #### [facility] [address] [place] [address] Dr. Surekha Pardo UR PROT CREAT RAT 0.49 Normal [facility] Comment on above: Performed By: #### L IPID, URIC, CMP, TSH, BNP #### [facility] [address] [place] [address] Dr. Surekha Pardo URINE CREAT 76.71 mg/dL Normal 20.00-300.00 [facility] Comment on above: Performed By: #### L IPID, URIC, CMP, TSH, BNP #### [facility] [address] [place] [address] Dr. Surekha Pardo VIT B12 AND FOLATEon 023 Cobalamin (Vitamin B12) [Mass/Vol] 1348.0 pg/mL Critically high 193.0-986.0 [place] Comment on above: Performed By: #### B 12FOL, VITAD #### [facility] [address] [place] [address] Dr. Surekha Pardo FOLATE 5.50 ng/mL Critically low 8.60-58.90 [facility] Comment on above: Performed By: #### B 12FOL, VITAD #### [facility] [address] [place] [address] Dr. Surekha Pardo VITAMIN D 25 OHon 06-23-2022 VIT D 25-OH 51.4 ng/mL Normal [facility] Comment on above: Performed By: #### B 12FOL, VITAD #### [facility] [address] [place] [address] Dr. Surekha Pardo VIT D RANGES SEE BELOW Normal [place] Comment on above: Result Comment: <20 ng/mL Vit D deficient 20 - <30 ng/mL Vit D insufficient 30 - 100 ng/mL Vit D sufficient >100 ng/mL Potential Toxicity Performed By: #### B 12FOL, VITAD #### [facility] [address] [place] [address] Dr. Surekha Pardo INSULINon 12-18-2021 Insulin 13.2 uIU/mL Normal 2.6-24.9 [place] Comment on above: Performed By: #### L IPID, URIC, CMP, TSH, BNP #### [facility] [address] [place] [address] Dr. Surekha Pardo T4, T3U, FTI LABCORPon 12-18 Free Thyroxine Index 2.5 Normal 1.2-4.9 [place] Comment on above: Performed By: #### T HYLC #### [facility] [address] [place] [address] Dr. Surekha Pardo T3 Uptake 26 % Normal 24-39 [facility] Comment on above: Performed By: #### T HYLC #### [facility] [address] [place] [address] Dr. Surekha Pardo T4 [Mass/Vol] 9.8 ug/dL Normal 4.5-12.0 [facility] Comment on above: Performed By: #### T HYLC #### [facility] [address] [place] [address] Dr. Surekha Pardo BNPon 12-17-2021 Natriuretic peptide B (Bld) [Mass/Vol] 48.0 pg/mL Normal <=900.0 [facility] Comment on above: Performed By: #### L IPID, URIC, CMP, TSH, BNP #### [facility] [address] [place] [address] Dr. Surekha Pardo CBC AUTO DIFFon 12-17-2021 BASO # 0.1 103/ul Normal 0.0-0.1 [place] Comment on above: Performed By: #### C BC #### [facility] [address] [place] [address] Dr. Surekha Pardo Basophils/100 WBC (Bld) 0.7 % Normal 0.2-2.0 [place] Comment on above: Performed By: #### C BC #### [facility] [address] [place] [address] Dr. Surekha Pardo EO # 0.2 103/ul Normal 0.0-0.7 [facility] Comment on above: Performed By: #### C BC #### [facility] [address] [place] [address] Dr. Surekha Pardo Eosinophils/100 WBC (Bld) 1.8 % Normal 0.9-7.0 [facility] Comment on above: Performed By: #### C BC #### [facility] [address] [place] [address] Dr. Surekah Pardo Erythrocyte distribution width (RBC) [Ratio] 13.2 % Normal 11.0-15.0 [place] Comment on above: Performed By: #### C BC #### [facility] [address] [place] [address] Dr. Surekha Pardo Hematocrit (Bld) [Volume fraction] 38.8 % Critically low 42.0-54.0 [place] Comment on above: Performed By: #### C BC #### [facility] [address] [place] [address] Dr. Surekha Pardo Hemoglobin (Bld) [Mass/Vol] 12.9 g/dL Critically low 14.0-18.0 [place] Comment on above: Performed By: #### C BC #### [facility] [address] [place] [address] Dr. Surekha Pardo IG # 0.03 10e3/ul Normal 0.00-0.03 [place] Comment on above: Performed By: #### C BC #### [facility] [address] [place] [address] Dr. Surekha Pardo IG % 0.4 % Normal 0.0-0.5 [place] Comment on above: Performed By: #### C BC #### [facility] [address] [place] [address] Dr. Surekha Pardo LYMPH # 1.5 103/ul Normal 1.2-3.8 [place] Comment on above: Performed By: #### C BC #### [facility] [address] [place] [address] Dr. Surekha Pardo Lymphocytes/100 WBC (Bld) 19.0 % Critically low 20.5-60.0 [place] Comment on above: Performed By: #### C BC #### [facility] [address] [place] [address] Dr. Surekha Pardo MANUAL DIFF REQ NO Normal [facility] Comment on above: Performed By: #### C BC #### [facility] [address] [place] [address] Dr. Surekha Pardo MCH (RBC) [Entitic mass] 30.9 pg Normal 25.9-34.0 [place] Comment on above: Performed By: #### C BC #### [facility] [address] [place] [address] [address] Surekha Pardo MCHC (RBC) [Mass/Vol] 33.2 g/dL Normal 29.9-35.2 [place] Comment on above: Performed By: #### C BC #### [facility] [address] [place] [address] [address] Surekha Pardo MCV (RBC) [Entitic vol] 92.8 fL Normal 80.0-94.0 [place] Comment on above: Performed By: #### C BC #### [facility] [address] [place] [address] Dr. Surekha Pardo MONO # 0.6 103/ul Normal 0.3-0.8 [place] Comment on above: Performed By: #### C BC #### [facility] [address] [place] [address] Dr. Surekha Pardo Monocytes/100 WBC (Bld) 7.9 % Normal 1.7-12.0 [place] Comment on above: Performed By: #### C BC #### [facility] [address] [place] [address] Dr. Surekha Pardo NEUT # 5.7 103/ul Normal 1.4-6.5 [place] Comment on above: Performed By: #### C BC #### [facility] [address] [place] [address] Dr. Surekha Pardo Neutrophils/100 WBC (Bld) 70.2 % Normal 43.0-75.0 [place] Comment on above: Performed By: #### C BC #### [facility] [address] [place] [address] Dr. Surekha Pardo Platelet mean volume (Bld) [Entitic vol] 9.7 fL Normal 9.5-13.5 [facility] Comment on above: Performed By: #### C BC #### [facility] [address] [place] [address] Dr. Surekha Pardo PLT 261 103/ul Normal 150-450 [facility] Comment on above: Performed By: #### C BC #### [facility] [address] [place] [address] [address] Surekha Pardo RBC 4.18 106/ul Critically low 4.70-6.10 [facility] Comment on above: Performed By: #### C BC #### [facility] [address] [place] [address] [address] Surekha Pardo WBC 8.1 103/ul Normal 4.0-11.0 [place] Comment on above: Performed By: #### C BC #### [facility] [address] [place] [address] [address] Surekha Pardo GLYCOHEMOGLOBIN A1Con 2021 ADA RECOMMENDATION SEE BELOW Normal [facility] Comment on above: Result Comment: ADA RECOMMENDED LIMIT 4.0 - 6.0 ADA THERAPEUTIC TARGET < 7.0 ACTION SUGGESTED > 7.0 Performed By: #### L IPID, URIC, CMP, TSH, BNP #### [facility] [address] [place] [address] [address] Surekha Pardo Glucose [Mass/Vol] 105 mg/dL Normal [facility] Comment on above: Performed By: #### L IPID, URIC, CMP, TSH, BNP #### [facility] [address] [place] [address] [address] Surekha Pardo HbA1c (Bld) [Mass fraction] 5.3 % Normal 4.5-6.2 [place] Comment on above: Performed By: #### L IPID, URIC, CMP, TSH, BNP #### [facility] [address] [place] [address] [address] Surekha Pardo LIPID PROFILEon 12-17-2021 CHOL-HDL RATIO NORM SEE BELOW Normal [facility] Comment on above: Result Comment: 3.3 - 4.4 LOW RISK 4.4 - 7.1 AVERAGE RISK 7.1 - 11.0 MODERATE RISK >11.0 HIGH RISK Performed By: #### L IPID, URIC, CMP, TSH, BNP #### [facility] [address] [place] [address] [address] Surekha Pardo Cholesterol [Mass/Vol] 142 mg/dL Normal <=200 [place] Comment on above: Performed By: #### L IPID, URIC, CMP, TSH, BNP #### [facility] [address] [place] [address] [address] Surekha Pardo Cholesterol in HDL [Mass/Vol] 50 mg/dL Normal 40-60 [place] Comment on above: Performed By: #### L IPID, URIC, CMP, TSH, BNP #### [facility] [address] [place] [address] [address] Surekha Pardo Cholesterol in LDL [Mass/Vol] 65.0 mg/dL Normal [place] Comment on above: Performed By: #### L IPID, URIC, CMP, TSH, BNP #### [facility] [address] [place] [address] Dr. Surekha Pardo Cholesterol.total/Cho lesterol in HDL [Mass ratio] 2.8 {ratio} Normal [place] Comment on above: Performed By: #### L IPID, URIC, CMP, TSH, BNP #### [facility] [address] [place] [address] Dr. Surekha Pardo HDL NORMAL > or = 60 mg/dl - LO W CARDIOVASCULAR RISK <40 mg/dl - HIGH CARDIOVASCULAR RISK Normal [place] Comment on above: Performed By: #### L IPID, URIC, CMP, TSH, BNP #### [facility] [address] [place] [address] Dr. Surekha Pardo LDL CALC NORMAL SEE BELOW Normal [facility] Comment on above: Result Comment: <100 mg/dl OPTIMAL 100 - 129 mg/dl NEAR OR ABOVE OPTIMAL 130 - 159 mg/dl BORDERLINE HIGH 160 - 189 mg/dl HIGH >190 mg/dl VERY HIGH Performed By: #### L IPID, URIC, CMP, TSH, BNP #### [facility] [address] [place] [address] Dr. Surekha Pardo Triglyceride [Mass/Vol] 135 mg/dL Normal <=150 [place] Comment on above: Performed By: #### L IPID, URIC, CMP, TSH, BNP #### [facility] [address] [place] [address] Dr. Surekha Pardo VLDL CALC 27.0 mg/dL Normal [place] Comment on above: Performed By: #### L IPID, URIC, CMP, TSH, BNP #### [facility] [address] [place] [address] [address] Surekha Pardo OCC BLD IMMUNO SCREENon 11-29 OCCULT BLOOD Negative Normal NEGATIVE [place] Comment on above: Performed By: #### L IPID, URIC, CMP, TSH, BNP #### [facility] [address] [place] [address] [address] Surekha Pardo PROF 14(COMP METB)on 022 Albumin [Mass/Vol] 3.7 g/dL Normal 3.4-5.0 [facility] Comment on above: Performed By: #### L IPID, URIC, CMP, TSH, BNP #### [facility] [address] [place] [address] Dr. Surekha Pardo Albumin/Globulin [Mass ratio] 0.9 {ratio} Normal [place] Comment on above: Performed By: #### L IPID, URIC, CMP, TSH, BNP #### [facility] Laboratory [address] [address] [address] Surekha Pardo ALP [Catalytic activity/Vol] 90 U/L Normal 46-116 [place] Comment on above: Performed By: #### L IPID, URIC, CMP, TSH, BNP #### [facility] [address] [address] [address] Surekha Pardo ALT [Catalytic activity/Vol] 16 U/L Normal 16-63 [place] Comment on above: Performed By: #### L IPID, URIC, CMP, TSH, BNP #### [facility] [address] [address] [address] Surekha Pardo Anion gap [Moles/Vol] 11.4 mmol/L Normal [facility] Comment on above: Performed By: #### L IPID, URIC, CMP, TSH, BNP #### [facility] [address] [address] [address] Surekha Pardo AST [Catalytic activity/Vol] 13 U/L Critically low 15-37 [place] Comment on above: Performed By: #### L IPID, URIC, CMP, TSH, BNP #### [facility] [address] [place] [address] Dr. Surekha Pardo Bilirubin [Mass/Vol] 0.4 mg/dL Normal 0.2-1.0 [place] Comment on above: Performed By: #### L IPID, URIC, CMP, TSH, BNP #### [facility] [address] [address] [address] Surekha Pardo Calcium [Mass/Vol] 9.0 mg/dL Normal 8.5-10.1 [facility] Comment on above: Performed By: #### L IPID, URIC, CMP, TSH, BNP #### [facility] [address] [place] [address] Dr. Surekha Pardo Chloride [Moles/Vol] 105 mmol/L Normal 98-107 [place] Comment on above: Performed By: #### L IPID, URIC, CMP, TSH, BNP #### [facility] [address] [place] [address] Dr. Surekha Pardo CO2 [Moles/Vol] 27.5 mmol/L Normal 21.0-32.0 [facility] Comment on above: Performed By: #### L IPID, URIC, CMP, TSH, BNP #### [facility] [address] [place] [address] Dr. Surekha Pardo Creatinine [Mass/Vol] 2.15 mg/dL Critically high 0.70-1.30 [place] Comment on above: Performed By: #### L IPID, URIC, CMP, TSH, BNP #### [facility] [address] [place] [address] Dr. Surekha Pardo EGFR-AF DJIBOUTIAN 37 mL/min/1.73m2 Critically low >=60 [facility] Comment on above: Performed By: #### L IPID, URIC, CMP, TSH, BNP #### [facility] [address] [place] [address] Dr. Surekha Pardo EGFR-NON AF DJIBOUTIAN 30 mL/min/1.73m2 Critically low >=60 [facility] Comment on above: Performed By: #### L IPID, URIC, CMP, TSH, BNP #### [facility] [address] [place] [address] Dr. Surekha Pardo Globulin (S) [Mass/Vol] 4.0 g/dL Normal [place] Comment on above: Performed By: #### L IPID, URIC, CMP, TSH, BNP #### [facility] [address] [place] [address] Dr. Surekha Pardo Glucose [Mass/Vol] 109 mg/dL Critically high 74-106 [facility] Comment on above: Performed By: #### L IPID, URIC, CMP, TSH, BNP #### [facility] [address] [place] [address] Dr. Surekha Pardo Potassium [Moles/Vol] 3.9 mmol/L Normal 3.5-5.1 [place] Comment on above: Performed By: #### L IPID, URIC, CMP, TSH, BNP #### [facility] [address] [place] [address] Dr. Surekha Pardo Protein [Mass/Vol] 7.7 g/dL Normal 6.4-8.2 [facility] Comment on above: Performed By: #### L IPID, URIC, CMP, TSH, BNP #### [facility] [address] [place] [address] Dr. Surekha Pardo Sodium [Moles/Vol] 140 mmol/L Normal 136-145 [facility] Comment on above: Performed By: #### L IPID, URIC, CMP, TSH, BNP #### [facility] [address] [place] [address] Dr. Surekha Pardo Urea nitrogen [Mass/Vol] 12.0 mg/dL Normal 7.0-18.0 [place] Comment on above: Performed By: #### L IPID, URIC, CMP, TSH, BNP #### [facility] [address] [place] [address] Dr. Surekha Pardo Urea nitrogen/Creatinine [Mass ratio] 5.6 mg/mg Normal [place] Comment on above: Performed By: #### L IPID, URIC, CMP, TSH, BNP #### [facility] [address] [address] [address] Surekha Pardo TSHon 12-17-2021 TSH 1.103 uIU/mL Normal 0.358-3.740 [facility] Comment on above: Performed By: #### L IPID, URIC, CMP, TSH, BNP #### [facility] [address] [address] [address] Surekha Pardo URIC ACID SERUMon 12-17-2021 Urate [Mass/Vol] 5.1 mg/dL Normal 3.5-7.2 [facility] Comment on above: Performed By: #### L IPID, URIC, CMP, TSH, BNP #### [facility] [address] [place] [address] Dr. Surekha Pardo Vital Signs Date Time Vital Sign Value Performing Clinician Facility 03-10-2023 13:00-0500 Body height 170.18 cm [facility] Other [employer] Other 03-10-2023 13:00-0500 Body mass index (BMI) [Ratio] 30.73 kg/m2 [facility] Other [employer] Other 03-10-2023 13:00-0500 Body temperature 96.9 [degF] [facility] Other [employer] Other 03-10-2023 13:00-0500 Body weight 89 kg [facility] Other [employer] Other 03-10-2023 13:00-0500 Diastolic blood pressure 70 mm[Hg] [facility] Other [facility] Other 03-10-2023 13:00-0500 Respiratory rate 18 /min [facility] Other [employer] Other 03-10-2023 13:00-0500 SaO2% (BldA) [Mass fraction] 95 % Aziz Bakhous Other [facility] Other 03-10-2023 13:00-0500 Systolic blood pressure 140 mm[Hg] Aziz Bakhous Other [facility] Other 11-04-2022 13:00-0400 Body height 170.18 cm Aziz Bakhous Other [facility] Other 11-04-2022 13:00-0400 Body mass index (BMI) [Ratio] 31.35 kg/m2 Azdeondre Bakhous Other [facility] Other 11-04-2022 13:00-0400 Body temperature 96.6 [degF] Aziz Bakhous Other [facility] Other 11-04-2022 13:00-0400 Body weight 90.81 kg Aziz Bakhous Other [facility] Other 11-04-2022 13:00-0400 Diastolic blood pressure 90 mm[Hg] Aziz Bakhous Other [facility] Other 11-04-2022 13:00-0400 Respiratory rate 18 /min Aziz Bakhous Other [employer] Other 11-04-2022 13:00-0400 SaO2% (BldA) [Mass fraction] 94 % Aziz Bakhous Other [employer] Other 08-08-2023 13:00-0400 Systolic blood pressure 130 mm[Hg] Aziz Bakhous Other [employer] Other 07-01-2022 14:20-0400 Body height 170.18 cm Aziz Bakhous Other [facility] Other 07-01-2022 14:20-0400 Body mass index (BMI) [Ratio] 32.92 kg/m2 Azdeondre Bakhous Other [facility] Other 07-01-2022 14:20-0400 Body temperature 96.2 [degF] Aziz Bakhous Other [employer] Other 07-01-2022 14:20-0400 Body weight 95.35 kg Azdeondre Bakhous Other [employer] Other 07-01-2022 14:20-0400 Diastolic blood pressure 84 mm[Hg] Aziz Bakhous Other [employer] Other 07-01-2022 14:20-0400 Respiratory rate 18 /min Timothy Bakhous Other [employer] Other 07-01-2022 14:20-0400 SaO2% (BldA) [Mass fraction] 96 % Aziz Bakhous Other [facility] Other 07-01-2022 14:20-0400 Systolic blood pressure 132 mm[Hg] Aziz Bakhous Other [employer] Other 02-25-2022 14:20-0500 Body height 170.18 cm Aziz Bakhous Other [employer] Other 02-25-2022 14:20-0500 Body mass index (BMI) [Ratio] 34.45 kg/m2 Azdeondre Carrs Other [facility] Other 02-25-2022 14:20-0500 Body weight 99.79 kg Azdeondre Baksrinivasas Other [employer] Other 02-25-2022 14:20-0500 Diastolic blood pressure 84 mm[Hg] Azdeondre Baksrinivasas Other [employer] Other 02-25-2022 14:20-0500 SaO2% (BldA) [Mass fraction] 98 % Aziz Baksrinivasas Other [employer] Other 02-25-2022 14:20-0500 Systolic blood pressure 132 mm[Hg] Azdeondre Baksrinivasas Other [employer] Other Encounters Encounter Date Encounter Type Care Provider Facility Start: 05-19-2023 ambulatory Bird R NILL [facility] : [facility] Start: 05-05-2023 End: 05-06-2023 ambulatory Bird R NILL [facility]: [facility] Start: 05-05-2023 ambulatory Bird NILL Facility:[facility] Start: 05-05-2023 ambulatory Bird MCLAUGHLINL Facility:Nick Prabhakar Start: 03-10-2023 End: 03-10-2023 ambulatory Timothy Catystephanie Other [employer] Other Start: 03-10-2023 Office outpatient vi sit 25 minutes Timothy Galarza [facility] Start: 12-03-2022 End: 12-03-2022 ambulatory DOMINGUEZ BERMUDEZ Facility:[facility] Start: 12-03-2022 End: 12-03-2022 ambulatory [facility] [place] Work Phone: Hematology/Oncology Comment on above: Malignant neoplasm o f overlapping sites of left lung (HCC) (Primary Dx) Start: 11-04-2022 End: 11-04-2022 ambulatory Aziz Bakhous Other [employer] Other Start: 11-04-2022 Office outpatient vi sit 25 minutes Aziz Bakhous [facility] Start: 10-22-2022 End: 10-22-2022 ambulatory DOMINGUEZ BERMUDEZ Facility:[facility] Start: 09-10-2022 End: 09-10-2022 ambulatory [facility] [place] Work Phone: Hematology/Oncology Comment on above: Malignant neoplasm o f overlapping sites of left lung (HCC) (Primary Dx) Start: 07-29-2022 End: 07-29-2022 ambulatory DOMINGUEZ BERMUDEZ Facility:[facility] Start: 07-29-2022 End: 07-29-2022 ambulatory [facility] [place] Work Phone: Hematology/Oncology Comment on above: Malignant neoplasm o f overlapping sites of left lung (HCC) (Primary Dx) Start: 07-28-2022 End: 08-27-2022 ambulatory SHAIKH Jeane CALERO Facility:[facility] Start: 07-01-2022 End: 07-01-2022 ambulatory Aziz Bakhous Other [employer] Other Start: 07-01-2022 Office outpatient vi sit 25 minutes Aziz Bakhous [facility] Start: 06-30-2022 End: 07-25-2022 ambulatory ORDOÑEZ H KATIED Facility:[facility] Start: 06-23-2022 End: 06-24-[address] DOMINGUEZ BERMUDEZ . Facility:[facility] Start: 06-17-2022 End: 06-17-2022 ambulatory DOMINGUEZ M HOY Facility:[facility] Start: 05-28-2022 End: 06-27-2022 ambulatory ORDOÑEZ H RAQUELWWAD Facility:[facility] Start: 05-07-2022 End: 05-07-2022 ambulatory [facility] Work Phone: Hematology/Oncology Comment on above: Malignant neoplasm o f overlapping sites of left lung (HCC) (Primary Dx) Start: 04-30-2022 End: 05-28-2022 ambulatory ORDOÑEZ H FAWWAD Facility:[facility] Start: 03-31-2022 End: 04-30-2022 ambulatory ORDOÑEZ H FAWWAD Facility:[facility] Start: 03-26-2022 End: 03-26-2022 ambulatory DOMINGUEZ BERMUDEZ Facility:[facility] Start: 03-26-2022 End: 03-26-2022 ambulatory [facility] [place] Work Phone: Hematology/Oncology Comment on above: Malignant neoplasm o f overlapping sites of left lung (HCC) (Primary Dx) Start: 02-27-2022 End: 03-30-2022 ambulatory ORDOÑEZ H FAWWAD Facility:[facility] Start: 02-25-2022 End: 02-25-2022 ambulatory Timothy Galarza Other [employer] Other Start: 02-25-2022 Office outpatient ne w 30 minutes Timothy Galarza [facility] Start: 02-12-2022 End: 02-12-2022 ambulatory DOMINGUEZ BERMUDEZ Facility:[facility] Start: 02-12-2022 End: 02-12-2022 ambulatory [facility] [place] Work Phone: Hematology/Oncology Comment on above: Malignant neoplasm o f overlapping sites of left lung (HCC) (Primary Dx) Start: 01-28-2022 End: 02-26-2022 ambulatory ORDOÑEZ H FAWWAD Facility:[facility] Start: 01-01-2022 End: 01-01-2022 ambulatory DOMINGUEZ BERMUDEZ Facility:[facility] Start: 12-29-2021 End: 01-27-2022 ambulatory ORDOÑEZ H FAWWAD Facility:[facility] Start: 12-17-2021 End: 12-18-[address] DOMINGUEZ BERMUDEZ . Facility:[facility] Start: 11-28-2021 End: 12-28-2021 ambulatory ORDOÑEZ H FAWWAD Facility:[facility] Start: 11-20-2021 End: 11-20-2021 ambulatory [facility] [place] Work Phone: Hematology/Oncology Comment on above: Malignant neoplasm o f overlapping sites of left lung (HCC) (Primary Dx) Start: 10-28-2021 End: 11-27-2021 ambulatory SHAIKH Jeane CALERO Facility:[facility] Start: 09-27-2021 End: 10-25-2021 ambulatory SHAIKH Jeane CALERO Facility:[facility] Start: 2021 End: 2021 ambulatory [facility] [place] Work Phone: Hematology/Oncology Comment on above: Malignant neoplasm o f overlapping sites of left lung (HCC) (Primary Dx) Start: 07-17-2021 End: 07-17-2021 ambulatory [facility] [place] Work Phone: Hematology/Oncology Comment on above: Malignant neoplasm o f overlapping sites of left lung (HCC) (Primary Dx) Start: 06-05-2021 End: 06-05-2021 ambulatory [facility] [place] Work Phone: Hematology/Oncology Comment on above: Malignant neoplasm o f overlapping sites of left lung (HCC) (Primary Dx) Start: 09-28-2017 End: 09-29-2017 Ambulatory DEFAULT PHYSICIAN Facility:[facility] Start: 09-24-2017 End: 09-25-2017 Ambulatory DEFAULT PHYSICIAN Facility:[facility] Procedures Date Procedure Procedure Detail Performing Clinician Start: 12-17-2021 PSA screening ORDOÑEZJeane HILLMAN Comment on above: Performed By: #### L IPID, URIC, CMP, TSH, BNP #### [facility] [address] [place] [address] Dr. Surekha Pardo Start: 09-20-2019 Adult depression screening assessment [facility] Work Phone: Plan of Treatment Date Care Activity Detail Author Start: 11-28-2022 Influenza vaccination INFLUENZA (#1) [facility] Start: 03-30-2022 ADVANCE DIRECTIVE DISCUSSION ADVANCE DIRECTIVE DISCUSSION [facility] Start: 03-30-2022 DEPRESSION ASSESSMENT DEPRESSION ASS ESSMENT [facility] Start: 11-28-2021 Influenza vaccination INFLUENZA (#1) [facility] Start: 07-15-2021 LIPID SCREEN LIPID SCREEN [facility] Start: 06-07-2021 COVID-19 VACCINE (4 - Booster for Moderna series) COVID-19 VACCINE (4 - Booster for Moderna series) [facility] Start: 04-04-2021 COVID-19 VACCINE (4 - Booster for Moderna series) COVID-19 VACCINE (4 - Booster for Moderna series) [facility] Start: 03-30-2021 ADVANCE DIRECTIVE DISCUSSION ADVANCE DIRECTIVE DISCUSSION [facility] Start: 03-30-2021 DEPRESSION ASSESSMENT DEPRESSION ASS ESSMENT [facility] Start: 09-19-2020 Adult depression scr eening assessment DEPRESSION SCREENING [facility] Start: 07-22-2019 DIABETES SCREEN DIABETES SCREEN [facility] Start: 10-21-2018 PNEUMOCOCCAL: 65+ (2 - PCV) PNEUMOCOCCAL: 65+ (2 - PCV) [facility] Start: 10-21-2018 PNEUMOCOCCAL: 65+ (3 - PCV) PNEUMOCOCCAL: 65+ (3 - PCV) [facility] Start: 07-21-2017 HEMOGLOBIN/HEMATOCRIT HEMOGLOBIN/HEM ATOCRIT [facility] Start: 07-21-2017 SERUM CREATININE SERUM CREATININE Cl [facility] Start: 08-29-1999 SHINGRIX VACCINE (1 of 2) SHINGRIX V ACCINE (1 of 2) [facility] Start: 1994 COLOGUARD (FIT-DNA) COLOGUARD (FIT-D NA) [facility] Start: 1994 Colonoscopy COLONOSCOPY [facility] Start: 1994 COLORECTAL CANCER SCREENING COLORECTAL CANCER SCREENING [facility] Start: [address] COLONOGRAPHY [facility] Start: 1994 FECAL OCCULT BLOOD FECAL OCCULT BLOO D [facility] Start: 1994 SIGMOIDOSCOPY SIGMOIDOSCOPY [facility] Start: 1968 Urine microalbumin profile DTAP,TDAP ,TD (1 - Tdap) [facility] Start: 08-29-1967 ANNUAL PCP TEAM DOLL WIG MAKER CHIN DISEASE VISIT ANNUAL PCP TEAM CHRONIC DISEASE VISIT [facility] Start: 08-29-1967 BP CONTROLLED (<130/80) BP CONTROLLE D (<130/80) [facility] Start: 08-29-1967 HEPATITIS C SCREENING HEPATITIS C SC YOVANA [facility] Start: 1949 ABDOMINAL AORTIC ANE URYSM SCREENING ABDOMINAL AORTIC ANEURYSM SCREENING [facility] Immunizations Immunization Date Immunization Notes Care Provider Raquel adorno 05-24-2020 COVID-19 vaccine, fu ll dose (MODERNA) [facility] Work Phone: [facility] 12-07-2019 unknown vaccine or i mmune globulin [facility] Work Phone: [facility] 12-29-2018 influenza, high dose seasonal, preservative-free [facility] [place] Work Phone: [facility] 11-05-2017 influenza, high dose seasonal, preservative-free [facility] Work Phone: [facility] 10-21-2017 pneumococcal polysaccharide vaccine, 23 valent [facility] Work Phone: [facility] 12-26-2016 influenza, high dose seasonal, preservative-free [facility] Work Phone: [facility] 07-25-2016 pneumococcal polysaccharide vaccine, 23 valent [facility] Work Phone: [facility] 12-01-2014 influenza, high dose seasonal, preservative-free [facility] Work Phone: [facility] 01-30-2014 influenza, seasonal, injectable [facility] Work Phone: [facility] 01-28-2012 influenza virus vacc ine, unspecified formulation [facility] Work Phone: [facility] 05-02-2010 pneumococcal polysaccharide vaccine, 23 valent [facility] Work Phone: [facility] Payers Date Payer Category Payer Medicare [id number] 2019 Unknown 2019 Unknown MMO MMO MEDICARE SUPPLEMENT [id number] 2019-Present [phone] [address] [place] [address] Indemnity [id number] 2002 Medicare MEDICARE MEDICAR E A AND B [id number] 2002-Present [phone] [address] [address] [place] [address] Medicare [id number] 2002 Medicare MEDICARE MEDICAR E A AND B [id number] 2002-Present [phone] [address] [id number] Medicare [id number] 1959 Medicare [id number] 1959 Unknown [id number] 1949 Unknown [id number] 1949 Unknown [id number] 1949 Unknown [id number] 1949 Unknown [id number] 1949 Unknown [id number] 1949 Unknown [id number] [id number] 1949 Unknown [id number] [id number] 1949 Unknown [id number] [id number] 1949 Unknown [id number] [id number] 1949 Unknown [id number] [id number] 1949 Unknown [id number] [id number] 1949 Unknown [id number] [id number] 1949 Unknown [id number] 1949 Unknown [id number] 1949 Unknown [id number] Social History Date Type Detail Facility Start: 05-05-2012 Tobacco smoking stat us [facility]IS Ex-smoker [facility] End: 03-30-1994 History of tobacco use Current smoker [facility] End: 03-30-1994 History of tobacco use Cigarette Smoker [facility] Start: 09-20-2019 Alcohol intake 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) [facility] Start: 1950 Sex Assigned At Not on file C [facility] Start: 07-07-2021 End: 2021 Exposure to SARS-CoV-2 (event) Not sure [facility] Start: 05-05-2012 End: 12-03-2022 Cigarettes smoked current (pack per day) - Reported 1 [facility] Start: 05-05-2012 Tobacco use and exposure Smoke less tobacco non-user [facility] Start: 09-20-2019 End: 12-03-2022 Sex Assigned At [facility] Adult Depression Scr eening Assessment 0 [facility] Clinical Notes 07-14-2016 to 03-10-2023 Note Date [...] is 11.7 g/dl. No need for KYAW [employer] Other 08-08-2023 Evaluation note* Encounter Date Diagnosis [...] next visit Oct, Hypokalemia (ICD-10 - E87.6) [employer] Other 04-04-2023 Evaluation note* Encounter Date Diagnosis Assessment Notes Treatment Notes Treatment Clinical Notes Jun, Primary hypertension (ICD-10 - I10) Blood pressure seems well controlled. I will continue same blood pressure medications of [facility] . 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 I will continue same blood pressure medications of [facility] . I will check protein [...] I will check vitamin B12 next visit [employer] Other 04-17-2017 History of Past illness Narrative* Problem Noted Date Resolved Date Hilar density 07/14/2016 09/14/2018 Overview: Suspicious abnormal perihilar finding on CT at the OSH in patient with history of Lung Ca. S/P resection and unprovoked PE Plan: -07/14 Pulm following for suspicious perihilar mass 07/18 Dr Kay and Pt's junior project coordinator- Dr Mo reviewed PET scan from [...] encounter (statuses as of 06/05/2021) [facility]04-17-2017 History of Past illness Narrative* Problem Noted Date Resolved Date Hilar density 07/14/2016 09/14/2018 Overview: Suspicious abnormal perihilar finding on CT at the OSH in patient with history of Lung Ca. S/P resection and unprovoked PE Plan: -07/14 Pulm following for suspicious perihilar mass 07/18 Dr Kay and Pt's junior project coordinator- Dr Mo reviewed PET scan from [...] encounter (statuses as of 07/17/2021) [facility]-2017 History of Past illness Narrative* Problem Noted Date Resolved Date Hilar density 07/14/2016 09/14/2018 Overview: Suspicious abnormal perihilar finding on CT at the OSH in patient with history of Lung Ca. S/P resection and unprovoked PE Plan: -07/14 Pulm following for suspicious perihilar mass 07/18 Dr Kay and Pt's junior project coordinator- Dr Mo reviewed PET scan from [...] encounter (statuses as of 2021) [facility]-2017 History of Past illness Narrative* Problem Noted Date Resolved Date Hilar density 07/14/2016 09/14/2018 Overview: Suspicious abnormal perihilar finding on CT at the OSH in patient with history of Lung Ca. S/P resection and unprovoked PE Plan: -07/14 Pulm following for suspicious perihilar mass 07/18 Dr Kay and Pt's junior project coordinator- Dr Mo reviewed PET scan from [...] encounter (statuses as of 11/20/2021) [facility] [place] History of Past illness Narrative* Problem Noted Date Resolved Date Hilar density 07/14/2016 09/14/2018 Overview: Suspicious abnormal perihilar finding on CT at the OSH in patient with history of Lung Ca. S/P resection and unprovoked PE Plan: -07/14 Pulm following for suspicious perihilar mass 07/18 Dr Kay and Pt's junior project coordinator- Dr Mo reviewed PET scan from [...] encounter (statuses as of 02/12/2022) [facility] [place]04-17[facility]2017 History of Past illness Narrative* Problem Noted Date Resolved Date Hilar density 07/14/2016 09/14/2018 Overview: Suspicious abnormal perihilar finding on CT at the OSH in patient with history of Lung Ca. S/P resection and unprovoked PE Plan: -07/14 Pulm following for suspicious perihilar mass 07/18 Dr Kay and Pt's junior project coordinator- Dr Mo reviewed PET scan from [...] encounter (statuses as of 04/01/2022) [facility] [place]04-17-2017 History of Past illness Narrative* Problem Noted Date Resolved Date Hilar density 07/14/2016 09/14/2018 Overview: Suspicious abnormal perihilar finding on CT at the OSH in patient with history of Lung Ca. S/P resection and unprovoked PE Plan: -07/14 Pulm following for suspicious perihilar mass 07/18 Dr Kay and Pt's junior project coordinator- Dr Mo reviewed PET scan from [...] encounter (statuses as of 05/07/2022) [facility] [place]04-17-2017 History of Past illness Narrative* Problem Noted Date Resolved Date Hilar density 07/14/2016 09/14/2018 Overview: Suspicious abnormal perihilar finding on CT at the OSH in patient with history of Lung Ca. S/P resection and unprovoked PE Plan: -07/14 Pulm following for suspicious perihilar mass 07/18 Dr Kay and Pt's junior project coordinator- Dr Mo reviewed PET scan from [...] encounter (statuses as of 07/30/2022) [facility] [place]04-17-2017 History of Past illness Narrative* Problem Noted Date Resolved Date Hilar density 07/14/2016 09/14/2018 Overview: Suspicious abnormal perihilar finding on CT at the OSH in patient with history of Lung Ca. S/P resection and unprovoked PE Plan: -07/14 Pulm following for suspicious perihilar mass 07/18 Dr Kay and Pt's junior project coordinator- Dr Mo reviewed PET scan from [...] encounter (statuses as of 09/10/2022) [facility] [place]04-17[facility]2017 History of Past illness Narrative* Problem Noted Date Diagnosed Date Resolved Date Hilar density 07/14/2016 09/14/2018 Overview: Suspicious abnormal perihilar finding on CT at the OSH in patient with history of Lung Ca. S/P resection and unprovoked PE Plan: -07/14 Pulm following for suspicious perihilar mass 07/18 Dr Kay and Pt's junior project coordinator- Dr Mo reviewed PET scan from [...] encounter (statuses as of 12/04/2022) [facility] [place] [facility] Diagnosis Malignant neoplasm of overlapping sites of left lung (HCC)- Primary documented in this encounter [facility] Diagnosis Malignant neoplasm of overlapping sites of left lung (HCC)- Primary documented in this encounter [facility] note* Diagnosis Malignant neoplasm of overlapping sites of left lung (HCC)- Primary documented in this encounter [facility] note* Diagnosis Malignant neoplasm of overlapping sites of left lung (HCC)- Primary documented in this encounter [facility] note* Diagnosis Malignant neoplasm of overlapping sites of left lung (HCC)- Primary documented in this encounter [facility] note* Diagnosis Malignant neoplasm of overlapping sites of left lung (HCC)- Primary documented in this encounter [facility] note* Diagnosis Malignant neoplasm of overlapping sites of left lung (HCC)- Primary documented in this encounter [facility] [place] Narrative - Reported* Type Description Date Medical History hypertension Medical History lung cancer Medical History dementia with progressive aphasi a Medical History epilepsy Medical History COPD Medical History pulmonary emboli Surgical History left lung 1/3 removal 2010 Surgical History cholecystectomy Hospitalization History see above [employer] Other History general Narrative - Reported* Type Description Date Medical History hypertension Medical History lung cancer Medical History dementia with progressive aphasi a Medical History epilepsy Medical History COPD Medical History pulmonary emboli Surgical History left lung /3 removal 2010 Surgical History cholecystectomy Hospitalization History see above Hospitalization History MEMORY LOSS 3 [employer] Other Summary Purpose Family History No Family History Records FoundNo Family History Records FoundNo Family History Records FoundNo Family History Records Found Advance Directives No Advanced Directives Records FoundDocuments on File Type Date Recorded 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 Advance Directive(s) 07/13/2016 9:40 PM Additional Source Comments (unrecognized sect ion and content) No Status Records FoundNo Status Records FoundNo Status Records FoundNo Status Records Found INFORMATION SOURCE (unrecogn ized section and content) DATE CREATED AUTHOR 09/29/2017 [facility] DATE CREATED AUTHOR AUTHOR'S ORGANIZ ATION 09/05/2022 [facility] DATE CREATED AUTHOR AUTHOR'S ORGANIZ ATION 12/04/2022 [facility] DATE CREATED AUTHOR AUTHOR'S ORGANIZ ATION 05/13/2023 [facility] Source Comments (unrecognize d section and content) In the event this informatio n is protected by the Federal Confidentiality of Alcohol and Drug Abuse Patient Records regulations: The Federal rules restrict any use of the information to criminally investigate or prosecute any alcohol or drug abuse patient.[facility] the event this information is protected by the Federal Confidentiality of Alcohol and Drug Abuse Patient Records regulations: The Federal rules restrict any use of the information to criminally investigate or prosecute any alcohol or drug abuse patient.[facility] [place] the event this information is protected by the Federal Confidentiality of Alcohol and Drug Abuse Patient Records regulations: The Federal rules restrict any use of the information to criminally investigate or prosecute any alcohol or drug abuse patient.[facility] [place] the event this information is protected by [...] any alcohol or drug abuse patient.[facility] [place] the event this information is protected by the Federal Confidentiality of Alcohol and Drug Abuse Patient Records regulations: The Federal rules restrict any use of the information to criminally investigate or prosecute any alcohol or drug abuse patient.[facility] [place] the event this information is protected by the Federal Confidentiality of Alcohol and Drug Abuse Patient Records regulations: The Federal rules restrict any use of the information to criminally investigate or prosecute any alcohol or drug abuse patient.[facility] [place] the event this information is protected by the Federal Confidentiality of Alcohol and Drug Abuse Patient Records regulations: The Federal rules restrict any use of the information to criminally investigate or prosecute any alcohol or drug abuse patient.[facility] [place] the event this information is protected by the Federal Confidentiality of Alcohol and Drug Abuse Patient Records regulations: The Federal rules restrict any use of the information to criminally investigate or prosecute any alcohol or drug abuse patient.[facility] [place] the event this information is protected by the Federal Confidentiality of Alcohol and Drug Abuse Patient Records regulations: The Federal rules restrict any use of the information to criminally investigate or prosecute any alcohol or drug abuse patient.[facility] [place] Care Teams (unrecognized sec tion and content) Clinical Writer Relationship Specialty Start Date End Date Dominguez Bermudez MD PCP - General Family Practice 02/25/11 Nazanin Rush (Hist) [address] [place] [address] Primary Staff Physician Cardiology 06/15/18 Clinical Writer Relationship Specialty Start Date End Date Dominguez Bermudez MD PCP - General Family Practice 02/25/11 Nazanin Rush (Hist) [address] [place] [address] Primary Staff Physician Cardiology 06/15/18 Clinical Writer Relationship Specialty Start Date End Date Dominguez Bermudez MD PCP - General Family Medicine 02/25/11 Nazanin Rush (Hist) [address] [place] [address] Primary Staff Physician Cardiology 06/15/18 Clinical Writer Relationship Specialty Start Date End Date Dominguez Bermudez MD PCP - General Family Medicine 02/25/11 Nazanin Rush (Hist) [address] [place] [address] Primary Staff Physician Cardiology 06/15/18 Clinical Writer Relationship Specialty Start Date End Date Dominguez Bermudez MD PCP - General Family Medicine 02/25/11 Nazanin Rush (Hist) [address] [place] [address] Primary Staff Physician Cardiology 06/15/18 Clinical Writer Relationship Specialty Start Date End Date Dominguez Bermudez MD PCP - General Family Medicine 02/25/11 Nazanin Rush (Hist) [address] [place] [address] Primary Staff Physician Cardiology 06/15/18 Reason for Visit (unrecogniz ed section and content) Reason Comments Blood Draw (CVAD) Specialty Diagnoses / Procedures Referred By Contac t Referred To Contact Hematology / HEMATOLOGY/ONCOLOGY Diagnoses lab/port flush 6 week Procedures PORT FLUSH Self Alan Glez [address] [place] [address] Referral ID Status Reason Start Date Expiration Date V isits Requested Visits Authorized [id number] Authorized 07/21/2022 03/29/2023 99 99 Reason Comments Port Flush Specialty Diagnoses / Procedures Referred By Contac t Referred To Contact Hematology / HEMATOLOGY/ONCOLOGY Diagnoses lab/port flush 6 week Procedures PORT FLUSH Self Alan Newton [address] [place] [address] FOR RECORDS PERTAINING TO PATIENTS WHO ARE [...] BE BASED ON THE PRIMARY CLINICAL RECORDS. [facility]. provides no warranty or guarantee of the accuracy or completeness of information in this document.
[2023-05-15] VITALS (7 sets, daily range): BP systolic 126–151; BP diastolic 79–89; PULSE 81–88; RESP 14–18; TEMP 36.6; O2SAT 92–97
[2023-05-15] MEDS: ZIPRASIDONE MESYLATE 20 MG, WATER FOR INJECTION,STERILE 1.2 ML IM ×2 (00:50→21:32)
[2023-05-15 05:47] LABS: Basophils Absolute Auto 0.1 10^3/uL (0.0-0.1); Basophils Percent Auto 0.5 % (0.2-2.0); Eosinophils Absolute Auto 0.2 10^3/uL (0.0-0.7); Eosinophils Percent Auto 1.2 % (0.9-7.0); Hematocrit 29.5 % (42.0-54.0); Hemoglobin 8.9 g/dL (14.0-18.0); Immature Granulocytes Abs Auto 0.09 10^3/uL (0.00-0.03); Immature Granulocytes Pct Auto 0.7 % (0.0-0.5); Lymphocytes Absolute Auto 1.9 10^3/uL (1.2-3.8); Lymphocytes Percent Auto 14.7 % (20.5-60.0); Mean Corpuscular HGB Conc 30.2 g/dL (29.9-35.2); Mean Corpuscular Hemoglobin 29.5 pg (25.9-34.0); Mean Corpuscular Volume 97.7 fL (80.0-94.0); Mean Platelet Volume 9.5 fL (9.5-13.5); Monocytes Absolute Auto 1.1 10^3/uL (0.3-0.8); Monocytes Percent Auto 8.6 % (1.7-12.0); Neutrophils Absolute Auto 9.5 10^3/uL (1.4-6.5); Neutrophils Percent Auto 74.3 % (43.0-75.0); Platelet Count 321 10^3/uL (150-450); Red Blood Count 3.02 10^6/uL (4.70-6.10); Red Cell Distribution Width 16.2 % (11.0-15.0); White Blood Count 12.8 10^3/uL (4.0-11.0)
[2023-05-15 06:14] LABS: Alanine Aminotransferase 30 U/L (16-63); Albumin Globulin Ratio 0.7; Albumin Level 2.3 g/dL (3.4-5.0); Alkaline Phosphatase 82 U/L (46-116); Anion Gap 12.4; Aspartate Amino Transferase 49 U/L (15-37); BUN Creatinine Ratio 17.3; Bilirubin Total 0.4 mg/dL (0.2-1.0); Calcium 7.9 mg/dL (8.5-10.1); Carbon Dioxide 21.4 mmol/L (21.0-32.0); Chloride 111 mmol/L (98-107); Estimated GFR (African America 29 (>=60); Estimated GFR (Non-African Ame 24 (>=60); Globulin 3.5 g/dL; Glucose 102 mg/dL (74-106); Magnesium 2.3 mg/dL (1.8-2.4); Potassium 3.8 mmol/L (3.5-5.1); Sodium 141 mmol/L (136-145); Total Protein 5.8 g/dL (6.4-8.2)
[2023-05-15] MEDS: LORAZEPAM 1 MG TABLET PO (07:41)
[2023-05-15] MEDS: FOLIC ACID 1 MG TABLET PO (08:10)
[2023-05-15] MEDS: AMLODIPINE BESYLATE 5 MG TABLET 10 MG PO (08:10)
[2023-05-15] MEDS: LIOTHYRONINE SODIUM 5 MCG TABLET PO (08:10)
[2023-05-15] MEDS: POTASSIUM CHLORIDE 10 MEQ ER TABLET PO ×2 (08:11→21:05)
[2023-05-15] MEDS: DONEPEZIL HCL 10 MG TABLET PO ×2 (08:11→21:05)
[2023-05-15 08:27] LABS: INR 1.68; Prothrombin Time 17.3 sec (9.0-11.6)
--- NOTE | 2023-05-15 08:36 | P.HP_ITS ---
H&P: HPI History of Present Illness Chief complaint: SENT BY DR SAINI GI Bleed Anemia Narrative: Was scheduled for an office visit, upon presentation in the office he could hardly walk, very pale, referred to ER, in ER found to have acute upper GI blood loss anemia secondary to acute upper gastrointestinal bleeding. Hemoglobin less than 7, with altered mental status, patient was admitted for workup and treatment of same. Patient does have baseline dementia. did not think his dementia was significantly worsening his baseline. Review of Systems ROS Status of ROS 10 or more systems reviewed and unremark able except as noted in history and below PFSH PFS Medical History (Updated 05/14/23 @ 16:05 by Hyun Recinos) High blood cholesterol ?E78.00 - Pure hypercholesterolemia, unspecified (ICD-10) Epilepsy ?G40.909 - Epilepsy, unspecified, not intractable, without status epilepticus (ICD-10) Pulmonary emboli ?I26.99 - Other pulmonary embolism without acute cor pulmonale (ICD-10) Renal failure ?N19 - Unspecified kidney failure (ICD-10) Hypertension ?I10 - Essential (primary) hypertension (ICD-10) Lung malignancy ?C34.90 - Malignant neoplasm of unspecified part of unspecified bronchus or lung (ICD-10) Port-A-Cath in place ?Z95.828 - Presence of other vascular implants and grafts (ICD-10) Surgical History (Updated 05/14/23 @ 16:03 by Hyun Recinos) 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 - Acquired absence of lung [part of] (ICD-10) Cataracts, both eyes ?H26.9 - Unspecified cataract (ICD-10) FH: cholecystectomy ?Z83.79 - Family history of other diseases of the digestive system (ICD-10) Family History (Updated 05/14/23 @ 14:35 by Sky Kirk) Other Amnesia Anemia COPD (chronic obstructive pulmonary disease) Chronic kidney disease Dementia Epilepsy Family history of hypertension Hyperlipemia Hypersomnia Hypothyroidism Insomnia Lung cancer Obesity Osteoarthritis of right knee Pulmonary embolism Sleep apnea Social History Smoking status: Former smoker Highest level of school completed/degree received: Bachelor's degree Gender Identity: male Meds Home Medications and Allergies Home Medications Medication Instructions Recorded Confirmed Type albuterol sulfate 90 mcg/actuation 2 puff inhalation Q4H PRN 01/01/23 05/14/23 History aerosol inhaler shortness of breath or wheezing amlodipine 10 mg tablet 10 mg PO DAILY 01/01/23 05/14/23 History donepezil 10 mg tablet 10 mg PO BID 01/01/23 05/14/23 History doxepin 10 mg capsule 20 mg PO BEDTIME 01/01/23 05/14/23 History folic acid 1 mg tablet 1 mg PO DAILY 01/01/23 05/14/23 History lamotrigine 200 mg tablet 200 mg PO TID 01/01/23 05/14/23 History levothyroxine 75 mcg tablet 75 mcg PO DAILY 01/01/23 05/14/23 History lorazepam 0.5 mg tablet 1 mg PO DAILY PRN agitation 01/01/23 05/14/23 History mirtazapine 45 mg tablet 45 mg PO BEDTIME 01/01/23 05/14/23 History potassium chloride 10 mEq 10 meq PO BID 01/01/23 05/14/23 History tablet,extended release quetiapine 50 mg tablet 75 mg PO BEDTIME 01/01/23 05/14/23 History simvastatin 20 mg tablet 20 mg PO BEDTIME 01/01/23 05/14/23 History warfarin 2.5 mg tablet 2.5 mg PO .COMPLEX 01/01/23 05/14/23 History liothyronine 5 mcg tablet 5 mcg PO QD 05/14/23 05/14/23 History Allergies Allergy/AdvReac Type Severity Reaction Status Date / Time tetanus and diphtheria Allergy Mild Rash Verified 01/01/23 07:58 toxoids Exam Constitutional Vital Signs, click to edit/add: Last Vital Signs Temp 97.8 F 05/15/23 05:30 Pulse 88 05/15/23 05:30 Resp 14 05/15/23 05:30 BP 131/79 05/15/23 08:10 Pulse Ox 96 05/15/23 05:30 O2 Del Method Room Air 05/15/23 05:30 Documenting provider has reviewed patient's vital signs: yes Common normals: apparent distress (Agitated) Respiratory Common normals: normal respiratory effort Cardio Common normals: regular rate and regular rhythm GI Common normals: Normal to inspection, nondistended, normoactive bowel sounds present and soft to palpation Common normals: external exam normal (See wound care assessment for sacral decubitus) Neuro Common normals: CN's II-XII intact bilaterally and moves all extremities; not oriented x3 Results Labs Labs: Short CBC 05/14/23 05/14/23 05/15/23 Range/Units 14:02 23:16 05:40 WBC 13.5 H 11.6 H 12.8 H (4.0-11.0) 10^3/uL Hgb 6.6 L* 8.1 L 8.9 L (14.0-18.0) g/dL Hct 20.8 L* 24.7 L 29.5 L (42.0-54.0) % Plt Count 416 327 321 (150-450) 10^3/uL BMP 05/14/23 05/15/23 14:02 05:40 Sodium 140 141 Potassium 3.9 3.8 Chloride 107 111 H Carbon Dioxide 26.9 21.4 BUN 56.0 H 46.0 H Creatinine 3.06 H 2.66 H Glucose 113 H 102 Calcium 8.2 L 7.9 L Liver Function 05/14/23 05/15/23 Range/Units 14:02 05:40 Total Bilirubin 0.3 0.4 (0.2-1.0) mg/dL Direct Bilirubin 0.1 (0.0-0.2) mg/dL AST 51 H 49 H (15-37) U/L ALT 35 30 (16-63) U/L Alkaline Phosphatase 86 82 (46-116) U/L Albumin 2.6 L 2.3 L (3.4-5.0) g/dL Assessment and Plan Assessment and Plan (1) GI bleed: Plan Was 12 a recently, now down less than 7, acute upper gastrointestinal blood loss anemia secondary to acute upper gastrointestinal bleeding with positive Hemoccult. He was given 2 units. Good increase in his hemoglobin up to just over 2 points. Seems to be stable so far. Will continue to monitor. Leukocytosis-has large wound, also waiting on urinalysis. Likely related to either 1 or both. Changed antibiotics to assess his wound. Should cover any UTI as well. History of UTI Large sacral decubitus-see wound care assessment, discussed plan with wound care team. Continue with antibiotics as outlined above, blood cultures pending Altered mental status in a patient with baseline dementia-difficult to understand with his speech today, definitely not oriented. Little bit of pressure with his speech today. With care needed for the wound and his dementia, recommend rehabilitation. He is an excellent rehabilitation candidate as I do believe this wound is recoverable. Dementia is at his baseline. Per . Acute kidney injury likely secondary to the acute upper gastrointestinal blood loss anemia-monitor daily Elevated BNP-monitor daily With the severity of his bleed on admission. His altered mental status. The wound. He will need to be inpatient status for 3 to 4 days. Medical treatment to span then over 2 midnights. Keep patient inpatient status
--- NOTE | 2023-05-15 09:39 | PC.NURSE ---
Two 22g IV starts were attempted on the right arm distally. Patient tolerated procedure well. Sites covered with gauze and tape with small amount of bruising noted.
[2023-05-15] MEDS: PIPERACILLIN SODIUM/TAZOBACTAM 3.375 GM in 0.9 % SODIUM CHLORIDE 50 ML IV ×2 (10:09→16:59)
[2023-05-15 10:11] LABS: Bilirubin Urine NEGATIVE (NEGATIVE); Blood Urine TRACE-I (NEGATIVE); Clarity Urine CLEAR (CLEAR); Color Urine LT. YELLOW (YELLOW); Glucose Urine UA NEGATIVE (NEGATIVE); Ketones Urine NEGATIVE (NEGATIVE); Leukocyte Esterase Urine NEGATIVE (NEGATIVE); Nitrite Urine NEGATIVE (NEGATIVE); Protein Urine NEGATIVE (NEG/TRACE); Specific Gravity Urine 1.015 (1.005-1.025); Urobilinogen Urine 0.2 EU/dL (0.2-1.0); pH Urine 5.5 (5.0-9.0)
[2023-05-15 10:56] LABS: Bacteria Urine NONE SEEN #/HPF (NONE SEEN); Cast Seen? NONE SEEN #/LPF (NONE SEEN); Crystals Seen? None Seen #/HPF (None Seen); Mucus Urine NONE SEEN (NONE SEEN); RBC Urine 0-2 #/HPF (0-2); Squamous Epithelial Cell Urine RARE #/LPF (NONE/RARE); WBC Urine NONE SEEN #/HPF (NONE SEEN)
--- NOTE | 2023-05-15 11:53 | W.PM.WC_ITS ---
Wound Consult Note Assessment and Plan (1) Anemia: Plan Consult: Buttocks ulcer Consulted to see patient today for perianal ulceration. Patient is having frequent episodes of incontinence stooling. Area around anus is open and bleeding with irregular borders. Skin that is open is touching when buttocks are relaxed. 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 Patient is also wearing an incontinence brief that can hold in moisture as well. Due to frequent stooling, triad paste may not be the best option due to difficulty in cleansing area with the tarry type stools patient is currently having. Pinvax may also be an option, but with the ingredients it could cause some itching and irritation. Upon inspection of the rest of the patient's skin, he is noted to have very dry, cracked skin on bilateral heels and feet. Patient also has severely elongated and thickened toenails digits 1-10. Discussed care at home with that states she does not use lotion on his feet and she would appreciate toenails being trimmed. All toenails were trimmed down with nail nippers. Recommendations: Lac-Hydrin lotion twice daily to bilateral heels Stomahesive powder to open perianal ulcerations with every incontinence hugo ansing Please call [phone] with any questions or concerns. Nikolai Quach, OZZY, RN, CWON
[2023-05-15] MEDS: LAMOTRIGINE 100 MG TABLET 200 MG PO ×2 (14:00→21:05)
--- NOTE | 2023-05-15 14:58 | CM.NOTE ---
Discussed with pt's regarding PT evaluation and recommendations. is in agreement to skilled therapy at discharge. and pt given [employer] 5 star rating list for facilities. Decision was made for [facility] in [place]. Faxed clinical for new referral.
[2023-05-15] MEDS: LORAZEPAM 2 MG/ML 1 ML VIAL 1 MG IV (16:24)
[2023-05-15] MEDS: MIRTAZAPINE 15 MG TABLET 45 MG PO (21:05)
[2023-05-15] MEDS: DOXEPIN HCL 10 MG CAPSULE 20 MG PO (21:05)
[2023-05-15] MEDS: QUETIAPINE FUMARATE 25 MG TABLET 75 MG PO (21:05)
[2023-05-15] MEDS: ATORVASTATIN CALCIUM 10 MG TABLET PO (21:05)
[2023-05-15] MEDS: AMMONIUM LACTATE 226 GM BOTTLE 1 APPLIC TOPICAL (21:05)
[2023-05-15] MEDS: PANTOPRAZOLE SODIUM 40 MG VIAL IV (21:50)
[2023-05-16] MEDS: LORAZEPAM 1 MG TABLET PO ×2 (03:44→18:43)
--- NOTE | 2023-05-16 04:48 | PC.NURSE ---
0420: Pt ripped out IV, 2 RNs tried to poke pt and were unsuccessful for a total of 5 attempts. Tele VIDEO PHOTOGRAPHER notified and stated to document and he would pass it along to [facility] hosp.
[2023-05-16] MEDS: LEVOTHYROXINE SODIUM 75 MCG TABLET PO (05:11)
[2023-05-16] MEDS: LAMOTRIGINE 100 MG TABLET 200 MG PO ×3 (05:11→20:32)
[2023-05-16 05:12] VITALS: BP 133/71; PULSE 82; RESP 18; TEMP 36.6; O2SAT 94
[2023-05-16 05:41] LABS: Basophils Absolute Auto 0.1 10^3/uL (0.0-0.1); Basophils Percent Auto 0.8 % (0.2-2.0); Eosinophils Absolute Auto 0.3 10^3/uL (0.0-0.7); Eosinophils Percent Auto 3.2 % (0.9-7.0); Hematocrit 27.8 % (42.0-54.0); Hemoglobin 8.8 g/dL (14.0-18.0); Immature Granulocytes Abs Auto 0.05 10^3/uL (0.00-0.03); Immature Granulocytes Pct Auto 0.6 % (0.0-0.5); Lymphocytes Percent Auto 11.4 % (20.5-60.0); Mean Corpuscular HGB Conc 31.7 g/dL (29.9-35.2); Mean Corpuscular Volume 91.7 fL (80.0-94.0); Mean Platelet Volume 9.2 fL (9.5-13.5); Monocytes Absolute Auto 0.8 10^3/uL (0.3-0.8); Monocytes Percent Auto 9.2 % (1.7-12.0); Neutrophils Absolute Auto 6.7 10^3/uL (1.4-6.5); Neutrophils Percent Auto 74.8 % (43.0-75.0); Platelet Count 355 10^3/uL (150-450); Red Blood Count 3.03 10^6/uL (4.70-6.10); Red Cell Distribution Width 15.9 % (11.0-15.0)
[2023-05-16] MEDS: PIPERACILLIN SODIUM/TAZOBACTAM 3.375 GM in 0.9 % SODIUM CHLORIDE 50 ML IV ×3 (05:41→20:32)
[2023-05-16 05:52] LABS: INR 1.16; Prothrombin Time 12.2 sec (9.0-11.6)
[2023-05-16 06:04] LABS: Alanine Aminotransferase 28 U/L (16-63); Albumin Globulin Ratio 0.7; Albumin Level 2.4 g/dL (3.4-5.0); Alkaline Phosphatase 78 U/L (46-116); Anion Gap 10.8; Aspartate Amino Transferase 30 U/L (15-37); BUN Creatinine Ratio 12.9; Bilirubin Total 0.4 mg/dL (0.2-1.0); Calcium 8.2 mg/dL (8.5-10.1); Chloride 109 mmol/L (98-107); Estimated GFR (African America 32 (>=60); Estimated GFR (Non-African Ame 27 (>=60); Globulin 3.6 g/dL; Glucose 105 mg/dL (74-106); Magnesium 2.3 mg/dL (1.8-2.4); Potassium 3.8 mmol/L (3.5-5.1); Sodium 144 mmol/L (136-145)
--- NOTE | 2023-05-16 08:00 | PC.NURSE ---
Patient is resting with eyes closed, assessment parts that could be completed while patient was resting were completed. RN observed patient moving all 4 limbs freely while patients eyes closed and patient was trying to cover himself up. RN can hear patient snoring, respirations are equal.
--- NOTE | 2023-05-16 10:29 | PT.DAILY ---
Physical Therapy Daily Note PT Daily Note/Assess Start: 05/16/23 10:26 Freq: Status: Active Protocol: Document 05/16/23 10:27 [id number] (Rec: 05/16/23 10:29 [id number]) Visit Not Completed Visit Not Completed Visit Not Completed Due to: Nursing request to hold,Other Other Reason Visit Not Completed Attempted x 2. 1st attempt AIDA Alvarez requested patient to be allowed to sleep. 2nd attempt requests patient be allowed to sleep until he wakes up on his own per AIDA Alvarez. Physical Therapy Daily Note/Assessment Time In/Time Out Time In 10:24 Time Out 10:27 Summary Daily Note Summary Patient treatment held this date per request of nursing to allow patient to sleep. GG. Functional Abilities and Goals-Complete for Swing Bed Patients Only [id number]. Self-Care [id number]. Mobility
[2023-05-16] MEDS: FOLIC ACID 1 MG TABLET PO (11:00)
[2023-05-16] MEDS: DONEPEZIL HCL 10 MG TABLET PO ×2 (11:00→20:32)
[2023-05-16] MEDS: AMMONIUM LACTATE 226 GM BOTTLE 1 APPLIC TOPICAL ×2 (11:00→20:33)
[2023-05-16] MEDS: AMLODIPINE BESYLATE 5 MG TABLET 10 MG PO (11:00)
[2023-05-16] MEDS: POTASSIUM CHLORIDE 10 MEQ ER TABLET PO ×2 (11:00→20:31)
[2023-05-16] MEDS: LIOTHYRONINE SODIUM 5 MCG TABLET PO (11:00)
[2023-05-16 11:33] VITALS: O2SAT 94
--- NOTE | 2023-05-16 11:48 | P.PN_ITS ---
Progress Note: Subjective Subjective Interval history: Sedated somewhat this morning but also restless once aroused does not open eyes Exam Constitutional Vital Signs, click to edit/add: Last Vital Signs Temp 97.9 F 05/16/23 05:12 Pulse 82 05/16/23 05:12 Resp 18 05/16/23 05:12 BP 133/71 05/16/23 05:12 Pulse Ox 94 L 05/16/23 11:33 O2 Del Method Room Air 05/16/23 11:33 Documenting provider has reviewed patient's vital signs: yes Common normals: apparent distress (Agitated) Respiratory Common normals: normal respiratory effort Cardio Common normals: regular rate and regular rhythm GI Common normals: Normal to inspection, nondistended, normoactive bowel sounds present and soft to palpation Common normals: external exam normal (See wound care assessment for sacral decubitus) Neuro Common normals: CN's II-XII intact bilaterally and moves all extremities; not oriented x3 Progress Note: Objective Labs Labs: Short CBC 05/16/23 Range/Units 05:30 WBC 9.0 (4.0-11.0) 10^3/uL Hgb 8.8 L (14.0-18.0) g/dL Hct 27.8 L (42.0-54.0) % Plt Count 355 (150-450) 10^3/uL BMP 05/16/23 05:30 Sodium 144 Potassium 3.8 Chloride 109 H Carbon Dioxide 28.0 BUN 31.0 H Creatinine 2.40 H Glucose 105 Calcium 8.2 L Liver Function 05/16/23 Range/Units 05:30 Total Bilirubin 0.4 (0.2-1.0) mg/dL AST 30 (15-37) U/L ALT 28 (16-63) U/L Alkaline Phosphatase 78 (46-116) U/L Albumin 2.4 L (3.4-5.0) g/dL Progress Note: A&P Assessment and Plan (1) GI bleed: Plan Was hgb 12 a recently, now down less than 7, acute upper gastrointestinal blood loss anemia secondary to acute upper gastrointestinal bleeding with positive Hemoccult. Blood count down a little bit today but otherwise stable Leukocytosis-has large wound, also waiting on urinalysis. Likely related to either 1 or both. Continue with current antibiotics, white blood cell count improving Large sacral decubitus-see wound care assessment, discussed plan with wound care team. Continue with antibiotics as outlined above, blood cultures pending Altered mental status in a patient with baseline dementia-will check on mental status later today. Early in the day today could be just sedation from overnight With care needed for the wound and his dementia, recommend rehabilitation. He is an excellent rehabilitation candidate as I do believe this wound is recoverable. Dementia is at his baseline. Per . Acute kidney injury likely secondary to the acute upper gastrointestinal blood loss anemia-monitor daily Elevated BNP-monitor daily-improved today With the severity of his bleed on admission. His altered mental status. The wound. He will need to be inpatient status for 3 to 4 days. Total medical treatment to span then over 2 midnights. Keep patient inpatient status.
[2023-05-16 14:02] VITALS: BP 133/78; PULSE 85; RESP 16; TEMP 36.7; O2SAT 94
[2023-05-16] MEDS: DOXEPIN HCL 10 MG CAPSULE 20 MG PO (20:31)
[2023-05-16] MEDS: ATORVASTATIN CALCIUM 10 MG TABLET PO (20:31)
[2023-05-16] MEDS: MIRTAZAPINE 15 MG TABLET 45 MG PO (20:31)
[2023-05-16] MEDS: ZIPRASIDONE MESYLATE 20 MG, WATER FOR INJECTION,STERILE 1.2 ML IM (20:33)
[2023-05-16 20:53] VITALS: BP 138/80; PULSE 89; RESP 18; TEMP 37.3; O2SAT 93
[2023-05-16] MEDS: QUETIAPINE FUMARATE 100 MG TABLET PO (21:21)
[2023-05-16] MEDS: PANTOPRAZOLE SODIUM 40 MG VIAL IV (21:44)
[2023-05-16] MEDS: QUETIAPINE FUMARATE 25 MG TABLET PO (23:11)
[2023-05-17] VITALS (15 sets, daily range): BP systolic 75–149; BP diastolic 60–102; PULSE 62–82; RESP 16–18; TEMP 36.6–36.8; O2SAT 78–100
[2023-05-17] MEDS: LORAZEPAM 1 MG TABLET PO ×4 (00:30→21:14)
[2023-05-17] MEDS: ZIPRASIDONE MESYLATE 20 MG, WATER FOR INJECTION,STERILE 1.2 ML IM (04:25)
[2023-05-17] MEDS: PIPERACILLIN SODIUM/TAZOBACTAM 3.375 GM in 0.9 % SODIUM CHLORIDE 50 ML IV ×3 (05:54→21:09)
[2023-05-17 06:12] LABS: Basophils Absolute Auto 0.1 10^3/uL (0.0-0.1); Basophils Percent Auto 0.7 % (0.2-2.0); Eosinophils Absolute Auto 0.2 10^3/uL (0.0-0.7); Eosinophils Percent Auto 2.5 % (0.9-7.0); Hematocrit 27.4 % (42.0-54.0); Hemoglobin 8.6 g/dL (14.0-18.0); Immature Granulocytes Abs Auto 0.03 10^3/uL (0.00-0.03); Immature Granulocytes Pct Auto 0.3 % (0.0-0.5); Lymphocytes Absolute Auto 1.3 10^3/uL (1.2-3.8); Lymphocytes Percent Auto 14.8 % (20.5-60.0); Mean Corpuscular HGB Conc 31.4 g/dL (29.9-35.2); Mean Corpuscular Volume 92.3 fL (80.0-94.0); Mean Platelet Volume 9.7 fL (9.5-13.5); Monocytes Absolute Auto 0.8 10^3/uL (0.3-0.8); Neutrophils Absolute Auto 6.6 10^3/uL (1.4-6.5); Neutrophils Percent Auto 72.7 % (43.0-75.0); Platelet Count 402 10^3/uL (150-450); Red Blood Count 2.97 10^6/uL (4.70-6.10); Red Cell Distribution Width 15.9 % (11.0-15.0); White Blood Count 9.1 10^3/uL (4.0-11.0)
[2023-05-17 06:25] LABS: INR 1.16; Prothrombin Time 12.2 sec (9.0-11.6)
[2023-05-17 06:35] LABS: Alanine Aminotransferase 27 U/L (16-63); Albumin Globulin Ratio 0.7; Albumin Level 2.4 g/dL (3.4-5.0); Alkaline Phosphatase 72 U/L (46-116); Anion Gap 11.8; Aspartate Amino Transferase 27 U/L (15-37); BUN Creatinine Ratio 9.8; Bilirubin Total 0.3 mg/dL (0.2-1.0); Calcium 8.3 mg/dL (8.5-10.1); Carbon Dioxide 27.2 mmol/L (21.0-32.0); Chloride 108 mmol/L (98-107); Estimated GFR (African America 35 (>=60); Estimated GFR (Non-African Ame 29 (>=60); Globulin 3.5 g/dL; Glucose 85 mg/dL (74-106); Magnesium 2.2 mg/dL (1.8-2.4); Sodium 143 mmol/L (136-145); Total Protein 5.9 g/dL (6.4-8.2)
--- NOTE | 2023-05-17 09:12 | P.PN_ITS ---
Progress Note: Subjective Subjective Interval history: Very difficult night. Very restless. Will adjust medications. Given IV Ativan this morning with some success. Patient calm currently sedated Exam Constitutional Vital Signs, click to edit/add: Last Vital Signs Temp 99.1 F 05/16/23 20:53 Pulse 89 05/16/23 20:53 Resp 18 05/16/23 20:53 BP 138/80 05/16/23 20:53 Pulse Ox 93 L 05/16/23 20:53 O2 Del Method Room Air 05/16/23 20:53 Documenting provider has reviewed patient's vital signs: yes Common normals: apparent distress (Agitated) Respiratory Common normals: normal respiratory effort Cardio Common normals: regular rate and regular rhythm GI Common normals: Normal to inspection, nondistended, normoactive bowel sounds present and soft to palpation Common normals: external exam normal (See wound care assessment for sacral decubitus) Neuro Common normals: CN's II-XII intact bilaterally and moves all extremities; not oriented x3 Progress Note: Objective Labs Labs: Short CBC 05/17/23 Range/Units 04:15 WBC 9.1 (4.0-11.0) 10^3/uL Hgb 8.6 L (14.0-18.0) g/dL Hct 27.4 L (42.0-54.0) % Plt Count 402 (150-450) 10^3/uL BMP 05/17/23 04:15 Sodium 143 Potassium 4.0 Chloride 108 H Carbon Dioxide 27.2 BUN 22.0 H Creatinine 2.24 H Glucose 85 Calcium 8.3 L Liver Function 05/17/23 Range/Units 04:15 Total Bilirubin 0.3 (0.2-1.0) mg/dL AST 27 (15-37) U/L ALT 27 (16-63) U/L Alkaline Phosphatase 72 (46-116) U/L Albumin 2.4 L (3.4-5.0) g/dL Progress Note: A&P Assessment and Plan (1) GI bleed: Plan Was hgb 12 a recently, now down less than 7, acute upper gastrointestinal blood loss anemia secondary to acute upper gastrointestinal bleeding with positive Hemoccult. HGB stable Leukocytosis-has large wound, also waiting on urinalysis. Likely related to either 1 or both. Continue with current antibiotics, white blood cell count stable Large sacral decubitus-see wound care assessment, discussed plan with wound care team. Continue with antibiotics as outlined above, blood cultures pending Altered mental status in a patient with baseline dementia-continue to adjust medications to keep patient noncombative but alert With care needed for the wound and his dementia, recommend rehabilitation. He is an excellent rehabilitation candidate as I do believe this wound is recoverable. Dementia is at his baseline. Per . Acute kidney injury likely secondary to the acute upper gastrointestinal blood loss anemia-creatinine up slightly today, continue to monitor Elevated BNP-monitor daily-resolved History of pulmonary embolism-now with the upper GI bleed. Hemoglobin fairly stable, will restart patient on Eliquis. Patient high risk for recurrent embolism as she has a history of lung cancer. low-dose Eliquis secondary to bleeding With the severity of his bleed on admission. His altered mental status. The wound. He will need to be inpatient status for 2 to 3 days. Total medical treatment to span then over 2 midnights. Keep patient inpatient status. Urinary Catheter Management Urinary Catheter Management Urethral: Cath placed during this visit: yes Urethral indwelling: Yes Reason for continuing: measure accurate output Insertion date: 05/17/23 Insertion time: 01:15
[2023-05-17] MEDS: LORAZEPAM 2 MG/ML 1 ML VIAL 1 MG IV (12:42)
[2023-05-17] MEDS: AMMONIUM LACTATE 226 GM BOTTLE 1 APPLIC TOPICAL ×2 (12:58→20:11)
[2023-05-17] MEDS: LIOTHYRONINE SODIUM 5 MCG TABLET PO (13:06)
[2023-05-17] MEDS: FOLIC ACID 1 MG TABLET PO (13:06)
[2023-05-17] MEDS: POTASSIUM CHLORIDE 10 MEQ ER TABLET PO ×2 (13:06→20:10)
[2023-05-17] MEDS: LAMOTRIGINE 100 MG TABLET 200 MG PO ×2 (13:06→20:10)
[2023-05-17] MEDS: FERROUS SULFATE 325 MG TABLET PO ×2 (13:06→20:10)
[2023-05-17] MEDS: APIXABAN 5 MG TABLET 2.5 MG PO ×2 (13:06→20:10)
[2023-05-17] MEDS: DONEPEZIL HCL 10 MG TABLET PO ×2 (13:07→20:10)
[2023-05-17] MEDS: HALOPERIDOL LACTATE 5 MG/ML VIAL 1 MG IV ×3 (15:58→23:34)
[2023-05-17] MEDS: DOXEPIN HCL 10 MG CAPSULE 20 MG PO (20:10)
[2023-05-17] MEDS: ATORVASTATIN CALCIUM 10 MG TABLET PO (20:10)
[2023-05-17] MEDS: MIRTAZAPINE 15 MG TABLET 60 MG PO (21:08)
[2023-05-17] MEDS: QUETIAPINE FUMARATE 25 MG TABLET 50 MG PO (21:08)
[2023-05-17] MEDS: PANTOPRAZOLE SODIUM 40 MG VIAL IV (21:09)
[2023-05-17] MEDS: QUETIAPINE FUMARATE 100 MG TABLET PO (21:09)
[2023-05-18] VITALS (13 sets, daily range): BP systolic 131–154; BP diastolic 79–87; PULSE 66–81; RESP 16–18; TEMP 36.8; O2SAT 96–99
[2023-05-18] MEDS: LORAZEPAM 1 MG TABLET PO ×2 (01:26→08:44)
[2023-05-18 04:35] LABS: Basophils Percent Auto 0.4 % (0.2-2.0); Eosinophils Absolute Auto 0.2 10^3/uL (0.0-0.7); Eosinophils Percent Auto 2.1 % (0.9-7.0); Hematocrit 28.6 % (42.0-54.0); Immature Granulocytes Abs Auto 0.04 10^3/uL (0.00-0.03); Immature Granulocytes Pct Auto 0.4 % (0.0-0.5); Lymphocytes Absolute Auto 1.1 10^3/uL (1.2-3.8); Lymphocytes Percent Auto 11.4 % (20.5-60.0); Mean Corpuscular HGB Conc 31.5 g/dL (29.9-35.2); Mean Corpuscular Hemoglobin 29.2 pg (25.9-34.0); Mean Corpuscular Volume 92.9 fL (80.0-94.0); Mean Platelet Volume 9.2 fL (9.5-13.5); Monocytes Absolute Auto 0.7 10^3/uL (0.3-0.8); Monocytes Percent Auto 7.3 % (1.7-12.0); Neutrophils Absolute Auto 7.7 10^3/uL (1.4-6.5); Neutrophils Percent Auto 78.4 % (43.0-75.0); Platelet Count 366 10^3/uL (150-450); Red Blood Count 3.08 10^6/uL (4.70-6.10); Red Cell Distribution Width 15.8 % (11.0-15.0); White Blood Count 9.9 10^3/uL (4.0-11.0)
[2023-05-18 05:00] LABS: Alanine Aminotransferase 23 U/L (16-63); Albumin Globulin Ratio 0.6; Albumin Level 2.4 g/dL (3.4-5.0); Alkaline Phosphatase 78 U/L (46-116); Anion Gap 9.8; Aspartate Amino Transferase 25 U/L (15-37); Bilirubin Total 0.3 mg/dL (0.2-1.0); Calcium 8.4 mg/dL (8.5-10.1); Carbon Dioxide 29.4 mmol/L (21.0-32.0); Chloride 108 mmol/L (98-107); Estimated GFR (African America 35 (>=60); Estimated GFR (Non-African Ame 29 (>=60); Globulin 3.8 g/dL; Glucose 90 mg/dL (74-106); Magnesium 2.2 mg/dL (1.8-2.4); Potassium 4.2 mmol/L (3.5-5.1); Sodium 143 mmol/L (136-145); Total Protein 6.2 g/dL (6.4-8.2)
[2023-05-18] MEDS: PIPERACILLIN SODIUM/TAZOBACTAM 3.375 GM in 0.9 % SODIUM CHLORIDE 50 ML 12.9000000000000004 GM IV (06:11)
[2023-05-18] MEDS: LAMOTRIGINE 100 MG TABLET 200 MG PO ×3 (06:11→20:09)
[2023-05-18] MEDS: LEVOTHYROXINE SODIUM 75 MCG TABLET PO (06:11)
--- NOTE | 2023-05-18 07:58 | P.PN_ITS ---
Progress Note: Subjective Subjective Interval history: Very difficult night. Very restless. Will adjust medications. Given IV Ativan this morning with some success. Patient calm currently sedated Exam Constitutional Vital Signs, click to edit/add: Last Vital Signs Temp 98.3 F 05/18/23 06:16 Pulse 81 05/18/23 07:30 Resp 18 05/18/23 07:30 BP 131/79 05/18/23 07:30 Pulse Ox 97 05/18/23 07:30 O2 Del Method Room Air 05/18/23 07:30 Progress Note: Objective Labs Labs: Short CBC 05/18/23 Range/Units 03:57 WBC 9.9 (4.0-11.0) 10^3/uL Hgb 9.0 L (14.0-18.0) g/dL Hct 28.6 L (42.0-54.0) % Plt Count 366 (150-450) 10^3/uL BMP 05/18/23 03:57 Sodium 143 Potassium 4.2 Chloride 108 H Carbon Dioxide 29.4 BUN 18.0 Creatinine 2.24 H Glucose 90 Calcium 8.4 L Liver Function 05/18/23 Range/Units 03:57 Total Bilirubin 0.3 (0.2-1.0) mg/dL AST 25 (15-37) U/L ALT 23 (16-63) U/L Alkaline Phosphatase 78 (46-116) U/L Albumin 2.4 L (3.4-5.0) g/dL Progress Note: A&P Assessment and Plan (1) GI bleed: Plan Was hgb 12 a recently, now down less than 7, acute upper gastrointestinal blood loss anemia secondary to acute upper gastrointestinal bleeding with positive Hemoccult. HGB stable = continue to monitor Leukocytosis-has large wound, also waiting on urinalysis. Likely related to either 1 or both. Continue with current antibiotics, white blood cell count stable Large sacral decubitus-see wound care assessment, discussed plan with wound care team. Continue with antibiotics as outlined above, blood cultures pending L Altered mental status in a patient with baseline dementia-continue to adjust Seroquel higher, consult to teleneurology for recommendations for sedation, use Zyprexa during the day [id number], if too sedated will hold With care needed for the wound and his dementia, recommend rehabilitation. He is an excellent rehabilitation candidate as I do believe this wound is recoverable. Dementia is at his baseline. Per . Acute kidney injury likely secondary to the acute upper gastrointestinal blood loss anemia-creatinine up slightly today, continue to monitor Elevated BNP-monitor daily-resolved History of pulmonary embolism-now with the upper GI bleed. Hemoglobin fairly stable, will restart patient on Eliquis. Patient high risk for recurrent embolism as she has a history of lung cancer. low-dose Eliquis secondary to bleeding With the severity of his bleed on admission. His altered mental status. The wound. He will need to be inpatient status for 2 to 3 days. Total medical treatment to span then over 2 midnights. Keep patient inpatient status. Urinary Catheter Management Urinary Catheter Management Urethral: Cath placed during this visit: yes Urethral indwelling: Yes Reason for continuing: measure accurate output Insertion date: 05/17/23 Insertion time: 01:15
[2023-05-18] MEDS: AMLODIPINE BESYLATE 5 MG TABLET 10 MG PO (08:43)
[2023-05-18] MEDS: FOLIC ACID 1 MG TABLET PO (08:43)
[2023-05-18] MEDS: ACETAMINOPHEN 500 MG TABLET 1000 MG PO ×2 (08:43→18:01)
[2023-05-18] MEDS: CLONIDINE HCL 0.1 MG TABLET 0.100000000000000006 MG PO ×2 (08:44→20:08)
[2023-05-18] MEDS: APIXABAN 5 MG TABLET 2.5 MG PO ×2 (08:44→20:09)
[2023-05-18] MEDS: OLANZapine 5 MG TABLET SL ×3 (08:44→20:07)
[2023-05-18] MEDS: DONEPEZIL HCL 10 MG TABLET PO ×2 (08:44→20:07)
[2023-05-18] MEDS: FERROUS SULFATE 325 MG TABLET PO ×2 (08:44→20:07)
[2023-05-18] MEDS: LIOTHYRONINE SODIUM 5 MCG TABLET PO (08:44)
[2023-05-18] MEDS: POTASSIUM CHLORIDE 10 MEQ ER TABLET PO ×2 (08:44→20:09)
[2023-05-18] MEDS: AMMONIUM LACTATE 226 GM BOTTLE 1 APPLIC TOPICAL ×2 (08:45→20:32)
--- NOTE | 2023-05-18 09:18 | PC.NURSE ---
0739 pavithra soft wrist restraints dc'd. pt re-directable, and follows directions. assisted up to recliner with plate corrector who remains at bedside.
--- NOTE | 2023-05-18 09:47 | SWNOTE1 ---
Valente has approved for pt to go to [facility]. Elisa is requesting medical updates. At this time pt is confused and in soft restraints. SW sent updated physician notes, labs, vitals, nursing notes, and PT/OT. Pt is not ready for dc today.
--- NOTE | 2023-05-18 11:45 | PT.DAILY ---
Physical Therapy Daily Note PT Daily Note/Assess Start: 05/16/23 10:26 Freq: Status: Active Protocol: Document 05/18/23 11:15 FLORENCIO (Rec: 05/18/23 11:45 FLORENCIO [id number]) Visit Not Completed Visit Not Completed Visit Not Completed Due to: Pt level of alertness, Inability to participate Other Reason Visit Not Completed Attempted patient 2x this AM. Both times patient is very groggy. Patient can not open eyes and hold conversation with therapist this morning. Will briefly answer a question , but then will fall asleep mid-sentence. At this time this commercial lines underwriter feels it's too unsafe to attempt ambulation with patient. Notified nursing . Physical Therapy Daily Note/Assessment Time In/Time Out Time In 11:15 Time Out 11:15 GG. Functional Abilities and Goals-Complete for Swing Bed Patients Only [id number]. Self-Care [id number]. Mobility
[2023-05-18] MEDS: PIPERACILLIN SODIUM/TAZOBACTAM 3.375 GM in 0.9 % SODIUM CHLORIDE 50 ML IV ×2 (13:18→20:09)
--- NOTE | 2023-05-18 13:55 | NUTR.NU ---
tel neuro completed. neurology given physicians contact info. physician to physician to be completed for recomendations.
--- NOTE | 2023-05-18 14:31 | CT_ITS ---
The [address] [address] Patient Name: OSVALDO RO MRN: [id number] date: 1950 Sex: M Assigned Patient Location: ICU Current Patient Location: ICU Accession/Order Number: [id number] Exam Date: 05/18/2023 14:48 Report Date: 05/18/2023 15:13 At the request of: DOMINGUEZ SAINI Procedure: CT head/brain wo con EXAMINATION: CT head/brain wo con HISTORY: ams , dementia COMPARISON: CT head 01/01/2023 TECHNIQUE: Axial CT images were obtained without IV contrast. Dose reduction techniques were achieved by using automated exposure control and/or adjustment of mA and/or kV according to patient size and/or use of iterative reconstruction technique. FINDINGS: BRAIN: No edema, hemorrhage, mass, acute infarction, or inappropriate atrophy. CSF SPACES: No hydrocephalus, subarachnoid hemorrhage, or mass. Appropriate for age. SKULL: No fracture, mass, or other significant visible lesion. SINUSES: Complete opacification of right maxillary sinus. ORBITS: No appreciable abnormality on the limited views. OTHER: Negative CT/CT head/brain wo con IMPRESSION: 1. No appreciable acute abnormality, mass, or suspicious findings. 2. Age consistent atrophy and mild chronic small vessel ischemic changes. 3. Complete consolidation of right maxillary sinus; chronic sinusitis versus fungal infection. No fluid levels to suggest acute infection. Electronically authenticated by: BONI ABBOTT Date: 05/18/2023 15:13
[2023-05-18 14:59] LABS: Ammonia 25 umol/L (11-32)
--- NOTE | 2023-05-18 18:51 | PC.NURSE ---
medication clarified with physician at this time.
[2023-05-18] MEDS: HALOPERIDOL LACTATE 5 MG/ML VIAL 1 MG IV ×2 (19:27→23:45)
[2023-05-18] MEDS: DOXEPIN HCL 10 MG CAPSULE 20 MG PO (20:08)
[2023-05-18] MEDS: MIRTAZAPINE 15 MG TABLET 60 MG PO (20:08)
[2023-05-18] MEDS: ATORVASTATIN CALCIUM 10 MG TABLET PO (20:09)
[2023-05-18] MEDS: QUETIAPINE FUMARATE 100 MG TABLET 200 MG PO (21:05)
[2023-05-18] MEDS: PANTOPRAZOLE SODIUM 40 MG VIAL IV (21:06)
[2023-05-19] VITALS (37 sets, daily range): BP systolic 103–147; BP diastolic 50–86; PULSE 71–89; RESP 17–20; TEMP 36.6–36.7; O2SAT 80–100
[2023-05-19] MEDS: HALOPERIDOL LACTATE 5 MG/ML VIAL 1 MG IV ×5 (01:48→23:58)
[2023-05-19 04:45] LABS: Basophils Percent Auto 0.3 % (0.2-2.0); Eosinophils Absolute Auto 0.3 10^3/uL (0.0-0.7); Eosinophils Percent Auto 2.2 % (0.9-7.0); Hematocrit 27.9 % (42.0-54.0); Hemoglobin 8.9 g/dL (14.0-18.0); Immature Granulocytes Abs Auto 0.04 10^3/uL (0.00-0.03); Immature Granulocytes Pct Auto 0.3 % (0.0-0.5); Lymphocytes Percent Auto 8.7 % (20.5-60.0); Mean Corpuscular HGB Conc 31.9 g/dL (29.9-35.2); Mean Corpuscular Hemoglobin 29.5 pg (25.9-34.0); Mean Corpuscular Volume 92.4 fL (80.0-94.0); Mean Platelet Volume 9.2 fL (9.5-13.5); Monocytes Absolute Auto 0.7 10^3/uL (0.3-0.8); Monocytes Percent Auto 6.2 % (1.7-12.0); Neutrophils Absolute Auto 9.6 10^3/uL (1.4-6.5); Neutrophils Percent Auto 82.3 % (43.0-75.0); Platelet Count 355 10^3/uL (150-450); Red Blood Count 3.02 10^6/uL (4.70-6.10); Red Cell Distribution Width 15.5 % (11.0-15.0); White Blood Count 11.6 10^3/uL (4.0-11.0)
[2023-05-19] MEDS: PIPERACILLIN SODIUM/TAZOBACTAM 3.375 GM in 0.9 % SODIUM CHLORIDE 50 ML IV ×3 (05:00→22:27)
[2023-05-19] MEDS: LAMOTRIGINE 100 MG TABLET 200 MG PO ×2 (05:01→14:52)
[2023-05-19 05:07] LABS: Alanine Aminotransferase 26 U/L (16-63); Albumin Globulin Ratio 0.6; Albumin Level 2.3 g/dL (3.4-5.0); Alkaline Phosphatase 77 U/L (46-116); Anion Gap 12.3; Aspartate Amino Transferase 30 U/L (15-37); BUN Creatinine Ratio 7.9; Bilirubin Total 0.4 mg/dL (0.2-1.0); Calcium 8.3 mg/dL (8.5-10.1); Chloride 110 mmol/L (98-107); Estimated GFR (African America 32 (>=60); Estimated GFR (Non-African Ame 26 (>=60); Globulin 3.9 g/dL; Glucose 87 mg/dL (74-106); Magnesium 2.1 mg/dL (1.8-2.4); Potassium 4.3 mmol/L (3.5-5.1); Sodium 145 mmol/L (136-145); Total Protein 6.2 g/dL (6.4-8.2)
[2023-05-19] MEDS: LEVOTHYROXINE SODIUM 75 MCG TABLET PO (05:31)
[2023-05-19] MEDS: FOLIC ACID 1 MG TABLET PO (08:41)
[2023-05-19] MEDS: OLANZapine 5 MG TABLET SL (08:41)
[2023-05-19] MEDS: LIOTHYRONINE SODIUM 5 MCG TABLET PO (08:41)
[2023-05-19] MEDS: CLONIDINE HCL 0.1 MG TABLET 0.100000000000000006 MG PO (08:41)
[2023-05-19] MEDS: AMLODIPINE BESYLATE 5 MG TABLET 10 MG PO (08:41)
[2023-05-19] MEDS: AMMONIUM LACTATE 226 GM BOTTLE 1 APPLIC TOPICAL (08:41)
[2023-05-19] MEDS: FERROUS SULFATE 325 MG TABLET PO (08:42)
[2023-05-19] MEDS: APIXABAN 5 MG TABLET 2.5 MG PO (08:42)
[2023-05-19] MEDS: POTASSIUM CHLORIDE 10 MEQ ER TABLET PO (08:42)
[2023-05-19] MEDS: DONEPEZIL HCL 10 MG TABLET PO (08:42)
--- NOTE | 2023-05-19 09:42 | SWNOTE1 ---
Pt is still having confusion, at this time doctor would like SW to send referral to [facility]. Referral sent to [facility]. Referral included face sheet, ER note, physician notes, nursing notes, vitals, labs, diagnostic imaging, and med list.
--- NOTE | 2023-05-19 11:19 | PT.DAILY ---
Physical Therapy Daily Note PT Daily Note/Assess Start: 05/16/23 10:26 Freq: Status: Active Protocol: Document 05/19/23 09:20 FLORENCIO (Rec: 05/19/23 11:19 FLORENCIO [id number]) Visit Not Completed Visit Not Completed Visit Not Completed Due to: Pt level of alertness, Inability to participate Other Reason Visit Not Completed Per nursing (Comfort), Patient is out of it, is very restless at night so is given medication that then makes him very sleepy and hard to arouse in morning. Nursing states that patient usually starts to wake up around 3 pm, and would be best for patient to be seen between 4-5 for PT if PT is available. Nursing also reports that states this is patient's normal at home as well, up throughout the night and then sleep during the day . At this time it has been hard to get acute care PT visits completed due to following reasons, PT will continue to attempt to work with patient as able. Physical Therapy Daily Note/Assessment Time In/Time Out Time In 09:20 Time Out 09:20 GG. Functional Abilities and Goals-Complete for Swing Bed Patients Only [id number]. Self-Care [id number]. Mobility
--- NOTE | 2023-05-19 14:52 | SWNOTE1 ---
DANIEL has sent email and made phone call to [facility], waiting for reply. DANIEL called [facility] again and spoke with Naima. She is waiting on physician to get back to her. She did ask DANIEL what is psych diagnosis or behaviors would be? DANIEL did state he does have dementia and having increased confusion, but doctor is stating in notes it is baseline per . Naima will call once physician has decided. She did stated he does have a lot going on medically and hemoglobin is a little low.
--- NOTE | 2023-05-19 15:00 | PCN_ITS ---
EEG ? Procedure Date:? 05/19/2023 ? This is a routine EEG performed on a 72-year-old male using standard 10/20 lead placement and the Summon system.? All data was obtained digitally and is available for reformatting and remontaging.? ? There is continuous slow generalized activity in the 1-4 Hz delta range and 20- 40 microvolt amplitude range recorded in a generalized pattern throughout the record.? There is occasional beta activity in the 4-6 Hz range and 20-30 microvolt amplitude range intermixed throughout the record.? There is no discernible posterior dominant rhythm with differentiates itself from the generalized slowing.? ? There is no epileptiform activity recorded during the record.? There are no seizures recorded during the record.? ? IMPRESSION:? This is an abnormal EEG due to continuous slow generalized activity consistent with a severe diffuse encephalopathy.? Clinical correlation is required. ? MTDD
--- NOTE | 2023-05-19 15:57 | SWNOTE1 ---
DANIEL receieved email from [facility] and the physician has denied and stated pt is too medically complex for them to accept at this time. SW did ask if pt becomes more stable would they look over again. She stated they could review again, but unsure if they would be able to accept or not. DANIEL updated nursing and doctor.
--- NOTE | 2023-05-19 16:13 | SWNOTE1 ---
SW spoke to [facility] and they likely will not be able to accept pt back due to level of care he needs, recommended trying [facility] facilities. Doctor would like SW to try inpt psych as well. SW to speak with .
--- NOTE | 2023-05-19 16:22 | SWNOTE1 ---
DANIEL spoke with pt's about geriatric psych facilities, she is open to this. SW recommended [facility] as it is in [place]. Pt's agreeable. DANIEL sent referral.
--- NOTE | 2023-05-19 16:41 | PT.DAILY ---
Physical Therapy Daily Note PT Daily Note/Assess Start: 05/16/23 10:26 Freq: Status: Active Protocol: Document 05/19/23 16:15 FLORENCIO (Rec: 05/19/23 16:41 ESHUTONI [id number]) Physical Therapy Daily Note/Assessment Time In/Time Out Time In 16:17 Time Out 16:34 Subjective Subjective Called over to ICU and nursing reports patient is awake in bed talking to , with attempting to get patient to eat. Would be okay to participate in therapy at this time. Patient was alert and agrees to getting into chair. Therapeutic Activity Time Therapeutic Activity Minutes (minutes) 15 Therapeutic Activity Units 1 Therapeutic Activity Treatment Bed Mobility Ability Minimum Assist Chair Transfer Ability Moderate Assist,2 Person Assist Therapeutic Activity Comments Supine to sit min assist. Able to sit EOB unsupported with supervision. Sit to stand at RW min assist x1. Gait and transfer to chair with use of RW mod assist x2 due to poor motor planning with feet placement during gait. Total Physical Therapy Time Total Therapy Minutes 15 Total Physical Therapy Units 1 Summary Daily Note Summary Improved alertness this PM allowing patient to participate. Patient follows only simple one-step commands. Can not follow complicated commands. Requires mod assist x2 with gait/transfer due to poor motor placement with feet during gait. Tactile cues were most beneficial to guide patient to chair. Patient would benefit from SNF at OR to improve strength and motor planning with gait for improved safety in home setting.
[2023-05-19] MEDS: LORAZEPAM 2 MG/ML 1 ML VIAL 1 MG IV (19:33)
[2023-05-19] MEDS: PANTOPRAZOLE SODIUM 40 MG VIAL IV (22:27)
[2023-05-20] VITALS (19 sets, daily range): BP systolic 117–152; BP diastolic 70–93; PULSE 70–83; RESP 15–18; TEMP 36.5–36.7; O2SAT 87–99; BMI 28.2
[2023-05-20] MEDS: HALOPERIDOL LACTATE 5 MG/ML VIAL 1 MG IV ×6 (03:11→23:52)
[2023-05-20] MEDS: LORAZEPAM 2 MG/ML 1 ML VIAL 1 MG IV ×3 (04:31→19:47)
[2023-05-20 04:43] LABS: Basophils Absolute Auto 0.1 10^3/uL (0.0-0.1); Basophils Percent Auto 0.5 % (0.2-2.0); Eosinophils Absolute Auto 0.2 10^3/uL (0.0-0.7); Eosinophils Percent Auto 1.8 % (0.9-7.0); Hematocrit 29.1 % (42.0-54.0); Hemoglobin 9.1 g/dL (14.0-18.0); Immature Granulocytes Abs Auto 0.03 10^3/uL (0.00-0.03); Immature Granulocytes Pct Auto 0.3 % (0.0-0.5); Lymphocytes Absolute Auto 1.2 10^3/uL (1.2-3.8); Lymphocytes Percent Auto 10.2 % (20.5-60.0); Mean Corpuscular HGB Conc 31.3 g/dL (29.9-35.2); Mean Corpuscular Hemoglobin 29.2 pg (25.9-34.0); Mean Corpuscular Volume 93.3 fL (80.0-94.0); Mean Platelet Volume 9.2 fL (9.5-13.5); Monocytes Absolute Auto 0.7 10^3/uL (0.3-0.8); Monocytes Percent Auto 5.9 % (1.7-12.0); Neutrophils Absolute Auto 9.3 10^3/uL (1.4-6.5); Neutrophils Percent Auto 81.3 % (43.0-75.0); Platelet Count 387 10^3/uL (150-450); Red Blood Count 3.12 10^6/uL (4.70-6.10); Red Cell Distribution Width 15.7 % (11.0-15.0); White Blood Count 11.4 10^3/uL (4.0-11.0)
[2023-05-20 04:59] LABS: Alanine Aminotransferase 24 U/L (16-63); Albumin Globulin Ratio 0.6; Albumin Level 2.4 g/dL (3.4-5.0); Alkaline Phosphatase 80 U/L (46-116); Anion Gap 14.7; Aspartate Amino Transferase 25 U/L (15-37); BUN Creatinine Ratio 8.1; Bilirubin Total 0.4 mg/dL (0.2-1.0); Calcium 8.4 mg/dL (8.5-10.1); Carbon Dioxide 25.3 mmol/L (21.0-32.0); Chloride 111 mmol/L (98-107); Estimated GFR (African America 31 (>=60); Estimated GFR (Non-African Ame 26 (>=60); Globulin 4.1 g/dL; Glucose 85 mg/dL (74-106); Magnesium 2.1 mg/dL (1.8-2.4); Sodium 147 mmol/L (136-145); Total Protein 6.5 g/dL (6.4-8.2)
[2023-05-20] MEDS: PIPERACILLIN SODIUM/TAZOBACTAM 3.375 GM in 0.9 % SODIUM CHLORIDE 50 ML IV ×3 (05:15→21:44)
--- NOTE | 2023-05-20 07:16 | P.PN_ITS ---
Progress Note: Subjective Subjective Interval history: Still restless per nursing staff overnight. Given Ativan and Haldol IV. Exam Constitutional Vital Signs, click to edit/add: Last Vital Signs Temp 97.7 F 05/20/23 06:00 Pulse 83 05/20/23 06:00 Resp 15 05/20/23 06:00 BP 121/71 05/20/23 06:00 Pulse Ox 98 05/20/23 06:00 O2 Del Method Room Air 05/20/23 06:00 Documenting provider has reviewed patient's vital signs: yes Common normals: apparent distress (Agitated) Respiratory Common normals: normal respiratory effort Cardio Common normals: regular rate and regular rhythm GI Common normals: Normal to inspection, nondistended, normoactive bowel sounds present and soft to palpation Common normals: external exam normal (See wound care assessment for sacral decubitus) Neuro Common normals: CN's II-XII intact bilaterally and moves all extremities; not oriented x3 Sensorium/orientation: lethargic; not awake and not alert Progress Note: Objective Labs Labs: Short CBC 05/20/23 Range/Units 04:25 WBC 11.4 H (4.0-11.0) 10^3/uL Hgb 9.1 L (14.0-18.0) g/dL Hct 29.1 L (42.0-54.0) % Plt Count 387 (150-450) 10^3/uL BMP 05/20/23 04:25 Sodium 147 H Potassium 4.0 Chloride 111 H Carbon Dioxide 25.3 BUN 20.0 H Creatinine 2.46 H Glucose 85 Calcium 8.4 L Liver Function 05/20/23 Range/Units 04:25 Total Bilirubin 0.4 (0.2-1.0) mg/dL AST 25 (15-37) U/L ALT 24 (16-63) U/L Alkaline Phosphatase 80 (46-116) U/L Albumin 2.4 L (3.4-5.0) g/dL Progress Note: A&P Assessment and Plan (1) GI bleed: Plan Was hgb 12 a recently, now down less than 7, acute upper gastrointestinal blood loss anemia secondary to acute upper gastrointestinal bleeding with positive Hemoccult. Nurses report having maroon stools. His hemoglobin is actually higher than yesterday. Will repeat hemoglobin later today. Try to reinstitute Eliquis for prevention of pulmonary embolism with she has a history of with his lung cancer. With maroon stools we will stop the Eliquis today. Leukocytosis-has large wound, also waiting on urinalysis. Check on final cultures later today. Continue with current antibiotics. White blood cell count slightly better Large sacral decubitus-see wound care assessment, discussed plan with wound care team. Continue with antibiotics as outlined above, blood cultures pending Altered mental status in a patient with baseline dementia-adjust Seroquel again. Increase in daytime Zyprexa as well. Reconsult to telemetry neurology for advice. Acute kidney injury likely secondary to the acute upper gastrointestinal blood loss anemia-creatinine up again today. Will give small fluid bolus. Likely not taking enough p.o. Elevated BNP-monitor daily-resolved History of pulmonary embolism-now with the upper GI bleed. Tried reinstituting low-dose Eliquis. With maroon stools we will have to stop that. Patient still in need of placement. 70 his hemoglobin is remaining stable he would be considered medically stable. Try to find inpatient treatment for his dementia. Urinary Catheter Management Urinary Catheter Management Urethral: Cath placed during this visit: yes, but has since been removed by the nurse Urethral indwelling: Yes Insertion date: 05/20/23 Insertion time: 06:00 Removal date: 05/19/23 Removal time: 07:22
[2023-05-20] MEDS: 0.9 % SODIUM CHLORIDE 1,000 ML 500 ML IV (07:30)
--- NOTE | 2023-05-20 07:52 | CM.NOTE ---
Fax did not go through to [facility], resent fax this AM.
[2023-05-20] MEDS: CLONIDINE HCL 0.1 MG TABLET 0.100000000000000006 MG PO (08:26)
[2023-05-20] MEDS: DONEPEZIL HCL 10 MG TABLET PO (08:26)
[2023-05-20] MEDS: LIOTHYRONINE SODIUM 5 MCG TABLET PO (08:26)
[2023-05-20] MEDS: POTASSIUM CHLORIDE 10 MEQ ER TABLET PO (08:26)
[2023-05-20] MEDS: OLANZapine 5 MG TABLET PO ×2 (08:26→13:58)
[2023-05-20] MEDS: FERROUS SULFATE 325 MG TABLET PO (08:26)
[2023-05-20] MEDS: AMLODIPINE BESYLATE 5 MG TABLET 10 MG PO (08:26)
[2023-05-20] MEDS: FOLIC ACID 1 MG TABLET PO (08:26)
[2023-05-20] MEDS: PANTOPRAZOLE SODIUM 40 MG VIAL IV ×2 (08:27→21:44)
[2023-05-20] MEDS: AMMONIUM LACTATE 226 GM BOTTLE 1 APPLIC TOPICAL (08:29)
--- NOTE | 2023-05-20 09:16 | SWNOTE1 ---
Case management sent referral to [facility] this morning as it did not go through last night. SW had a voicemail from [facility] and pt is too medical complex and they can not accommodate. DANIEL called [facility] back to see what that means. She stated he has a anil cath and they can not care for this even if it does not need accessed. They also stated his medications he is on are too much of a risk as well. They also stated he does not have any suicidal or homicidal ideations and dementia alone does not qualify him. DANIEL sent this to the doctor. Unsure of dc plan at this time, shelter which would be self pay or hospice? SW to see what doctor says.
--- NOTE | 2023-05-20 11:07 | REH.PTDLY ---
Physical Therapy Daily Note PT Daily Note/Assess Start: 05/16/23 10:26 Freq: Status: Active Protocol: Document 05/20/23 11:04 CHARITY (Rec: 05/20/23 11:07 [facility] [id number]) Visit Not Completed Visit Not Completed Due to: Pt level of alertness Other Reason Visit Not Completed Pt in and out of sleep. Pt reports not today when asked about therapy and then says some other things which are very slurred and hard to understand. Pt then falls back into sleep. When speaking to the , pt woke up again, asked pt if he would like to do bed exs, but again declines . Pt needs SNF stay due to current state and it getting hard on to take care of him. Physical Therapy Daily Note/Assessment Time In 11:00 Time Out 11:04
[2023-05-20 11:35] LABS: Hematocrit 26.8 % (42.0-54.0); Hemoglobin 8.4 g/dL (14.0-18.0); Mean Corpuscular HGB Conc 31.3 g/dL (29.9-35.2); Mean Corpuscular Hemoglobin 29.6 pg (25.9-34.0); Mean Corpuscular Volume 94.4 fL (80.0-94.0); Mean Platelet Volume 9.1 fL (9.5-13.5); Platelet Count 337 10^3/uL (150-450); Red Blood Count 2.84 10^6/uL (4.70-6.10); Red Cell Distribution Width 15.7 % (11.0-15.0); White Blood Count 11.6 10^3/uL (4.0-11.0)
--- NOTE | 2023-05-20 12:11 | SWNOTE1 ---
SW sent referral to [facility] and [facility]. SW spoke to and let her know that [facility] could not accept. SW let her know SW sent referral to 2 other facilities in [place]. SW let her know there is a chance pt will not get accepted at these as well. SW asked about pt qualifying for medicaid and she stated they have about 8,000 in savings. SW spoke with her about hospice as well. 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 At this time she would like to pursue the other 2 facilities and see what they say. SW called [facility] and they gave SW another fax number and also took information about pt. She will give information to doctor once fax is received. SW received call from [facility] and they are out of network. She stated there is [facility], [facility] and the other facilities are towards [facility] [place].
[2023-05-20] MEDS: PROSTAT 15 GM PROTEIN/100 CAL 30 ML LIQUID PACKET PO (13:58)
[2023-05-20] MEDS: JUVEN PACKET 1 PACKET PO (13:58)
[2023-05-20] MEDS: LAMOTRIGINE 100 MG TABLET 200 MG PO (13:58)
[2023-05-20] MEDS: ENSURE CLEAR 237 ML LIQUID PO (13:58)
--- NOTE | 2023-05-20 14:07 | SWNOTE1 ---
DANIEL received call back from [facility] and pt is not medically appropriate for there facility. At this time pt has been denied to [facility] facilities due to medical complexity, not being medically appropriate, dementia alone not being enough diagnosis. SW to speak with . DANIEL updated doctor.
--- NOTE | 2023-05-20 14:26 | SWNOTE1 ---
SW spoke to pt's to let her know pt was denied to 2 other facilities. Pt's would like to move forward with hospice. She would like to use [facility] as she would like to see if he qualifies for inpt unit. DANIEL sent referral. Referral included face sheet, ed note, h&p, most recent progress note, labs, vitals, nursing notes, and med list.
--- NOTE | 2023-05-20 14:46 | SWNOTE1 ---
SW received call from nursing in the unit and teleneurology has recommended hospice as well.
--- NOTE | 2023-05-20 16:04 | SWNOTE1 ---
DANIEL spoke with pt's . She would like to use [facility]. DANIEL sent referral to [facility].
--- NOTE | 2023-05-20 16:19 | SWNOTE1 ---
SW spoke to Donna at [facility] and plan is for them to come tomorrow, unsure of time. They will coordinate with .
[2023-05-20] MEDS: MORPHINE SULFATE 2 MG/ML SYRINGE IV (23:52)
[2023-05-21] VITALS (11 sets, daily range): BP systolic 102–132; BP diastolic 67–71; PULSE 79; RESP 16; TEMP 36.5–36.6; O2SAT 75–98
[2023-05-21] MEDS: MORPHINE SULFATE 2 MG/ML SYRINGE IV ×2 (04:54→12:24)
[2023-05-21] MEDS: PIPERACILLIN SODIUM/TAZOBACTAM 3.375 GM in 0.9 % SODIUM CHLORIDE 50 ML IV (05:00)
[2023-05-21 05:12] LABS: Basophils Absolute Auto 0.1 10^3/uL (0.0-0.1); Basophils Percent Auto 0.7 % (0.2-2.0); Eosinophils Absolute Auto 0.4 10^3/uL (0.0-0.7); Eosinophils Percent Auto 3.1 % (0.9-7.0); Hematocrit 28.2 % (42.0-54.0); Hemoglobin 8.7 g/dL (14.0-18.0); Immature Granulocytes Abs Auto 0.04 10^3/uL (0.00-0.03); Immature Granulocytes Pct Auto 0.3 % (0.0-0.5); Lymphocytes Absolute Auto 1.3 10^3/uL (1.2-3.8); Lymphocytes Percent Auto 10.1 % (20.5-60.0); Mean Corpuscular HGB Conc 30.9 g/dL (29.9-35.2); Mean Platelet Volume 9.6 fL (9.5-13.5); Monocytes Absolute Auto 0.7 10^3/uL (0.3-0.8); Monocytes Percent Auto 5.4 % (1.7-12.0); Neutrophils Absolute Auto 10.1 10^3/uL (1.4-6.5); Neutrophils Percent Auto 80.4 % (43.0-75.0); Platelet Count 364 10^3/uL (150-450); Red Cell Distribution Width 15.7 % (11.0-15.0); White Blood Count 12.6 10^3/uL (4.0-11.0)
[2023-05-21 05:49] LABS: Alanine Aminotransferase 27 U/L (16-63); Albumin Globulin Ratio 0.6; Albumin Level 2.2 g/dL (3.4-5.0); Alkaline Phosphatase 80 U/L (46-116); Anion Gap 13.3; Aspartate Amino Transferase 24 U/L (15-37); BUN Creatinine Ratio 8.9; Bilirubin Total 0.3 mg/dL (0.2-1.0); Calcium 8.4 mg/dL (8.5-10.1); Carbon Dioxide 26.5 mmol/L (21.0-32.0); Chloride 112 mmol/L (98-107); Estimated GFR (African America 37 (>=60); Estimated GFR (Non-African Ame 31 (>=60); Globulin 3.9 g/dL; Glucose 98 mg/dL (74-106); Magnesium 2.1 mg/dL (1.8-2.4); Potassium 3.8 mmol/L (3.5-5.1); Sodium 148 mmol/L (136-145); Total Protein 6.1 g/dL (6.4-8.2)
[2023-05-21] MEDS: HALOPERIDOL LACTATE 5 MG/ML VIAL 1 MG IV ×2 (06:38→12:43)
[2023-05-21] MEDS: LORAZEPAM 2 MG/ML 1 ML VIAL 1 MG IV ×2 (06:38→13:32)
--- NOTE | 2023-05-21 07:43 | P.DS_ITS ---
DS: Providers Provider Date of admission: 05/15/23 08:33 Primary care physician: Jose Bermudez MD Consults: 05/14/23 Consult to Dietitian Routine Reason For Exam: loss of appetite Reason for consultation: loss of appetite, weight loss Has provider been notified: No 05/15/23 08:33 Consult to Professor Of Radiology Routine Reason for consult:: Longterm Other reason:: needs placed for rehab Occupational Therapy Eval and Treat Routine Reason for consultation: eval for placement :-) Physical Therapy Eval and Treat Routine Reason for consultation: eval for placement Has provider been notified: No 05/15/23 08:34 Consult to Wound Care Routine Consulting Provider: Nikolai Quach Reason for consultation: wound Has provider been notified: No 05/18/23 07:57 Consult to Professor Of Radiology Routine Reason for consult:: Longterm Other reason:: [place] 05/18/23 07:58 Consult to TeleNeurology Routine Reason for consultation: treatement for dementia 05/19/23 08:22 Consult to Professor Of Radiology Routine Reason for consult:: Mental Health Other reason:: [facility] referral? 05/20/23 07:19 Consult to TeleNeurology Routine Reason for consultation: reconsult? still need advice Has provider been notified: No 05/20/23 07:26 Consult to Professor Of Radiology Routine Reason for consult:: Mental Health Other reason:: check psych wards if they will take pt with acute delirium chronic dementia 05/20/23 14:43 Consult to Hospice Routine Reason for consultation: dementia Has provider been notified: No DS: Diagnosis Discharge Diagnosis (1) GI bleed: Plan Was hgb 12 a recently, now down less than 7, acute upper gastrointestinal blood loss anemia secondary to acute upper gastrointestinal bleeding with positive Hemoccult. Leukocytosis Large sacral decubitus Delirium - Altered mental status in a patient with baseline dementia Acute kidney injury likely secondary to the acute upper gastrointestinal blood loss anemia Elevated BNP-monitor daily History of pulmonary embolism DS: Summary Hospital Course Hospital Course: Patient was admitted after being seen in the office and was very pale and tachycardic difficulty ambulating, sent to ER, found to have acute upper gastrointestinal blood loss anemia secondary to acute upper gastrointestinal bleeding. He was given several units of PRBCs. His hemoglobin is remained stable since then. The decrease a little bit yesterday, was tried on Eliquis for history of pulmonary embolism. He was on Coumadin prior to that. With his drop in hemoglobin his Eliquis was held. Unfortunately with this episode with his infection in his sacrum is caused acute delirium on top of his chronic dementia which is deteriorated rapidly while here in the hospital. Multiple medications were adjusted. Patient still not responding. Consultation to teleneurology. No additional advice given. Discussed with . At this point patient has terminal dementia. Consultation with hospice this morning. Would anticipate going to inpatient hospice today. Medications see list. I can follow patient through hospice if the family and hospice desire Time Spent with Patient Time attestation: Total time spent providing and/or coordinating discharge services: Exam Constitutional Vital Signs, click to edit/add: Last Vital Signs Temp 97.9 F 05/21/23 04:26 Pulse 79 05/21/23 04:26 Resp 16 05/21/23 04:26 BP 117/67 05/21/23 04:26 Pulse Ox 97 05/21/23 04:26 O2 Del Method Room Air 05/21/23 04:26 O2 Flow Rate 2 05/20/23 11:21 Documenting provider has reviewed patient's vital signs: yes Common normals: apparent distress (Agitated) Respiratory Common normals: normal respiratory effort Cardio Common normals: regular rate and regular rhythm GI Common normals: Normal to inspection, nondistended, normoactive bowel sounds present and soft to palpation Common normals: external exam normal (See wound care assessment for sacral decub itus) Neuro Common normals: CN's II-XII intact bilaterally and moves all extremities; not oriented x3 Sensorium/orientation: lethargic; not awake and not alert DS: Data Data Completed and Pending Labs on day of discharge: Labs from last 24 hours 05/21/23 05/20/23 04:15 11:10 WBC 12.6 H 11.6 H RBC 3.00 L 2.84 L Hgb 8.7 L 8.4 L Hct 28.2 L 26.8 L MCV 94.0 94.4 H MCH 29.0 29.6 MCHC 30.9 31.3 RDW 15.7 H 15.7 H Plt Count 364 337 MPV 9.6 9.1 L Neut % (Auto) 80.4 H Lymph % (Auto) 10.1 L Drew % (Auto) 5.4 Eos % (Auto) 3.1 Baso % (Auto) 0.7 Neut # (Auto) 10.1 H Lymph # (Auto) 1.3 Drew # (Auto) 0.7 Eos # (Auto) 0.4 Baso # (Auto) 0.1 Abs Immat Gran (auto) 0.04 H Imm/Tot Granulo (auto) 0.3 Sodium 148 H Potassium 3.8 Chloride 112 H Carbon Dioxide 26.5 Anion Gap 13.3 BUN 19.0 H Creatinine 2.13 H Est GFR ( Amer) 37 L Est GFR (Non-Af Amer) 31 L BUN/Creatinine Ratio 8.9 Glucose 98 Calcium 8.4 L Magnesium 2.1 Total Bilirubin 0.3 AST 24 ALT 27 Alkaline Phosphatase 80 Total Protein 6.1 L Albumin 2.2 L Globulin 3.9 Albumin/Globulin Ratio 0.6 Discharge Plan Discharge Disposition: Hospice - Medical Facility Discharge Medications: Continued amlodipine 10 mg tablet 10 mg PO DAILY albuterol sulfate 90 mcg/actuation HFA aerosol inhaler 2 puff INHALATION Q4H PRN (Reason: shortness of breath or wheezing) donepezil 10 mg tablet 10 mg PO BID Patient Comments: 1-2 capsules at bedtime doxepin 10 mg capsule 20 mg PO BEDTIME folic acid 1 mg tablet 1 mg PO DAILY lamotrigine 200 mg tablet 200 mg PO TID levothyroxine 75 mcg tablet 75 mcg PO DAILY lorazepam 0.5 mg tablet 1 mg PO DAILY PRN (Reason: agitation) mirtazapine 45 mg tablet 45 mg PO BEDTIME potassium chloride 10 mEq tablet extended release 10 meq PO BID quetiapine 50 mg tablet 75 mg PO BEDTIME Rx Instructions: 50 MG + 25 MG QHS simvastatin 20 mg tablet 20 mg PO BEDTIME liothyronine 5 mcg Tablet 5 mcg PO QD Discontinued warfarin 2.5 mg tablet 2.5 mg PO .COMPLEX Patient Comments: Saturdays 2 tablets Rx Instructions: 2.5 mg orally daily; Forms: Portal Instructions
--- NOTE | 2023-05-21 10:11 | SWNOTE1 ---
[facility] is going to have pt admitted to [facility] inpt unit in [place]. They set up [employer] [facility] for 15:15. SW to send dc med rec to [facility].
--- NOTE | 2023-05-21 10:13 | SWNOTE1 ---
dc med rec sent to [facility] unit.
[2023-05-21] MEDS: AMLODIPINE BESYLATE 5 MG TABLET 10 MG PO (11:13)
[2023-05-21] MEDS: CLONIDINE HCL 0.1 MG TABLET 0.100000000000000006 MG PO (11:14)
[2023-05-21] MEDS: FERROUS SULFATE 325 MG TABLET PO (11:14)
[2023-05-21] MEDS: DONEPEZIL HCL 10 MG TABLET PO (11:14)
[2023-05-21] MEDS: FOLIC ACID 1 MG TABLET PO (11:14)
[2023-05-21] MEDS: PANTOPRAZOLE SODIUM 40 MG VIAL IV (11:15)
[2023-05-21] MEDS: POTASSIUM CHLORIDE 10 MEQ ER TABLET PO (11:15)
[2023-05-21] MEDS: LIOTHYRONINE SODIUM 5 MCG TABLET PO (11:15)
[2023-05-21] MEDS: AMMONIUM LACTATE 226 GM BOTTLE 1 APPLIC TOPICAL (11:16)
[2023-05-21] MEDS: JUVEN PACKET 1 PACKET PO (11:17)
[2023-05-21] MEDS: ENSURE CLEAR 237 ML LIQUID PO (11:17)
[2023-05-21] MEDS: PROSTAT 15 GM PROTEIN/100 CAL 30 ML LIQUID PACKET PO (11:18)
[2023-05-21] MEDS: LAMOTRIGINE 100 MG TABLET 200 MG PO (13:32)
[2023-05-21] MEDS: OLANZapine 5 MG TABLET PO (13:32)
== END 2023-05-21 15:22 | disposition hospice, inpatient (51) | DRG 377 ==
LOC: ER 15:28 → MS 05-15 08:04 → ICU 05-18 15:34 → MS 05-18 15:34
PROVIDERS: Admitting Provider Family Medicine; Emergency Provider Emergency Medicine; PCP Family Medicine; Visit Provider Family Medicine
DX: K92.2 Gastrointestinal hemorrhage, unspecified (principal); G93.41 Metabolic encephalopathy; L89.153 Pressure ulcer of sacral region, stage 3; D62 Acute posthemorrhagic anemia; N17.9 Acute kidney failure, unspecified; F05 Delirium due to known physiological condition; F02.811 Dementia in other diseases classified elsewhere, unspecified severity, with agitation; G31.09 Other frontotemporal neurocognitive disorder; E78.00 Pure hypercholesterolemia, unspecified; G40.909 Epilepsy, unspecified, not intractable, without status epilepticus; I12.9 Hypertensive chronic kidney disease with stage 1 through stage 4 chronic kidney disease, or unspecified chronic kidney disease; N18.9 Chronic kidney disease, unspecified; R79.89 Other specified abnormal findings of blood chemistry; Z86.711 Personal history of pulmonary embolism; Z85.118 Personal history of other malignant neoplasm of bronchus and lung; Z90.2 Acquired absence of lung [part of]; Z83.2 Family history of diseases of the blood and blood-forming organs and certain disorders involving the immune mechanism; Z88.7 Allergy status to serum and vaccine; Z80.1 Family history of malignant neoplasm of trachea, bronchus and lung; Z87.891 Personal history of nicotine dependence; Z79.01 Long term (current) use of anticoagulants; Z79.899 Other long term (current) drug therapy; Z79.890 Hormone replacement therapy; Z87.440 Personal history of urinary (tract) infections; Z78.1 Physical restraint status; Z91.018 Allergy to other foods; Z88.8 Allergy status to other drugs, medicaments and biological substances; Z91.048 Other nonmedicinal substance allergy status; Z83.79 Family history of other diseases of the digestive system; Z83.3 Family history of diabetes mellitus
CPT/HCPCS: 36415; 36430; 36569; 36591; 51701; 51702; 51798; 70450; 71045; 74176; 80048; 80053; 80076; 81001; 82140; 82150; 83605; 83690; 83735; 83880; 84436; 84443; 84481; 84484; 85025; 85027; 85610; 86850; 86900; 86901; 87086; 93005; 94761; 95819; 96361; 96365; 96366; 96367; 96368; 96372; 96375; 96376; 97161; 97165; 97530; 97535; 99285; G0328; G0378; P9016; Q3014

== ENCOUNTER 2023-05-29 03:41 | Outpatient (RCR) | payer MEDICARE, OTHER, SELFPAY | END 2023-06-26 14:17 | disposition home or self-care (01) | LOC: MM 03:41 | PROVIDERS: PCP Family Medicine; Visit Provider Internal Medicine | DX: Z51.81 Encounter for therapeutic drug level monitoring (principal); Z79.01 Long term (current) use of anticoagulants; I26.99 Other pulmonary embolism without acute cor pulmonale; I25.2 Old myocardial infarction ==

== ENCOUNTER 2023-06-29 03:24 | Outpatient (RCR) | payer MEDICARE, OTHER, SELFPAY | END 2023-07-28 18:15 | disposition home or self-care (01) | LOC: MM 03:24 | PROVIDERS: PCP Family Medicine; Visit Provider Internal Medicine | DX: Z51.81 Encounter for therapeutic drug level monitoring (principal); Z79.01 Long term (current) use of anticoagulants; I26.99 Other pulmonary embolism without acute cor pulmonale ==

== ENCOUNTER 2023-07-29 00:31 | Outpatient (RCR) | payer MEDICARE, OTHER, SELFPAY | END 2023-08-28 11:33 | disposition home or self-care (01) | LOC: MM 00:31 | PROVIDERS: PCP Family Medicine; Visit Provider Internal Medicine | DX: Z51.81 Encounter for therapeutic drug level monitoring (principal); Z79.01 Long term (current) use of anticoagulants; I26.99 Other pulmonary embolism without acute cor pulmonale; I25.2 Old myocardial infarction ==

== ENCOUNTER 2023-08-31 03:27 | Outpatient (RCR) | payer MEDICARE, OTHER, SELFPAY | END 2023-09-25 11:02 | disposition home or self-care (01) | LOC: MM 03:27 | PROVIDERS: PCP Family Medicine; Visit Provider Internal Medicine | DX: Z51.81 Encounter for therapeutic drug level monitoring (principal); Z79.01 Long term (current) use of anticoagulants; I25.2 Old myocardial infarction; I26.99 Other pulmonary embolism without acute cor pulmonale ==

== ENCOUNTER 2023-09-28 00:28 | Outpatient (RCR) | payer MEDICARE, OTHER, SELFPAY | END 2023-10-28 23:59 | disposition home or self-care (01) | LOC: MM 00:28 | PROVIDERS: PCP Family Medicine; Visit Provider Internal Medicine | DX: Z51.81 Encounter for therapeutic drug level monitoring (principal); Z79.01 Long term (current) use of anticoagulants; I26.99 Other pulmonary embolism without acute cor pulmonale ==